=== PATIENT | female | born 1955 | race Caucasian/White ===

== ENCOUNTER 2020-07-25 08:29 | Outpatient (REF) | payer OTHER, SELFPAY ==
[2020-07-25 11:52] LABS: Blood Urea Nitrogen 12 mg/dL (9-16); Estimated Glomerular Filt Rate > 60
== END 2020-07-25 08:30 | disposition home or self-care (01) ==
LOC: HO.10HDL 08:29
PROVIDERS: Visit Provider Surgery
DX: R10.32 Left lower quadrant pain (principal)
CPT/HCPCS: 36415; 82565; 84520

== ENCOUNTER 2020-07-26 08:07 | Outpatient (REF) | payer OTHER, SELFPAY ==
--- NOTE | 2020-07-26 11:23 | CT_ITS ---
EXAMINATION: CT ABDOMEN AND PELVIS WITH CONTRAST CLINICAL INFORMATION: Left lower quadrant pain COMPARISON: Left lower quadrant pain. History of right breast cancer. TECHNIQUE: Multidetector volumetric images were obtained from the superior aspect of the liver through the pubic symphysis following administration 85 mL of Omnipaque 350 intravenous contrast. Sagittal and coronal reformatted images were obtained on the technologist's workstation. Oral contrast: No This CT examination was performed using dose optimization techniques as appropriate, variously including the following: *Automated exposure control *Adjustment of mA and/or kV according to patient size (this includes techniques or standardized protocols for targeted exams where dose is matched to indication/reason for exam; i.e. extremities or head) *Use of iterative reconstruction technique DLP: 450 mGy-cm FINDINGS: LUNG BASES: There is a peripheral scarring seen in the right middle lobe. This may be related to previous radiation. The lung bases are otherwise clear. LIVER, GALLBLADDER, AND BILIARY TREE: The liver is normal in size and shape. There are 2 small low-attenuation lesions in the right lobe of the liver measuring 2 mm axial image 13 and 3 mm axial image 18 series 2. These are difficult to characterize due to small size. There is low-attenuation seen in the medial segment of the left lobe adjacent to the falciform ligament. This is larger than is normally seen for fatty infiltration or vascular changes related to the falciform ligament. This extends toward the gallbladder. There is a 5 mm solid-appearing lesion adjacent to the anterior wall of the gallbladder questionable for a polyp. No gallstones are appreciated. The gallbladder is normal in size. There is no biliary duct dilatation.. PANCREAS: Unremarkable. SPLEEN: Unremarkable. ADRENAL GLANDS: Unremarkable. KIDNEYS AND URETERS: There are small bilateral low-attenuation renal lesions probably representing cysts. Largest measures 1 cm in the right kidney. BLADDER: Unremarkable. GASTROINTESTINAL TRACT: There is stool throughout the colon questionable for constipation. Small and large bowel is otherwise unremarkable. The appendix is unremarkable. The stomach is unremarkable. There may be a small esophageal hernia or distal esophageal diverticulum. ABDOMINAL WALL: No significant hernia is appreciated. LYMPH NODES: Normal. VASCULAR: Unremarkable. PELVIC VISCERA: There is a 1.5 cm low-attenuation lesion exophytic to the uterine fundus questionable for a fibroid. OSSEOUS STRUCTURES: There is arthritis at the left hip joint. There is a small left hip joint effusion. There is low-attenuation seen from the lesser trochanter along the left iliopsoas suggestive of iliopsoas bursitis. There is curvature of the lower lumbar spine to the right and degenerative disc disease at L3-L4. There is a fatty lesion in the right sartorius muscle probably representing a lipoma. IMPRESSION: Stool throughout the colon suggestive of constipation. Liver and gallbladder lesions. Given history of breast cancer, further characterization with MRI should be considered. Probable renal cysts. Probable small fundal uterine fibroid. Arthritis at the left hip joint, joint effusion and fluid along the left iliopsoas tendon suggestive of iliopsoas bursitis.
[2020-07-26] MEDS: iohexoL 350 MG/ML 100 ML INFUS..BTL IV (12:06)
[2020-07-26] MEDS: Barium Sulfate Oral (Berry) 450 ML ORAL.SUSP PO (12:28)
== END 2020-07-26 08:08 | disposition home or self-care (01) ==
LOC: HO.CT 08:07
PROVIDERS: Visit Provider Surgery
DX: R10.32 Left lower quadrant pain (principal); K59.01 Slow transit constipation
CPT/HCPCS: 74177

== ENCOUNTER → 2020-08-02 11:19 | Outpatient (BNVA) | payer OTHER, SELFPAY | PROVIDERS: PCP Internal Medicine; Referring Provider Internal Medicine; Visit Provider Surgery | DX: Z76.89 Persons encountering health services in other specified circumstances (principal) ==

== ENCOUNTER 2020-08-17 11:38 | Outpatient (REF) | payer OTHER, SELFPAY | END 2020-08-17 11:39 | disposition home or self-care (01) | LOC: HO.LAB 11:38 | PROVIDERS: Visit Provider Nurse Practitioner Family | DX: Z13.89 Encounter for screening for other disorder (principal) ==

== ENCOUNTER 2020-09-23 15:48 | Emergency (ER) | payer OTHER, SELFPAY ==
[2020-09-23 15:51] VITALS: BP 186/98; PULSE 71; RESP 16; TEMP 36.4; O2SAT 99; BMI 24.8
--- NOTE | 2020-09-23 18:09 | ED_ITS ---
HPI - Abdominal Pain General Chief Complaint: Abdominal Pain Stated Complaint: ABD PAIN Time Seen by Provider: 09/23/20 18:07 Source: patient Mode of arrival: ambulatory Limitations: no limitations History of Present Illness HPI narrative: this is a 65-year-old female who reports she has a history of hypertension, hyperlipidemia as well as anxiety and chronic left hip pain secondary to question arthritis for which she is apparently seeing doing Orthopedics and has plan and left hip replacement in the near future And additional surgical history includes section and status post total hysterectomy presents today with complaint of ongoing right upper quadrant pain for the past 1 week. Pain is being described as intermittent stabbing like pain that has been progressively worsening initially she was doing Tylenol OTC which would help with the pain slightly however has been getting worse to the point were she had come to the emergency room today there was some associated nausea but no vomiting or diarrhea. No fever. No chest pain or shortness of breath. No recent travel or sick contacts. MD elicited complaint: abdominal pain Pertinent past history: none Onset (ago): day(s) Pain Consistency: intermittent Location: RUQ Severity: severe Quality: stabbing Radiation: RUQ and R flank Exacerbating factors: nothing Relieving factors: nothing Associated symptoms: denies other symptoms Related Data Home Medications Medication Instructions Recorded Confirmed cholecalciferol (vitamin D3) 50 50 mcg PO DAILY 08/02/20 08/02/20 mcg (2,000 unit) capsule clonidine HCl 0.1 mg tablet mg PO 08/02/20 08/02/20 escitalopram oxalate 20 mg tablet 20 mg PO DAILY 08/02/20 08/02/20 losartan 25 mg tablet mg PO 08/02/20 08/02/20 oxcarbazepine 300 mg tablet mg PO 08/02/20 08/02/20 rosuvastatin 40 mg tablet 40 mg PO DAILY 08/02/20 08/02/20 tamoxifen 20 mg tablet 20 mg PO DAILY 08/02/20 08/02/20 Previous Rx's Medication Instructions Recorded oxycodone 5 mg PO BID PRN #10 tab 09/23/20 Allergies Allergy/AdvReac Type Severity Reaction Status Date / Time Sulfa (Sulfonamide Allergy Intermediate JOINT Verified 09/23/20 14:54 Antibiotics) PAIN, [SULFA (SULFONAMIDE muscle ANTIBIOTICS)] pain, joint pains Review of Systems Review of Systems Constitutional: No Weight loss, No Fever, No Chills, No Night Sweats, No Fatigue, No Malaise ENT/Mouth: No Hearing loss, No Ear Pain, No Nasal Congestion, No Sinus Pain, No Hoarseness, No sore throat, No Rhinorrhea, No Swallowing Difficulty Eyes: No Eye Pain, No Swelling, No Redness, No Foreign Body, No Discharge, No Vision Changes Cardiovascular: No Chest Pain, No SOB, No Dyspnea on Exertion, No Orthopnea, No Edema, No Palpitations Respiratory: No Cough, No Sputum, No Wheezing, No Smoke Exposure, No Dyspnea Gastrointestinal: As noted in HPI, No Hematochezia, No Melena Genitourinary: no irregular bleeding, No Dysuria, No Urinary Frequency, No Hematuria, No Urinary Incontinence, No Urgency, No Flank Pain, No Urinary Flow Changes, No Hesitancy Musculoskeletal: No joint pain, No Myalgias, No Joint Swelling Skin: No Skin Lesions, No rash Neuro: No Weakness, No Numbness, No Paresthesias, No Loss of Consciousness, No Dizziness, No Headache Psych: No Social Issues Heme/Lymph: No Bruising, No Bleeding,No Lymphadenopathy Endocrine: No Polyuria, No Polydipsia, No Temperature Intolerance Yes all other systems are reviewed and are negative Physical Exam Vital Signs: Vital Signs: Last Vital Signs Temp 97.6 F 09/23/20 15:51 Pulse 71 09/23/20 15:51 Resp 16 09/23/20 15:51 BP 186/98 H 09/23/20 15:51 Pulse Ox 99 09/23/20 15:51 Body Mass Index 24.8 Reviewed Const: General: cooperative and healthy appearing; No acute distress or intoxicated appearing Nutritional Appearance: average body habitus Orientation/consciousness: patient oriented x3 HENMT: Head: Yes normal to inspection Ears: hearing grossly normal bi laterally Eyes: General: appearance normal, both eyes and all related structures Visual Lowry: normal visual lowry by confrontation Neck: Neck: Yes normal visual inspection, No positive Brudzinski's sign, No positive Kernig's sign and No tender Thyroid: Thyroid normal Chest: Chest palpation & inspection: normal inspection of the chest Resp: Effort & Inspection: normal respiratory effort Cardio: Jugular venous distension: no JVD GI: Inspection: Yes normal to inspection Palpation (GI): Soft to palpation, Tenderness to palpation present (GI) in the RUQ; with no rebound tenderness, not rigid and No Rebound tenderness present Percussion: Yes normal to percussion Auscultation: normal bowel sounds : General: Yes no CVA tenderness Back/Spine/Pelvis: Back: no CVA tenderness Skin: General skin exam: no rashes or lesions noted Neuro: General: patient oriented x3 Extrem: General: Yes normal to inspection MDM - Abdominal Pain MDM Narrative Medical decision making narrative: ultrasound without evidence of acute cholecystitis however there is a 6 mm gallbladder polyp question be the source of her pain. Abdominal exam is overall reassuring. Labs stable. I did have a discussion with her regarding the findings on the CT scan in July as well as ultrasound findings today agreeable that she will follow-up with Dr. Klein in the office. Differential Diagnosis Differential diagnosis: Likely abdominal pain; Unlikely aortic dissection, acute appendicitis, bowel perforation, calculus of kidney, constipation, ovarian cyst, pancreatitis, peptic ulcer disease, renal colic and small bowel obstruction Medical Records Attestation: I reviewed the patient's medical records. Medical records narrative: CT scan reviewed from 07/26/[address] Klein IMPRESSION: Stool throughout the colon suggestive of constipation. Liver and gallbladder lesions. Given history of breast cancer, further characterization with MRI should be considered. Probable renal cysts. Probable small fundal uterine fibroid. Arthritis at the left hip joint, joint effusion and fluid along the left iliopsoas tendon suggestive of iliopsoas bursitis. Lab Data Attestation: I reviewed the patient's lab results. Result diagrams: 09/23/20 18:56 09/23/20 18:56 Labs: Lab Results 09/23/20 09/23/20 09/23/20 Range/Units 18:56 18:56 18:56 WBC 4.3 L (4.8-10.8) X10*3/uL RBC 4.11 L (4.20-5.50) X10*6/uL Hgb 12.8 (12.0-16.0) g/dl Hct 37.8 (37-47) % MCV 92.0 (80-98) fL MCH 31.1 (27.0-33.0) pg MCHC 33.9 (31.0-35.0) g/dl RDW 12.3 (11.0-16.0) % Plt Count 267 (160-400) X10*3/uL MPV 9.3 L (9.4-12.3) fL Immature Gran % (Auto) 0.2 (0.0-0.4) % Neut % (Auto) 72.3 (45-73) % Lymph % (Auto) 17.6 L (20-40) % [place] % (Auto) 9.0 (2-11) % Eos % (Auto) 0.7 (0-4) % Baso % (Auto) 0.2 (0-2) % Lymph # (Auto) 0.8 L (1.2-4.9) X10*3/uL [place] # (Auto) 0.4 (0.1-1.2) X10*3/uL Eos # (Auto) 0.0 (0.0-0.4) X10*3/uL Baso # (Auto) 0.0 (0.0-0.2) X10*3/uL Abs Immat Gran (auto) 0.01 (0.00-0.03) X10*3/uL Absolute Neuts (auto) 3.1 (2.0-8.3) X10*3/uL Absolute Nucleated RBC 0.000 (0.0-0.012) X10*3/uL Nucleated RBC % (auto) 0.0 (0.0-0.2) /100WBC PT 11.6 (10.8-13.0) SEC INR 1.0 (0.9-1.1) APTT 33.9 (24.1-38.0) SEC Sodium 129 L (135-145) mmol/L Potassium 4.7 (3.3-5.1) mmol/l Chloride 95 L (96-108) mmol/L Carbon Dioxide 29 (22-29) mmol/L Anion Gap 10 L (12-20) BUN 10 (9-16) mg/dL Creatinine 0.69 (0.5-1.4) mg/dL Estim Creat Clear Calc 70.2 Estimated GFR > 60 Random Glucose 96 (60-115) mg/dL Calcium 8.9 (8.4-10.2) mg/dL Total Bilirubin 0.3 (0.0-1.0) mg/dL AST 13 (5-31) U/L ALT 11 (0-31) U/L Alkaline Phosphatase 74 (39-117) U/L Total Protein 6.8 (6.5-8.0) g/dL Albumin 4.2 (3.5-5.0) g/dL Imaging Data abdominal ultrasound: Radiologist's impression: [address] [address] Ultrasound Report Signed Patient: Stephanie Cochran DMR#: [id number] : 5Acct:[id number] Age/Sex: 65 / FADM Date: 09/23/20 Loc: HO.ED Attending Dr: Ordering Physician: Emmanuel Phan NP Date of Service: 09/23/20 Procedure(s): US abdomen limited Accession Number(s): [id number] cc: Emmanuel Phan RESEARCH PROFESSOR OF BIOSTATISTICS~ EXAMINATION: US ABDOMEN LIMITED CLINICAL INFORMATION: Upper abdominal pain. COMPARISON: CT abdomen pelvis 07/26/2020 TECHNIQUE: Real-time imaging of the right upper quadrant abdominal viscera. FINDINGS: PANCREAS: The pancreas appears unremarkable, without masses or ductal dilatation, with the exception of the tail which is obscured by bowel gas. LIVER: There is a triangular hyperechoic area in the liver measuring 2.7 x 1.6 x 1.6 cm suggestive of focal fat infiltration rather than a pathologic mass. A similar finding could be seen on the patient's recent CT scan. This is consistent with focal fat infiltration. The small 2 and 3 mm hypoechoic lesions prior CT scan are not visualized on this current study. The liver is normal in size. The liver contour is normal. Parenchymal echogenicity is normal. No focal hepatic lesion. There is no intrahepatic biliary duct dilatation seen. GALLBLADDER: There is a 6 x 5 x 6 mm polyp seen in the gallbladder which was also present at the time of the recent CT scan. The gallbladder is otherwise unremarkable, physiologically distended without evidence of stones, sludge, wall thickening or pericholecystic fluid. COMMON BILE DUCT: Normal in caliber measuring 0.2 cm in diameter. RIGHT KIDNEY: The small cysts seen on CT scan are not appreciated on this ultrasound. No hydronephrosis. No renal calculi or focal parenchymal lesions. The kidney measures 10.0 cm in maximum dimension. FREE FLUID: None. US/US abdomen limited IMPRESSION: 6 mm gallbladder polyp. Triangular hyperechoic region in the liver which appeared of decreased attenuation on CT consistent with hepatic steatosis. 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 Klein this upcoming week Return if any concerns or worsening symptoms Thank you Prescriptions: New oxycodone 5 mg tablet 5 mg PO BID PRN (Reason: pain) Qty: 10 RF: 0 No Action rosuvastatin 40 mg tablet 40 mg PO DAILY RF: 0 escitalopram oxalate 20 mg tablet 20 mg PO DAILY RF: 0 oxcarbazepine 300 mg tablet PO RF: 0 losartan 25 mg tablet PO RF: 0 clonidine HCl 0.1 mg tablet PO RF: 0 tamoxifen 20 mg tablet 20 mg PO DAILY RF: 0 cholecalciferol (vitamin D3) 50 mcg (2,000 unit) capsule 50 mcg PO DAILY RF: 0 Referrals: Jayant Klein MD [Physician] - 3 days PMF Past Medical History Medical History Anxiety Attention deficit hyperactivity disorder Hyperlipidemia Hypertension Iliopsoas bursitis of left hip Invasive ductal carcinoma of right breast Surgical History History of section History of lumpectomy of right breast (~07/09/19) History of repair of anterior cruciate ligament of left knee History of right breast biopsy (~07/02/19) History of total hysterectomy Family History Family History Father History of pancreatic cancer Sister History of lupus Mother No problems noted. Social History Social History Alcohol intake: never Smoking Status: Never smoker Smoked in Last 30 Days: No Use of substances other than those prescribed or required for medical reasons: No Advance Directives: Yes Advance Directives on File: Yes Advance Directives Date on File: 07/25/20
[2020-09-23] MEDS: 0.9 % Sodium Chloride 1,000 ML 999 ML IV (18:58)
[2020-09-23] MEDS: ondansetron HCL 4 MG/2 ML VIAL IVPUSH (18:59)
[2020-09-23] MEDS: Morphine Sulfate 4 MG/ML CARTRIDGE IVPUSH (18:59)
[2020-09-23 19:02] LABS: Basophils Percent Auto 0.2 % (0-2); Eosinophils Percent Auto 0.7 % (0-4); Hematocrit 37.8 % (37-47); Hemoglobin 12.8 g/dl (12.0-16.0); Imm Gran Abs Auto 0.01 X10*3/uL (0.00-0.03); Imm Gran Pct Auto 0.2 % (0.0-0.4); Lymphocytes Absolute Auto 0.8 X10*3/uL (1.2-4.9); Lymphocytes Percent Auto 17.6 % (20-40); Mean Corpuscular HGB Conc 33.9 g/dl (31.0-35.0); Mean Corpuscular Hemoglobin 31.1 pg (27.0-33.0); Mean Platelet Volume 9.3 fL (9.4-12.3); Monocytes Absolute Auto 0.4 X10*3/uL (0.1-1.2); Neutrophils Absolute Auto 3.1 X10*3/uL (2.0-8.3); Neutrophils Percent Auto 72.3 % (45-73); Platelet Count 267 X10*3/uL (160-400); Red Blood Count 4.11 X10*6/uL (4.20-5.50); Red Cell Distribution Width 12.3 % (11.0-16.0); White Blood Count 4.3 X10*3/uL (4.8-10.8)
[2020-09-23 19:04] LABS: MANUAL DIFF FLAG NO
[2020-09-23 19:18] LABS: Prothrombin Time 11.6 SEC (10.8-13.0)
--- NOTE | 2020-09-23 19:19 | PC.NURSE ---
PT RESTING IN STRETCHER C/O FLANK PAIN, NAUSEA, AND DIARRHEA X 1 WK. PT ALERT, RESPIRATIONS EASY, N/L. SKIN W/D. IV PLACED TO LAC, LABS DRAWN TO LAB. PT MEDICATED FOR ABD PAIN RATING 10/10 AND FOR NAUSEA. WILL CONTINUE TO MONITOR PT.
[2020-09-23 19:21] LABS: Partial Thromboplastin Time 33.9 SEC (24.1-38.0)
[2020-09-23 19:26] LABS: Alanine Aminotransferase 11 U/L (0-31); Albumin Level 4.2 g/dL (3.5-5.0); Alkaline Phosphatase 74 U/L (39-117); Anion Gap 10 (12-20); Aspartate Amino Transferase 13 U/L (5-31); Bilirubin Total 0.3 mg/dL (0.0-1.0); Blood Urea Nitrogen 10 mg/dL (9-16); Calcium 8.9 mg/dL (8.4-10.2); Carbon Dioxide 29 mmol/L (22-29); Chloride 95 mmol/L (96-108); Creatinine Clr Calc Pharmacy 70.2; Estimated Glomerular Filt Rate > 60; Glucose Random 96 mg/dL (60-115); Potassium 4.7 mmol/l (3.3-5.1); Sodium 129 mmol/L (135-145); Total Protein 6.8 g/dL (6.5-8.0)
[2020-09-23 21:09] VITALS: BP 180/95; PULSE 68; RESP 16; O2SAT 100
[2020-09-23 21:21] LABS: Glucose Urine UA NEG (NEG); Leukocyte Esterase Urine NEG (NEG); Nitrite Urine NEG (NEG); Specific Gravity - Urine <= 1.005 (1.005-1.025); Urine Blood NEG (NEG); Urine Ketones NEG (NEG); Urine Protein NEG (NEG-TRACE)
[2020-09-23 21:25] LABS: Appearance Urine CLEAR; Color Urine COLORLESS
[2020-09-23 21:41] LABS: RBC Urine 0 /HPF (0); Squamous Epithelial Cell Urine TRACE /LPF; WBC Urine 0-2 /HPF (0-4)
[2020-09-23 21:42] LABS: Bacteria Urine TRACE /LPF; Hyaline Casts Urine 0-2 /LPF
== END 2020-09-23 21:19 | disposition home or self-care (01) ==
PROVIDERS: Nurse Practitioner Primary Care; Emergency Provider Emergency Medicine; PCP Internal Medicine
DX: R10.10 Upper abdominal pain, unspecified (principal); Z79.899 Other long term (current) drug therapy
CPT/HCPCS: 36415; 76705; 80053; 81001; 85025; 85610; 85730; 96361; 96374; 96375; 99284; J2270; J2405

== ENCOUNTER → 2020-09-27 14:54 | Outpatient (BNVA) | payer OTHER, SELFPAY | PROVIDERS: PCP Internal Medicine; Visit Provider Surgery | DX: Z76.89 Persons encountering health services in other specified circumstances (principal) ==

== ENCOUNTER 2021-03-07 | Outpatient (REF) | payer OTHER, SELFPAY ==
[2021-03-09 09:35] LABS: BV Int Neg Control Negative (Negative); BV Int Pos Control Positive (Positive)
== END 2021-03-07 00:01 | disposition home or self-care (01) ==
LOC: HO.LNP
PROVIDERS: Visit Provider Nurse Practitioner Family
DX: L29.2 Pruritus vulvae (principal)
CPT/HCPCS: 87480; 87510; 87660

== ENCOUNTER 2021-04-11 07:49 | Outpatient (REF) | payer OTHER, SELFPAY ==
--- NOTE | ~2021-04-11 | US_ITS ---
EXAMINATION: US ABDOMEN COMPLETE CLINICAL INFORMATION: Cholesterolosis of the gallbladder. COMPARISON: Ultrasound abdomen limited 09/23/2020. CT abdomen and pelvis 07/26/2020. TECHNIQUE: Real-time imaging of the abdominal viscera. FINDINGS: PANCREAS: Normal. ABDOMINAL AORTA: The proximal, mid, and distal segments are normal in caliber. INFERIOR VENA CAVA: Visualized portions are normal. LIVER: The liver is normal in size. The liver contour is normal. There is increased liver echogenicity. No focal hepatic lesion. There is no intrahepatic biliary duct dilatation seen. GALLBLADDER: There is a large echogenic nonmobile polyp measuring 0.60 x 0.37 x 0.65 cm. There are additional small polyp visualized. The gallbladder is physiologically distended without evidence of stones, sludge, wall thickening or pericholecystic fluid. The gallbladder wall thickness is 0.2 cm. COMMON BILE DUCT: Normal in caliber measuring 0.5 cm in diameter. RIGHT KIDNEY: Normal. No hydronephrosis. No renal calculi or focal parenchymal lesions. The kidney measures 10.5 cm in maximum dimension. LEFT KIDNEY: Normal. No hydronephrosis. No renal calculi or focal parenchymal lesions. The kidney measures 10.7 cm in maximum dimension. SPLEEN: Normal. The spleen measures 8.2 cm in maximum dimension. FREE FLUID: None. US/US abdomen complete IMPRESSION: Multiple echogenic gallbladder polyps. Hepatic steatosis without focal lesion. The rest of the abdominal ultrasound is unremarkable.
[2021-04-11 09:21] LABS: Cholesterol 189 mg/dL; Glucose Fasting 112 mg/dL (60-99); HDL Cholesterol 71 mg/dL; LDL Cholesterol Calculated 97 mg/dl; Triglycerides 106 mg/dL
[2021-04-11 09:44] LABS: Vitamin D 25-OH Total 41.4 ng/mL (>30)
== END 2021-04-11 07:50 | disposition home or self-care (01) ==
LOC: HO.US 07:49
PROVIDERS: Internal Medicine; Visit Provider Surgery
DX: K82.4 Cholesterolosis of gallbladder (principal)
CPT/HCPCS: 36415; 76700; 80061; 82306; 82947

== ENCOUNTER → 2021-04-20 15:28 | Outpatient (BNVA) | payer OTHER, SELFPAY | PROVIDERS: PCP Internal Medicine; Referring Provider Internal Medicine; Visit Provider Surgery ==

== ENCOUNTER 2021-05-16 13:00 | Outpatient (RCR) | payer OTHER, SELFPAY | END 2021-09-01 14:50 | disposition home or self-care (01) | LOC: HO.PTWFD 13:00 | PROVIDERS: Visit Provider Internal Medicine | DX: S46.911A Strain of unspecified muscle, fascia and tendon at shoulder and upper arm level, right arm, initial encounter (principal) | CPT/HCPCS: 97110; 97140; 97163; 97535 ==

== ENCOUNTER 2021-06-13 13:13 | Outpatient (REF) | payer OTHER, SELFPAY ==
--- NOTE | ~2021-06-13 | MM_ITS ---
EXAMINATION: MM DIAGNOSTIC DIGITAL BREAST TOMOSYNTHESIS, BILATERAL CLINICAL INFORMATION: Due for yearly. History invasive ductal cancer right breast status post lumpectomy 07/09/2019. COMPARISON: Mammography: 06/09/2020, 07/09/2019, 07/02/2019, 06/24/2019, 06/04/2019, 05/24/2017 TECHNIQUE: Digital breast tomosynthesis is performed in both the craniocaudal and mediolateral oblique views along with computer-aided detection (CAD). Synthesized 2D images are generated from the tomosynthesis. FINDINGS: There are scattered areas of fibroglandular density (ACR BI-RADS breast composition Category b). Breast tissue composition borders on heterogeneously dense. There are post therapy changes on the right with reduced breast size and mild scarring anterior upper breast. Neither breast shows interval mass or architectural abnormality or abnormal calcifications. The axilla are unremarkable. Results are provided to the patient at time of visit by the technologist. MM/MM tomosynthesis diagnostic BI IMPRESSION: No mammographic evidence of malignancy. Post therapy changes right breast. ASSESSMENT: BI-RADS 2: Benign RECOMMENDATION: Annual bilateral mammography. This patient's information was entered into a reminder system with a target due date for their next mammogram.
== END 2021-06-13 13:14 | disposition home or self-care (01) ==
LOC: HO.MAMMO 13:13
PROVIDERS: Visit Provider Internal Medicine
DX: R92.1 Mammographic calcification found on diagnostic imaging of breast (principal)
CPT/HCPCS: 77062; 77066

== ENCOUNTER 2021-06-14 10:00 | Outpatient (RCR) | payer OTHER, SELFPAY ==
--- NOTE | 2021-05-18 09:52 | MHC.OT.OLE ---
[address] [phone] F: [phone] Occupational Therapy Lymphedema Evaluation Diagnosis: Right UE Lymphedema Date of Onset: 12/19/20 Attending Provider: Cassandra Valentin MD Prescribed Treatment: Eval and treat MD Follow Up Appointment: History of Current Condition: Pt with a recent ho right shoulder pain improving with PT at [facility] in [place]. Pt noticed worsening right arm swelling with radial wrist pain Significant Medical History: Right THR 12/2020 Precautions/Contraindications: RUE Lymphedema Patient Goals: Improve the swelling and pain Hand Dominance: Right Observations: Outcome Measures: 50 Prior Level of Function and Occupation Living Situation: Lives with her and 29 yo son. Family and/or Social Report: Self-Intermediate Support: Moderate difficulty with homemaking, food prep washing back , sleeping primarily due to shoulder pain Employment Status: Wrist and thumb pain with typing Leisure Activities/Hobbies: Active, golf, karate Current Level of Function and Occupation Self-Care and Home Care: Indep with right shoulder and wrist pain Employment Status: [employer] Leisure Activites/Hobbies: Unable to golf, karate since hip surgery Driving: WNL Sleeping: Right shoulder pain Vision: Balance: WNL Pain Assessment Pain Score: 5 Pain Scale Used: Numeric (0 - 10) Pain Location and Description: 5/10 wrist/thumb . Ache Aggravating Factors: Alleviating Factors: Skin and Soft Tissue Assessment Skin and Soft Tissue: Swelling Comments: Right arm and hand non pitting edema noted. No temp or color changes noted Nerve assessment Ulnar Nerve: Not Tested Median Nerve: Not Tested Radial Nerve: Not Tested Comments: Sensory Assessment Temperature: Light Touch: WNL Proprioception: Vibration: Comments: Edema Assessment Upper Extremity: Right Impaired Lower Extremity: Comments: Volumeter measure Right 1690 ml ...Left 1640 ml Dexterity Assessment Dexterity: WNL Comments: Special Tests Comments: AROM (PROM) Strength Lower Extremity Hip Flexion: Knee Flexion: Knee Extension: Ankle Dorsiflexion: Ankle Plantarflexion: Ankle Eversion: Ankle Inversion: Comments: Cervical Flexion: Extension: Lateral Flexion: Rotation: Comments: Shoulder Flexion: Extension: Abduction: Internal Rotation: External Rotation: Comments: WFL Flexion: Extension: Abduction: Internal Rotation: External Rotation: Comments: Elbow Flexion: Extension: Forearm Pronation: Forearm Supination: Comments: Flexion: Extension: Forearm Pronation: Forearm Supination: Comments: Wrist Flexion: Extension: Ulnar Deviation: Radial Deviation: Comments: WNL Flexion: Extension: Ulnar Deviation: Radial Deviation: Comments: Thumb Thumb CMC Flexion: Thumb MCP Flexion: Thumb IP Flexion: Radial Abduction: Palmar Abduction: Opposition: Comments: WNL. 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 Patient demonstrates Barriers to Learning: None Readiness for Learning: Accepting Who was educated? Patient Comments: Plan of Care Assessment: Pt is a 65 yo female with a recent onset of right UE edema and radial wrist and thumb pain. Pt in PT for right shoulder pain with improvement over this past month. Difficulty with daily activities is primarily due to right shoulder pain She now presents with S+S consistant with RUE lymphedema and possible early signs of 1st CMC jt OA. She will benefit from a compression sleeve and gauntlet and OT for lymphedema and thumb pain STG Duration: 3 wks Short Term Goals: Demo indep with HEP Demo self massage and decongestion ex Dec right thumb pain with orthosis Dec RUE vol by 20 ml LTG Duration: 6 wks Intermediate Goals: Indep in self management of lymphedema Demo compliance with wear of compression garment Dec RUE vol to <1660 ml Dec right thumb pain to occassional Frequency and Duration: The patient will be seen 3x wk x 6 wks Treatment Plan: Therapeutic Exercise Therapeutic Activity Home Exercise Program Splinting Patient Education Edema Control ADL Training Kinesiotaping Treatment Plan Comments: Lymphedema Treatment Plan: Compression Bandaging Exercise: Stretching, strengthening, manual therapy Manual Lymphatic Drainage Other Referral for compression garment and instructions for donning/doffing Self Care Training: bandaging, skin care, self massage Skin Care Education Lymphedema Treatment Plan Comments: 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 Electronically Signed By: Kait Roe OT CHT CLT Reviewed/agree with student documentation: N/A Therapist: Please sign and return to therapist, thank you for your referral.
== END 2022-02-20 11:00 | disposition home or self-care (01) ==
LOC: HO.OT 10:00
PROVIDERS: PCP Internal Medicine; Visit Provider Surgery
DX: I89.0 Lymphedema, not elsewhere classified (principal)
CPT/HCPCS: 97110; 97140; 97760

== ENCOUNTER → 2021-10-19 15:09 | Outpatient (BNVA) | payer OTHER, SELFPAY | PROVIDERS: PCP Internal Medicine; Referring Provider Internal Medicine; Visit Provider Surgery ==

== ENCOUNTER 2021-11-20 11:10 | Day surgery (SDC) | payer OTHER, SELFPAY ==
[2021-11-14 11:36] VITALS: BMI 27.4
--- NOTE | 2021-11-14 14:16 | P.CONAN_ITS ---
Documented by User: Isaura Fajardo NP 11/14/21 14:23 HPI - Anesthesia Eval Consult details Narrative: 66yo F for Left Excision of Upper Back Lipoma Nonrheumatic mitral regurg found during preop work up for Total Hip 12/2020, surgery/anesthesia tolerated without issue. Follows with Dr Landeros, GWEN done. [facility] Active Problems Active Problems: All Active Problems (Updated 11/14/21 @ 11:36 by Diana Yao RN) Polyp of gallbladder (Acute) Lymphedema (Acute) Lipoma of back (Acute) Hypertension (Acute) Depression with anxiety (Acute) Right shoulder strain (Acute) Mitral valve regurgitation (Acute) Invasive ductal carcinoma of right breast (Acute) Past Medical History Medical History (Updated 11/14/21 @ 11:36 by Diana Yao RN) Anxiety Attention deficit hyperactivity disorder COVID-19 vaccine series completed Depression with anxiety Hyperlipidemia Hypertension Invasive ductal carcinoma of right breast Mitral valve regurgitation Right shoulder strain Family History Family History Father History of pancreatic cancer Sister History of lupus Mother No problems noted. Son Mental health disorder Surgical History Surgical History (Updated 11/14/21 @ 11:34 by Diana Yao RN) H/O colonoscopy History of section History of esophagogastroduodenoscopy (EGD) History of lumpectomy of right breast (~07/09/19) History of repair of anterior cruciate ligament of left knee History of right breast biopsy (~07/02/19) History of total hysterectomy Social History Social History Housing: House Alcohol intake: never Patient Tobacco Use Status: Former Tobacco user Tobacco use type: Cigarette Years Smoked: 2yrs e-Cigarette/Vaping Use: Currently Using Use of substances other than those prescribed or required for medical reasons: Yes Substance Use Type: Marijuana Advance Directives: Yes Advance Directives Information Provided: Yes Advance Directives on File: Yes Advance Directives Date on File: 07/25/20 Current occupational status: employed Cognitive needs: No Hearing needs: No Vision needs: No Meds Allergies Allergy/AdvReac Type Severity Reaction Status Date / Time Sulfa AdvReac Intermediate muscle/joint Verified 11/20/21 11:53 (Sulfonamide Antibiotics) pain [SULFA (SULFONAMIDE ANTIBIOTICS)] Home Medications Medication Instructions Recorded Confirmed Last Taken Type clonidine HCl 0.1 0.1 mg PO BID 08/02/20 11/14/21 11/20/21 History mg tablet hydrochlorothiazi 25 mg PO DAILY 03/31/21 11/14/21 Unknown History de 25 mg tablet lamotrigine 200 200 mg PO DAILY 09/22/21 11/14/21 11/20/21 History mg tablet (Lamictal) escitalopram 10 mg PO DAILY 10/06/21 11/14/21 11/20/21 History oxalate 10 mg tablet hydroxyzine HCl 25 mg PO .QD PRN 10/06/21 11/14/21 Unknown History 25 mg tablet tab Exam Exam Date and Time: November 14, 2021 1416 Height,Weight and Vital Signs: Height 5 ft 1 in Weight 65.828 kg Narrative Narrative: EKG 06/2021 NSR with good R wave progression, leftward axis with normal intervals GWEN 07/2021 LV size is normal . LV wall thickness is upper normal. LV systolic function is normal. LVEF 60-65%. No RWMA LA is dilated. No mass/thrombus seen in LA or LA appendage Thickened mitral valve leaflets with severe shortening and moderate thickening of chordae, with restricted leaflet motion and apical tethering in asystole. Grade 3 mitral regurg, no significant mitral stenosis. RV is normal in size. RV systolic function appears preserved. Assessment and Plan Assessment Anesthesia Assessment: Chart Reviewed Documented by User: Kaye Cuevas MD 11/20/21 13:13 [facility] Past Medical History Medical History (Updated 11/14/21 @ 11:36 by Diana Yao RN) Anxiety Attention deficit hyperactivity disorder COVID-19 vaccine series completed Depression with anxiety Hyperlipidemia Hypertension Invasive ductal carcinoma of right breast Mitral valve regurgitation Right shoulder strain Family History Family History Father History of pancreatic cancer Sister History of lupus Mother No problems noted. Son Mental health disorder Family history of problems with anesthesia: No Surgical History Surgical History (Updated 11/14/21 @ 11:34 by Diana Yao RN) H/O colonoscopy History of section History of esophagogastroduodenoscopy (EGD) History of lumpectomy of right breast (~07/09/19) History of repair of anterior cruciate ligament of left knee History of right breast biopsy (~07/02/19) History of total hysterectomy History of Problems with Anesthesia: No Social History Social History Housing: House Alcohol intake: never Patient Tobacco Use Status: Former Tobacco user Tobacco use type: Cigarette Years Smoked: 2yrs e-Cigarette/Vaping Use: Currently Using Use of substances other than those prescribed or required for medical reasons: Yes Substance Use Type: Marijuana Advance Directives: Yes Advance Directives Information Provided: Yes Advance Directives on File: Yes Advance Directives Date on File: 07/25/20 Current occupational status: employed Cognitive needs: No Hearing needs: No Vision needs: No Meds Allergies Allergy/AdvReac Type Severity Reaction Status Date / Time Sulfa AdvReac Intermediate muscle/joint Verified 11/20/21 11:53 (Sulfonamide Antibiotics) pain [SULFA (SULFONAMIDE ANTIBIOTICS)] Home Medications Medication Instructions Recorded Confirmed Last Taken Type clonidine HCl 0.1 0.1 mg PO BID 08/02/20 11/14/21 11/20/21 History mg tablet hydrochlorothiazi 25 mg PO DAILY 03/31/21 11/14/21 Unknown History de 25 mg tablet lamotrigine 200 200 mg PO DAILY 09/22/21 11/14/21 11/20/21 History mg tablet (Lamictal) escitalopram 10 mg PO DAILY 10/06/21 11/14/21 11/20/21 History oxalate 10 mg tablet hydroxyzine HCl 25 mg PO .QD PRN 10/06/21 11/14/21 Unknown History 25 mg tablet tab Exam Height,Weight and Vital Signs: Height 5 ft 1 in Weight 65.828 kg Vital Signs Temp Pulse Resp BP Pulse Ox 11/20/21 11:54 98.0 F 53 16 129/57 L 98 Airway Mallampati Class: II TM Dist: >3cm Neck ROM: Full Heart: RRR + ? systolic murmur Lungs: CTAB Assessment and Plan Assessment Anesthesia Assessment: Anesthesia Plan Discussed Final Anesthetic Review Family History of Problems with Anesthesia: No History of Problems with Anesthesia: No NPO: Yes ASA Class: II Final Preanesthetic Review: No Changes in Pt Med Stat, Meds/Allgs Chart Reviewed, Consent Obtained/Reviewed and Anes Risks/Benef Reviewed Patient Risk: Intermediate Procedure Risk: Low Assessment/Block/Sedation in SS: Assess/Block/Sedation-SS Anesthetic Plan Anesthetic Plan: GA Disposition: Standard PACU
[2021-11-20] VITALS (7 sets, daily range): BP systolic 125–150; BP diastolic 57–75; PULSE 53–88; RESP 16–20; TEMP 36.1–36.7; O2SAT 98–100
[2021-11-20] MEDS: Lactated Ringers 1,000 ML 100 ML IVCONT (12:37)
--- NOTE | 2021-11-20 12:57 | MHC.SHP ---
Pre-Procedural Eval Section A Date of Service: 11/20/21 The patient is an INPATIENT: No Changes since office visit: Yes Patient answered all questions; No Cold of Flu in the past 2 weeks, No New Medical Problems and No Changes in Medication The History & Physical has been completed within 30 days and I have reviewed it.: Yes Section B Chief Complaint: benign lipomatous neoplasm of skin Allergies: Allergies Allergy/AdvReac Type Severity Reaction Status Date / Time Sulfa (Sulfonamide AdvReac Intermediate muscle/joint Verified 11/20/21 11:53 Antibiotics) pain [SULFA (SULFONAMIDE ANTIBIOTICS)] Plan Diagnosis/Plan: Unchanged I have reviewed the history and physical and performed a pertinent physical examination on my patient. No changes have occurred unless specified.
--- NOTE | 2021-11-20 13:57 | W.PM.OPN ---
Operative Note Operative Note Date of Service: 11/20/21 Narrative: Preoperative diagnosis:Lipoma left midback Postoperative diagnosis: same Procedure: excision of lipoma left midback Surgeon: Jayant Klein MD Sports Leadership Instructor: Arleth Romero PA-C Anesthesia: general LMA Indications for procedure: 66-year-old female patient with a large lipoma located below the scapula the left side, increasing in size and causing discomfort. Operative findings: 12 cm soft tissue mass below the left scapula consistent with a lipoma Specimen: lipoma left midback Estimated blood loss: 2 mL Complications: none Procedure details: patient was brought to the OR and placed in a supine position. After administering general anesthesia the patient was rotated to a right lateral decubitus position. The lesion was identified in the Left mid back. the overlying skin was prepped with ChloraPrep and draped in a sterile fashion. A surgical time-out was called the consent confirmed. Patient received preoperative antibiotics and Venodyne boots were in place. Local anesthesia consisting of 0.5% Sensorcaine was then infiltrated in a transverse fashion over the lipoma. Incision was then made with a scalpel carried out through subcutaneous tissue up to the lipoma. A combination of sharp and blunt dissection was then used to dissect the lipoma from the surrounding subcutaneous tissue. The lipoma was completely excised and sent to pathology for further examination. Hemostasis was then assured using electrocautery. Deep subcutaneous tissue and dermis were then reapproximated using interrupted 3-0 Polysorb sutures. Skin was closed using a running subcuticular 4-0 Polysorb suture. Sterile dressings including Steri-Strips 4 x 4 gauze and Tegaderm were then applied. The patient tolerated the procedure well. Sponge, instrument, and needle counts were reported as correct. The patient was transferred to PACU in stable condition.
== END 2021-11-20 15:30 | disposition home or self-care (01) ==
PROVIDERS: PCP Internal Medicine; Visit Provider Surgery
PROC: (CPT 21931; principal; 2021-11-20 13:00)
DX: D17.1 Benign lipomatous neoplasm of skin and subcutaneous tissue of trunk (principal); C50.912 Malignant neoplasm of unspecified site of left female breast; I10 Essential (primary) hypertension; E78.5 Hyperlipidemia, unspecified; F32.9 Major depressive disorder, single episode, unspecified; Z79.810 Long term (current) use of selective estrogen receptor modulators (SERMs); Z79.899 Other long term (current) drug therapy; Z88.2 Allergy status to sulfonamides; Z96.642 Presence of left artificial hip joint; Z87.891 Personal history of nicotine dependence
CPT/HCPCS: 21931; 88304; J0690; J1100; J2250; J2405; J3010

== ENCOUNTER → 2021-11-30 13:38 | Outpatient (BNVA) | payer OTHER, SELFPAY | PROVIDERS: PCP Internal Medicine; Referring Provider Internal Medicine; Visit Provider Surgery ==

== ENCOUNTER 2022-04-02 09:01 | Outpatient (REF) | payer OTHER, SELFPAY ==
[2022-04-02 12:46] LABS: MANUAL DIFF FLAG NO
[2022-04-02 12:55] LABS: Basophils Percent Auto 0.4 % (0-2); Eosinophils Absolute Auto 0.1 X10*3/uL (0.0-0.4); Eosinophils Percent Auto 1.1 % (0-4); Hematocrit 42.3 % (37.0-47.0); Hemoglobin 13.9 g/dl (12.0-16.0); Imm Gran Abs Auto 0.02 X10*3/uL (0.00-0.03); Imm Gran Pct Auto 0.3 % (0.0-0.4); Lymphocytes Absolute Auto 1.2 X10*3/uL (1.2-4.9); Lymphocytes Percent Auto 17.4 % (20-40); Mean Corpuscular HGB Conc 32.9 g/dl (31.0-35.0); Mean Corpuscular Hemoglobin 30.3 pg (27.0-33.0); Mean Corpuscular Volume 92.2 fL (80.0-98.0); Mean Platelet Volume 10.4 fL (9.4-12.3); Monocytes Absolute Auto 0.5 X10*3/uL (0.1-1.2); Monocytes Percent Auto 7.6 % (2-11); Neutrophils Absolute Auto 5.1 x10*3/uL (2.0-8.3); Neutrophils Percent Auto 73.2 % (45-73); Platelet Count 327 X10*3/uL (160-400); Red Blood Count 4.59 X10*6/uL (4.20-5.50); Red Cell Distribution Width 12.6 % (11.0-16.0)
[2022-04-02 13:11] LABS: Alanine Aminotransferase 21 U/L (0-31); Albumin Level 4.2 g/dL (3.5-5.0); Alkaline Phosphatase 60 U/L (39-117); Anion Gap 12 (12-20); Aspartate Amino Transferase 19 U/L (5-31); Bilirubin Total 0.5 mg/dL (0.0-1.0); Blood Urea Nitrogen 12 mg/dL (9-16); Calcium 9.4 mg/dL (8.4-10.2); Carbon Dioxide 28 mmol/L (22-29); Chloride 101 mmol/L (96-108); Cholesterol 149 mg/dL; Estimated Glomerular Filt Rate 51; Glucose Fasting 125 mg/dL (60-99); HDL Cholesterol 51 mg/dL; Iron 68 mcg/dL (30-160); LDL Cholesterol Calculated 70 mg/dl; Percent Iron Saturation 19 % (15-50); Potassium 3.9 mmol/L (3.3-5.1); Sodium 137 mmol/L (135-145); Total Iron Binding Capacity 360 mcg/dL (228-428); Triglycerides 143 mg/dL; Unsaturated Iron Binding 292 ug/dL
[2022-04-02 13:16] LABS: Estimated Average Glucose 128 mg/dL; Hemoglobin A1c % 6.1 %
[2022-04-02 13:33] LABS: Vitamin D 25-OH Total 31.7 ng/mL (>30)
== END 2022-04-02 09:02 | disposition home or self-care (01) ==
LOC: HO.HMGCLDS 09:01
PROVIDERS: Visit Provider Internal Medicine
DX: Z00.01 Encounter for general adult medical examination with abnormal findings (principal); I10 Essential (primary) hypertension; N95.9 Unspecified menopausal and perimenopausal disorder; R73.01 Impaired fasting glucose; E78.5 Hyperlipidemia, unspecified
CPT/HCPCS: 36415; 80053; 80061; 82306; 83036; 83540; 85025

== ENCOUNTER 2022-06-15 12:17 | Outpatient (REF) | payer OTHER, SELFPAY ==
--- NOTE | ~2022-06-15 | MM_ITS ---
EXAMINATION: MM DIAGNOSTIC DIGITAL BREAST TOMOSYNTHESIS, BILATERAL CLINICAL INFORMATION: History of right breast cancer 2019. Screening. COMPARISON: Mammography: June 13, 2021 and studies dating back to November 28, 2012 TECHNIQUE: Digital breast tomosynthesis is performed in both the craniocaudal and mediolateral oblique views along with computer-aided detection (CAD). Synthesized 2D images are generated from the tomosynthesis. FINDINGS: The breasts are heterogeneously dense, which may obscure small masses (ACR BI-RADS breast composition Category c). There is a stable parenchymal pattern of the left breast without new abnormal dominant mass or suspicious grouping of microcalcifications. Region of postsurgical architectural distortion is again noted within the superior aspect of the right breast. Results are provided to the patient at time of visit by the technologist. MM/MM tomosynthesis diagnostic BI IMPRESSION: There are no significant changes from prior study. ASSESSMENT: BI-RADS 2: Benign RECOMMENDATION: Routine annual mammography screening due in 12 months. This patient's information was entered into a reminder system with a target due date for their next mammogram.
== END 2022-06-15 12:18 | disposition home or self-care (01) ==
LOC: HO.MAMMO 12:17
PROVIDERS: PCP Internal Medicine; Visit Provider Internal Medicine
DX: R92.1 Mammographic calcification found on diagnostic imaging of breast (principal)
CPT/HCPCS: 77062; 77066

== ENCOUNTER 2022-08-29 12:40 | Day surgery (SDC) | payer OTHER, SELFPAY ==
[2022-08-28 09:48] VITALS: BMI 28.0
--- NOTE | 2022-08-28 13:30 | HO.ANESPROP2 ---
Documented by User: Isaura Fajardo NP 08/28/22 13:35 HPI - Anesthesia Eval Consult details Narrative: 67yo F for Upper Endoscopy and Colonoscopy PMFSH Active Problems Active Problems: All Active Problems (Updated 05/23/22 @ 14:01 by Yusuf Jo MD) Yeast infection of the skin (Acute) Chronic heartburn (Acute) Bipolar 1 disorder, manic, full remission (Acute) Dyslipidemia (Acute) Impaired fasting glucose (Acute) Polyp of gallbladder (Acute) Hypertension (Acute) Mitral valve regurgitation (Acute) Past Medical History Medical History Bipolar 1 disorder, manic, full remission Chronic heartburn COVID-19 vaccine series completed Dyslipidemia History of invasive ductal carcinoma of breast Hyperlipidemia Hypertension Impaired fasting glucose Mitral valve regurgitation Right shoulder strain Family History Family History Father History of pancreatic cancer Sister History of lupus Mother No problems noted. Son Mental health disorder Family history of problems with anesthesia: No Surgical History Surgical History H/O colonoscopy History of section History of esophagogastroduodenoscopy (EGD) History of lumpectomy of right breast (~07/09/19) History of repair of anterior cruciate ligament of left knee History of right breast biopsy (~07/02/19) History of total hysterectomy History of Problems with Anesthesia: No Social History Social History Housing: House Alcohol intake: never Patient Tobacco Use Status: Former Tobacco user Tobacco use type: Cigarette Years Smoked: 2yrs Smoked in Last 30 Days: No e-Cigarette/Vaping Use: Currently Using Use of substances other than those prescribed or required for medical reasons: No Substance Use Type: Marijuana Are you DNR?: No Advance Directives: Yes Advance Directives on File: Yes Advance Directives Date on File: 07/25/20 Current occupational status: employed Cognitive needs: No Hearing needs: No Vision needs: Yes Meds Allergies Allergy/AdvReac Type Severity Reaction Status Date / Time Sulfa (Sulfonamide AdvReac Intermediate muscle/joint Verified 08/29/22 13:27 Antibiotics) pain [SULFA (SULFONAMIDE ANTIBIOTICS)] Home Medications Medication Instructions Recorded Confirmed Last Taken Type clonidine HCl 0.1 mg tablet 0.1 mg PO BID 08/02/20 08/29/22 08/29/22 09:00 History hydrochlorothiazide 25 mg tablet 25 mg PO DAILY 03/31/21 08/29/22 Unknown History hydroxyzine HCl 25 mg tablet 25 mg PO .QD PRN Anxiety 10/06/21 08/29/22 Unknown History escitalopram oxalate 10 mg tablet 20 mg PO DAILY 04/02/22 08/29/22 08/29/22 09:00 History lamotrigine 200 mg tablet 250 mg PO DAILY 04/02/22 08/29/22 08/29/22 09:00 History (Lamictal) Exam Exam Date and Time: August 28, 2022 1330 Height,Weight and Vital Signs: Height 5 ft 1.5 in Weight 68.492 kg Pertinent Lab Results Pertinent Lab Results: Laboratory Tests 04/02/22 04/02/22 09:13 09:13 WBC 7.0 Hgb 13.9 Hct 42.3 Plt Count 327 Sodium 137 Potassium 3.9 D Chloride 101 Carbon Dioxide 28 BUN 12 Creatinine 1.08 Narrative Narrative: EKG 07/2022 NSR with good R wave progression Leftward axis with normal intervals ECHO 07/2022 1. LV size is normal 2. LV wall thickness is normal 3. LV systolic function is hyperdynamic with EF >70% 4. Indeterminate diastolic function 5. No evidence of wall motion abnormalities 6. LA size is upper limits of normal 7. RV systolic function is normal 8. MOderate thickening of anterior mitral valve leaflet 9. Mild thickening of posterior mitral valve leaflet 10. Moderate mitral regurg 11. No evidence of pulm htn 12. Compared with findings of prior 05/2021, stable moderate MR. Myxomatous appearing anterior mitral leaflets with mild chordal DEVON Assessment and Plan Assessment Anesthesia Assessment: Chart Reviewed Final Anesthetic Review Family History of Problems with Anesthesia: No History of Problems with Anesthesia: No Documented by User: Braxton Garcia MD 08/29/22 14:30 [facility] Past Medical History Medical History Bipolar 1 disorder, manic, full remission Chronic heartburn COVID-19 vaccine series completed Dyslipidemia History of invasive ductal carcinoma of breast Hyperlipidemia Hypertension Impaired fasting glucose Mitral valve regurgitation Right shoulder strain Family History Family History Father History of pancreatic cancer Sister History of lupus Mother No problems noted. Son Mental health disorder Surgical History Surgical History H/O colonoscopy History of section History of esophagogastroduodenoscopy (EGD) History of lumpectomy of right breast (~07/09/19) History of repair of anterior cruciate ligament of left knee History of right breast biopsy (~07/02/19) History of total hysterectomy Social History Social History Housing: House Alcohol intake: never Patient Tobacco Use Status: Former Tobacco user Tobacco use type: Cigarette Years Smoked: 2yrs Smoked in Last 30 Days: No e-Cigarette/Vaping Use: Currently Using Use of substances other than those prescribed or required for medical reasons: No Substance Use Type: Marijuana Are you DNR?: No Advance Directives: Yes Advance Directives on File: Yes Advance Directives Date on File: 07/25/20 Current occupational status: employed Cognitive needs: No Hearing needs: No Vision needs: Yes Meds Allergies Allergy/AdvReac Type Severity Reaction Status Date / Time Sulfa (Sulfonamide AdvReac Intermediate muscle/joint Verified 08/29/22 13:27 Antibiotics) pain [SULFA (SULFONAMIDE ANTIBIOTICS)] Home Medications Medication Instructions Recorded Confirmed Last Taken Type clonidine HCl 0.1 mg tablet 0.1 mg PO BID 08/02/20 08/29/22 08/29/22 09:00 History hydrochlorothiazide 25 mg tablet 25 mg PO DAILY 03/31/21 08/29/22 Unknown History hydroxyzine HCl 25 mg tablet 25 mg PO .QD PRN Anxiety 10/06/21 08/29/22 Unknown History escitalopram oxalate 10 mg tablet 20 mg PO DAILY 04/02/22 08/29/22 08/29/22 09:00 History lamotrigine 200 mg tablet 250 mg PO DAILY 04/02/22 08/29/22 08/29/22 09:00 History (Lamictal) Exam Airway Mallampati Class: I TM Dist: >3cm Neck ROM: Full Heart: rrr Lungs: clear Assessment and Plan Final Anesthetic Review NPO: Yes ASA Class: III Final Preanesthetic Review: No Changes in Pt Med Stat, Meds/Allgs Chart Reviewed, Consent Obtained/Reviewed and Anes Risks/Benef Reviewed Patient Risk: Intermediate Procedure Risk: Low Anesthetic Plan Anesthetic Plan: MAC: Disposition: Standard PACU
[2022-08-29 13:28] VITALS: BMI 27.8
[2022-08-29 13:32] VITALS: BP 170/81; PULSE 77; RESP 16; TEMP 36.6; O2SAT 99
--- NOTE | 2022-08-29 14:30 | MHC.SHP ---
Pre-Procedural Eval Section A Date of Service: 08/29/22 The patient is an INPATIENT: No Changes since office visit: No Cold of Flu in the past 2 weeks, No New Medical Problems, No Changes in Medication and No Patient answered all questions The History & Physical has been completed within 30 days and I have reviewed it.: Yes Section B Chief Complaint: reflux disease,dysphagia,screening Allergies: Allergies Allergy/AdvReac Type Severity Reaction Status Date / Time Sulfa (Sulfonamide AdvReac Intermediate muscle/joint Verified 08/29/22 13:27 Antibiotics) pain [SULFA (SULFONAMIDE ANTIBIOTICS)] Plan I have reviewed the history and physical and performed a pertinent physical examination on my patient. No changes have occurred unless specified.
--- NOTE | 2022-08-29 15:18 | P.BOP_ITS ---
Brief Operative Note Date of Service: 08/29/22 Pre-op diagnosis: dysphagia,gerd,screening Post-op diagnosis: same Surgeon: Wilmer Puckett Anesthesia: MAC Was an Mining Engineer used for this Procedure?: No Estimated blood loss (mL): 2 Pathology: other Condition: stable Disposition: PACU
[2022-08-29 15:23] VITALS: BP 101/57; PULSE 58; RESP 16; TEMP 36.3; O2SAT 99
[2022-08-29 15:38] VITALS: BP 113/94; PULSE 660; RESP 16; TEMP 37.1; O2SAT 99
--- NOTE | 2022-08-30 05:25 | OP_ITS ---
SURGEON: Wilmer Puckett MD INDICATIONS: 1. Dysphagia. 2. Gastroesophageal reflux disease. 3. Colon cancer screening. PREOPERATIVE DIAGNOSIS: POSTOPERATIVE DIAGNOSIS: PROCEDURE PERFORMED: 1. Upper endoscopy with biopsy. 2. Colonoscopy to the terminal ileum. ESTIMATED BLOOD LOSS: COMPLICATIONS: ANESTHESIA: Monitored anesthesia care. ASSISTANTS: SPECIMENS: DESCRIPTION OF PROCEDURE: Date do service is 08/29/22. History and physical performed. The risks and benefits of the procedure were explained to the patient. Informed consent was obtained. The patient was placed in the left lateral decubitus position. A digital rectal exam was performed prior to the colonoscopy. The Olympus video gastroscope was introduced into the esophagus, stomach, and duodenum. Examination was performed. The scope was removed. She was repositioned for colonoscopy. A digital rectal exam was performed and was found to be normal. The Olympus pediatric video colonoscope was introduced into the rectum and advanced to the cecum without difficulty. The cecum was identified by transillumination, palpation, and identification of ileocecal valve. Examination was performed. The scope was removed. She tolerated both procedures well, returned to recovery area in stable condition. FINDINGS: Upper endoscopy: Esophagus: Esophagus was normal. There was a small sliding hiatal hernia. There was no stricture. The EG junction was slightly irregular. This was biopsied. There was no esophagitis. Stomach: The stomach showed no evidence of masses, ulcers, or polyps. Antral biopsies were obtained to evaluate for H pylori. Duodenum: The bulb and second portion were normal. Colonoscopy: The terminal ileum was examined and appeared normal. The visualized colonic mucosa was normal. There was some muscular hypertrophy in the sigmoid and mild diverticular disease. There was also some redundancy to this area. The quality of prep was good. No polyps were identified. Retroflexed examination showed moderate-sized internal hemorrhoids. IMPRESSION: 1. Dysphagia. 2. Gastroesophageal reflux disease without esophagitis. 3. Normal colonoscopy. RECOMMENDATION: 1. Follow up the biopsy results. 2. Repeat colonoscopy is recommended in 10 years for average risk individuals. MD EVI Islas/ANA / [id number] MTDD
== END 2022-08-29 16:23 | disposition home or self-care (01) ==
PROVIDERS: PCP Internal Medicine; Visit Provider Internal Medicine Gastroenterology
PROC: (CPT 45378; principal; 2022-08-29 14:20)
DX: Z12.11 Encounter for screening for malignant neoplasm of colon (principal); K57.30 Diverticulosis of large intestine without perforation or abscess without bleeding; K64.8 Other hemorrhoids; R13.19 Other dysphagia; K21.9 Gastro-esophageal reflux disease without esophagitis; K44.9 Diaphragmatic hernia without obstruction or gangrene; I10 Essential (primary) hypertension; F41.1 Generalized anxiety disorder; K76.0 Fatty (change of) liver, not elsewhere classified; E78.00 Pure hypercholesterolemia, unspecified; C50.911 Malignant neoplasm of unspecified site of right female breast; Z79.810 Long term (current) use of selective estrogen receptor modulators (SERMs); Z79.899 Other long term (current) drug therapy; Z88.2 Allergy status to sulfonamides
CPT/HCPCS: 45378; 43239; 88305; 88342

== ENCOUNTER 2022-09-29 10:01 | Outpatient (REF) | payer OTHER, SELFPAY ==
[2022-09-29 11:57] LABS: Alanine Aminotransferase 27 U/L (0-31); Anion Gap 12 (12-20); Aspartate Amino Transferase 23 U/L (5-31); Blood Urea Nitrogen 16 mg/dL (9-16); Calcium 9.2 mg/dL (8.4-10.2); Carbon Dioxide 29 mmol/L (22-29); Chloride 100 mmol/L (96-108); Cholesterol 155 mg/dL; Estimated Glomerular Filt Rate > 60; Glucose Fasting 124 mg/dL (60-99); HDL Cholesterol 51 mg/dL; LDL Cholesterol Calculated 80 mg/dl; Potassium 4.2 mmol/L (3.3-5.1); Sodium 137 mmol/L (135-145); Triglycerides 123 mg/dL
[2022-09-29 12:01] LABS: Estimated Average Glucose 146 mg/dL; Hemoglobin A1c % 6.7 %
== END 2022-09-29 10:02 | disposition home or self-care (01) ==
LOC: HO.HMGCLDS 10:01
PROVIDERS: PCP Internal Medicine; Visit Provider Internal Medicine
DX: E78.5 Hyperlipidemia, unspecified (principal); R73.01 Impaired fasting glucose; I10 Essential (primary) hypertension
CPT/HCPCS: 36415; 80048; 80061; 83036; 84450; 84460

== ENCOUNTER 2022-12-31 10:10 | Outpatient (REF) | payer OTHER, SELFPAY ==
[2022-12-31 12:03] LABS: Estimated Average Glucose 143 mg/dL; Hemoglobin A1c % 6.6 %
[2022-12-31 12:41] LABS: Alanine Aminotransferase 19 U/L (0-31); Anion Gap 16 (12-20); Aspartate Amino Transferase 19 U/L (5-31); Blood Urea Nitrogen 18 mg/dL (9-16); Calcium 9.1 mg/dL (8.4-10.2); Carbon Dioxide 25 mmol/L (22-29); Chloride 103 mmol/L (96-108); Cholesterol 180 mg/dL; Estimated Glomerular Filt Rate 57; Glucose Fasting 145 mg/dL (60-99); HDL Cholesterol 64 mg/dL; LDL Cholesterol Calculated 87 mg/dl; Potassium 4.1 mmol/L (3.3-5.1); Sodium 140 mmol/L (135-145); Triglycerides 146 mg/dL; Vitamin D 25-OH Total 26.9 ng/mL (>30)
[2022-12-31 13:36] LABS: Creatinine Urine 210.32 mg/dL; Microalbum/Creatinine Ratio Ur 88.9 ug/mg cr
== END 2022-12-31 10:11 | disposition home or self-care (01) ==
LOC: HO.WFDLDS 10:10
PROVIDERS: Visit Provider Internal Medicine
DX: E11.65 Type 2 diabetes mellitus with hyperglycemia (principal); E78.5 Hyperlipidemia, unspecified; I10 Essential (primary) hypertension
CPT/HCPCS: 36415; 80048; 80061; 82043; 82306; 83036; 84450; 84460

== ENCOUNTER 2023-04-03 10:10 | Outpatient (REF) | payer OTHER, SELFPAY ==
[2023-04-03 11:54] LABS: Alanine Aminotransferase 19 U/L (0-31); Anion Gap 12 (12-20); Aspartate Amino Transferase 22 U/L (5-31); Blood Urea Nitrogen 13 mg/dL (9-16); Calcium 9.6 mg/dL (8.4-10.2); Carbon Dioxide 29 mmol/L (22-29); Chloride 101 mmol/L (96-108); Cholesterol 145 mg/dL; Estimated Glomerular Filt Rate 52; Glucose Fasting 113 mg/dL (60-99); HDL Cholesterol 51 mg/dL; LDL Cholesterol Calculated 66 mg/dl; Potassium 3.6 mmol/L (3.3-5.1); Sodium 138 mmol/L (135-145); Triglycerides 140 mg/dL
[2023-04-03 12:53] LABS: Creatinine Urine 91.98 mg/dL; Microalbum/Creatinine Ratio Ur 176.1 ug/mg cr
== END 2023-04-03 10:11 | disposition home or self-care (01) ==
LOC: HO.HMGCLDS 10:10
PROVIDERS: PCP Internal Medicine; Visit Provider Internal Medicine
DX: E11.65 Type 2 diabetes mellitus with hyperglycemia (principal); E55.9 Vitamin D deficiency, unspecified; I10 Essential (primary) hypertension; E78.5 Hyperlipidemia, unspecified
CPT/HCPCS: 36415; 80048; 80061; 82043; 82306; 84450; 84460

== ENCOUNTER 2023-05-14 09:01 | Outpatient (AMB) | payer OTHER, SELFPAY ==
[2023-05-14 09:07] VITALS: BMI 30.7
--- NOTE | 2023-05-14 09:07 | A.OFFVIS_ITS ---
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 States lump doesnt cause her any pain. Denies numbness or tingling. 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 She says this mass has been present since she was a teenager, and has been limiting the use of her wrist. She stays active with rollerskating & with stickfighting. She denies any pain, numbness, or tingling. She complains of some left wrist stiffness, after a fall ~1 year ago while she was rollerskating. She is a Diabetic and says this is well-controlled. She reports a Hx of a lipoma on her back, which was removed sometime in 2021. She also has a heart murmur for which she sees a ramp agent. She is not on any blood thinners [facility] Medical History Bipolar 1 disorder, manic, full remission Chronic heartburn COVID-19 vaccine series completed Dyslipidemia History of invasive ductal carcinoma of breast Hyperlipidemia Hypertension Mitral valve regurgitation Polyp of gallbladder Type 2 diabetes mellitus without complication, without long-term current use of insulin Surgical History H/O colonoscopy History of section History of esophagogastroduodenoscopy (EGD) History of lumpectomy of right breast (~07/09/19) History of repair of anterior cruciate ligament of left knee History of right breast biopsy (~07/02/19) History of total hysterectomy Family History Father History of pancreatic cancer Sister History of lupus Mother No problems noted. 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 / [employer] Cognitive needs: No Hearing needs: No Vision needs: Yes Review of Systems Const All systems reviewed & are unremarkable except as noted in HPI and below Physical Exam Vital Signs: BMI result Body Mass Index 30.7 Const General: cooperative, healthy appearing and no acute distress Orientation/consciousness: patient oriented x3 HEENT Head: Yes normocephalic and Yes atraumatic Eyes EOM: EOMs intact bilaterally Resp Effort & Inspection: normal respiratory effort and able to speak in complete sentences Cardio Jugular venous distension: no JVD Skin General skin exam: turgor normal Rashes: no rashes Neuro General: patient oriented x3 Extrem Other: Evaluation of Left Upper Extremity: The patient is alert, oriented, and in no acute distress Neuro: Median, Ulnar, Radial nerves motor and sensory intact and sensation is normal to the tips of all digits Vascular: Cap refill brisk ROM: She can make a tight fist and extend all her digits Skin: No lacerations or abrasions. General: No Ecchymosis. No Erythema or evidence of infection. Good fill from the ulnar artery with the Jesus's test She has a mass on the volar radial aspect of her wrist. This measures ~1.8cm in diameter, is soft, non-tender, with no overlying skin changes. This could be fluid-filled but may also be a lipoma. She has a history of lipomas x2 on the back of her left shoulder and on her right forearm Psych Appearance: grossly normal Affect: normal affect Attitude: cooperative Office Procedures Fracture Care Details: No fracture, aspiration Fracture Billing Code: Fracture Billing Code Results Reviewed Results Reviewed: 05/14/23 09:53 Lidocaine HCl 1 % [Xylocaine 1 %] 2 ml .[facility] Assessment & Plan Assessment & Plan (1) Mass of left wrist: Code(s): R22.32 - Localized swelling, mass and lump, left upper limb (2) Type 2 diabetes mellitus without complication, without long-term current use of insulin: Code(s): E11.9 - Type 2 diabetes mellitus without complications Plan Assessment & Plan: 1. Left volar wrist mass Measuring ~1.8cm in diameter I educated her about this condition I discussed operative and non-operative treatment options The patient would like to proceed with aspiration today Aspiration #1: The risks and benefits of aspiration, including but not limited to risk of damage to blood vessels, nerves, tendons, infection, failure to improve symptoms, increased pain, and possible need for further aspirations or surgical intervention. After obtaining written consent, I sterilely prepped the area over the left volar wrist. I then injected subcutaneously with a small amount 1% lidocaine. I then passed a 21 gauge needle into the mass and attempted an aspiration, but was unable to aspirate any fluid except for the injected lidocaine. Thus this could be a solid soft tissue mass. The patient tolerated this well and with no complications. The risks and benefits of operative treatment were discussed with the patient and the patient wishes to proceed with surgery. These risks include, but are not limited to risk of damage to blood vessels, nerves, tendons, infection, recurrence, incomplete relief of preoperative symptoms, persistent pain, possible need for further surgery and the risks associated with regional blocks and anesthesia. The plan is to take the patient to the operating room sometime in the next few weeks for the following procedures: 1. Left volar wrist mass excisional biopsy, under general All of the preoperative paperwork including the consent was filled out today. All the patient's questions were answered. The patient understands that they will be contacted by our pulley maintainer soon to schedule this procedure She denies blood thinners, asthma, lung, kidney issues She is a Diabetic, her most recent HgA1c was 6.4% on 04/03/23 She has a heart murmur that is being treated by Cardiology. She will need cardiac clearance prior to surgery. Scribed for Dulce Rodgers MD by Mian Bearden medical secretary receptionist, on 05/14/23 at 9:55 AM, EST. Coding Level of Care Code New Pt Level 4 (71402) Diagnoses Mass of left wrist R22.32 Type 2 diabetes mellitus without complication, without long-term current use of insulin E11.9 CPT Codes Fracture Care - Fracture Billing Code: Fracture Billing Code ([id number])
== END 2023-05-14 10:17 | disposition home or self-care (01) ==
PROVIDERS: PCP Internal Medicine; Visit Provider Orthopaedic Surgery
DX: M67.432 Ganglion, left wrist (principal); R22.32 Localized swelling, mass and lump, left upper limb
CPT/HCPCS: 20610; 99204

== ENCOUNTER → 2023-05-14 09:01 | Outpatient (BNVA) | payer OTHER, SELFPAY | PROVIDERS: PCP Internal Medicine; Visit Provider Orthopaedic Surgery | DX: R22.32 Localized swelling, mass and lump, left upper limb (principal); E11.9 Type 2 diabetes mellitus without complications | CPT/HCPCS: 20610 ==

== ENCOUNTER 2023-05-29 10:13 | Outpatient (AMB) | payer OTHER, SELFPAY ==
--- NOTE | 2023-05-29 10:29 | AM.OFFWIN_ITS ---
Intake Vital Signs 05/29/23 10:43 Height 5 ft 1.5 in Weight 74.843 kg BMI 30.7 BP 138/74 Blood Pressure Location Lt brachial Position Sitting Pulse 85 Pulse Source Pulse Oximeter Temp 97.1 F Temp Source Temporal Artery Scan Pulse Oximetry (%) 98 Oxygen Delivery Method Room Air Intake Visit Reasons: EST/UTI Intake Note: Pt is here c/o possible UTI. Patient Tobacco Use Status: Former Tobacco user Allergies Sulfa (Sulfonamide Antibiotics) [SULFA (SULFONAMIDE ANTIBIOTICS)] Adverse Reaction (Intermediate, Verified 05/29/23 10:30) muscle/joint pain Do you need a note to return to daycare/school/sports/work: No HPI HPI Comments History of Present Illness Details 1048 67-year-old female presents with urinary frequency, urgency, suprapubic discomfort, hematuria for the past 4 days, patient reports that this feels like her typical UTI. She tells me she is very uncomfortable in is going to the bathroom very frequently. Hematuria started today. No history of kidney stones. Reports subjective fatigue, malaise, nausea and chills however no fevers, chest pain, shortness of breath, chest pain, vomiting, diarrhea, flank pain. Physical examination benign vital signs are stable. Likely UTI versus cystitis. Other differential includes small kidney stone. Unlikely obstructing uropathy, pyelonephritis, acute abdomen. Urine with concerns for infection. There is blood noted. Will prescribe Ceftin, educated on drinking plenty of fluids told her this could be a kidney stone, educated if new or worsening symptoms to go to the emergency department. Educated patient on diagnosis and treatment plan, answered all question, patient verbalizes understanding. At this time patient will be discharged home, advised to return with new or worsening symptoms. Educated on worrisome signs and symptoms and when to return. At this time I feel comfortable discharge home. [facility] Medical History Bipolar 1 disorder, manic, full remission Chronic heartburn COVID-19 vaccine series completed Dyslipidemia History of invasive ductal carcinoma of breast Hyperlipidemia Hypertension Mitral valve regurgitation Polyp of gallbladder Type 2 diabetes mellitus without complication, without long-term current use of insulin Surgical History H/O colonoscopy History of section History of esophagogastroduodenoscopy (EGD) History of lumpectomy of right breast (~07/09/19) History of repair of anterior cruciate ligament of left knee History of right breast biopsy (~07/02/19) History of total hysterectomy Family History Father History of pancreatic cancer Sister History of lupus Mother No problems noted. 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 / [employer] Cognitive needs: No Hearing needs: No Vision needs: Yes Review of Systems Const Details: Constitutional : No Weight loss, No Fever, No Chills, No Fatigue, No Malaise ENT/Mouth : No sore throat, No Rhinorrhea Eyes: No Eye Pain, No Swelling, No Redness Cardiovascular : No Chest Pain, No SOB, No Dyspnea on Exertion, No Orthopnea, No Edema, No Palpitations Respiratory : No Cough, No Sputum, No Wheezing Gastrointestinal : No Nausea, No Vomiting, No Diarrhea, No Constipation, No abdominal Pain, No Hematochezia, No Melena Genitourinary : + Dysuria, + Urinary Frequency, + Hematuria, Musculoskeletal : No joint pain, No Myalgias, No Joint Swelling Skin : No Skin Lesions, No rash Neuro : No Weakness, No Numbness, No Dizziness, No Headache All other systems reviewed and are negative All systems reviewed & are unremarkable except as noted in HPI and below Physical Exam Vital Signs: Last Vital Signs Temp 97.1 F 05/29/23 10:43 Pulse 85 05/29/23 10:43 BP 138/74 05/29/23 10:43 Pulse Ox 98 05/29/23 10:43 Oxygen Delivery Method Room Air 05/29/23 10:43 BMI result Body Mass Index 30.7 Vital signs stable Appearance: Alert.? Oriented X3.? No acute distress.? Head: Normocephalic, atraumatic, no step-offs or deformities Eyes: Pupils equal, round and reactive to light.? CVS: Normal heart rate and rhythm.? Pulses normal.? Respiratory: No respiratory distress.? Breath sounds normal.? Abdomen: Soft and nontender.? Skin: Skin warm and dry.? Normal skin color.? Normal skin turgor.? Extremities: No lower extremity edema.? No calf ttp. 5/5 strength to bilateral upper and lower extremities Back: No CVA tenderness Neuro: Oriented X 3.? No motor deficit.? No sensory deficit. CN 2-12 intact Results AMB Urinalysis, Automated UA Leukoctes 125 Velia/uL Last Edit by Tamiko Morejon CMA on 05/29/23 10:46 UA Nitrite Negative Last Edit by Tamiko Morejon CMA on 05/29/23 10:46 UA Urobilinogen 0.2 mg/dL Last Edit by Tamiko Morejon CMA on 05/29/23 10:46 UA Protein 300 mg/dL Last Edit by Tamiko Morejon CMA on 05/29/23 10:46 UA pH 6.0 Last Edit by Tamiko Morejon CMA on 05/29/23 10:46 UA Blood 200 Thai/uL Last Edit by Tamiko Morejon CMA on 05/29/23 10:46 UA Specific [place] 1.030 Last Edit by Tamiko Morejon CMA on 05/29/23 10:4 6 UA Ketone Negative Last Edit by Tamiko Morejon CMA on 05/29/23 10:46 UA Bilirubin 1 mg/dL Last Edit by Tamiko Morejon CMA on 05/29/23 10:46 UA Glucose 0 mg/dL Last Edit by Tamiko Morejon CMA on 05/29/23 10:46 Assessment & Plan Assessment & Plan (1) Acute UTI: Code(s): N39.0 - Urinary tract infection, site not specified Plan Take your medications as prescribed. If you were prescribed antibiotics today, it is important that you take your medication to their entirety, do not skip any doses, do not finish them early. Follow-up with your primary care provider this week. Return to the emergency department with new or worsening symptoms. Such as fevers, chills, chest pain, shortness of breath, nausea, vomiting, dizziness, headache, vision changes, lethargy In case of emergency call 911 Orders: Orders AMB Urinalysis Automated Today Z13.9 - Encounter for screening, unspecified Medications: New cefuroxime axetil 250 mg PO BID 14 tabs 0RF 7 days phenazopyridine (Pyridium) 200 mg PO TID 6 tabs 0RF 6 doses Coding Level of Care Code Est Pt Level 3 (90957) Diagnoses Acute UTI N39.0
[2023-05-29 10:43] VITALS: BP 138/74; PULSE 85; TEMP 36.2; O2SAT 98; BMI 30.7
== END 2023-05-29 12:43 | disposition home or self-care (01) ==
PROVIDERS: PCP Internal Medicine; Visit Provider Physician Assistant
DX: N39.0 Urinary tract infection, site not specified (principal); R35.0 Frequency of micturition
CPT/HCPCS: 81003; 99213

== ENCOUNTER 2023-06-17 05:55 | Day surgery (SDC) | payer OTHER, SELFPAY ==
[2023-06-13 12:15] VITALS: BMI 30.7
[2023-06-17 06:44] LABS: Glucose, Whole Blood 137 mg/dL (60-115)
[2023-06-17 07:05] VITALS: BP 102/51; PULSE 64; RESP 16; TEMP 36.4; O2SAT 97
[2023-06-17] MEDS: Lactated Ringers 1,000 ML 100 ML IVCONT (07:06)
--- NOTE | 2023-06-17 07:15 | P.CONAN_ITS ---
Documented by User: Isaura Fajardo NP 06/14/23 08:50 HPI - Anesthesia Eval Consult details Narrative: 67yo F for Left volar wrist mass excision Cardiac optimized 04/2023 [facility] Active Problems Active Problems: All Active Problems (Updated 05/14/23 @ 10:07 by Mian Bearden) Mass of left wrist (Acute) Type 2 diabetes mellitus without complication, without long-term current use of insulin (Acute) Chronic heartburn (Acute) Bipolar 1 disorder, manic, full remission (Acute) Dyslipidemia (Acute) Hypertension (Acute) Mitral valve regurgitation (Acute) Past Medical History Medical History Bipolar 1 disorder, manic, full remission Chronic heartburn COVID-19 vaccine series completed Dyslipidemia History of invasive ductal carcinoma of breast Hyperlipidemia Hypertension Mitral valve regurgitation Polyp of gallbladder Type 2 diabetes mellitus without complication, without long-term current use of insulin Family History Family History Father History of pancreatic cancer Sister History of lupus Mother No problems noted. Son Mental health disorder Family history of problems with anesthesia: No Surgical History Surgical History H/O colonoscopy History of section History of esophagogastroduodenoscopy (EGD) History of lumpectomy of right breast (~07/09/19) History of repair of anterior cruciate ligament of left knee History of right breast biopsy (~07/02/19) History of total hysterectomy History of Problems with Anesthesia: No Social History Social History Housing: House Alcohol intake: never Patient Tobacco Use Status: Current everyday Tobacco user Tobacco use type: Smokeless Tobacco Years Smoked: 2yrs e-Cigarette/Vaping Use: Currently Using Use of substances other than those prescribed or required for medical reasons: Yes Substance Use Type: Marijuana Are you DNR?: No Advance Directives: No Advance Directives Information Provided: Yes Advance Directives on File: No Advance Directives Date on File: 07/25/20 Current occupational status: employed 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 / [employer] Cognitive needs: No Hearing needs: No Vision needs: Yes Meds Allergies Allergy/AdvReac Type Severity Reaction Status Date / Time Sulfa (Sulfonamide AdvReac Intermediate muscle/joint Verified 05/29/23 10:30 Antibiotics) pain [SULFA (SULFONAMIDE ANTIBIOTICS)] Home Medications Medication Instructions Recorded Confirmed Last Taken Type hydrochlorothiazide 25 mg tablet 25 mg PO DAILY 03/31/21 10/01/22 Unknown History hydroxyzine HCl 25 mg tablet 25 mg PO .QD PRN Anxiety 10/06/21 10/01/22 Unknown History escitalopram oxalate 10 mg tablet 20 mg PO DAILY 04/02/22 10/01/22 08/29/22 09:00 History lamotrigine 200 mg tablet 250 mg PO DAILY 04/02/22 10/01/22 08/29/22 09:00 History (Lamictal) clonidine HCl 0.1 mg tablet 0.1 mg PO BID 01/02/23 Unknown History omeprazole 20 mg capsule,delayed 20 mg PO DAILY 01/02/23 01/02/23 Unknown History release inulin 2,500 mg-vitamin D3 500 tab PO 04/03/23 Unknown History unit chewable tablet (Fiber Gummies with Vitamin D3) Exam Exam Date and Time: June 14, 2023 0846 Height,Weight and Vital Signs: Height 5 ft 1.5 in Weight 74.843 kg Pertinent Lab Results Pertinent Lab Results: Laboratory Tests 04/03/23 10:15 Sodium 138 Potassium 3.6 Chloride 101 Carbon Dioxide 29 BUN 13 Creatinine 1.05 Narrative Narrative: EKG 07/2022 NSR with good R wave progression Leftward axis with normal intervals ECHO 07/2022 1. LV size is normal 2. LV wall thickness is normal 3. LV systolic function is hyperdynamic with EF >70% 4. Indeterminate diastolic function 5. No evidence of wall motion abnormalities 6. LA size is upper limits of normal 7. RV systolic function is normal 8. MOderate thickening of anterior mitral valve leaflet 9. Mild thickening of posterior mitral valve leaflet 10. Moderate mitral regurg 11. No evidence of pulm htn 12. Compared with findings of prior 05/2021, stable moderate MR. Myxomatous appearing anterior mitral leaflets with mild chordal DEVON Assessment and Plan Assessment Anesthesia Assessment: Chart Reviewed Final Anesthetic Review Family History of Problems with Anesthesia: No History of Problems with Anesthesia: No Documented by User: Venice Quiñonez DO 06/17/23 07:24 HPI - Anesthesia Eval Consult details Narrative: 67yo F for Left volar wrist mass excision. Cardiac optimized 04/2023. Patient had PIV placed in right hand by pre-op RN. History of right axillary lymph node removal due to breast cancer. Was told by her oncologist to avoid PIV/NIBP placement on the RUE, but she is having surgery on her left hand today. [facility] Past Medical History Medical History Bipolar 1 disorder, manic, full remission Chronic heartburn COVID-19 vaccine series completed Dyslipidemia History of invasive ductal carcinoma of breast Hyperlipidemia Hypertension Mitral valve regurgitation Polyp of gallbladder Type 2 diabetes mellitus without complication, without long-term current use of insulin Family History Family History Father History of pancreatic cancer Sister History of lupus Mother No problems noted. Son Mental health disorder Family history of problems with anesthesia: No Surgical History Surgical History H/O colonoscopy History of section History of esophagogastroduodenoscopy (EGD) History of lumpectomy of right breast (~07/09/19) History of repair of anterior cruciate ligament of left knee History of right breast biopsy (~07/02/19) History of total hysterectomy History of Problems with Anesthesia: No Social History Social History Housing: House Alcohol intake: never Patient Tobacco Use Status: Current everyday Tobacco user Tobacco use type: Smokeless Tobacco Years Smoked: 2yrs e-Cigarette/Vaping Use: Currently Using Use of substances other than those prescribed or required for medical reasons: Yes Substance Use Type: Marijuana Are you DNR?: No Advance Directives: No Advance Directives Information Provided: Yes Advance Directives on File: No Advance Directives Date on File: 07/25/20 Current occupational status: employed 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 / [employer] Cognitive needs: No Hearing needs: No Vision needs: Yes Meds Allergies Allergy/AdvReac Type Severity Reaction Status Date / Time Sulfa (Sulfonamide AdvReac Intermediate muscle/joint Verified 05/29/23 10:30 Antibiotics) pain [SULFA (SULFONAMIDE ANTIBIOTICS)] Home Medications Medication Instructions Recorded Confirmed Last Taken Type hydrochlorothiazide 25 mg tablet 25 mg PO DAILY 03/31/21 10/01/22 Unknown History hydroxyzine HCl 25 mg tablet 25 mg PO .QD PRN Anxiety 10/06/21 10/01/22 Unknown History escitalopram oxalate 10 mg tablet 20 mg PO DAILY 04/02/22 10/01/22 08/29/22 09 :00 History lamotrigine 200 mg tablet 250 mg PO DAILY 04/02/22 10/01/22 08/29/22 09:00 History (Lamictal) clonidine HCl 0.1 mg tablet 0.1 mg PO BID 01/02/23 Unknown History omeprazole 20 mg capsule,delayed 20 mg PO DAILY 01/02/23 01/02/23 Unknown History release inulin 2,500 mg-vitamin D3 500 tab PO 04/03/23 Unknown History unit chewable tablet (Fiber Gummies with Vitamin D3) Exam Exam Date and Time: June 17, 2023 0715 Height,Weight and Vital Signs: Height 5 ft 1.5 in Weight 74.843 kg Vital Signs Temperature 97.6 F 06/17/23 07:05 Pulse Rate 64 06/17/23 07:05 Respiratory Rate 16 06/17/23 07:05 Blood Pressure 102/51 L 06/17/23 07:05 Pulse Oximetry 97 06/17/23 07:05 Oxygen Delivery Method Room Air 06/17/23 07:05 Temperature 97.6 F 06/17/23 07:05 Pulse Rate 64 06/17/23 07:05 Respiratory Rate 16 06/17/23 07:05 Blood Pressure 102/51 L 06/17/23 07:05 Pulse Oximetry 97 06/17/23 07:05 Oxygen Delivery Method Room Air 06/17/23 07:05 Airway Mallampati Class: II TM Dist: >3cm Neck ROM: Full Loose/Missing/Broken Teeth: No Heart: S1S2 Lungs: CTAB Assessment and Plan Assessment Anesthesia Assessment: Anesthesia Plan Discussed and Chart Reviewed Final Anesthetic Review Family History of Problems with Anesthesia: No History of Problems with Anesthesia: No NPO: Yes ASA Class: III Final Preanesthetic Review: No Changes in Pt Med Stat, Meds/Allgs Chart Reviewed, Consent Obtained/Reviewed and Anes Risks/Benef Reviewed Patient Risk: Intermediate Procedure Risk: Low Anesthetic Plan Anesthetic Plan: GA and Agree w/ Assess. and Plan Disposition: Standard PACU
--- NOTE | 2023-06-17 07:49 | MHC.SHP ---
Pre-Procedural Eval Section A Date of Service: 06/17/23 The patient is an INPATIENT: No Changes since office visit: No Cold of Flu in the past 2 weeks, No New Medical Problems, No Changes in Medication and No Patient answered all questions The History & Physical has been completed within 30 days and I have reviewed it.: No Section B Chief Complaint: Localized swelling, mass and lump, left upper limb Allergies: Allergies Allergy/AdvReac Type Severity Reaction Status Date / Time Sulfa (Sulfonamide AdvReac Intermediate muscle/joint Verified 05/29/23 10:30 Antibiotics) pain [SULFA (SULFONAMIDE ANTIBIOTICS)] Plan I have reviewed the history and physical and performed a pertinent physical examination on my patient. No changes have occurred unless specified. Time Spent With Patient Time: Total time managing care of this patient today ____ minutes.
--- NOTE | 2023-06-17 07:49 | W.PM.OPN ---
Operative Note Operative Note Date of Service: 06/17/23 Narrative: Operative Note Narrative: Preop diagnosis: 1. left Volar wrist mass Postop diagnosis: Same Procedure: 1. left Volar wrist mass excisional biopsy Surgeon: Dulce Rodgers MD Anesthesia: General Anesthesia Findings: left volar wrist mass, approximately 1.5 cm in diameter, yellow and lipomatous consistent with a lipoma Implants: None Tourniquet time: 7 minutes EBL: 5.0 ml Specimen: Volar wrist ganglion Drains: None Complications: None Disposition: Brought to the recovery room in stable condition Plan: Follow-up in 10-14 days for wound check, suture removal and to check pathology Indications: The patient is 67 years old with left volar wrist ganglion . The risks and benefits of operative treatment, including but not limited to risk of damage to blood vessels, nerves, tendons, infection, recurrence, persistent pain or numbness, incomplete resolution of preoperative symptoms, or need for further surgery were discussed with the patient and they wished to proceed with surgery. Procedure: Once consent was obtained patient was brought back to the operating suite and placed in the operating table in a supine position. . Perioperative antibiotics and anesthesia was administered by the anesthesia team. A tourniquet was applied to the proximal aspect of the left upper extremity and the limb was prepped and draped in a standard surgical fashion. The limb was elevated exsanguinated with Esmarch bandage and the tourniquet inflated to 250 mm of mercury for a total tourniquet time of 7 minutes. A 2.5 cm longitudinal incision was made centered over the patient's left volar wrist mass which was positioned radial to the FCR tendon and just proximal to the distal wrist crease.. The incision was made through the skin the subcutaneous tissues using a 15. Blade. Careful dissection was then made down to the level of the volar wrist Mass using tenotomy scissors. the mass was approximately 1.5 cm in diameter, yellow and lipomatous. This was consistent with a lipoma. The mass was carefully dissected free from the surrounding soft tissues using tenotomy scissors. Interestingly, there was a stalk of the mass that extended deep to the volar forearm fascia. The volar forearm fascia was opened longitudinally using tenotomy scissors. Care was taken to protect the surrounding vascular structures. The mass was then dissected free from the patient's volar forearm and placed on the back table to be sent for histopathologic review. At this point the tourniquet was deflated and hemostasis obtained with a brief period of local pressure and bipolar electrocautery. The wound was copiously irrigated with normal saline. The skin edges were reapproximated with 5-0 nylon suture. The wound was infiltrated with some 1% lidocaine with epinephrine for postop pain control and a sterile dressing was applied. The patient appears to have tolerated the procedure well and with no complications. All digits were well vascularized conclusion of the case.
[2023-06-17 08:44] VITALS: BP 115/49; PULSE 73; RESP 12; TEMP 36.2; O2SAT 95
[2023-06-17 08:49] VITALS: BP 126/64; PULSE 72; RESP 12; O2SAT 98
[2023-06-17 08:55] VITALS: BP 97/78; PULSE 79; RESP 16; O2SAT 98
[2023-06-17 08:59] VITALS: BP 131/65; PULSE 77; RESP 16; O2SAT 94
[2023-06-17 09:14] VITALS: BP 128/72; PULSE 77; RESP 16; TEMP 36.1; O2SAT 97
== END 2023-06-17 10:15 | disposition home or self-care (01) ==
PROVIDERS: PCP Internal Medicine; Visit Provider Orthopaedic Surgery
PROC: (CPT 25110; principal; 2023-06-17 07:30)
DX: R22.32 Localized swelling, mass and lump, left upper limb (principal); E11.9 Type 2 diabetes mellitus without complications; R01.1 Cardiac murmur, unspecified; C50.912 Malignant neoplasm of unspecified site of left female breast; I10 Essential (primary) hypertension; E78.5 Hyperlipidemia, unspecified; Z79.810 Long term (current) use of selective estrogen receptor modulators (SERMs); Z88.2 Allergy status to sulfonamides; Z87.891 Personal history of nicotine dependence
CPT/HCPCS: 25110; 82947; 88304; 88307; J0690; J1100; J2405; J3010

== ENCOUNTER → 2023-06-17 05:55 | Outpatient (BNV) | payer OTHER, SELFPAY | PROVIDERS: PCP Internal Medicine; Visit Provider Orthopaedic Surgery | DX: R22.32 Localized swelling, mass and lump, left upper limb (principal); M67.432 Ganglion, left wrist | CPT/HCPCS: 25075 ==

== ENCOUNTER 2023-07-02 08:34 | Outpatient (AMB) | payer OTHER, SELFPAY ==
--- NOTE | 2023-07-02 08:38 | A.OFFVIS_ITS ---
Intake Intake Visit Reasons: PO LT volcer wrist mass exc. 06/17/23AR Intake Note: Stephanie 67 yr old female presents today for her PO left volar wrist mass excision from 06/17/[address] Rodgers. States she has no pain and her incision is healing nicely. Patient reports she continues to have dorsum wrist pain s/p falling down while roller skating approx 1 yr ago. Allergies Sulfa (Sulfonamide Antibiotics) [SULFA (SULFONAMIDE ANTIBIOTICS)] Adverse Shelbi ction (Intermediate, Verified 07/02/23 08:39) muscle/joint pain HPI PO LT volcer wrist mass exc. 06/17/23AR HPI Details Stephanie Singer is a 67-year-old female who presents today to the office for a post op left Volar wrist mass excisional biopsy on 06/17/23. She states that she has no pain and her incision is healing nicely. She continues to endorse dorsum wrist pain status post falling down while roller skating about one year ago. She has not had any x-ray in the past. [facility] Medical History Bipolar 1 disorder, manic, full remission Chronic heartburn COVID-19 vaccine series completed Dyslipidemia History of invasive ductal carcinoma of breast Hyperlipidemia Hypertension Mitral valve regurgitation Polyp of gallbladder Type 2 diabetes mellitus without complication, without long-term current use of insulin Surgical History H/O colonoscopy History of section History of esophagogastroduodenoscopy (EGD) History of lumpectomy of right breast (~07/09/19) History of repair of anterior cruciate ligament of left knee History of right breast biopsy (~07/02/19) History of total hysterectomy Family History Father History of pancreatic cancer Sister History of lupus Mother No problems noted. 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 / [employer] Cognitive needs: No Hearing needs: No Vision needs: Yes Review of Systems Const All systems reviewed & are unremarkable except as noted in HPI and below Physical Exam Const General: cooperative, healthy appearing and no acute distress Orientation/consciousness: patient oriented x3 HEENT Head: Yes normocephalic and Yes atraumatic Eyes EOM: EOMs intact bilaterally Resp Effort & Inspection: normal respiratory effort and able to speak in complete sentences Cardio Jugular venous distension: no JVD Skin General skin exam: turgor normal, ecchymosis (No) and erythema (No) Rashes: no rashes Trauma: no lacerations or abrasions Neuro Other: Vascular: Cap refill brisk General: patient oriented x3 Extrem Other: Patient was alert oriented and in no acute distress Her wound is healing well with no erythema drainage or evidence of infection. Sutures removed and Steri-Strips applied. She can make a fist and extend all of her digits without pain. Smooth and painless left wrist range of motion today Pathology report 06/17/2023: Diagnosis Soft tissue, left wrist mass, excision: Mature adipose tissue consistent with lipoma Psych Appearance: grossly normal Affect: normal affect Attitude: cooperative Assessment & Plan Assessment & Plan (1) Lipoma of arm: Code(s): D17.20 - Benign lipomatous neoplasm of skin and subcutaneous tissue of unspecified limb (2) Left wrist pain: Code(s): M25.532 - Pain in left wrist Plan Assessment and plan: 1. Left volar wrist lipoma Status post excisional biopsy. DOS: 06/17/2023 Patient appears to be doing well postoperatively. I educated her about the postoperative course. We discussed the importance of activity modification for the next couple of weeks 2. Left dorsal wrist pain Patient states she has had left dorsal wrist pain since a fall about a year and a half ago She will follow-up in a next available appointment with new x-rays three views of the left wrist Scribed for Dr. Dulce Rodgers by Howard Mahmood, medical physicist, on 07/02/2023. I, Dr. Dulce Rodgers, have personally reviewed and agree with the information entered by the scribe. Coding Level of Care Code Global (98902) Diagnoses Lipoma of arm D17.20 Left wrist pain M25.532
== END 2023-07-02 09:07 | disposition home or self-care (01) ==
PROVIDERS: PCP Internal Medicine; Visit Provider Orthopaedic Surgery
DX: D17.20 Benign lipomatous neoplasm of skin and subcutaneous tissue of unspecified limb (principal); M25.532 Pain in left wrist
CPT/HCPCS: 99024

== ENCOUNTER → 2023-07-02 08:34 | Outpatient (BNVA) | payer OTHER, SELFPAY | PROVIDERS: PCP Internal Medicine; Visit Provider Orthopaedic Surgery ==

== ENCOUNTER 2023-07-17 08:57 | Outpatient (AMB) | payer OTHER, SELFPAY ==
--- NOTE | 2023-07-17 09:05 | MHC.OFFVIS ---
Intake Vital Signs 07/17/23 09:12 Height 5 ft 2 in Weight 160 lb BMI 29.3 Intake Visit Reasons: New Prob- L Wrist Pain w/Xrays 3 view Intake Note: Stephanie 67 yr old righ hand dominant female presents today for a new problem of her left wrist. States while roller skating she fell and put her hand out to break her hand. She did not seek medical care at the time. Currently states she always had pain and discomfort after falling but has worsen after her left volar mass excision in May of 2023. States she has a shooting pain from her volar aspect of wrist to her dorsum. Patient is S/P left volar wrist mass excision from 06/17/[address] Rodgers. Xrays updated in office. Allergies Sulfa (Sulfonamide Antibiotics) [SULFA (SULFONAMIDE ANTIBIOTICS)] Adverse Reaction (Intermediate, Verified 07/17/23 09:11) muscle/joint pain HPI New Prob- L Wrist Pain w/Xrays 3 view HPI Details Stephanie is a 67 year old woman who returns to discuss her left dorsal wrist pain & stiffness, S/P fall while rollerskating with her grandkids in 2021. 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 She does this is a part of her tight she training. She complains of pain in the dorsal aspect of her wrist that extends up the dorsal aspect of her forearm. She is S/P left volar wrist mass excision, DOS: 06/17/23. Do pleased with the results of her surgery. However she notices that her incision site is still little tender, particularly if she wears her wrist watch. She stays active with roller skating and stick fighting. She says her pain is worse after stick fighting classes, which involves repetitive wrist motions. [facility] Medical History Bipolar 1 disorder, manic, full remission Chronic heartburn COVID-19 vaccine series completed Dyslipidemia History of invasive ductal carcinoma of breast Hyperlipidemia Hypertension Mitral valve regurgitation Polyp of gallbladder Type 2 diabetes mellitus without complication, without long-term current use of insulin Surgical History H/O colonoscopy History of section History of esophagogastroduodenoscopy (EGD) History of lumpectomy of right breast (~07/09/19) History of repair of anterior cruciate ligament of left knee History of right breast biopsy (~07/02/19) History of total hysterectomy Family History Father History of pancreatic cancer Sister History of lupus Mother No problems noted. 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 / [employer] Cognitive needs: No Hearing needs: No Vision needs: Yes Review of Systems Const All systems reviewed & are unremarkable except as noted in HPI and below Physical Exam Vital Signs: BMI result Body Mass Index 29.3 Const General: no acute distress and alert Orientation/consciousness: patient oriented x3 Neuro General: patient oriented x3 Extrem Other: Evaluation of Left Upper Extremity: The patient is alert, oriented, and in no acute distress Neuro: Median, Ulnar, Radial nerves motor and sensory intact and sensation is normal to the tips of all digits Vascular: Cap refill brisk ROM: She can make a fist and extend all her digits No tenderness over the Basal joint No tenderness over the 1st dorsal compartment Negative Pepper test No tenderness over the scaphoid tubercle or snuffbox No tenderness over the distal radius, distal ulna, or DRUJ DRUj is stable She has some mild tenderness over the dorsal aspect of the triquetrum. She also complained of some pain that extends linearly across the dorsal aspect of the wrist. This was most notable with resisted extension of the fingers. This is the kind of pain that then extends dorsally over the forearm for her. No pain with resisted wrist extension. Radiographs: 3 views of the left wrist were taken and viewed by me today in clinic. They show no fractures, dislocations, or evidence of arthritic changes. There is a cortical defect on the triquetral on the lateral view Psych Appearance: grossly normal Affect: normal affect Attitude: cooperative Assessment & Plan Assessment & Plan (1) Lipoma of arm: Code(s): D17.20 - Benign lipomatous neoplasm of skin and subcutaneous tissue of unspecified limb (2) Tendinitis of extensor tendon of left hand: Code(s): M77.8 - Other enthesopathies, not elsewhere classified Plan Assessment & Plan: 1. Left dorsal wrist pain First occurred after a fall while roller-skating in 2021. Possible small cortical defect seen in the dorsal triquetrum, with minimal tenderness in this area. Most symptoms appear to be in line with the finger extensor tendons of the 4th dorsal compartment. I think it is most likely at this point that most of her symptoms are coming from perhaps overdoing it a little bit with the stick fighting. Some stretching might be helpful. I do think that her symptoms are mostly stemming from a mild tendinitis of the 4th dorsal compartment tendons and possibly wrist extensors. We talked about the importance of activity modification. I also cautioned her about new activities that are significantly prone to falling. She is happy with the current plan. 2. Left volar wrist lipoma, S/P excision DOS: 06/17/23 This is doing well postop operatively. Her incision site has some tenderness and hypersensitivity I recommend she massage about her incision site to reduce any hypersensitivity Scribed for Dulce Rodgers MD by Mian Bearden, medical claims specialist, on [ ] at [ ], EST. Orders: Orders XR wrist LT min 3V Today M25.532 - Pain in left wrist Coding Level of Care Code Est Pt Level 3 (41344) Diagnoses Lipoma of arm D17.20 Tendinitis of extensor tendon of left hand M77.8
[2023-07-17 09:12] VITALS: BMI 29.3
== END 2023-07-17 09:37 | disposition home or self-care (01) ==
PROVIDERS: PCP Internal Medicine; Visit Provider Orthopaedic Surgery
DX: M77.8 Other enthesopathies, not elsewhere classified (principal); R22.32 Localized swelling, mass and lump, left upper limb; M67.432 Ganglion, left wrist
CPT/HCPCS: 99024

== ENCOUNTER 2023-07-17 13:08 | Outpatient (REF) | payer OTHER, SELFPAY ==
--- NOTE | ~2023-07-17 | XR_ITS ---
EXAMINATION: XR WRIST, LEFT CLINICAL INFORMATION: Pain COMPARISON: None available. TECHNIQUE: PA, lateral, and oblique views of the left wrist. FINDINGS: There is diffuse osteopenia but no evidence of fractures or subluxations. No significant changes of osteoarthritis. Soft tissues are normal. XR/XR wrist LT min 3V IMPRESSION: Diffuse osteopenia
== END 2023-07-17 13:09 | disposition home or self-care (01) ==
LOC: HO.HOSX 13:08
PROVIDERS: Visit Provider Orthopaedic Surgery
DX: M25.532 Pain in left wrist (principal); D17.20 Benign lipomatous neoplasm of skin and subcutaneous tissue of unspecified limb; M77.8 Other enthesopathies, not elsewhere classified
CPT/HCPCS: 73110

== ENCOUNTER 2023-08-07 11:34 | Outpatient (AMB) | payer OTHER, SELFPAY ==
--- NOTE | 2023-08-07 13:02 | A.OFFPC_ITS ---
Vital Signs 08/07/23 13:05 Height 5 ft 2 in Weight 168 lb BMI 30.7 BP 130/78 Blood Pressure Location Lt brachial Position Sitting Pulse 61 Pulse Source Pulse Oximeter Pulse Oximetry (%) 97 Oxygen Delivery Method Room Air Intake Visit Reasons: R side hip pain Intake Note: Pt is here today c/o Rt side hip discomfort due to feeling that its comes out of socket Allergies Sulfa (Sulfonamide Antibiotics) [SULFA (SULFONAMIDE ANTIBIOTICS)] Adverse Reaction (Intermediate, Verified 08/07/23 13:15) muscle/joint pain Medication List - Last Reconciled 08/07/23 by Cassandra Valentin MD cetirizine 10 mg PO DAILY cholecalciferol (vitamin D3) 100 mcg PO DAILY clonidine HCl 0.1 mg PO BID [compression gauntlet right hand As directed] [compression sleeve right arm As directed] [compression wrap for right upper extremtiy for night wear As directed] escitalopram oxalate 20 mg PO DAILY hydrochlorothiazide 25 mg PO DAILY hydroxyzine HCl 25 mg PO .QD PRN lamotrigine (Lamictal) 250 mg PO DAILY losartan 100 mg PO DAILY metformin 500 mg PO DAILY omeprazole 20 mg PO DAILY rosuvastatin 40 mg PO DAILY tamoxifen 20 mg PO DAILY Tobacco use date assessed: 08/07/23 Last assessed Fall Risk: 08/07/23 Dental Screening Dental Screen Date: 08/07/23 Did you have a dental visit in the last 12 months?: Yes Did you have a dental problem in the last 6 months where you did not have access to dental care?: No Was dental information given to patient?: Patient has dentist HPI R side hip pain HPI Details 67-year-old lady here today complaining of discomfort in her right hip joint. Unable to do her regular exercise, as hip feels like it is coming out of its socket whenever she abducts it. Would like a referral back to see Dr. Rios at [facility], who did her left knee surgery a year ago. She also has been having mixed urinary stress incontinence, and has a sensation mass inside her vaginal canal whenever she stands, jumps or coughs [facility] Medical History (Updated 08/07/23 @ 13:22 by Cassandra Valentin MD) Mixed urge and stress incontinence Acute right hip pain Type 2 diabetes mellitus without complication, without long-term current use of insulin Chronic heartburn Bipolar 1 disorder, manic, full remission Dyslipidemia History of invasive ductal carcinoma of breast COVID-19 vaccine series completed Mitral valve regurgitation Polyp of gallbladder Hyperlipidemia Hypertension Surgical History History of esophagogastroduodenoscopy (EGD) H/O colonoscopy History of repair of anterior cruciate ligament of left knee History of lumpectomy of right breast (~07/09/19) History of right breast biopsy (~07/02/19) History of section History of total hysterectomy Family History Father History of pancreatic cancer Sister History of lupus Mother No problems noted. 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 Yaw Banuelos, Leandra Arzola, Sukhi Patterson and colleagues, with an educational cyndi from [employer]. Review of Systems Const All systems reviewed & are unremarkable except as noted in HPI and below Physical exam (Primary Care) Vital Signs: Last Vital Signs Pulse 61 08/07/23 13:05 BP 130/78 08/07/23 13:05 Pulse Ox 97 08/07/23 13:05 Oxygen Delivery Method Room Air 08/07/23 13:05 BMI result Body Mass Index 30.7 Tobacco/Smoking Status: Tobacco use Status Tobacco use date assessed 08/07/23 08/07/23 13:09 Patient Tobacco Use Status Current everyday Tobacco 08/07/23 13:09 Tobacco use type Smokeless Tobacco 08/07/23 13:09 e-Cigarette/Vaping Use Currently Using 08/07/23 13:09 Thrive Assessment: Date of Thrive Assessment Date Thrive assessed 04/03/23 08/07/23 13:09 Const Other: Alert oriented x3, no acute distress noted ambulatory normal gait able to walk on heels and tiptoes without difficulty. Neck Neck: Yes normal visual inspection, Yes full ROM, Yes no lymphadenopathy and Yes supple Resp Auscultation: clear to auscultation bilaterally Cardio Other: S1-S2 present regular rate and rhythm Skin General skin exam: no rashes or lesions noted Extrem Right lower extremity: full ROM (complains of pinching sensation when she does outward rotation right hip) Assessment and Plan Assessment & Plan (1) Acute right hip pain: Code(s): M25.551 - Pain in right hip Plan: Referred back to Dr. Rios at [facility], valuation management. X-ray of right hip ordered with results still pending. (2) Prolapse of female pelvic organs: Code(s): N81.9 - Female genital prolapse, unspecified Plan: Patient with prolapse symptoms, referred to urology at [facility] for further evaluation. Orders: Orders XR hip RT min 2V 08/07/23 M25.551 - Pain in right hip Referrals Orthopedics Referral M25.551 - Pain in right hip Urology Referral N39.46 - Mixed incontinence, N81.9 - Female genital prolapse, unspecified Coding Level of Care Code Est Pt Level 3 (23839) Diagnoses Acute right hip pain M25.551 Prolapse of female pelvic organs N81.9
[2023-08-07 13:05] VITALS: BP 130/78; PULSE 61; O2SAT 97; BMI 30.7
== END 2023-08-07 13:31 | disposition home or self-care (01) ==
PROVIDERS: PCP Internal Medicine; Visit Provider Internal Medicine
DX: M25.551 Pain in right hip (principal); N81.9 Female genital prolapse, unspecified
CPT/HCPCS: 99213

== ENCOUNTER 2023-08-19 12:59 | Outpatient (REF) | payer OTHER, SELFPAY ==
--- NOTE | ~2023-08-19 | XR_ITS ---
EXAMINATION: XR HIP, RIGHT CLINICAL INFORMATION: Pain in right hip. COMPARISON: 12/13/2017 x-ray right hip. CT scan abdomen and pelvis 07/26/2020. TECHNIQUE: Two views of the right hip. FINDINGS: Mild degenerative changes in the right sacroiliac joint. Small sclerotic density projecting over the sacrum on the left has increased in size since right hip radiograph of 12/11/2017. CT scan of the abdomen and pelvis of 07/26/2020 demonstrated a similar sclerotic density projecting over the sacrum on the left, although comparison limited due to differences in modalities. Mild degenerative changes right hip, joint space narrowing and hypertrophic change. XR/XR hip RT min 2V IMPRESSION: 1. Mild degenerative changes right hip. 2. Small sclerotic density projecting over the sacrum on the left has increased in size since right hip radiograph of 12/11/2017. CT scan of the abdomen and pelvis of 07/26/2020 demonstrated a similar sclerotic density projecting over the sacrum on the left, although comparison limited due to differences in modalities. Correlation with clinical exam recommended to determine further management. Dedicated imaging of the pelvis recommended for further evaluation.
== END 2023-08-19 13:00 | disposition home or self-care (01) ==
LOC: HO.HMGCX 12:59
PROVIDERS: PCP Internal Medicine; Visit Provider Internal Medicine
DX: M25.551 Pain in right hip (principal)
CPT/HCPCS: 73502

== ENCOUNTER 2023-09-25 09:53 | Outpatient (AMB) | payer OTHER, SELFPAY ==
--- NOTE | 2023-09-25 10:23 | MHC.OFFVIS ---
Intake Intake Visit Reasons: Mixed incontinence Intake Note: New patient is present for Referral for Mixed incontinence and Possible Prolapse Antibiotic Allergy: Sulfa PVR: 0ML She gets up only once during the night to urinate. During the day she does leak and has to wear diapers. She also states that she may have a possible prolapse. Had a hysterectomy 20+ years ago. Allergies Sulfa (Sulfonamide Antibiotics) [SULFA (SULFONAMIDE ANTIBIOTICS)] Adverse Reaction (Intermediate, Verified 09/25/23 11:42) muscle/joint pain Medication List - Last Reconciled 09/25/23 by JOSE Nolan- cetirizine 10 mg PO DAILY cholecalciferol (vitamin D3) 100 mcg PO DAILY clonidine HCl 0.1 mg PO BID [compression gauntlet right hand As directed] [compression sleeve right arm As directed] [compression wrap for right upper extremtiy for night wear As directed] escitalopram oxalate 20 mg PO DAILY hydrochlorothiazide 25 mg PO DAILY hydroxyzine HCl 25 mg PO .QD PRN lamotrigine (Lamictal) 250 mg PO DAILY losartan 100 mg PO DAILY metformin 500 mg PO DAILY omeprazole 20 mg PO DAILY rosuvastatin 40 mg PO DAILY tamoxifen 20 mg PO DAILY HPI HPI Comments History of Present Illness Details Stephanie is a very pleasant 68-year-old female patient of Dr. Valentin. She has a past medical history of type 2 diabetes, chronic heartburn, bipolar disorder, dyslipidemia, history of invasive ductal carcinoma of breast currently on tamoxifen, mitral valve regurgitation, hyperlipidemia, and hypertension. She presents to the office today as a new patient for mixed urinary incontinence. In discussion with the patient today she reports to be doing and feeling well. She reports noting worsening lower urinary tract symptoms over the last few months however feels symptoms have been present for quite some time. She reports utilizing a peripad daily due to urinary leakage. She reports changing pad up to 3 times per day. She reports stress incontinence as well as urge incontinence. She otherwise denies hematuria, dysuria, foul smelling urine, changes to urinary stream, flank pain, fever, and or chills. When asked she does report having had 2 children in the past 1 via vaginal delivery and 1 . She reports vaginal delivery was a long labor in both babies were of average size. She reports having had a hysterectomy approximately 20 years ago. In office urinalysis results reviewed with the patient today. PVR 0 mL. In assessment of the patient today bulging into vaginal space noted. She reports having upcoming pelvic CT on Thursday 10/04. She does report to be vaping daily. She otherwise offers no other issues or concerns at this time. [facility] Medical History Mixed urge and stress incontinence Acute right hip pain Type 2 diabetes mellitus without complication, without long-term current use of insulin Chronic heartburn Bipolar 1 disorder, manic, full remission Dyslipidemia History of invasive ductal carcinoma of breast COVID-19 vaccine series completed Mitral valve regurgitation Polyp of gallbladder Hyperlipidemia Hypertension Surgical History History of esophagogastroduodenoscopy (EGD) H/O colonoscopy History of repair of anterior cruciate ligament of left knee History of lumpectomy of right breast (~07/09/19) History of right breast biopsy (~07/02/19) History of section History of total hysterectomy Family History Father History of pancreatic cancer Sister History of lupus Mother No problems noted. 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 / [employer] Cognitive needs: No Hearing needs: No Vision needs: Yes Review of Systems Eyes Reports no additional complaints ENT Reports no additional complaints Card Reports as per HPI Resp Reports no additional complaints GI Reports as per HPI Reports as per HPI Musc Reports no additional complaints Neuro Reports no additional complaints Psych Reports as per HPI Endo Reports as per HPI Satinder/Lymph Reports no additional complaints Aller/Immun Reports no additional complaints Physical Exam Const General: cooperative, comfortable, no acute distress, well developed, alert and awake Orientation/consciousness: patient oriented x3 HEENT Head: Yes normal to inspection, Yes normocephalic and Yes atraumatic Ears: hearing grossly normal bilaterally Eyes General: appearance normal, both eyes and all related structures Neck Neck: Yes normal visual inspection and Yes trachea midline Chest Chest palpation & inspection: normal inspection of the chest Resp Effort & Inspection: normal respiratory effort and able to speak in complete sentences Cardio Rate: regular rate GI Inspection: Yes normal to inspection General: Yes no CVA tenderness Back/Spine/Pelvis Back: no CVA tenderness Skin General skin exam: no rashes or lesions noted Neuro General: patient oriented x3 Extrem General: Yes normal to inspection Psych Appearance: grossly normal and well kempt Mental Status: mental status grossly normal Speech and movement: Normal speech and movement present and Clear speech present Affect: normal affect Attitude: cooperative Thought process: Normal thought process present Thought content: Normal thought content present Insight: Fair insight present (Psych) Judgement: Fair judgement present (Psych) Office Procedures Post Void Residual Post Residual Void Post Void Residual (PVR): 0 [id number] Void Residual by ultrasound Results AMB Urinalysis, Automated UA Leukoctes 0 Velia/uL Last Edit by Marlen Rangel [facility] on 09/25/23 10:37 UA Nitrite Negative Last Edit by Marlen Rangel [facility] on 09/25/23 10:37 UA Urobilinogen 0.2 mg/dL Last Edit by Marlen Rangel [facility] on 09/25/23 10:37 UA Protein 30 mg/dL Last Edit by Marlen Rangel [facility] on 09/25/23 10:37 UA pH 6.5 Last Edit by Marlen Rangel [facility] on 09/25/23 10:37 UA Blood 0 Thai/uL Last Edit by Marlen Rangel [facility] on 09/25/23 10:37 UA Specific [place] 1.015 Last Edit by Marlen Rangel [facility] on 09/25/23 10:37 UA Ketone Negative Last Edit by Marlen Rangel [facility] on 09/25/23 10:37 UA Bilirubin 0 mg/dL Last Edit by Marlen Rangel [facility] on 09/25/23 10:37 UA Glucose 0 mg/dL Last Edit by Marlne Rangel [facility] on 09/25/23 10:37 Results Reviewed Results Reviewed: Laboratory Last Values Urine pH (Auto) 6.5 09/25/23 10:35 Specific [place] (Auto) 1.015 09/25/23 10:35 Urine Protein (Auto) 30 mg/dL 09/25/23 10:35 Glucose (UA)(Auto) 0 mg/dL 09/25/23 10:35 Urine Ketones (Auto) Negative 09/25/23 10:35 Urine Blood (Auto) 0 Thai/uL 09/25/23 10:35 Urine Nitrite (Auto) Negative 09/25/23 10:35 Urine Bilirubin (Auto) 0 mg/dL 09/25/23 10:35 Urine Urobilinogen (Auto) 0.2 mg/dL 09/25/23 10:35 Leukocyte Esterase (Auto) 0 Velia/uL 09/25/23 10:35 Assessment & Plan Assessment & Plan (1) Mixed urge and stress incontinence: Code(s): N39.46 - Mixed incontinence (2) Female bladder prolapse: Code(s): N81.10 - Cystocele, unspecified Plan In office urinalysis results reviewed with the patient today; as noted above. PVR 0 mL. Discussed potential for bladder prolapse verses cervical cuff Patient will have pelvic CT 10/04 Follow-up with Dr. Donnelly for further assessment evaluation and treatment options Discussed bladder triggers/irritants. Discussed at length affects of diabetes on lower urinary tract symptoms. Discussed pelvic floor therapy Discussed limiting/quitting vaping in overall health and well-being. Follow-up with Dr. bob as discussed; or sooner with any issues, concerns, and or questions. Orders: Orders AMB Urinalysis Automated Today Z13.9 - Encounter for screening, unspecified AMB Post Void Residual by ultrasound Today N39.46 - Mixed incontinence Patient Instructions: The patient had an opportunity to ask questions regarding the treatment plan. All questions were answered. Physical exam, labs, and imaging were discussed and reviewed in detail. As well as risks, benefits, and discussion of treatment choices. No major barriers to understanding were identified. The patient expressed understanding and agreement with the above treatment plan. The patient was made aware they should contact our office by phone for worsening of their current condition, the appearance of new symptoms, or with any questions or concerns. Compliance is encouraged with any medications and follow up testing that is ordered. It is a privilege to be allowed the opportunity to participate in? your urological care.? Again, if you have any questions or concerns If you have any questions or concerns please do not hesitate to contact me. The office is [phone]. This note is constructed using voice recognition software. While every effort has been made to ensure accuracy customs and border protection officer errors may have been included. Yours sincerely, JOAQUIN Nolan Coding Level of Care Code New Pt Level 3 (80436) Diagnoses Mixed urge and stress incontinence N39.46 Female bladder prolapse N81.10 CPT Codes Post Residual Void - PVR CPT Code: 75703-Qndv Void Residual by ultrasound ([id number])
== END 2023-09-25 11:07 | disposition home or self-care (01) ==
PROVIDERS: PCP Internal Medicine; Visit Provider Nurse Practitioner Family
DX: N39.46 Mixed incontinence (principal); N81.10 Cystocele, unspecified
CPT/HCPCS: 99203

== ENCOUNTER → 2023-09-25 09:53 | Outpatient (BNVA) | payer OTHER, SELFPAY | PROVIDERS: PCP Internal Medicine; Visit Provider Nurse Practitioner Family | DX: N39.46 Mixed incontinence (principal); N81.10 Cystocele, unspecified; Z90.710 Acquired absence of both cervix and uterus | CPT/HCPCS: 51798; 81003 ==

== ENCOUNTER 2023-09-30 13:34 | Outpatient (REF) | payer OTHER, SELFPAY ==
[2023-09-30 16:19] LABS: Estimated Average Glucose 148 mg/dL; Hemoglobin A1c % 6.8 % (<6.0)
[2023-09-30 16:27] LABS: Alanine Aminotransferase 17 U/L (0-31); Anion Gap 14 (12-20); Aspartate Amino Transferase 21 U/L (5-31); Blood Urea Nitrogen 15 mg/dL (9-16); Calcium 9.3 mg/dL (8.4-10.2); Carbon Dioxide 26 mmol/L (22-29); Chloride 103 mmol/L (96-108); Cholesterol 142 mg/dL (<200); Estimated Glomerular Filt Rate 57; Glucose Fasting 135 mg/dL (60-99); HDL Cholesterol 49 mg/dL (>40); LDL Cholesterol Calculated 72 mg/dL (<100); Potassium 3.5 mmol/L (3.3-5.1); Sodium 139 mmol/L (135-145); Triglycerides 107 mg/dL (<150)
[2023-09-30 16:44] LABS: Vitamin D 25-OH Total 69.5 ng/mL (>30)
[2023-09-30 17:28] LABS: Creatinine Urine 203.98 mg/dL; Microalbum/Creatinine Ratio Ur 34.3 ug/mg cr (<30)
== END 2023-09-30 13:35 | disposition home or self-care (01) ==
LOC: HO.HMGCLDS 13:34
PROVIDERS: PCP Internal Medicine; Visit Provider Internal Medicine
DX: E11.9 Type 2 diabetes mellitus without complications (principal); E78.5 Hyperlipidemia, unspecified; I10 Essential (primary) hypertension
CPT/HCPCS: 36415; 80048; 80061; 82043; 82306; 82570; 83036; 84450; 84460

== ENCOUNTER 2023-10-02 09:18 | Outpatient (AMB) | payer OTHER, SELFPAY ==
[2023-10-02 09:35] VITALS: BP 128/70; PULSE 74; O2SAT 98; BMI 30.4
--- NOTE | 2023-10-02 09:35 | A.OFFPC_ITS ---
Vital Signs 10/02/23 09:35 Height 5 ft 2 in Weight 166 lb 6 oz BMI 30.4 BP 128/70 Blood Pressure Location Lt brachial Position Sitting Pulse 74 Pulse Source Pulse Oximeter Pulse Oximetry (%) 98 Oxygen Delivery Method Room Air Intake Visit Reasons: 6m follow up htn,lipids Intake Note: Pt is here to follow up for her lab results Allergies Sulfa (Sulfonamide Antibiotics) [SULFA (SULFONAMIDE ANTIBIOTICS)] Adverse Reaction (Intermediate, Verified 11/16/23 10:32) muscle/joint pain Medication List - Last Reconciled 10/02/23 by Cassandra Valentin MD cetirizine 10 mg PO DAILY cholecalciferol (vitamin D3) 100 mcg PO DAILY clonidine HCl 0.1 mg PO BID [compression gauntlet right hand As directed] [compression sleeve right arm As directed] [compression wrap for right upper extremtiy for night wear As directed] escitalopram oxalate 20 mg PO DAILY guanfacine 1 mg PO BEDTIME hydrochlorothiazide 25 mg PO DAILY hydroxyzine HCl 25 mg PO .QD PRN lamotrigine (Lamictal) 250 mg PO DAILY losartan 100 mg PO DAILY metformin 500 mg PO DAILY omeprazole 20 mg PO DAILY rosuvastatin 40 mg PO DAILY tamoxifen 20 mg PO DAILY Tobacco use date assessed: 10/02/23 Fall risk assessment: No Falls in past year Last assessed Fall Risk: 10/02/23 Dental Screening Dental Screen Date: 10/02/23 Did you have a dental visit in the last 12 months?: Yes Did you have a dental problem in the last 6 months where you did not have access to dental care?: No Was dental information given to patient?: Patient has dentist HPI 6m follow up htn,lipids HPI Details 68-year-old lady here today for follow-u p on her hypertension and hyperlipidemia. Currently taking hydrochlorothiazide and losartan, rosuvastatin 40 mg daily. She also has diabetes mellitus currently on 500 mg once a day of metformin [facility] Medical History (Updated 11/16/23 @ 10:41 by Cassandra Valentin MD) Diabetes mellitus with microalbuminuria, without long-term current use of insulin Mixed urge and stress incontinence Chronic heartburn Bipolar 1 disorder, manic, full remission Dyslipidemia History of invasive ductal carcinoma of breast COVID-19 vaccine series completed Mitral valve regurgitation Polyp of gallbladder Hypertension Surgical History History of esophagogastroduodenoscopy (EGD) H/O colonoscopy History of repair of anterior cruciate ligament of left knee History of lumpectomy of right breast (~07/09/19) History of right breast biopsy (~07/02/19) History of section History of total hysterectomy Family History Father History of pancreatic cancer Sister History of lupus Mother No problems noted. 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 Yaw Banuelos, Leandra Arzola, Sukhi Patterson and colleagues, with an educational cyndi from [employer]. Review of Systems Const Denies fever(s), Denies headache(s) and Denies poor appetite Eyes Reports no additional complaints ENT Reports no additional complaints and Denies headache(s) Card Reports no additional complaints Resp Reports no additional complaints GI Reports no additional complaints Reports no additional complaints Musc Reports no additional complaints Skin/Breast Denies change in pigmentation, Denies erythema and Denies rash Neuro Reports no additional complaints and Denies headache(s) Endo Reports no additional complaints Satinder/Lymph Reports no additional complaints Aller/Immun Reports no additional complaints Physical exam (Primary Care) Vital Signs: Last Vital Signs Pulse 74 10/02/23 09:35 BP 128/70 10/02/23 09:35 Pulse Ox 98 10/02/23 09:35 Oxygen Delivery Method Room Air 10/02/23 09:35 BMI result Body Mass Index 30.4 Tobacco/Smoking Status: Tobacco use Status Tobacco use date assessed 10/02/23 10/02/23 09:41 Patient Tobacco Use Status Current everyday Tobacco 10/02/23 09:41 Tobacco use type Smokeless Tobacco 10/02/23 09:41 e-Cigarette/Vaping Use Currently Using 10/02/23 09:41 Thrive Assessment: Date of Thrive Assessment Date Thrive assessed 04/03/23 12 09:41 Const Other: Alert oriented x3, no acute distress noted ambulatory normal gait . Orientation/consciousness: patient oriented x3 HENMT Face and sinus: Yes face symmetric Mouth: Normal oral and palatal mucosa present, oropharynx normal and moist mucous membranes Eyes General: appearance normal, both eyes and all related structures Neck Neck: Yes normal visual inspection, Yes full ROM, Yes no lymphadenopathy and Yes supple Resp Auscultation: clear to auscultation bilaterally Cardio Other: S1-S2 present regular rate and rhythm GI Palpation (GI): Soft to palpation, nontender and no guarding Skin General skin exam: no rashes or lesions noted Neuro General: patient oriented x3, gait normal, moves all extremities, Normal light touch and pain sensation, no focal motor deficits, CN's II-XI intact bilaterally and normal sensation to monofilament Extrem General: Yes full ROM, Yes no pedal edema, Yes no calf tenderness and Yes normal gait Results Reviewed Results Reviewed: ENTERED: 09/30/23-1338 AIDA : ORDERED: Met Prof Fast, AST, ALT, Lipid Panel, Vitamin D 25-OH Test Result Flag Reference Site Sodium 139 135-145 mmol/L Potassium 3.5 3.3-5.1 mmol/L CL 103 96-108 mmol/L CO2 26 22-29 mmol/L Gap 14 12-20 BUN 15 9-16 mg/dL Creat 0.97 0.5-1.4 mg/dL EGFR 57 NOTE: For -[place] individuals, multiply the result by 1.210. Chronic Kidney Disease: Estimated GFR < 60 mL/min/1.73m2 Severe Kidney Disease: Estimated GFR < 15 mL/min/1.73m2 FBS 135 H 60-99 mg/dL A fasting glucose of 126 mg/dl or greater on more than one occasion is considered diagnostic of diabetes. CA 9.3 8.4-10.2 mg/dL AST (GOT) 21 5-31 U/L ALT (GPT) 17 0-31 U/L Triglyceride 107 <150 mg/dL Desirable Triglyceride: less than 150 mg/dL Borderline High Triglyceride 150-199 mg/dL High Triglyceride: 200-499 mg/dL Very High Triglyceride: greater than or equal to 5OO mg/dL Cholesterol 142 <200 mg/dL Desirable Cholesterol: less than 200 mg/dL Borderline High Cholesterol: 200-239 mg/dL High Cholesterol: greater than 239 mg/dL LDL Calculated 72 <100 mg/dL Desirable LDL: less than 100 mg/dL Near Optimal/Above Optimal LDL: 110-129 mg/dL Borderline High LDL: 130-159 mg/dL High LDL: 160-189 mg/dL Very High LDL: greater than or equal to 190 mg/dL HDL 49 >40 mg/dL Desirable HDL: greater than 40 mg/dL Note: This HDL assay may give artificially low results in patients with liver disease. Vit D 25-OH Tot 69.5 >30 ng/mL Health Based Reference Values* < 20 ng/mL Deficient 20-30 ng/mL Insufficient > 30 ng/mL Sufficient Laboratory Tests 09/30/23 13:38 Estimat Average Glucose 148 Hemoglobin A1c % 6.8 H Urine Creatinine 203.98 Urine Microalbumin 70.0 Microalb/Creat Ratio 34.3 H Assessment and Plan Assessment & Plan (1) Dyslipidemia: Code(s): E78.5 - Hyperlipidemia, unspecified Plan: Reviewed recent fasting lipid profile with patient with levels within normal limits . Continue with rosuvastatin 40 mg daily , in addition to adherence to low-cholesterol diet and regular exercise, at least 30 minutes 3 to 4 times a week. Advised patient to make healthy food choices, eat more fruits, vegetables, whole grains, wild caught fish and low-fat dairy. Limit amount of m eat and fried or fatty food products, as well as processed foods and fast foods. Follow-up scheduled with repeat fasting lipid panel in 4 months. (2) Hypertension: Code(s): I10 - Essential (primary) hypertension Qualifiers: Hypertension type: primary hypertension Qualified Code(s): I10 - Essential (primary) hypertension Plan: Blood pressure at goal of less than 130/80. Continue with losartan 100 mg daily and hydrochlorothiazide 25 mg daily. Reinforced importance of following a low sodium diet, getting regular exercise, and lowering stress levels. (3) Diabetes mellitus with microalbuminuria, without long-term current use of insulin: Code(s): E11.29 - Type 2 diabetes mellitus with other diabetic kidney complication; R80.9 - Proteinuria, unspecified Qualifiers: Diabetes mellitus type: type 2 Qualified Code(s): E11.29 - Type 2 diabetes mellitus with other diabetic kidney complication; R80.9 - Proteinuria, unspecified Plan: Recent lab results reviewed with patient, with sugar and hemoglobin A1c higher than last check at 6.8%. Continue metformin 500 mg once a day, and continue to check fasting blood sugar at home, maintain log and bring to next appointment for review. Reinforced diabetic diet and regular exercise with patient. Counseled regarding importance of yearly diabetes retinopathy screening. Patient advised to inspect feet daily, for any signs of injury, callus or infection. Compliance with diet and regular exercise again stressed. Blood pressure goal is less than 130/80, goal LDL is less than 100 and goal hemoglobin A1c is less than 7% follow-up appointment made in-4--months, after fasting labs done. Orders: Orders Aspartate Amino Transferase 01/20/24 E11.9 - Type 2 diabetes mellitus without complications, E78.5 - Hyperlipidemia, unspecified, I10 - Essential (primary) hypertension, Z78.0 - Asymptomatic menopausal state Basic Metabolic Panel Fasting 01/20/24 E11.9 - Type 2 diabetes mellitus without complications, E78.5 - Hyperlipidemia, unspecified, I10 - Essential (primary) hypertension, Z78.0 - Asymptomatic menopausal state Vitamin D 25-OH Total 01/20/24 E11.9 - Type 2 diabetes mellitus without complications, E78.5 - Hyperlipidemia, unspecified, I10 - Essential (primary) hypertension, Z78.0 - Asymptomatic menopausal state Lipid Panel 01/20/24 E11.9 - Type 2 diabetes mellitus without complications, E78.5 - Hyperlipidemia, unspecified, I10 - Essential (primary) hypertension, Z78.0 - Asymptomatic menopausal state Alanine Aminotransferase 01/20/24 E11.9 - Type 2 diabetes mellitus without complications, E78.5 - Hyperlipidemia, unspecified, I10 - Essential (primary) hypertension, Z78.0 - Asymptomatic menopausal state Hemoglobin A1c 01/20/24 E11.9 - Type 2 diabetes mellitus without complications, E78.5 - Hyperlipidemia, unspecified, I10 - Essential (primary) hypertension, Z78.0 - Asymptomatic menopausal state Microalbumin, Random (w Creat) 01/20/24 E11.9 - Type 2 diabetes mellitus without complications, E78.5 - Hyperlipidemia, unspecified, I10 - Essential (primary) hypertension, Z78.0 - Asymptomatic menopausal state Coding Level of Care Code Est Pt Level 4 (98325) Diagnoses Dyslipidemia E78.5 Primary hypertension I10 Hypertension type: primary hypertension Type 2 diabetes mellitus with microalbuminuria, without long-term current use of insulin E11.29; R80.9 Diabetes mellitus type: type 2
== END 2023-10-02 10:23 | disposition home or self-care (01) ==
PROVIDERS: PCP Internal Medicine; Visit Provider Internal Medicine
DX: E78.5 Hyperlipidemia, unspecified (principal); I10 Essential (primary) hypertension; E11.29 Type 2 diabetes mellitus with other diabetic kidney complication; R80.9 Proteinuria, unspecified
CPT/HCPCS: 99214

== ENCOUNTER 2023-10-04 08:53 | Outpatient (REF) | payer OTHER, SELFPAY | END 2023-10-04 08:54 | disposition home or self-care (01) | LOC: HO.CT 08:53 | PROVIDERS: PCP Internal Medicine; Visit Provider Nurse Practitioner Family | DX: M89.9 Disorder of bone, unspecified (principal) | CPT/HCPCS: 72192 ==

== ENCOUNTER 2023-11-15 13:47 | Outpatient (AMB) | payer OTHER, SELFPAY ==
--- NOTE | 2023-11-15 14:08 | MHC.OFFVIS ---
Intake Intake Visit Reasons: discuss prolapse bladder options (SE) Intake Note: Patient of Lesvia presents today to discuss prolapse bladder options: Meds- Vesicare Allergies to Antibiotic- Sulfa Blood Thinner- None Patient Scheduler Required: No Accompanied by: Self / Same As Patient Allergies Sulfa (Sulfonamide Antibiotics) [SULFA (SULFONAMIDE ANTIBIOTICS)] Adverse Reaction (Intermediate, Verified 11/16/23 10:32) muscle/joint pain Medication List - Last Reconciled 11/15/23 by Pedro Donnelly MD cetirizine 10 mg PO DAILY cholecalciferol (vitamin D3) 100 mcg PO DAILY clonidine HCl 0.1 mg PO BID [compression gauntlet right hand As directed] [compression sleeve right arm As directed] [compression wrap for right upper extremtiy for night wear As directed] escitalopram oxalate 20 mg PO DAILY guanfacine 1 mg PO BEDTIME hydrochlorothiazide 25 mg PO DAILY hydroxyzine HCl 25 mg PO .QD PRN lamotrigine (Lamictal) 250 mg PO DAILY losartan 100 mg PO DAILY metformin 500 mg PO DAILY omeprazole 20 mg PO DAILY rosuvastatin 40 mg PO DAILY solifenacin (Vesicare) 10 mg PO DAILY tamoxifen 20 mg PO DAILY HPI HPI Comments History of Present Illness Details Stephanie is a 68-year-old female, past medical history of type 2 diabetes, bipolar disorder, dyslipidemia, history of invasive ductal carcinoma of breast currently on tamoxifen, mitral valve regurgitation, hyperlipidemia, and hypertension. She was last seen by DORIE Jensen on 09/25/23 as a new patient for mixed urinary incontinence. She reports stress incontinence as well as urge incontinence. She reports having had 2 children in the past 1 via vaginal delivery and 1 . She reports vaginal delivery was a long labor in both babies were of average size. She reports having had a hysterectomy approximately 20 years ago. Evaluation- moderate vaginal prolapse discussed that she is emptying her bladder adequately. discussed trial of anticholinergic for urge symptoms. vesicare 10 mg daily. [facility] Medical History (Updated 11/16/23 @ 10:41 by Cassandra Valentin MD) Diabetes mellitus with microalbuminuria, without long-term current use of insulin Mixed urge and stress incontinence Chronic heartburn Bipolar 1 disorder, manic, full remission Dyslipidemia History of invasive ductal carcinoma of breast COVID-19 vaccine series completed Mitral valve regurgitation Polyp of gallbladder Hypertension Surgical History History of esophagogastroduodenoscopy (EGD) H/O colonoscopy History of repair of anterior cruciate ligament of left knee History of lumpectomy of right breast (~07/09/19) History of right breast biopsy (~07/02/19) History of section History of total hysterectomy Family History Father History of pancreatic cancer Sister History of lupus Mother No problems noted. 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 / [employer] Cognitive needs: No Hearing needs: No Vision needs: Yes Review of Systems Const All systems reviewed & are unremarkable except as noted in HPI and below Reports no additional complaints Eyes Reports no additional complaints ENT Reports no additional complaints Card Denies dyspnea Resp Denies cough and Denies dyspnea GI Reports no additional complaints Reports no additional complaints Musc Reports no additional complaints Skin/Breast Denies rash and Denies unusual bruising Neuro Reports no additional complaints Psych Reports no additional complaints Endo Reports no additional complaints Satinder/Lymph Reports no additional complaints Aller/Immun Reports no additional complaints Physical Exam Const General: cooperative, healthy appearing and no acute distress Orientation/consciousness: patient oriented x3 HEENT Head: Yes normal to inspection, Yes normocephalic and Yes atraumatic Eyes Conjunctivae: conjunctivae normal Neck Neck: Yes normal visual inspection and Yes trachea midline Chest Chest palpation & inspection: normal inspection of the chest Resp Effort & Inspection: normal respiratory effort Cardio Rate: regular rate GI Inspection: Yes normal to inspection General: No no CVA tenderness Speculum Exam - Vagina: vagina atrophic Back/Spine/Pelvis Back: No no CVA tenderness Skin General skin exam: no rashes or lesions noted Neuro General: patient oriented x3 Extrem General: No edema Psych Appearance: grossly normal Results AMB Urinalysis, Automated UA Leukoctes 0 Velia/uL Last Edit by Conner Rousseau [facility] on 11/15/23 14:54 UA Nitrite Negative Last Edit by Conner Rousseau [facility] on 11/15/23 14:54 UA Urobilinogen 0.2 mg/dL Last Edit by Conner Rousseau [facility] on 11/15/23 14:54 UA Protein 30 mg/dL Last Edit by Conner Rousseau [facility] on 11/15/23 14:54 1+ Conner Rousseau 11/15/23 14:54 UA pH 6.0 Last Edit by Conner Rousseau [facility] on 11/15/23 14:54 UA Blood 0 Thai/uL Last Edit by Conner Rousseau [facility] on 11/15/23 14:54 UA Specific [place] 1.015 Last Edit by Conner Rousseau [facility] on 11/15/23 14:54 UA Ketone Negative Last Edit by Conner Rousseau [facility] on 11/15/23 14:54 UA Bilirubin 0 mg/dL Last Edit by Conner Rousseau [facility] on 11/15/23 14:54 UA Glucose 0 mg/dL Last Edit by Conner Rousseau [facility] on 11/15/23 14:54 Results Reviewed Results Reviewed: Laboratory Last Values Urine pH (Auto) 6.0 11/15/23 14:52 Specific [place] (Auto) 1.015 11/15/23 14:52 Urine Protein (Auto) 30 mg/dL 11/15/23 14:52 Glucose (UA)(Auto) 0 mg/dL 11/15/23 14:52 Urine Ketones (Auto) Negative 11/15/23 14:52 Urine Blood (Auto) 0 Thai/uL 11/15/23 14:52 Urine Nitrite (Auto) Negative 11/15/23 14:52 Urine Bilirubin (Auto) 0 mg/dL 11/15/23 14:52 Urine Urobilinogen (Auto) 0.2 mg/dL 11/15/23 14:52 Leukocyte Esterase (Auto) 0 Velia/uL 11/15/23 14:52 Assessment & Plan Assessment & Plan (1) Mixed urge and stress incontinence: Code(s): N39.46 - Mixed incontinence (2) Female bladder prolapse: Code(s): N81.10 - Cystocele, unspecified Plan Vesicare 10 mg daily FU in 2 months Orders: Orders AMB Urinalysis Automated 11/15/23 Z13.9 - Encounter for screening, unspecified Medications: New solifenacin (Vesicare) 10 mg PO DAILY 30 tabs 2RF Patient Instructions: The patient had an opportunity to ask questions regarding treatment plan. All questions were answered. Laboratory studies and physical exam results were discussed and reviewed in detail. No major barriers to understanding were identified. The patient expressed understanding and agreement with the above treatment plan. The patient is aware they should contact our office by phone for worsening of their current condition or the appearance of new symptoms. Compliance is encouraged with any medications and followup testing that is ordered. It is a privilege to be allowed the opportunity to participate in the urologic care of your patient. If you have any questions or concerns regarding treatment for the above conditions please do not hesitate to contact me. The office telephone contact is [phone]. This note is constructed in part using voice recognition software. While every effort has been made to ensure accuracy crate tier errors may have been included. Yours sincerely, Pedro Donnelly MD Coding Level of Care Code Est Pt Level 4 (62719) Diagnoses Mixed urge and stress incontinence N39.46 Female bladder prolapse N81.10
== END 2023-11-15 15:06 | disposition home or self-care (01) ==
PROVIDERS: PCP Internal Medicine; Visit Provider Urology
DX: N39.46 Mixed incontinence (principal); N81.10 Cystocele, unspecified
CPT/HCPCS: 99214

== ENCOUNTER → 2023-11-15 13:47 | Outpatient (BNVA) | payer OTHER, SELFPAY | PROVIDERS: PCP Internal Medicine; Visit Provider Urology | DX: N39.46 Mixed incontinence (principal); N81.10 Cystocele, unspecified; Z90.710 Acquired absence of both cervix and uterus | CPT/HCPCS: 81003 ==

== ENCOUNTER 2023-12-25 14:30 | Outpatient (REF) | payer OTHER, SELFPAY ==
--- NOTE | ~2023-12-25 | MM_ITS ---
EXAMINATION: MM SCREENING DIGITAL BREAST TOMOSYNTHESIS, BILATERAL CLINICAL INFORMATION: Screening. Asymptomatic. The patient has a history of conservatively treated right breast cancer. COMPARISON: Mammography: This study is compared with prior exams dating back to 2019. TECHNIQUE: Digital breast tomosynthesis is performed in both the craniocaudal and mediolateral oblique views along with computer-aided detection (CAD). Synthesized 2D images are generated from the tomosynthesis. FINDINGS: There are scattered areas of fibroglandular density (ACR BI-RADS breast composition Category b). There are no significant masses, abnormal calcifications, or other abnormalities. There are post surgical changes in the superior aspect of the right breast. MM/MM tomosynthesis screening BI IMPRESSION: No mammographic evidence of malignancy. ASSESSMENT: BI-RADS BI-RADS 2 - Benign Findings RECOMMENDATION: Routine annual mammography screening. 1 year F/U This examination should not preclude the clinical evaluation of a suspicious palpable abnormality. This patient's information was entered into a reminder system with a target due date for their next mammogram.
== END 2023-12-25 14:31 | disposition home or self-care (01) ==
LOC: HO.MAMMO 14:30
PROVIDERS: PCP Internal Medicine; Visit Provider Internal Medicine
DX: Z12.31 Encounter for screening mammogram for malignant neoplasm of breast (principal)
CPT/HCPCS: 77063; 77067

== ENCOUNTER → 2023-12-25 14:45 | Outpatient (BNV) | payer OTHER, SELFPAY | PROVIDERS: PCP Internal Medicine; Visit Provider Radiology Diagnostic Radiology | DX: Z12.31 Encounter for screening mammogram for malignant neoplasm of breast (principal) | CPT/HCPCS: 77063; 77067 ==

== ENCOUNTER 2024-01-01 10:13 | Outpatient (AMB) | payer OTHER, SELFPAY ==
--- NOTE | 2024-01-01 08:39 | A.OFFPSYCH_ITS ---
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 Allergies Sulfa (Sulfonamide Antibiotics) [SULFA (SULFONAMIDE ANTIBIOTICS)] Adverse Reaction (Intermediate, Verified 11/16/23 10:32) muscle/joint pain Medication List - Last Reconciled 01/01/24 by Elsie Rodriguez APRN cholecalciferol (vitamin D3) 100 mcg PO DAILY clonidine HCl 0.1 mg PO BID [compression gauntlet right hand As directed] [compression sleeve right arm As directed] [compression wrap for right upper extremtiy for night wear As directed] escitalopram oxalate 20 mg PO DAILY hydrochlorothiazide 25 mg PO DAILY hydroxyzine pamoate 25 mg PO BID PRN lamotrigine 100 mg PO BID lamotrigine mg PO BID losartan 100 mg PO DAILY metformin 500 mg PO DAILY omeprazole 20 mg PO DAILY rosuvastatin 40 mg PO DAILY tamoxifen 20 mg PO DAILY HPI- Psychiatric Chief Complaint: anxiety, depression, Post traumatic stress disorder (PTSD), ADHD, Bipolar II disorder Intake Note: 68 yo woman here for follow up re: mood , anxiety, sleep, functioning HPI Narrative: Pt is back on the clonidine 0.1mg BID and is doing well overall; no dizziness, no daytime sedation; still takes over 1 hour to settle down at night; reports less over thinking. her mood is stable; Pt reports less stress. she reports feeling better overall; she reports clonidine is very helpful and anxiety is much less; she is functioning well at work; she has been taking the hydroxyzine 25 mg for anxiety a few times a week with good effec- she takes it 1-2 times a day when needed but feels tiered from it so delays if doesn't need it. She reports no flashbacks or memories of past trauma for months; no nightmares. she says she felels better on higher dose of lexapro. She reports good sleep. no SI or HI; no pressured speech or flight of ideas; no grandiosity. she is practicing [employer] Past Psychiatric History: outpatient treatment only dx with ADHD, RIGOBERTO, r/o mood disorder NOS for years; Lesa Rodriges NP (her previous prescriber) dx her with Bipolar DO. She reports she had symptoms as child but no treatment until adulthood PAST Medication Trials: trileptal- ineffective Methyphenidate 20mg by PCP-made her feel edgy and increased blood pressure a lot Paxil?didn't do much Adderall XR--disrupted sleep, increased anxiety Wellbutrin SR--angry, agitation, passive HI Strattera--possibly activating Zoloft--sexual side effects Prozac--CPY-450 issues with Tamoxifen Lamictal--muscle tension/?pain Cymbalta--GI distress Seroquel--helped with agitation/misty melatonin hydroxyzine Panic attacks: Yes Agoraphobia: No Separation anxiety disorder: No Social phobia: Yes Specific phobia: No Hypochondriasis: Yes Body dysmorphic disorder: No Obsessive compulsive disorder: No Generalized anxiety: Yes Post traumatic stress disorder: Yes Previous psychiatric history: Yes Previous inpatient psychiatric hospitalization: No Other previous psychiatric treatment programs: none History of suicidal ideation: No History of suicide attempt: No Medically hospitalized: No History of self injurious behavior: No History of violence: No Current/previous psychiatrist: Nestor Rodriguez Current/previous therapist: none Current symptoms: Reports distractibility Onset of symptoms: 21-30 years Previous psychiatric history: Yes Previous inpatient psychiatric hospitalization: No Other previous psychiatric treatment programs: none History of suicidal ideation: No History of suicide attempt: No Medically hospitalized: No History of self injurious behavior: No History of violence: No Current/previous psychiatrist: Nestor Rodriguez Current/previous therapist: none Mental Status Exam Mental Status Exam Patient Appearance: Well Grooomed and Appropriate Patient Orientation: Person, Place, Time and Situation Patient Behavior: Appropriate and Good Eye Contact Mood Description: Appropriate Affect Description: Anxious Patient Cognition Impaired: No Ability to Follow Directions: Good Speech Pattern: Clear Memory Description: Intact Hallucinations: None Delusions: Not Present Thought Process: Intact and Goal Oriented Thought Content: positive for Intact and positive for Goal Oriented Judgement: Good Assessment and Plan Assessment & Plan (1) Posttraumatic stress disorder: Code(s): F43.10 - Post-traumatic stress disorder, unspecified (2) Bipolar II disorder: Code(s): F31.81 - Bipolar II disorder Plan lamictal 125 mg in ma and 100mg at bedtime lexapro 20 mg daily clonidine 0.1mg bid hydroxyzine 25mg bid prn anxiety continue coping skills to calm self including adair chi return in 3 months Medications: New lamotrigine 25 mg PO DAILY 30 days 30 tabs 0RF lamotrigine 100 mg PO BID 60 tabs 3RF Changed From escitalopram oxalate 20 mg PO DAILY To escitalopram oxalate 20 mg (2 x 10 mg) PO DAILY 30 days 60 tabs 3RF Counseling and coordination of Care Pt. Self Management counseling: Exercise, Light exposure, Mindfulness and General coping skills Medication management counseling: Effectiveness, Side effects, Dosing range, Duration, Drug interaction and Adherence Diagnosis and Prognosis Counseling: Impact of diagnosis on life functions and Adequacy of current interventions Details: I spent 30 minutes reviewing the record, seeing the patient and documenting in the medical record. Counseling provided to the patient/caregiver as outlined below. Addressed patient/caregiver concerns regarding current medication regime including effective adherence. Addressed patient/caregiver concerns regarding diagnosis and prognosis including accuracy of diagnosis, prognosis over time, impact of diagnosis. Addressed patient/caregiver concerns regarding impact of recent stressors. [facility] Medical History (Updated 11/16/23 @ 10:41 by Cassandra Valentin MD) Diabetes mellitus with microalbuminuria, without long-term current use of insulin Mixed urge and stress incontinence Chronic heartburn Bipolar 1 disorder, manic, full remission Dyslipidemia History of invasive ductal carcinoma of breast COVID-19 vaccine series completed Mitral valve regurgitation Polyp of gallbladder Hypertension Surgical History History of esophagogastroduodenoscopy (EGD) H/O colonoscopy History of repair of anterior cruciate ligament of left knee History of lumpectomy of right breast (~07/09/19) History of right breast biopsy (~07/02/19) History of section History of total hysterectomy Family History Father History of pancreatic cancer Sister History of lupus Mother No problems noted. 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 Tran 32 year old daughter works with Autistic children patient graduated from high school, 5 years of college with degree in Psych. father age 8787 years old lives in [place], mother 10 years ago due to brain tumor, patient is the oldest of 4 girls Substance History: etoh in 30s has [employer] card Trauma History: yes childhood Coding Level of Care Code Est Pt Level 4 (44645) Diagnoses Posttraumatic stress disorder F43.10 Bipolar II disorder F31.81
== END 2024-01-01 10:37 | disposition home or self-care (01) ==
LOC: HO.HOP 10:13
PROVIDERS: PCP Internal Medicine; Visit Provider Clinical Nurse Specialist Psychiatric/Mental Health
DX: F31.81 Bipolar II disorder (principal); F43.12 Post-traumatic stress disorder, chronic
CPT/HCPCS: 99214

== ENCOUNTER → 2024-01-01 10:13 | Outpatient (BNVA) | payer OTHER, SELFPAY | PROVIDERS: PCP Internal Medicine; Visit Provider Clinical Nurse Specialist Psychiatric/Mental Health ==

== ENCOUNTER 2024-01-31 10:38 | Outpatient (AMB) | payer OTHER, SELFPAY ==
[2024-01-31 10:56] VITALS: BP 100/70; PULSE 71; O2SAT 98
--- NOTE | 2024-01-31 10:56 | MHC.PC.OV ---
Vital Signs 01/31/24 10:56 Height 5 ft 2 in Weight 164 lb BMI 30.0 BP 100/70 Blood Pressure Location Lt brachial Position Sitting Pulse 71 Pulse Source Pulse Oximeter Pulse Oximetry (%) 98 Oxygen Delivery Method Room Air Intake Visit Reasons: ffup dm ,lipids, htn after fasting labs done Intake Note: Pt is here today to f/u DM, lipids and HTN Allergies Sulfa (Sulfonamide Antibiotics) [SULFA (SULFONAMIDE ANTIBIOTICS)] Adverse Reaction (Intermediate, Verified 01/31/24 11:20) muscle/joint pain Medication List - Last Reconciled 01/31/24 by Cassandra Valentin MD cholecalciferol (vitamin D3) 100 mcg PO DAILY clonidine HCl 0.1 mg PO BID [compression gauntlet right hand As directed] [compression sleeve right arm As directed] [compression wrap for right upper extremtiy for night wear As directed] escitalopram oxalate 20 mg (2 x 10 mg) PO DAILY 30 days hydrochlorothiazide 25 mg PO DAILY hydroxyzine pamoate 25 mg PO BID PRN lamotrigine 25 mg PO DAILY 30 days lamotrigine 100 mg PO BID losartan 100 mg PO DAILY metformin 500 mg PO DAILY omeprazole 20 mg PO DAILY rosuvastatin 40 mg PO DAILY tamoxifen 20 mg PO DAILY Tobacco use date assessed: 01/31/24 Fall risk assessment: No Falls in past year Last assessed Fall Risk: 01/31/24 Dental Screening Dental Screen Date: 01/31/24 HPI ffup dm ,lipids, htn after fasting labs done HPI Details 68-year-old lady with diabetes mellitus, hypertension hyperlipidemia, here today for follow-up. She has been compliant with taking her medications, but admits to occasionally cheating with her diet and has not been exercising as much during this past few months. Latest hemoglobin A1c is at 6.8% and latest fasting labs showed lipids are within normal limits. Blood pressure stable and controlled on present treatment. She has been seen at [facility] see Urology for mixed urinary incontinence and cystocele, prescribed VESIcare which patient states was not helping. Patient states that she was unsatisfied with the treatment she received and would like a referral to a urogynecologist at [facility]. [facility] Medical History Diabetes mellitus with microalbuminuria, without long-term current use of insulin Mixed urge and stress incontinence Chronic heartburn Bipolar 1 disorder, manic, full remission Dyslipidemia History of invasive ductal carcinoma of breast COVID-19 vaccine series completed Mitral valve regurgitation Polyp of gallbladder Hypertension Surgical History History of esophagogastroduodenoscopy (EGD) H/O colonoscopy History of repair of anterior cruciate ligament of left knee History of lumpectomy of right breast (~07/09/19) History of right breast biopsy (~07/02/19) History of section History of total hysterectomy Family History Father History of pancreatic cancer Sister History of lupus Mother No problems noted. 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 1. Little interest or pleasure in doing things: not at all 2. Feeling down, depressed, or hopeless: not at all 3. Trouble falling or staying asleep, or sleeping too much: not at all 4. Feeling tired or having little energy: not at all 5. Poor appetite or overeating: not at all 6. Feeling bad about yourself - or that you are a failure or have let yourself or your family down: not at all 7. Trouble concentrating on things, such as reading the newspaper or watching television: not at all 8. Moving or speaking so slowly that other people could have noticed. Or the opposite - being so fidgety or restless that you have been moving around a lot more than usual: not at all 9. Thoughts that you would be better off or of hurting yourself in some way: not at all Total score: 0 Depression Screening Interpretation: Negative (Has bipolar disorder currently in remission with current treatment, followed by psych) Depression Screening Done: Yes 81527 - PHQ-9 Billing: Yes Source: Developed by Drs. Yaw Banuelos, Leandra Arzola, Sukhi Patterson and colleagues, with an educational cyndi from [employer]. Thrive Questionnaire Date Thrive assessed: 01/31/24 I am a: Patient What is your living situation today?: I have a steady place to live Within the past 12 months, did the food you bought not last and you didn't have the money to get more?: Never true Within the past 12 months, did you worry whether your food would run out before you got money to buy more?: Never true Do you have trouble paying for medicines?: No Do you have trouble getting transportation to medical appointments?: No Do you have trouble paying your heating and electricity bill?: No Do you have trouble taking care of your child, family member or friend?: No Do you have trouble with day-to-day activities such as bathing, preparing meals, shopping, managing finances, etc.?: No Are you currently unemployed and looking for a job?: No Are you interested in more education?: No THRIVE Score: 0 AUDIT C Alcohol Use Questionnaire (AUDIT-C) 1. How often do you have a drink containing alcohol?: Never Total Score: 0 RIGOBERTO-7 AMB Questionnaire RIGOBERTO-7 Date RIGOBERTO - 7 assessed: 01/31/24 Feeling nervous, anxious, or on edge: 0 = Not at all Not being able to stop or control worryin = Not at all Worrying too much about different things: 0 = Not at all Trouble relaxin = Not at all Being so restless that it is hard to sit still: 0 = Not at all Becoming easily annoyed or irritable: 0 = Not at all Feeling afraid as if something awful might happen: 0 = Not at all Total RIGOBERTO-7 score (0-4 normal; 5-9 mild; 10-14 moderate; 15-21 severe): 0 Source: Developed by Drs. Yaw Banuelos, Leandra Arzola, Sukhi Patterson and colleagues, with an educational cyndi from [employer]. RIGOBERTO-7 Assessment Billing RIGOBERTO-7 Assessment Tool: RIGOBERTO-7 Assessment 70326 Review of Systems Const Reports no additional complaints Eyes Reports no additional complaints ENT Reports no additional complaints Card Denies dyspnea Resp Denies cough and Denies dyspnea GI Denies abdominal pain, Denies change in bowel habits and Denies heartburn Reports as per HPI Musc Reports no additional complaints Skin/Breast Denies rash and Denies unusual bruising Neuro Reports no additional complaints Psych Reports no additional complaints Endo Reports no additional complaints Satinder/Lymph Reports no additional complaints Aller/Immun Reports no additional complaints Physical exam (Primary Care) Vital Signs: Last Vital Signs Pulse 71 01/31/24 10:56 BP 100/70 01/31/24 10:56 Pulse Ox 98 01/31/24 10:56 Oxygen Delivery Method Room Air 01/31/24 10:56 BMI result Body Mass Index 30.0 Tobacco/Smoking Status: Tobacco use Status Tobacco use date assessed 01/31/24 01/31/24 10:59 Patient Tobacco Use Status Tobacco use Unknown 01/31/24 11:04 Tobacco use type Smokeless Tobacco 01/31/24 10:59 e-Cigarette/Vaping Use Currently Using 01/31/24 10:59 PHQ-9: PHQ-9 Score PHQ-9: Total score 0 01/31/24 11:15 Depression Screening Interpretation: Negative (Has bipolar disorder currently in remission with current treatment, followed by psych) Thrive Assessment: Date of Thrive Assessment Date Thrive assessed 01/31/24 01/31/24 11:07 Const Other: Alert oriented x3, no acute distress noted ambulatory normal gait . Orientation/consciousness: patient oriented x3 HENMT Face and sinus: Yes face symmetric Mouth: Normal oral and palatal mucosa present, oropharynx normal and moist mucous membranes Eyes General: appearance normal, both eyes and all related structures Neck Neck: Yes normal visual inspection, Yes full ROM, Yes no lymphadenopathy and Yes supple Resp Auscultation: clear to auscultation bilaterally Cardio Other: S1-S2 present regular rate and rhythm GI Palpation (GI): Soft to palpation, nontender and no guarding General: Yes no CVA tenderness Back/Spine/Pelvis Back: no CVA tenderness and No back tenderness Skin General skin exam: no rashes or lesions noted Neuro General: patient oriented x3, gait normal, moves all extremities, Normal light touch and pain sensation, no focal motor deficits, CN's II-XI intact bilaterally and normal sensation to monofilament Extrem General: Yes full ROM, Yes no pedal edema, Yes no calf tenderness and Yes normal gait Results AMB Hemoglobin A1c AMB Hemoglobin A1c 6.8 % Last Edit by Martina Betts CMA on 01/31/24 11:00 Results Reviewed Results Reviewed: Laboratory Last Values Hgb A1c (Clinic) 6.8 % (4.0-6.0) H 01/31/24 10:47 Name: Stephanie Cochran Age/Sex: 68/F : 1955 Unit#: [id number] Attend Dr: Cassandra Valentin MD Re01/31/24 Status: DEP REF Location: [facility] Disch: SPEC : [id number] JANINE: 01/31/24 STATUS: COMP REQ : [id number] RECD: 01/31/[address]: Cassandra Valentin MD COMP: 01/31/24 ENTERED: 01/31/[address]: ORDERED: Met Prof Fast, AST, ALT, Lipid Panel, Vitamin D 25-OH Test Result Flag Reference Sodium 137 135-145 mmol/L Potassium 3.7 3.3-5.1 mmol/L CL 101 96-108 mmol/L CO2 27 22-29 mmol/L Gap 13 12-20 BUN 14 9-16 mg/dL Creat 1.09 0.5-1.4 mg/dL EGFR 50 NOTE: For -[place] individuals, multiply the result by 1.210. Chronic Kidney Disease: Estimated GFR < 60 mL/min/1.73m2 Severe Kidney Disease: Estimated GFR < 15 mL/min/1.73m2 FBS 124 H 60-99 mg/dL A fasting glucose from 100-125 mg/dl is considered impaired (pre-diabetes). CA 9.8 8.4-10.2 mg/dL AST (GOT) 22 5-31 U/L ALT (GPT) 20 0-31 U/L Triglyceride 114 <150 mg/dL Desirable Triglyceride: less than 150 mg/dL Borderline High Triglyceride 150-199 mg/dL High Triglyceride: 200-499 mg/dL Very High Triglyceride: greater than or equal to 5OO mg/dL Cholesterol 134 <200 mg/dL Desirable Cholesterol: less than 200 mg/dL Borderline High Cholesterol: 200-239 mg/dL High Cholesterol: greater than 239 mg/dL LDL Calculated 62 <100 mg/dL Desirable LDL: less than 100 mg/dL Near Optimal/Above Optimal LDL: 110-129 mg/dL Borderline High LDL: 130-159 mg/dL High LDL: 160-189 mg/dL Very High LDL: greater than or equal to 190 mg/dL HDL 50 >40 mg/dL Desirable HDL: greater than 40 mg/dL Note: This HDL assay may give artificially low results in patients with liver disease. Vit D 25-OH Tot 51.8 >30 ng/mL Health Based Reference Values* < 20 ng/mL Deficient 20-30 ng/mL Insufficient > 30 ng/mL Sufficient Assessment and Plan Assessment & Plan (1) Mixed urge and stress incontinence: Code(s): N39.46 - Mixed incontinence Plan: Patient requesting 2nd opinion referral to urogynecologist at [facility], ordered (2) Female bladder prolapse: Code(s): N81.10 - Cystocele, unspecified Plan: Referral ordered to see Urogynecology at [facility] (3) Diabetes mellitus with microalbuminuria, without long-term current use of insulin: Code(s): E11.29 - Type 2 diabetes mellitus with other diabetic kidney complication; R80.9 - Proteinuria, unspecified Plan: Recent lab results reviewed with patient, with sugar and hemoglobin A1c stable and at goal continue metformin 500 mg once a day, continue to check fasting blood sugar at home, maintain log and bring to next appointment for review. Reinforced diabetic diet and regular exercise with patient. Counseled regarding importance of yearly diabetes retinopathy screening. Patient advised to inspect feet daily, for any signs of injury, callus or infection. Compliance with diet and regular exercise again stressed. Blood pressure goal is less than 130/80, goal LDL is less than 100 and goal hemoglobin A1c is less than 7% (4) Dyslipidemia: Code(s): E78.5 - Hyperlipidemia, unspecified Plan: Reviewed recent fasting lipid profile with patient with levels within normal . Continue with rosuvastatin 40 mg daily , in addition to adherence to low-cholesterol diet and regular exercise, at least 30 minutes 3 to 4 times a week. Advised patient to make healthy food choices, eat more fruits, vegetables, whole grains, wild caught fish and low-fat dairy. Limit amount of meat and fried or fatty food products, as well as processed foods and fast foods. (5) Hypertension: Code(s): I10 - Essential (primary) hypertension Qualifiers: Hypertension type: primary hypertension Qualified Code(s): I10 - Essential (primary) hypertension Plan: Blood pressure at goal of less than 130/80. Continue with current medication. Reinforced importance of following a low sodium diet, getting regular exercise, and lowering stress levels. Orders: Orders AMB Hemoglobin A1c 01/31/24 E11.29 - Type 2 diabetes mellitus with other diabetic kidney complication, R80.9 - Proteinuria, unspecified Referrals Urogynecology Referral N39.46 - Mixed incontinence, N81.10 - Cystocele, unspecified Coding Level of Care Code Est Pt Level 4 (39174) Diagnoses Mixed urge and stress incontinence N39.46 Female bladder prolapse N81.10 Diabetes mellitus with microalbuminuria, without long-term current use of insulin E11.29; R80.9 Dyslipidemia E78.5 Primary hypertension I10 Hypertension type: primary hypertension Additional Codes RIGOBERTO-7 Assessment Billing - RIGOBERTO-7 Assessment Tool: RIGOBERTO-7 Assessment [id number] ([id number])
== END 2024-01-31 16:18 | disposition home or self-care (01) ==
PROVIDERS: PCP Internal Medicine; Visit Provider Internal Medicine
DX: E11.29 Type 2 diabetes mellitus with other diabetic kidney complication (principal); R80.9 Proteinuria, unspecified
CPT/HCPCS: 83036; 99214

== ENCOUNTER 2024-01-31 11:32 | Outpatient (REF) | payer OTHER, SELFPAY ==
[2024-01-31 14:22] LABS: Alanine Aminotransferase 20 U/L (0-31); Anion Gap 13 (12-20); Aspartate Amino Transferase 22 U/L (5-31); Blood Urea Nitrogen 14 mg/dL (9-16); Calcium 9.8 mg/dL (8.4-10.2); Carbon Dioxide 27 mmol/L (22-29); Chloride 101 mmol/L (96-108); Cholesterol 134 mg/dL (<200); Estimated Glomerular Filt Rate 50; Glucose Fasting 124 mg/dL (60-99); HDL Cholesterol 50 mg/dL (>40); LDL Cholesterol Calculated 62 mg/dL (<100); Potassium 3.7 mmol/L (3.3-5.1); Sodium 137 mmol/L (135-145); Triglycerides 114 mg/dL (<150)
[2024-01-31 14:32] LABS: Estimated Average Glucose 148 mg/dL; Hemoglobin A1c % 6.8 % (<6.0)
[2024-01-31 14:45] LABS: Vitamin D 25-OH Total 51.8 ng/mL (>30)
[2024-01-31 15:36] LABS: Microalbum/Creatinine Ratio Ur 276.1 ug/mg cr (<30)
== END 2024-01-31 11:33 | disposition home or self-care (01) ==
LOC: HO.HMGCLDS 11:32
PROVIDERS: PCP Internal Medicine; Visit Provider Internal Medicine
DX: E11.9 Type 2 diabetes mellitus without complications (principal); E78.5 Hyperlipidemia, unspecified; I10 Essential (primary) hypertension; Z78.0 Asymptomatic menopausal state
CPT/HCPCS: 36415; 80048; 80061; 82043; 82306; 82570; 83036; 84450; 84460

== ENCOUNTER 2024-04-02 11:02 | Outpatient (AMB) | payer OTHER, SELFPAY ==
--- NOTE | 2024-04-02 11:08 | MHC.OFFVISPS ---
Intake Vital Signs 04/02/24 11:23 Height 5 ft 2 in Weight 160 lb Intake Visit Reasons: depression Allergies Sulfa (Sulfonamide Antibiotics) [SULFA (SULFONAMIDE ANTIBIOTICS)] Adverse Reaction (Intermediate, Verified 01/31/24 11:20) muscle/joint pain Medication List - Last Reconciled 04/02/24 by Elsie Rodriguez APRN cholecalciferol (vitamin D3) 100 mcg PO DAILY clonidine HCl 0.1 mg PO BID escitalopram oxalate 20 mg (2 x 10 mg) PO DAILY 30 days hydrochlorothiazide 25 mg PO DAILY hydroxyzine pamoate 25 mg PO BID PRN lamotrigine 25 mg PO DAILY 30 days lamotrigine 100 mg PO BID losartan 100 mg PO DAILY metformin 500 mg PO DAILY omeprazole 20 mg PO DAILY rosuvastatin 40 mg PO DAILY tamoxifen 20 mg PO DAILY HPI- Psychiatric Chief Complaint: depression HPI Narrative: pt reportss table mood; no depression; moderate anxiety - she takes the hydroxyzine if she is feeling anxious with good effect; denies side effects; functioning well at work; does [employer] regularly. able to enjoy activities; sleep is good- wakes 1 times a night to use Bathroom but able to return to sleep- some concern about medical issues- urinary incontinence and hip pain; she will follow up with PCP and has referral fro urogynecologist. Pt is happy with meds as is- feels they are working well. Past Psychiatric History: outpatient treatment only dx with ADHD, RIGOBERTO, r/o mood disorder NOS for years; Lesa Rodriges NP (her previous prescriber) dx her with Bipolar DO. She reports she had symptoms as child but no treatment until adulthood PAST Medication Trials: trileptal- ineffective Methyphenidate 20mg by PCP-made her feel edgy and increased blood pressure a lot Paxil?didn't do much Adderall XR--disrupted sleep, increased anxiety Wellbutrin SR--angry, agitation, passive HI Strattera--possibly activating Zoloft--sexual side effects Prozac--CPY-450 issues with Tamoxifen Lamictal--muscle tension/?pain Cymbalta--GI distress Seroquel--helped with agitation/misty melatonin hydroxyzine Subjective Subjective Subjective Medication Compliance: Yes Side effects from medications: No Review of Systems Medical Review of Systems: unchanged Mental Status Exam Mental Status Exam Patient Appearance: Well Grooomed and Appropriate Patient Orientation: Person, Place, Time and Situation Level of Consciousness: Awake and Alert Patient Behavior: Appropriate and Cooperative Mood Description: Calm and Happy Affect Description: Calm and Happy Patient Cognition Impaired: No Ability to Follow Directions: Good Speech Pattern: Clear and Appropriate Memory Description: Intact Hallucinations: None and Olfactory Delusions: Not Present Thought Process: Intact and Goal Oriented Thought Content: positive for Intact and positive for Goal Oriented Judgement: Good Assessment and Plan Assessment & Plan (1) Bipolar disorder, most recent episode hypomanic: Status: Acute Code(s): F31.0 - Bipolar disorder, current episode hypomanic (2) Anxiety: Status: Acute Code(s): F41.9 - Anxiety disorder, unspecified Plan continue medications increase hydroxyzine to 25mg TID prn anxiety Medications: New clonidine HCl 0.1 mg PO BID 60 tabs 3RF Changed From hydroxyzine pamoate 25 mg PO BID PRN anxiety To hydroxyzine pamoate 25 mg PO TID PRN 90 caps 3RF anxiety Refilled lamotrigine 100 mg PO BID 60 tabs 3RF escitalopram oxalate 20 mg (2 x 10 mg) PO DAILY 60 tabs 3RF 30 days lamotrigine 25 mg PO DAILY 30 tabs 3RF 30 days Counseling and coordination of Care Pt. Self Management counseling: Exercise, Maintenance-social rhythm, Mindfulness, Mod caffeine/ETOH intake, Sleep hygiene and General coping skills Medication management counseling: Effectiveness, Side effects, Dosing range, Duration, Drug interaction and Adherence Diagnosis and Prognosis Counseling: Accuracy of diagnosis, Prognosis over time, Impact of family relationship and Adequacy of current interventions Details: I spent 30 minutes reviewing the record, seeing the patient and documenting in the medical record. Counseling provided to the patient/caregiver as outlined below. Addressed patient/caregiver concerns regarding current medication regime including effective adherence. Addressed patient/caregiver concerns regarding diagnosis and prognosis including accuracy of diagnosis, prognosis over time, impact of diagnosis. Addressed patient/caregiver concerns regarding impact of recent stressors. [facility]LY [facility] Medical History Diabetes mellitus with microalbuminuria, without long-term current use of insulin Mixed urge and stress incontinence Chronic heartburn Bipolar 1 disorder, manic, full remission Dyslipidemia History of invasive ductal carcinoma of breast COVID-19 vaccine series completed Mitral valve regurgitation Polyp of gallbladder Hypertension Surgical History History of esophagogastroduodenoscopy (EGD) H/O colonoscopy History of repair of anterior cruciate ligament of left knee History of lumpectomy of right breast (~07/09/19) History of right breast biopsy (~07/02/19) History of section History of total hysterectomy Family History Father History of pancreatic cancer Sister History of lupus Mother No problems noted. 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 26 year old son lives at home - has Bipolar disorder, seeing Dr. Tran 32 year old daughter works with Autistic children patient graduated from high school, 5 years of college with degree in Psych. father age 8787 years old lives in [place], mother 10 years ago due to brain tumor, patient is the oldest of 4 girls Substance History: etoh in 30s has medical [employer] card Trauma History: yes childhood Coding Level of Care Code Est Pt Level 4 (03310) Diagnoses Bipolar disorder, most recent episode hypomanic F31.0 Anxiety F41.9
== END 2024-04-02 11:29 | disposition home or self-care (01) ==
LOC: HO.HOP 11:02
PROVIDERS: PCP Internal Medicine; Visit Provider Clinical Nurse Specialist Psychiatric/Mental Health
DX: F31.0 Bipolar disorder, current episode hypomanic (principal); F41.9 Anxiety disorder, unspecified
CPT/HCPCS: 99214

== ENCOUNTER → 2024-04-02 11:02 | Outpatient (BNVA) | payer OTHER, SELFPAY | PROVIDERS: PCP Internal Medicine; Visit Provider Clinical Nurse Specialist Psychiatric/Mental Health ==

== ENCOUNTER 2024-04-08 09:06 | Outpatient (AMB) | payer OTHER, SELFPAY ==
--- NOTE | 2024-04-08 09:10 | A.OFFPC_ITS ---
Vital Signs 04/08/24 09:13 Height 5 ft 2 in Weight 165 lb BMI 30.2 BP 116/80 Blood Pressure Location Lt brachial Position Sitting Pulse 76 Pulse Source Pulse Oximeter Pulse Oximetry (%) 96 Oxygen Delivery Method Room Air Intake Visit Reasons: PE Intake Note: pt is here for annual PE. Mammogram 12/25/23. Bone density 06/04/19. Colon 04/11/12. A1c 6.8 01/31/24 Allergies Sulfa (Sulfonamide Antibiotics) [SULFA (SULFONAMIDE ANTIBIOTICS)] Adverse Reaction (Intermediate, Verified 04/08/24 09:37) muscle/joint pain Medication List - Last Reconciled 04/08/24 by Cassandra Valentin MD cholecalciferol (vitamin D3) 100 mcg PO DAILY clonidine HCl 0.1 mg PO BID escitalopram oxalate 20 mg (2 x 10 mg) PO DAILY 30 days hydrochlorothiazide 25 mg PO DAILY hydroxyzine pamoate 25 mg PO TID PRN lamotrigine 100 mg PO BID lamotrigine 25 mg PO DAILY 30 days losartan 100 mg PO DAILY metformin 500 mg PO DAILY omeprazole 20 mg PO DAILY rosuvastatin 40 mg PO DAILY tamoxifen 20 mg PO DAILY Tobacco use date assessed: 04/08/24 Fall risk assessment: 2 + Falls in past year Last assessed Fall Risk: 04/08/24 Dental Screening Dental Screen Date: 04/08/24 HPI PE HPI Details 68-year-old lady here today for her phys ical exam. She is up-to-date with her screening Mammogram last done 12/25/23. Had a Bone density 06/04/19 which showed beginning osteopenia in her lumbar spine, normal in her left femoral neck and left femur . She had a colonoscopy screening and EGD done 08/30/[address] Puckett which came back normal, EGD showed presence of GERD without esopha gitis. She has diabetes mellitus with microalbuminuria, last hemoglobin A1c was 6.8% last 01/31/2024. Fasting lipids done at that time also showed normal findings with normal LDL cholesterol. Currently on metformin 500 mg daily and rosuvastatin 40 mg daily . Has hypertension, currently stable controlled on losartan 100 mg once a day and hydrochlorothiazide 25 mg daily Takes omeprazole for her gastroesophageal reflux disease Has bipolar disorder currently stable controlled on present treatment, currently sees Psychiatry and goes to therapy. She has been seen by [facility] urogynecology for her cystocele with prolapse, and recommended surgical management with robotic sacrocolpoplexy and mid urethral sling procedure. However patient has been having severe right hip pain where in her right hip would just buckle unexpectedly and a recommend getting he would replacement 1st for her right hip before proceeding with bladder surgery. Would need at least 6 months in between surgery. Has an appointment to see Dr. Rios at [facility] on April 10, 2024. FOR[facility]LY [facility] Medical History (Updated 04/08/24 @ 17:14 by Cassandra Valentin MD) Degenerative joint disease of right hip Cystocele with prolapse Osteopenia of lumbar spine Diabetes mellitus with microalbuminuria, without long-term current use of insulin Mixed urge and stress incontinence Chronic heartburn Bipolar 1 disorder, manic, full remission Dyslipidemia History of invasive ductal carcinoma of breast COVID-19 vaccine series completed Mitral valve regurgitation Polyp of gallbladder Hypertension Surgical History (Updated 04/08/24 @ 09:48 by Cassandra Valentin MD) History of esophagogastroduodenoscopy (EGD) H/O colonoscopy History of repair of anterior cruciate ligament of left knee History of lumpectomy of right breast (~07/09/19) History of right breast biopsy (~07/02/19) History of section History of total hysterectomy Family History Father History of pancreatic cancer Sister History of lupus Mother No problems noted. 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 Depression Screening Interpretation: Negative (Has bipolar disorder currently in remission with current treatment, followed by psych) Depression Screening Done: Yes Source: Developed by Drs. Leandra Bradford, Sukhi Patterson and colleagues, with an educational cyndi from [email or web address]. Thrive Questionnaire Date Thrive assessed: 01/31/24 AUDIT C Alcohol Use Questionnaire (AUDIT-C) 1. How often do you have a drink containing alcohol?: Never 3. How often do you have six or more drinks on one occasion?: Never Total Score: 0 RIGOBERTO-7 AMB Questionnaire RIGOBERTO-7 Date RIGOBERTO - 7 assessed: 01/31/24 Source: Developed by Drs. Yaw Banuelos, Leandra Arzola, Sukhi Patterson and colleagues, with an educational cyndi from [email or web address]. Review of Systems Const Reports no additional complaints Eyes Reports no additional complaints ENT Reports no additional complaints Card Denies dyspnea Resp Denies cough and Denies dyspnea GI Denies abdominal pain, Denies change in bowel habits and Denies heartburn Reports as per HPI Musc Reports arthralgias (Right hip) Skin/Breast Denies rash and Denies unusual bruising Neuro Reports no additional complaints Psych Reports no additional complaints Endo Reports no additional complaints Satinder/Lymph Reports no additional complaints Aller/Immun Reports no additional complaints Physical exam (Primary Care) Vital Signs: Last Vital Signs Pulse 76 04/08/24 09:13 BP 116/80 04/08/24 09:13 Pulse Ox 96 04/08/24 09:13 Oxygen Delivery Method Room Air 04/08/24 09:13 BMI result Body Mass Index 30.2 Tobacco/Smoking Status: Tobacco use Status Tobacco use date assessed 04/08/24 04/08/24 09:14 Patient Tobacco Use Status Tobacco use Unknown 04/08/24 09:14 Tobacco use type Smokeless Tobacco 04/08/24 09:14 e-Cigarette/Vaping Use Currently Using 04/08/24 09:14 Depression Screening Interpretation: Negative (Has bipolar disorder currently in remission with current treatment, followed by psych) Thrive Assessment: Date of Thrive Assessment Date Thrive assessed 01/31/24 04/08/24 09:14 Const Other: Alert oriented x3, no acute distress noted ambulatory normal gait . Orientation/consciousness: patient oriented x3 HENMT Face and sinus: Yes face symmetric Mouth: Normal oral and palatal mucosa present, oropharynx normal and moist mucous membranes Eyes General: appearance normal, both eyes and all related structures Neck Neck: Yes normal visual inspection, Yes full ROM, Yes no lymphadenopathy and Yes supple Resp Auscultation: clear to auscultation bilaterally Cardio Other: S1-S2 present regular rate and rhythm GI Palpation (GI): Soft to palpation, nontender and no guarding General: Yes no CVA tenderness Back/Spine/Pelvis Back: no CVA tenderness and No back tenderness Skin General skin exam: no rashes or lesions noted Neuro General: patient oriented x3, gait normal, moves all extremities, Normal light touch and pain sensation, no focal motor deficits, CN's II-XI intact bilaterally and normal sensation to monofilament Extrem Other: Decreased range of motion in right joint due to pain and stiffness General: Yes no pedal edema, Yes no calf tenderness and Yes normal gait Psych Appearance: grossly normal Mental Status: mental status grossly normal Speech and movement: Normal speech and movement present Affect: normal affect Attitude: cooperative Results Reviewed Results Reviewed: Laboratory Tests 01/31/24 01/31/24 01/31/24 10:47 11:35 11:40 Estimat Average Glucose 148 Hgb A1c (Clinic) 6.8 H Hemoglobin A1c % 6.8 H Urine Creatinine 132.90 Urine Microalbumin 367.0 Microalb/Creat Ratio 276.1 H amira: Stephanie Cochran Age/Sex: 68/F : 1955 Unit#: [id number] Attend Dr: Cassandra Valentin MD Re01/31/24 Status: DEP REF Location: [facility] Disch: SPEC : [id number] JANINE: 01/31/24 STATUS: COMP REQ : [id number] RECD: 01/31/[address]: Cassandra Valentin MD COMP: 01/31/24 ENTERED: 01/31/[address]: ORDERED: Met Prof Fast, AST, ALT, Lipid Panel, Vitamin D 25-OH Test Result Flag Reference Sodium 137 135-145 mmol/L Potassium 3.7 3.3-5.1 mmol/L CL 101 96-108 mmol/L CO2 27 22-29 mmol/L Gap 13 12-20 BUN 14 9-16 mg/dL Creat 1.09 0.5-1.4 mg/dL EGFR 50 NOTE: For -Scottish individuals, multiply the result by 1.210. Chronic Kidney Disease: Estimated GFR < 60 mL/min/1.73m2 Severe Kidney Disease: Estimated GFR < 15 mL/min/1.73m2 FBS 124 H 60-99 mg/dL A fasting glucose from 100-125 mg/dl is considered impaired (pre-diabetes). CA 9.8 8.4-10.2 mg/dL AST (GOT) 22 5-31 U/L ALT (GPT) 20 0-31 U/L Triglyceride 114 <150 mg/dL Desirable Triglyceride: less than 150 mg/dL Borderline High Triglyceride 150-199 mg/dL High Triglyceride: 200-499 mg/dL Very High Triglyceride: greater than or equal to 5OO mg/dL Cholesterol 134 <200 mg/dL Desirable Cholesterol: less than 200 mg/dL Borderline High Cholesterol: 200-239 mg/dL High Cholesterol: greater than 239 mg/dL LDL Calculated 62 <100 mg/dL Desirable LDL: less than 100 mg/dL Near Optimal/Above Optimal LDL: 110-129 mg/dL Borderline High LDL: 130-159 mg/dL High LDL: 160-189 mg/dL Very High LDL: greater than or equal to 190 mg/dL HDL 50 >40 mg/dL Desirable HDL: greater than 40 mg/dL Note: This HDL assay may give artificially low results in patients with liver disease. Vit D 25-OH Tot 51.8 >30 ng/mL Health Based Reference Values* < 20 ng/mL Deficient 20-30 ng/mL Insufficient > 30 ng/mL Sufficient Assessment and Plan Assessment & Plan (1) Osteopenia of lumbar spine: Code(s): M85.88 - Other specified disorders of bone density and structure, other site Plan: Will repeat another bone density scan. Advised to continue taking vitamin-D 3 supplements at least 2000 units daily, take adequate calcium from dietary sources and engage in regular weight-bearing exercise as much as possible. (2) Degenerative joint disease of right hip: Comment: Followed by Dr. Rios at [facility] Code(s): M16.11 - Unilateral primary osteoarthritis, right hip Qualifiers: Osteoarthritis type: primary Qualified Code(s): M16.11 - Unilateral primary osteoarthritis, right hip Plan: Has an appointment for follow-up with Dr. Rios at [facility] on 04/10/2024 (3) Cystocele with prolapse: Comment: Followed at [facility] urogynecology clinic Code(s): N81.4 - Uterovaginal prolapse, unspecified Plan: Followed by [facility] urogynecology clinic, with plan to do robotic sacrocolpoplexy and mid urethral sling procedure, once right hip replacement done (4) Diabetes mellitus with microalbuminuria, without long-term current use of insulin: Code(s): E11.29 - Type 2 diabetes mellitus with other diabetic kidney complication; R80.9 - Proteinuria, unspecified Plan: Recent lab results reviewed with patient, with sugar and hemoglobin A1c stable and at goal but higher than last check. At 6.8. Continue with metformin 500 mg daily, continue to check fasting blood sugar at home, maintain log and bring to next appointment for review. Reinforced diabetic diet and regular exercise with patient. Counseled regarding importance of yearly diabetes retinopathy screening. Patient advised to inspect feet daily, for any signs of injury, callus or infection. Compliance with diet and regular exercise again stressed. Blood pressure goal is less than 130/80, goal LDL is less than 100 and goal hemoglobin A1c is less than 7% (5) Chronic heartburn: Code(s): R12 - Heartburn Plan: Currently taking omeprazole 20 mg daily as needed for heartburn symptoms (6) Bipolar 1 disorder, manic, full remission: Comment: sees Dr Renita Rodriguez APRN Code(s): F31.74 - Bipolar disorder, in full remission, most recent episode manic Plan: Followed by psychiatry, symptoms stable controlled present medication (7) Dyslipidemia: Code(s): E78.5 - Hyperlipidemia, unspecified Plan: Continue with rosuvastatin 40 mg daily in addition to adhering to low- cholesterol diet and getting regular exercise. (8) Hypertension: Code(s): I10 - Essential (primary) hypertension Qualifiers: Hypertension type: primary hypertension Qualified Code(s): I10 - Essential (primary) hypertension Plan: Blood pressure at goal of less than 130/80. Continue with current medication. Reinforced importance of following a low sodium diet, getting regular exercise, and lowering stress levels. (9) Mitral valve regurgitation: Comment: Seen by Dr. Landeros Code(s): I34.0 - Nonrheumatic mitral (valve) insufficiency Plan: Followed by cardiology Orders: Orders Aspartate Amino Transferase Today M85.88 - Other specified disorders of bone density and structure, other site Hemoglobin A1c Today M85.88 - Other specified disorders of bone density and structure, other site Vitamin D 25-OH Total Today M85.88 - Other specified disorders of bone density and structure, other site XR DEXA axial skeleton Today M85.88 - Other specified disorders of bone density and structure, other site Alanine Aminotransferase Today M85.88 - Other specified disorders of bone density and structure, other site Basic Metabolic Panel Fasting Today M85.88 - Other specified disorders of bone density and structure, other site Lipid Panel Today M85.88 - Other specified disorders of bone density and structure, other site Coding Level of Care Code Est Pt Prev Care >65y(88853) Diagnoses Osteopenia of lumbar spine M85.88 Primary osteoarthritis of right hip M16.11 Osteoarthritis type: primary Cystocele with prolapse N81.4 Diabetes mellitus with microalbuminuria, without long-term current use of insulin E11.29; R80.9 Chronic heartburn R12 Bipolar 1 disorder, manic, full remission F31.74 Dyslipidemia E78.5 Primary hypertension I10 Hypertension type: primary hypertension Mitral valve regurgitation I34.0
[2024-04-08 09:13] VITALS: BP 116/80; PULSE 76; O2SAT 96; BMI 30.2
== END 2024-04-08 10:11 | disposition home or self-care (01) ==
PROVIDERS: PCP Internal Medicine; Visit Provider Internal Medicine
DX: Z00.00 Encounter for general adult medical examination without abnormal findings (principal); E11.29 Type 2 diabetes mellitus with other diabetic kidney complication; F31.74 Bipolar disorder, in full remission, most recent episode manic; M85.88 Other specified disorders of bone density and structure, other site; M16.11 Unilateral primary osteoarthritis, right hip; N81.4 Uterovaginal prolapse, unspecified; R80.9 Proteinuria, unspecified; R12 Heartburn; E78.5 Hyperlipidemia, unspecified; I10 Essential (primary) hypertension; I34.0 Nonrheumatic mitral (valve) insufficiency
CPT/HCPCS: 99397

== ENCOUNTER 2024-04-24 13:50 | Outpatient (REF) | payer OTHER, SELFPAY ==
--- NOTE | ~2024-04-24 | MM_ITS ---
EXAMINATION: BONE DENSITOMETRY CLINICAL INDICATION: Other specified disorders of bone density and structure. COMPARISON: Previous BD dated 05/24/2017, right hip; 06/04/2019, spine, and baseline BD dated 11/22/2006. TECHNIQUE: Using a [employer] DXA System (software version: 13.1) manufactured by [employer], dual-energy x-ray absorptiometry was performed of the lumbar spine and right hip. The images are of good technical quality. Summary results are attached. FINDINGS: RIGHT FEMUR, NECK: Current: BMD 0.878 g/cm2, Z-score 0.3, T-score -1.2, osteopenia. Prior: BMD 0.815 g/cm2. Baseline: BMD 0.893 g/cm2. RIGHT FEMUR, TOTAL: Current: BMD 0.976 g/cm2, Z-score 0.9, T-score -0.3, normal, 0.3% increase from previous, 6.2% decrease from baseline (<5% change is not significant). Prior: BMD 0.973 g/cm2. Baseline: BMD 1.041 g/cm2. AP SPINE L1-L2 (excluding L3 and L4): The data of L1-L4 has been changed to exclude the L3 and L4 vertebral bodies, because degenerative sclerosis at these levels may cause overestimation of lumbar spine density. Current: BMD 1.011 g/cm2, Z-score 0.1, T-score -1.3, osteopenia, 6.8% increase from previous, 0.6% decrease from baseline (<5% change is not significant). Prior: BMD 0.947 g/cm2. Baseline: BMD 1.017 g/cm2. IDENTIFIED RISK FACTORS: Menopause, hysterectomy, bilateral oophorectomy, recurrent falls. HISTORY OF FRACTURE: None listed. MEDICATIONS: Vitamin D ERT/SERMS. MM/XR DEXA axial skeleton IMPRESSION: 1. DIAGNOSIS: Osteopenia based on the lowest T-score value of -1.3 in the lumbar spine applying World Health Organization criteria. 2. 10-YEAR FRACTURE RISK PREDICTION, FRAX: Not performed in this patient on estrogen or bone building treatments. 3. Treatment Recommendations: NOF guidelines recommend consideration for treatment in postmenopausal women and men age 50 and older presenting with the following: -A hip or vertebral (clinical or morphometric) fracture. -T-score less than or equal to -2.5 at the femoral neck or spine after appropriate evaluation to exclude secondary causes. -Low bone mass at the hip or spine and a 10-year fracture probability by FRAX of greater than or equal to 3% for hip fracture or greater than or equal to 20% for major osteoporotic fracture based on the [place] adapted WHO algorithm. 4. Other Recommendations: All treatment decisions require clinical judgment and consideration of individual patient factors, including patient preferences, comorbidities, previous drug use, risk factors not captured in the FRAX model (e.g. frailty, falls, vitamin D deficiency, increased bone turnover, interval significant decline in bone density) and possible under or overestimation of fracture risk by FRAX. Additional medical evaluation for secondary cause of low bone mineral density may be appropriate. FUTURE SCAN RECOMMENDATION: People with diagnosed cases of osteoporosis or at high risk for fracture should have regular bone mineral density tests. For patients eligible for Medicare, routine testing is allowed once every 2 years. The testing frequency can be increased to one year for patients who have rapidly progressing disease, those who are receiving or discontinuing medical therapy to restore bone mass, or have additional risk factors.
== END 2024-04-24 13:51 | disposition home or self-care (01) ==
LOC: HO.MAMMO 13:50
PROVIDERS: Visit Provider Internal Medicine
DX: Z13.820 Encounter for screening for osteoporosis (principal); M85.88 Other specified disorders of bone density and structure, other site; Z78.0 Asymptomatic menopausal state
CPT/HCPCS: 77080

== ENCOUNTER → 2024-06-17 14:48 | Outpatient (RCR) | payer OTHER, SELFPAY ==
[2020-12-06 08:59] LABS: MANUAL DIFF FLAG NO
[2020-12-06 09:08] VITALS: BP 131/76; PULSE 62; RESP 12; TEMP 36.4; O2SAT 97; BMI 27.2
--- NOTE | 2020-12-06 09:19 | P.PNHO_ITS ---
Medical Summary - Medical Summary Date of Service: 12/06/20 Medical Summary: DIAGNOSIS: RIGHT-SIDED BREAST CANCER, STAGE I, GRADE 1. ER POSITIVE, WI NEGATIVE, HER2 NICK NEGATIVE BY FISH. CURRENT THERAPY: TAMOXIFEN, 20 MG DAILY, started July 2019. RADIATION THERAPY, POST LUMPECTOMY. Interval History Interval history: This is a pleasant 65 year-old lady, here for a follow-up visit. She has had pain in her left hip. It is bone on bone. She is actually scheduled for a total hip replacement on 12/[address] rios, from [facility]. He is going to do the front approach which she prefers. She used to be quite active and walked her dog however the dog and with the hip she has not been able to exercise too well. So she is looking forward to the hip replacement so she can be more active. She has noticed a darkening of her right nipple. Most likely related to radiation. She denies any other breast related complaints. She is tolerating the Tamoxifen without any major side effects except for occasional hot flashes. She denies easy fatigability. No chest pain or trouble breathing. Denies abdominal pain nausea vomiting heartburn indigestion. Bowels are working without any gross blood in it. She enjoys a good appetite, she has gained some weight. She is in good spirits. Rest of the review of systems is unremarkable. She has bipolar disorder. Mostly she feels a manic. She takes clonidine at night to come her down. She is on other medications as well. She tells me that she has been working, 3 days a week from home. Two days she goes in. She is rather bored. They are not actually seeing the clients. Mostly via phone calls. This is rather challenging. She had the 1st dose of her vaccine. Her 2nd is scheduled for 12/16. Review of Systems - Constitutional Reports no additional constitutional complaints - Eyes Reports no additional eye complaints - ENT Reports no additional ear, nose, mouth, and throat complaints - Cardiovascular Reports no additional cardiovascular complaints - Respiratory Reports no additional respiratory complaints - Gastrointestinal Reports no additional gastrointestinal complaints - Genitourinary Reports no additional female genitourinary complaints - Musculoskeletal Reports no additional musculoskeletal complaints - Integumentary/Breasts Skin/Breast: Reports no additional skin complaints - Neurologic Reports no additional neurologic complaints - Psychiatric Reports no additional psychiatric complaints - Endocrine Reports no additional endocrine complaints - Hematologic/Lymphatic Reports no additional hematologic/lymphatic complaints - Allergic/Immunologic Reports no additional allergic/immunologic complaints [facility] Medical History: Medical History (Last Reviewed 09/27/20 @ 15:51 by Jayant Klein MD) Anxiety Attention deficit hyperactivity disorder Hyperlipidemia Hypertension Iliopsoas bursitis of left hip Invasive ductal carcinoma of right breast Functional capacity: independent ambulation Patient : No Family History: Family History (Last Reviewed 09/27/20 @ 15:51 by Jayant Klein MD) Father History of pancreatic cancer Sister History of lupus Mother No problems noted. Surgical History: Surgical History (Last Reviewed 09/27/20 @ 15:51 by Jayant Klein MD) History of section History of lumpectomy of right breast Onset Date: ~07/09/19 History of repair of anterior cruciate ligament of left knee History of right breast biopsy Onset Date: ~07/02/19 History of total hysterectomy Social History: Social History (Last Updated 12/06/20 @ 09:13 by Darlin Butler) Alcohol History: Alcohol intake: never Alcohol History Details: Alcohol intake frequency: does not drink Tobacco History: Smoking Status: Former smoker Smoking Quit Date: 1969 Substance Use History: Use of substances other than those prescribed or required for medical reasons : Yes Substance Use Type: Marijuana Advance Directives: Advance Directives Date on File: 07/25/20 Nutrition Assessment: Patient : No Smoking status: Former smoker Home Medications and Allergies Home Medications Medication Instructions Recorded Confirmed Type cholecalciferol (vitamin D3) 50 50 mcg PO DAILY 08/02/20 12/06/20 History mcg (2,000 unit) capsule clonidine HCl 0.1 mg tablet 0.1 mg PO BID 08/02/20 12/06/20 History escitalopram oxalate 20 mg tablet 20 mg PO DAILY 08/02/20 12/06/20 History oxcarbazepine 300 mg tablet 300 mg PO TID 08/02/20 12/06/20 History cetirizine 1 tab PO DAILY 12/06/20 12/06/20 History Allergies Allergy/AdvReac Type Severity Reaction Status Date / Time Sulfa (Sulfonamide Allergy Intermediate JOINT Verified 09/23/20 14:54 Antibiotics) PAIN, [SULFA (SULFONAMIDE muscle ANTIBIOTICS)] pain, joint pains Exam Vital signs: Vital Signs Temp 97.6 F 12/06/20 09:08 Pulse 62 12/06/20 09:08 Resp 12 12/06/20 09:08 BP 131/76 12/06/20 09:08 Pulse Ox 97 12/06/20 09:08 Intake & Output 12/05/20 12/06/20 12/06/20 18:59 06:59 18:59 Other: Weight 67.6 kg [place] Weight in Grams [id number] Weight 67.6 kg Body Mass Index 27.2 - Constitutional Present: no acute distress - Routine HEENT Exam Head: Present: normal inspection Eye: Present: normal appearance ENT: Present: mucous membranes moist - Routine Neck Exam Present: full ROM - Routine Respiratory Exam Present: CTAB - Routine Cardiovascular Exam Cardiovascular: Present: RRR, S1, S2 - Routine Abdominal Exam Present: soft, nontender - Routine Rectal Exam Patient deferred: digital exam - Routine Extremities Exam Present: nontender - Routine Back/Spine/Pelvis Exam Back/Spine: Present: full ROM - Routine Skin Exam Present: intact - Routine Neurological Exam Present: alert, oriented X3 - Routine Psychiatric Exam Present: normal affect Data - Labs CBC & Chem 7: 12/06/20 08:58 12/06/20 08:58 Labs: 08/17/20 Urine Culture Routine Progress Note: A/P (1) Invasive ductal carcinoma of right breast Status: Acute Assessment and plan: This is a pleasant 65 year-old lady with recent diagnosis of right-sided Breast Cancer. The patient underwent lumpectomy. Pathology revealed: Grade 1. ER positive WI negative her 2 Nick negative by FISH. - Invasive ductal carcinoma, grade 1 (9 mm) with DCIS (intermediate nuclear grade). - Lymphovascular invasion is not identified. - Lymph node, sentinel : One lymph node, negative for carcinoma (0/1). - Lymph node, axilla: One lymph node, negative for carcinoma (0/1). I had discussed the option of antiestrogen therapy, to lower the risk of disease recurrence. Mentioned the role of chemotherapy, after Oncotype testing. She was not too keen on receiving chemotherapy. She has a very favorable prognosis with stage I grade 1, estrogen receptor- positive, HER2 Nick negative, lymph node negative, early breast cancer. Also mentioned the role of post lumpectomy radiation to decrease local disease recurrence. She had a bone density on June 04, 2019 which revealed: Osteopenia based on the lowest T-score value of -1.8 in the lumbar spine applying World Health Organization criteria. 10-YEAR FRACTURE RISK PREDICTION, FRAX: Major osteoporotic fracture (clinical spine, forearm, hip or shoulder) 4.0%. Hip fracture 0.2%. An aromatase inhibitor would have been risky in this situation. I recommended Tamoxifen therapy. She was on Prozac, that was switched to Celexa. She has been tolerating it well. She is going for a hip replacement on 12/29. Other than that, she is feeling very well. PLAN: She will continue the Tamoxifen for about 2 and half years. Will recheck a bone density, in May, and decide about further treatment. She will be due for her mammogram in May. This is been scheduled. She was advised to have an annual Pap smear, and eye exam. She will return in 6 months for a follow-up visit. She will be continue to follow up with pain management at [facility]. I wish her the best of luck for her upcoming hip surgery. Thank you, CC: Dr. Nevaeh Valentin. Dr. Rios. Code Status FULL CODE - Time Spent With Patient Total time spent is greater than 50% in coordination of care (as documented) at patient's floor/unit and/or counseling patient: 25 - 35 minutes
[2020-12-06 09:24] LABS: Basophils Percent Auto 0.3 % (0-2); Eosinophils Absolute Auto 0.1 X10*3/uL (0.0-0.4); Eosinophils Percent Auto 1.7 % (0-4); Hemoglobin 11.4 g/dl (12.0-16.0); Imm Gran Abs Auto 0.02 X10*3/uL (0.00-0.03); Imm Gran Pct Auto 0.3 % (0.0-0.4); Lymphocytes Absolute Auto 0.8 X10*3/uL (1.2-4.9); Lymphocytes Percent Auto 12.9 % (20-40); Mean Corpuscular HGB Conc 32.6 g/dl (31.0-35.0); Mean Corpuscular Hemoglobin 31.2 pg (27.0-33.0); Mean Corpuscular Volume 95.9 fL (80-98); Mean Platelet Volume 9.4 fL (9.4-12.3); Monocytes Absolute Auto 0.5 X10*3/uL (0.1-1.2); Monocytes Percent Auto 7.3 % (2-11); Neutrophils Percent Auto 77.5 % (45-73); Platelet Count 302 X10*3/uL (160-400); Red Blood Count 3.65 X10*6/uL (4.20-5.50); Red Cell Distribution Width 13.2 % (11.0-16.0); White Blood Count 6.4 X10*3/uL (4.8-10.8)
[2020-12-06 10:08] LABS: Alanine Aminotransferase 17 U/L (0-31); Albumin Level 3.5 g/dL (3.5-5.0); Alkaline Phosphatase 93 U/L (39-117); Anion Gap 10 (12-20); Aspartate Amino Transferase 16 U/L (5-31); Bilirubin Total 0.4 mg/dL (0.0-1.0); Blood Urea Nitrogen 18 mg/dL (9-16); Carbon Dioxide 27 mmol/L (22-29); Chloride 102 mmol/L (96-108); Creatinine Clr Calc Pharmacy 72.2; Estimated Glomerular Filt Rate > 60; Glucose Random 120 mg/dL (60-115); Potassium 4.9 mmol/L (3.3-5.1); Sodium 134 mmol/L (135-145); Total Protein 5.8 g/dL (6.5-8.0)
--- NOTE | 2020-12-06 12:47 | MHC.HEMONCMA ---
Patient in for breast cancer follow up. Complains of L hip pain she stated she is having surgery for it on 12/29/20. Follow up in 6 months.
[2020-12-07 11:11] LABS: CA 27.29 14 U/mL (<38)
--- NOTE | 2020-12-14 15:41 | MHC.HEMONC ---
Note written for Dr Alfredo to sign re: directives for Tamoxifen around her hip surgery which is planned.
== END | disposition home or self-care (01) ==
LOC: HO.ONC 12-06 08:49
PROVIDERS: PCP Internal Medicine; Visit Provider Internal Medicine Medical Oncology
DX: C50.911 Malignant neoplasm of unspecified site of right female breast (principal); Z79.810 Long term (current) use of selective estrogen receptor modulators (SERMs); Z17.0 Estrogen receptor positive status [ER+]; M85.80 Other specified disorders of bone density and structure, unspecified site; Z92.3 Personal history of irradiation
CPT/HCPCS: 36415; 80053; 82306; 85025; 86300; 87086; 87088; 87186; 99214

== ENCOUNTER 2024-07-01 13:02 | Outpatient (AMB) | payer OTHER, SELFPAY ==
[2024-07-01 13:18] VITALS: BP 118/76; PULSE 73; O2SAT 99; BMI 28.3
--- NOTE | 2024-07-01 13:18 | MHC.PC.OV ---
Vital Signs 07/01/24 13:18 Height 5 ft 2 in Weight 155 lb BMI 28.3 BP 118/76 Blood Pressure Location Lt brachial Position Sitting Pulse 73 Pulse Source Pulse Oximeter Pulse Oximetry (%) 99 Oxygen Delivery Method Room Air Intake Visit Reasons: 3M F/U Intake Note: Pt is here today for 3 months follow up visit. Allergies Sulfa (Sulfonamide Antibiotics) [SULFA (SULFONAMIDE ANTIBIOTICS)] Adverse Reaction (Intermediate, Verified 07/01/24 13:45) muscle/joint pain tramadol Allergy (Uncoded 07/01/24 13:45) itching all over body Medication List - Last Reconciled 07/01/24 by Cassandra Valentin MD cholecalciferol (vitamin D3) 100 mcg PO DAILY clonidine HCl 0.1 mg PO TID PRN escitalopram oxalate 20 mg (2 x 10 mg) PO DAILY 30 days hydrochlorothiazide 25 mg PO DAILY hydroxyzine pamoate 25 mg PO TID PRN lamotrigine 100 mg PO BID lamotrigine 25 mg PO DAILY 30 days losartan 100 mg PO DAILY metformin 500 mg PO DAILY omeprazole 20 mg PO DAILY rosuvastatin 40 mg PO DAILY tamoxifen 20 mg PO DAILY Tobacco use date assessed: 07/01/24 Dental Screening Dental Screen Date: 04/08/24 HPI 3M F/U HPI Details 68-year-old lady with diabetes mellitus, dyslipidemia and hypertension, here today for follow-up. She has been compliant with taking her medications, following recommended diet and has been staying active. Her latest Hemoglobin A1c drawn today came back at 6.1%. . Has not yet had her fasting lipids checked. Labs already ordered. She has been feeling well with no complaints at present time. [facility] Medical History Degenerative joint disease of right hip Cystocele with prolapse Osteopenia of lumbar spine Diabetes mellitus with microalbuminuria, without long-term current use of insulin Mixed urge and stress incontinence Chronic heartburn Bipolar 1 disorder, manic, full remission Dyslipidemia History of invasive ductal carcinoma of breast COVID-19 vaccine series completed Mitral valve regurgitation Polyp of gallbladder Hypertension Surgical History History of esophagogastroduodenoscopy (EGD) H/O colonoscopy History of repair of anterior cruciate ligament of left knee History of lumpectomy of right breast (~07/09/19) History of right breast biopsy (~07/02/19) History of section History of total hysterectomy Family History Father History of pancreatic cancer Sister History of lupus Mother No problems noted. 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 1. Little interest or pleasure in doing things: not at all 3. Trouble falling or staying asleep, or sleeping too much: not at all 4. Feeling tired or having little energy: not at all 5. Poor appetite or overeating: not at all 6. Feeling bad about yourself - or that you are a failure or have let yourself or your family down: not at all 7. Trouble concentrating on things, such as reading the newspaper or watching television: not at all 8. Moving or speaking so slowly that other people could have noticed. Or the opposite - being so fidgety or restless that you have been moving around a lot more than usual: not at all 9. Thoughts that you would be better off or of hurting yourself in some way: not at all Depression Screening Interpretation: Negative Depression Screening Done: Yes 27778 - PHQ-9 Billing: Yes Source: Developed by Drs. Yaw Banuelos, Leandra Arzola, Sukhi Patterson and colleagues, with an educational cyndi from [employer]. Thrive Questionnaire Date Thrive assessed: 01/31/24 I am a: Patient What is your living situation today?: I have a steady place to live Within the past 12 months, did the food you bought not last and you didn't have the money to get more?: Never true Within the past 12 months, did you worry whether your food would run out before you got money to buy more?: Never true Do you have trouble paying for medicines?: No Do you have trouble getting transportation to medical appointments?: No Do you have trouble paying your heating and electricity bill?: No Do you have trouble taking care of your child, family member or friend?: No Do you have trouble with day-to-day activities such as bathing, preparing meals, shopping, managing finances, etc.?: No Are you currently unemployed and looking for a job?: No Are you interested in more education?: No Please select the resources that you would like help with: None Currently or been in a relationship where the following occur: No concerns reported THRIVE Score: 0 AUDIT C Alcohol Use Questionnaire (AUDIT-C) 1. How often do you have a drink containing alcohol?: Never Total Score: 0 RIGOBERTO-7 AMB Questionnaire RIGOBERTO-7 Date RIGOBERTO - 7 assessed: 01/31/24 Feeling nervous, anxious, or on edge: 0 = Not at all Not being able to stop or control worryin = Not at all Worrying too much about different things: 0 = Not at all Trouble relaxin = Not at all Being so restless that it is hard to sit still: 0 = Not at all Becoming easily annoyed or irritable: 0 = Not at all Feeling afraid as if something awful might happen: 0 = Not at all Total RIGOBERTO-7 score (0-4 normal; 5-9 mild; 10-14 moderate; 15-21 severe): 0 Source: Developed by Drs. Yaw Banuelos, Leandra Arzola, Sukhi Patterson and colleagues, with an educational cyndi from [employer]. RIGOBERTO-7 Assessment Billing RIGOBERTO-7 Assessment Tool: RIGOBERTO-7 Assessment 97896 Review of Systems Const Reports no additional complaints Eyes Reports no additional complaints ENT Reports no additional complaints Card Denies dyspnea Resp Denies cough and Denies dyspnea GI Denies abdominal pain, Denies change in bowel habits and Denies heartburn Reports as per HPI Musc Reports arthralgias (Right hip) Skin/Breast Denies rash and Denies unusual bruising Neuro Reports no additional complaints Psych Reports no additional complaints Endo Reports no additional complaints Satinder/Lymph Reports no additional complaints Aller/Immun Reports no additional complaints Physical exam (Primary Care) Vital Signs: Last Vital Signs Pulse 73 07/01/24 13:18 BP 118/76 07/01/24 13:18 Pulse Ox 99 07/01/24 13:18 Oxygen Delivery Method Room Air 07/01/24 13:18 BMI result Body Mass Index 28.3 Tobacco/Smoking Status: Tobacco use Status Tobacco use date assessed 07/01/24 07/01/24 13:19 Patient Tobacco Use Status Tobacco use Unknown 07/01/24 13:19 Tobacco use type Smokeless Tobacco 07/01/24 13:19 e-Cigarette/Vaping Use Currently Using 07/01/24 13:19 Depression Screening Interpretation: Negative Thrive Assessment: Date of Thrive Assessment Date Thrive assessed 01/31/24 07/01/24 13:19 Currently or been in a relationship where the following occur: No concerns reported Const Other: Alert oriented x3, no acute distress noted ambulatory normal gait . Orientation/consciousness: patient oriented x3 HENMT Face and sinus: Yes face symmetric Mouth: Normal oral and palatal mucosa present, oropharynx normal and moist mucous membranes Eyes General: appearance normal, both eyes and all related structures Neck Neck: Yes normal visual inspection, Yes full ROM, Yes no lymphadenopathy and Yes supple Resp Auscultation: clear to auscultation bilaterally Cardio Other: S1-S2 present regular rate and rhythm GI Palpation (GI): Soft to palpation, nontender and no guarding General: Yes no CVA tenderness Back/Spine/Pelvis Back: no CVA tenderness and No back tenderness Skin General skin exam: no rashes or lesions noted Neuro General: patient oriented x3, gait normal, moves all extremities, Normal light touch and pain sensation, no focal motor deficits, CN's II-XI intact bilaterally and normal sensation to monofilament Extrem Other: Decreased range of motion in right joint due to pain and stiffness General: Yes no pedal edema, Yes no calf tenderness and Yes normal gait Psych Appearance: grossly normal Mental Status: mental status grossly normal Speech and movement: Normal speech and movement present Affect: normal affect Attitude: cooperative Results AMB Hemoglobin A1c AMB Hemoglobin A1c 6.1 % Last Edit by OC Garza on 07/01/24 13:53 Results Reviewed Results Reviewed: Laboratory Last Values Hgb A1c (Clinic) 6.1 % (4.0-6.0) H 07/01/24 13:33 Assessment and Plan Assessment & Plan (1) Diabetes mellitus with microalbuminuria, without long-term current use of insulin: Code(s): E11.29 - Type 2 diabetes mellitus with other diabetic kidney complication; R80.9 - Proteinuria, unspecified Plan: Will continue on metformin 500 mg once a day and stressed importance of following recommended diet and getting regular exercise. As well as yearly diabetes eye screening. Advise patient to get her fasting labs done to check lipids and electrolytes and renal function Orders: Orders AMB Hemoglobin A1c 07/01/24 Z13.9 - Encounter for screening, unspecified Coding Level of Care Code Est Pt Level 3 (20554) Diagnoses Diabetes mellitus with microalbuminuria, without long-term current use of insulin E11.29; R80.9 Additional Codes RIGOBERTO-7 Assessment Billing - RIGOBERTO-7 Assessment Tool: RIGOBERTO-7 Assessment 85389 ([id number])
== END 2024-07-01 14:00 | disposition home or self-care (01) ==
PROVIDERS: PCP Internal Medicine; Visit Provider Internal Medicine
DX: E11.29 Type 2 diabetes mellitus with other diabetic kidney complication (principal)
CPT/HCPCS: 83036; 99213

== ENCOUNTER 2024-07-01 13:59 | Outpatient (REF) | payer OTHER, SELFPAY ==
[2024-07-01 16:28] LABS: Alanine Aminotransferase 27 U/L (0-31); Anion Gap 10 (12-20); Aspartate Amino Transferase 30 U/L (5-31); Blood Urea Nitrogen 13 mg/dL (9-16); Calcium 10.2 mg/dL (8.4-10.2); Carbon Dioxide 29 mmol/L (22-29); Chloride 104 mmol/L (96-108); Cholesterol 169 mg/dL (<200); Estimated Glomerular Filt Rate 54; Glucose Fasting 121 mg/dL (60-99); HDL Cholesterol 54 mg/dL (>40); LDL Cholesterol Calculated 80 mg/dL (<100); Potassium 4.7 mmol/L (3.3-5.1); Sodium 138 mmol/L (135-145); Triglycerides 176 mg/dL (<150)
[2024-07-01 16:43] LABS: Vitamin D 25-OH Total 58.5 ng/mL (>30)
[2024-07-01 16:51] LABS: Estimated Average Glucose 137 mg/dL; Hemoglobin A1c % 6.4 % (<6.0)
== END 2024-07-01 14:00 | disposition home or self-care (01) ==
LOC: HO.HMGCLDS 13:59
PROVIDERS: PCP Internal Medicine; Visit Provider Internal Medicine
DX: M85.88 Other specified disorders of bone density and structure, other site (principal); Z13.1 Encounter for screening for diabetes mellitus
CPT/HCPCS: 36415; 80048; 80061; 82306; 83036; 84450; 84460

== ENCOUNTER 2024-07-10 10:53 | Outpatient (AMB) | payer OTHER, SELFPAY ==
--- NOTE | 2024-07-10 11:06 | MHC.OFFVISPS ---
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 Allergies Sulfa (Sulfonamide Antibiotics) [SULFA (SULFONAMIDE ANTIBIOTICS)] Adverse Reaction (Intermediate, Verified 07/01/24 13:45) muscle/joint pain tramadol Allergy (Uncoded 07/01/24 13:45) itching all over body Medication List - Last Reconciled 07/10/24 by Elsie Rodriguez APRN cholecalciferol (vitamin D3) 100 mcg PO DAILY clonidine HCl 0.1 mg PO TID PRN escitalopram oxalate 20 mg (2 x 10 mg) PO DAILY 30 days escitalopram oxalate 20 mg PO DAILY hydrochlorothiazide 25 mg PO DAILY hydroxyzine pamoate 25 mg PO TID PRN lamotrigine 100 mg PO BID lamotrigine 25 mg PO DAILY 30 days losartan 100 mg PO DAILY metformin 500 mg PO DAILY omeprazole 20 mg PO DAILY rosuvastatin 40 mg PO DAILY tamoxifen 20 mg PO DAILY HPI- Psychiatric Chief Complaint: depression HPI Narrative: pt marked PHQ9 and GAD7 all zeros. In interview she shared more symptoms; she has been worried at times- worries about money, the future, nursing home. She also had hip replacement in April and experienced dislocation shortly after - she says she rushed the recovery and started doing Ej Chi shortly after surgery and did not realize she was twisting her body quite a bit; she is in less pain and the inflammation is going down; she can be impulsive, restless and impatient. she also rushes through some of her work at work. she has only been taking the clonidine BID but may benefit from taking 3 x a day - she will try it; she continues to have racing thoughts. no depression, no psychosis, no SI or HI. Past Psychiatric History: outpatient treatment only dx with ADHD, RIGOBERTO, r/o mood disorder NOS for years; Lesa Rodriges NP (her previous prescriber) dx her with Bipolar DO. She reports she had symptoms as child but no treatment until adulthood PAST Medication Trials: trileptal- ineffective Methyphenidate 20mg by PCP-made her feel edgy and increased blood pressure a lot Paxil?didn't do much Adderall XR--disrupted sleep, increased anxiety Wellbutrin SR--angry, agitation, passive HI Strattera--possibly activating Zoloft--sexual side effects Prozac--CPY-450 issues with Tamoxifen Lamictal--muscle tension/?pain Cymbalta--GI distress Seroquel--helped with agitation/misty melatonin hydroxyzine Subjective Subjective Subjective Medication Compliance: Yes Side effects from medications: No Review of Systems Medical Review of Systems: unchanged Mental Status Exam Mental Status Exam Patient Appearance: Well Grooomed and Appropriate Patient Orientation: Person, Place, Time and Situation Level of Consciousness: Awake and Appropriate Patient Behavior: Appropriate, Cooperative and Restless Mood Description: Anxious Affect Description: Anxious Patient Cognition Impaired: No Ability to Follow Directions: Good Speech Pattern: Clear, Perseverating and Pressured (slight to moderate ) Memory Description: Intact Hallucinations: None Delusions: Not Present Thought Process: Intact and Distracted Thought Content: positive for Intact and positive for Loose Associations Judgement: Good Assessment and Plan Assessment & Plan (1) Bipolar 1 disorder, manic, full remission: Status: Acute Code(s): F31.74 - Bipolar disorder, in full remission, most recent episode manic (2) Generalized anxiety disorder: Status: Acute Code(s): F41.1 - Generalized anxiety disorder (3) ADHD (attention deficit hyperactivity disorder), combined type: Status: Acute Code(s): F90.2 - Attention-deficit hyperactivity disorder, combined type Plan increase clonidine to 01. mg tid watch for sedation, dizziness, stay hydrated continue lamictal, hydroxyzine, lexapro Medications: Refilled lamotrigine 100 mg PO BID 180 tabs 2RF lamotrigine 25 mg PO DAILY 90 tabs 2RF 30 days Discontinued escitalopram oxalate Discontinued Reason: Doctor's Order 20 mg (2 x 10 mg) PO DAILY 30 days 60 tabs 3RF Counseling and coordination of Care Pt. Self Management counseling: Exercise, Maintenance-social rhythm, Med illness tx adherence, Mindfulness, Mod caffeine/ETOH intake and Sleep hygiene Medication management counseling: Effectiveness, Side effects, Dosing range, Duration, Drug interaction and Adherence Diagnosis and Prognosis Counseling: Accuracy of diagnosis, Prognosis over time, Impact of diagnosis on life functions, Impact of family relationship, Problematic behaviors secondary to diagnosis and Adequacy of current interventions Details: I spent 45 minutes reviewing the record, seeing the patient and documenting in the medical record. Counseling provided to the patient/caregiver as outlined below. Addressed patient/caregiver concerns regarding current medication regime including effective adherence. Addressed patient/caregiver concerns regarding diagnosis and prognosis including accuracy of diagnosis, prognosis over time, impact of diagnosis. Addressed patient/caregiver concerns regarding impact of recent stressors. [facility] Medical History (Updated 07/10/24 @ 13:14 by Elsie Rodriguez APRN) Hearing difficulty of both ears Degenerative joint disease of right hip Cystocele with prolapse Osteopenia of lumbar spine Diabetes mellitus with microalbuminuria, without long-term current use of insulin Mixed urge and stress incontinence Chronic heartburn Bipolar 1 disorder, manic, full remission Dyslipidemia History of invasive ductal carcinoma of breast COVID-19 vaccine series completed Mitral valve regurgitation Polyp of gallbladder Hypertension Surgical History History of esophagogastroduodenoscopy (EGD) H/O colonoscopy History of repair of anterior cruciate ligament of left knee History of lumpectomy of right breast (~07/09/19) History of right breast biopsy (~07/02/19) History of section History of total hysterectomy Family History Father History of pancreatic cancer Sister History of lupus Mother No problems noted. 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 Tran 32 year old daughter works with Autistic children patient graduated from high school, 5 years of college with degree in Psych. father age 8787 years old lives in [place], mother 10 years ago due to brain tumor, patient is the oldest of 4 girls Substance History: etoh in 30s has medical [employer] card Trauma History: yes childhood Coding Level of Care Code Est Pt Level 4 (45463) Therapy 30m w/E&M (22409) Diagnoses Bipolar 1 disorder, manic, full remission F31.74 Generalized anxiety disorder F41.1 ADHD (attention deficit hyperactivity disorder), combined type F90.2
== END 2024-07-10 11:31 | disposition home or self-care (01) ==
LOC: HO.HOP 10:53
PROVIDERS: PCP Internal Medicine; Visit Provider Clinical Nurse Specialist Psychiatric/Mental Health
DX: F31.74 Bipolar disorder, in full remission, most recent episode manic (principal); F41.1 Generalized anxiety disorder; F90.2 Attention-deficit hyperactivity disorder, combined type
CPT/HCPCS: 90833; 99214

== ENCOUNTER → 2024-07-10 10:53 | Outpatient (BNVA) | payer OTHER, SELFPAY | PROVIDERS: PCP Internal Medicine; Visit Provider Clinical Nurse Specialist Psychiatric/Mental Health ==

== ENCOUNTER 2024-07-28 15:48 | Outpatient (REF) | payer OTHER, SELFPAY | END 2024-07-28 15:49 | disposition home or self-care (01) | LOC: HO.SH 15:48 | PROVIDERS: Visit Provider Internal Medicine | DX: Z01.118 Encounter for examination of ears and hearing with other abnormal findings (principal); H90.3 Sensorineural hearing loss, bilateral | CPT/HCPCS: 92557 ==

== ENCOUNTER 2024-09-11 10:47 | Outpatient (REF) | payer OTHER, SELFPAY ==
[2024-09-11 12:22] LABS: MANUAL DIFF FLAG NO
[2024-09-11 12:39] LABS: Basophils Absolute Auto 0.1 X10*3/uL (0.0-0.2); Basophils Percent Auto 0.7 % (0-2); Eosinophils Absolute Auto 0.1 X10*3/uL (0.0-0.4); Eosinophils Percent Auto 0.8 % (0-4); Hemoglobin 13.2 g/dl (12.0-16.0); Imm Gran Abs Auto 0.04 X10*3/uL (0.00-0.03); Imm Gran Pct Auto 0.5 % (0.0-0.4); Lymphocytes Absolute Auto 1.8 X10*3/uL (1.2-4.9); Mean Corpuscular HGB Conc 32.2 g/dl (31.0-35.0); Mean Corpuscular Hemoglobin 24.5 pg (27.0-33.0); Mean Corpuscular Volume 76.2 fL (80.0-98.0); Mean Platelet Volume 9.2 fL (9.4-12.3); Monocytes Absolute Auto 0.6 X10*3/uL (0.1-1.2); Monocytes Percent Auto 7.4 % (2-11); Neutrophils Percent Auto 69.6 % (45-73); Platelet Count 429 X10*3/uL (160-400); Red Blood Count 5.38 X10*6/uL (4.20-5.50); Red Cell Distribution Width 22.2 % (11.0-16.0); White Blood Count 8.6 X10*3/uL (4.8-10.8)
[2024-09-11 13:40] LABS: Alanine Aminotransferase 17 U/L (0-31); Albumin Level 4.3 g/dL (3.5-5.0); Alkaline Phosphatase 92 U/L (39-117); Anion Gap 13 (12-20); Aspartate Amino Transferase 25 U/L (5-31); Bilirubin Direct 0.1 mg/dL (0.0-0.5); Bilirubin Total 0.5 mg/dL (0.0-1.0); Blood Urea Nitrogen 34 mg/dL (9-16); Calcium 10.3 mg/dL (8.4-10.2); Carbon Dioxide 31 mmol/L (22-29); Chloride 101 mmol/L (96-108); Estimated Glomerular Filt Rate 29; Glucose Random 136 mg/dL (60-115); Potassium 3.4 mmol/L (3.3-5.1); Sodium 142 mmol/L (135-145); Total Protein 7.7 g/dL (6.5-8.0)
[2024-09-11 13:45] LABS: TSH reflex Free T4 1.26 uIU/mL (0.32-4.0)
== END 2024-09-11 10:48 | disposition home or self-care (01) ==
LOC: HO.LAB 10:47
PROVIDERS: PCP Internal Medicine; Visit Provider Clinical Nurse Specialist Psychiatric/Mental Health
DX: F32.A Depression, unspecified (principal); Z79.899 Other long term (current) drug therapy; R41.82 Altered mental status, unspecified
CPT/HCPCS: 36415; 80048; 80076; 84443; 85025

== ENCOUNTER 2024-09-11 10:47 | Outpatient (AMB) | payer OTHER, SELFPAY ==
--- NOTE | 2024-09-11 11:27 | MHC.OFFVISPS ---
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: No Allergies Sulfa (Sulfonamide Antibiotics) [SULFA (SULFONAMIDE ANTIBIOTICS)] Adverse Reaction (Intermediate, Verified 07/01/24 13:45) muscle/joint pain tramadol Allergy (Uncoded 07/01/24 13:45) itching all over body Medication List - Last Reconciled 09/11/24 by Elsie Rodriguez APRN blood sugar diagnostic (FreeStyle Lite Strips) Test blood sugar once a day blood-glucose meter (FreeStyle Lite Meter kit) As directed cholecalciferol (vitamin D3) 100 mcg PO DAILY clonidine HCl 0.1 mg PO TID PRN escitalopram oxalate 20 mg PO DAILY hydrochlorothiazide 25 mg PO DAILY hydroxyzine pamoate 25 mg PO TID PRN lamotrigine 100 mg PO BID lamotrigine 25 mg PO DAILY 30 days lancets (FreeStyle Lancets) Test blood sugar once a day losartan 100 mg PO DAILY metformin 500 mg PO DAILY omeprazole 20 mg PO DAILY rosuvastatin 40 mg PO DAILY tamoxifen 20 mg PO DAILY HPI- Psychiatric Chief Complaint: depression HPI Narrative: pt reports increased mood swings, sadness and irritability; reports increased stress at work and at home. she has lower frustration tolerance; she feels tired. no SI or HI. she is worried her blood sugar is not stable and efffecting her moods; she has a machine at home to check and will start checking them. Past Psychiatric History: outpatient treatment only dx with ADHD, RIGOBERTO, r/o mood disorder NOS for years; Lesa Rodriges NP (her previous prescriber) dx her with Bipolar DO. She reports she had symptoms as child but no treatment until adulthood PAST Medication Trials: trileptal- ineffective Methyphenidate 20mg by PCP-made her feel edgy and increased blood pressure a lot Paxil?didn't do much Adderall XR--disrupted sleep, increased anxiety Wellbutrin SR--angry, agitation, passive HI Strattera--possibly activating Zoloft--sexual side effects Prozac--CPY-450 issues with Tamoxifen Lamictal--muscle tension/?pain Cymbalta--GI distress Seroquel--helped with agitation/misty melatonin hydroxyzine Subjective Subjective Subjective Medication Compliance: Yes Side effects from medications: No Review of Systems Medical Review of Systems: unchanged Mental Status Exam Mental Status Exam Patient Appearance: Well Grooomed Patient Orientation: Person, Place, Time and Situation Level of Consciousness: Awake Patient Behavior: Appropriate and Crying Mood Description: Sad Affect Description: Sad Patient Cognition Impaired: No Ability to Follow Directions: Good Speech Pattern: Clear Memory Description: Intact Hallucinations: None Delusions: Not Present Thought Process: Intact and Goal Oriented Thought Content: positive for Intact and positive for Goal Oriented Judgement: Good Assessment and Plan Assessment & Plan (1) Depression: Status: Acute Code(s): F32.A - Depression, unspecified (2) Acute alteration in mental status: Status: Acute Code(s): R41.82 - Altered mental status, unspecified (3) ADHD (attention deficit hyperactivity disorder), combined type: Status: Acute Code(s): F90.2 - Attention-deficit hyperactivity disorder, combined type (4) Generalized anxiety disorder: Status: Acute Code(s): F41.1 - Generalized anxiety disorder (5) Bipolar 1 disorder, mixed: Status: Acute Code(s): F31.60 - Bipolar disorder, current episode mixed, unspecified Plan lower escitalopram to 10 mg daily change lamictal to 100mg bid change hydroxyzine to 50-75 mg at bedtime change clonidine to 0.1 mg BID Medications: New escitalopram oxalate 10 mg PO DAILY 90 tabs 1RF Changed From hydroxyzine pamoate 25 mg PO TID PRN 90 caps 3RF for anxiety To hydroxyzine pamoate Take 2- 3 tablets at bedtime orally bedtime PRN; 90 caps 3RF for anxiety From clonidine HCl 0.1 mg PO TID PRN 90 tabs 3RF anxiety To clonidine HCl 0.1 mg PO BID PRN 60 tabs 3RF anxiety Refilled lamotrigine 100 mg PO BID 180 tabs 2RF Discontinued lamotrigine Discontinued Reason: Doctor's Order 25 mg PO DAILY 30 days 90 tabs 2RF escitalopram oxalate Discontinued Reason: Doctor's Order 20 mg PO DAILY 90 tabs 0RF Orders: Orders TSH reflex Free T4 Today F32.A - Depression, unspecified Basic Metabolic Panel Today F32.A - Depression, unspecified, R41.82 - Altered mental status, unspecified Liver Panel Today Z79.899 - Other bed bug exterminator (current) drug therapy Complete Blood Count Auto Diff Today F32.A - Depression, unspecified, Z79.899 - Other retirement (current) drug therapy Counseling and coordination of Care Pt. Self Management counseling: Mod caffeine/ETOH intake, Sleep hygiene, Behavior activation, General coping skills and Problem solving Medication management counseling: Effectiveness, Side effects, Dosing range, Duration, Drug interaction and Adherence Diagnosis and Prognosis Counseling: Accuracy of diagnosis, Prognosis over time, Impact of diagnosis on life functions, Impact of family relationship, Problematic behaviors secondary to diagnosis and Adequacy of current interventions Details: I spent 40 minutes reviewing the record, seeing the patient and documenting in the medical record. Counseling provided to the patient/caregiver as outlined below. Addressed patient/caregiver concerns regarding current medication regime including effective adherence. Addressed patient/caregiver concerns regarding diagnosis and prognosis including accuracy of diagnosis, prognosis over time, impact of diagnosis. Addressed patient/caregiver concerns regarding impact of recent stressors. [facility] Medical History (Updated 09/11/24 @ 13:17 by Elsie Rodriguez APRN) Hearing difficulty of both ears Degenerative joint disease of right hip Cystocele with prolapse Osteopenia of lumbar spine Diabetes mellitus with microalbuminuria, without long-term current use of insulin Mixed urge and stress incontinence Chronic heartburn Bipolar 1 disorder, manic, full remission Dyslipidemia History of invasive ductal carcinoma of breast COVID-19 vaccine series completed Mitral valve regurgitation Polyp of gallbladder Hypertension Surgical History History of esophagogastroduodenoscopy (EGD) H/O colonoscopy History of repair of anterior cruciate ligament of left knee History of lumpectomy of right breast (~07/09/19) History of right breast biopsy (~07/02/19) History of section History of total hysterectomy Family History Father History of pancreatic cancer Sister History of lupus Mother No problems noted. 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 Tran 32 year old daughter works with Autistic children patient graduated from high school, 5 years of college with degree in Psych. father age 8787 years old lives in [place], mother 10 years ago due to brain tumor, patient is the oldest of 4 girls Substance History: etoh in 30s has [employer] card Trauma History: yes childhood Coding Level of Care Code Est Pt Level 4 (88289) Diagnoses Depression F32.A Acute alteration in mental status R41.82 ADHD (attention deficit hyperactivity disorder), combined type F90.2 Generalized anxiety disorder F41.1 Bipolar 1 disorder, mixed F31.60
== END 2024-09-11 10:51 | disposition home or self-care (01) ==
LOC: HO.HOP 10:47
PROVIDERS: PCP Internal Medicine; Visit Provider Clinical Nurse Specialist Psychiatric/Mental Health
DX: F31.60 Bipolar disorder, current episode mixed, unspecified (principal); R41.82 Altered mental status, unspecified; F90.2 Attention-deficit hyperactivity disorder, combined type; F41.1 Generalized anxiety disorder
CPT/HCPCS: 99214

== ENCOUNTER 2024-10-23 10:56 | Outpatient (AMB) | payer OTHER, SELFPAY ==
--- NOTE | 2024-10-23 11:01 | A.OFFPSYCH_ITS ---
Intake Intake Visit Reasons: Depression Fingerer Required: No Allergies Sulfa (Sulfonamide Antibiotics) [SULFA (SULFONAMIDE ANTIBIOTICS)] Adverse Reaction (Intermediate, Verified 07/01/24 13:45) muscle/joint pain tramadol Allergy (Uncoded 07/01/24 13:45) itching all over body Medication List - Last Reconciled 10/23/24 by Elsie Rodriguez APRN blood sugar diagnostic (FreeStyle Lite Strips) Test blood sugar once a day blood-glucose meter (FreeStyle Lite Meter kit) As directed cholecalciferol (vitamin D3) 100 mcg PO DAILY clonidine HCl 0.1 mg PO BID PRN escitalopram oxalate 10 mg PO DAILY hydrochlorothiazide 25 mg PO DAILY hydroxyzine pamoate Take 2- 3 tablets at bedtime orally bedtime PRN; lamotrigine 100 mg PO BID lancets (FreeStyle Lancets) Test blood sugar once a day losartan 100 mg PO DAILY metformin 500 mg PO DAILY omeprazole 20 mg PO DAILY rosuvastatin 40 mg PO DAILY tamoxifen 20 mg PO DAILY HPI- Psychiatric Chief Complaint: Depression HPI Narrative: pt reports improved mood overall; Her PHQ9= 0 and GAD7=0. she does say that she has had some anxiety and she has been easily startled aat home with son making loud noises; she reports it is not a problem at work. she is happy to be thinking about fdc in the next 11-12 months. she denies SI or HI. She has been compliant with meds; we reviewed her lab work again and discussed her kidne y functions and blood sugar; she is having a hard time staying away from sugar. she is trying to drink more water but doesn't like the taste of plain water. Her calcium level was slightly high. she feels tied during the day so sometimes drinks energy drinks. She does not have a good sense of how to take care of her diabetes. She will see PCP 11/11. Past Psychiatric History: outpatient treatment only dx with ADHD, RIGOBERTO, r/o mood disorder NOS for years; Lesa Rodriges NP (her previous prescriber) dx her with Bipolar DO. She reports she had symptoms as child but no treatment until adulthood PAST Medication Trials: trileptal- ineffective Methyphenidate 20mg by PCP-made her feel edgy and increased blood pressure a lot Paxil?didn't do much Adderall XR--disrupted sleep, increased anxiety Wellbutrin SR--angry, agitation, passive HI Strattera--possibly activating Zoloft--sexual side effects Prozac--CPY-450 issues with Tamoxifen Lamictal--muscle tension/?pain Cymbalta--GI distress Seroquel--helped with agitation/misty melatonin hydroxyzine Subjective Subjective Subjective Medication Compliance: Yes Side effects from medications: No Review of Systems Medical Review of Systems: unchanged Mental Status Exam Mental Status Exam Patient Appearance: Well Grooomed and Appropriate Patient Orientation: Person, Place, Time and Situation Level of Consciousness: Awake, Appropriate and Alert Patient Behavior: Appropriate and Cooperative Mood Description: Appropriate and Anxious Affect Description: Appropriate and Anxious Patient Cognition Impaired: No Ability to Follow Directions: Good Speech Pattern: Clear, Coherent and Rambling Memory Description: Intact Hallucinations: None Thought Process: Intact Thought Content: positive for Intact and positive for Goal Oriented Judgement: Good Assessment and Plan Assessment & Plan (1) Bipolar 1 disorder, mixed: Status: Acute Code(s): F31.60 - Bipolar disorder, current episode mixed, unspecified (2) Generalized anxiety disorder: Status: Acute Code(s): F41.1 - Generalized anxiety disorder (3) Vitamin D deficiency: Status: Acute Code(s): E55.9 - Vitamin D deficiency, unspecified Plan reduce vitamin D to 3 x a week contineu lamictal 100mg BID continue clonidine continue hydroxyzine oonly 2 tab at bedtime cotniue lexapro 10mg dailt Medications: New cholecalciferol (vitamin D3) 25 mcg orally Take 3 times a week M,W,F; 30 caps 0RF Orders: Orders Vitamin D 25-OH Total Today E55.9 - Vitamin D deficiency, unspecified UA and rflx microscopic Today N39.46 - Mixed incontinence ECG 12 lead EKG Today I10 - Essential (primary) hypertension Counseling and coordination of Care Pt. Self Management counseling: Mod caffeine/ETOH intake and Nutrition education and improvement Medication management counseling: Effectiveness, Side effects, Dosing range, Duration, Drug interaction and Adherence Diagnosis and Prognosis Counseling: Accuracy of diagnosis, Prognosis over time, Impact of diagnosis on life functions and Adequacy of current interventions Details: I spent 45 minutes reviewing the record, seeing the patient and documenting in the medical record. Counseling provided to the patient/caregiver as outlined below. Addressed patient/caregiver concerns regarding current medication regime including effective adherence. Addressed patient/caregiver concerns regarding diagnosis and prognosis including accuracy of diagnosis, prognosis over time, impact of diagnosis. Addressed patient/caregiver concerns regarding impact of recent stressors. [facility] Medical History (Updated 10/23/24 @ 12:00 by Elsie Rodriguez APRN) Hearing difficulty of both ears Degenerative joint disease of right hip Cystocele with prolapse Osteopenia of lumbar spine Diabetes mellitus with microalbuminuria, without long-term current use of insulin Mixed urge and stress incontinence Chronic heartburn Bipolar 1 disorder, manic, full remission Dyslipidemia History of invasive ductal carcinoma of breast COVID-19 vaccine series completed Mitral valve regurgitation Polyp of gallbladder Hypertension Surgical History History of esophagogastroduodenoscopy (EGD) H/O colonoscopy History of repair of anterior cruciate ligament of left knee History of lumpectomy of right breast (~07/09/19) History of right breast biopsy (~07/02/19) History of section History of total hysterectomy Family History Father History of pancreatic cancer Sister History of lupus Mother No problems noted. 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 Tran 32 year old daughter works with Autistic children patient graduated from high school, 5 years of college with degree in Psych. father age 8787 years old lives in [place], mother 10 years ago due to brain tumor, patient is the oldest of 4 girls Substance History: etoh in 30s has medical [employer] card Trauma History: yes childhood Coding Level of Care Code Est Pt Level 5 (67453) Diagnoses Bipolar 1 disorder, mixed F31.60 Generalized anxiety disorder F41.1 Vitamin D deficiency E55.9
--- OUTSIDE RECORDS SUMMARY | 2024-10-23 12:44 | XMS_ITS | Patient Health Record ---
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 Name Role Phone Homero NORTON, Cassandra Primary Care Provider Wilmer Murguia Jr [phone] ALLERGIES Allergen (clinical drug ingredient) Drug/Non Drug Allergy documented on EMR Reaction Allergy Type Onset Date Status Sulfa Unknown Drug Allergy Active REASON FOR REFERRAL No Information MEDICATIONS Medication SIG (Take, Route, Frequency, Duration) Notes Start Date End Date Status cloNIDine HCl 0.1 MG Oral for 30 Active Escitalopram Oxalate 20 MG Oral for 30 Active lamoTRIgine 100 MG Oral for 30 Active hydrOXYzine Pamoate 25 MG Oral for 30 Active Pepcid 20 MG 1 tablet at bedtime as needed Orally Once a day for 30 day(s) Active Omeprazole 20 MG TAKE 1 CAPSULE BY [facility] EVERY DAY 30 MINUTES BEFORE MORNING MEAL FOR 30 DAYS for 30 Active Sertraline HCl Activ e Losartan Potassium A ctive MiraLax (colon prep) 17 GM/SCOOP mixed with Gatorade or Crystal Light Orally begin at 5:00 p.m. the day before the procedure for 1 day 08/16/2022 Active IMMUNIZATIONS Vaccine Route Administration Date Status Comme nts Influenza Unknown 08/16/2022 Administered SOCIAL HISTORY Sex Assigned At : Social History Observation Description Sex Assigned At Unknown Alcohol Screen Question Answer Notes Did you have a drink containing alcohol in the p ast year? No Points 0 Interpretation Negative PROBLEMS Problem Type ICD Code Onset Dates Problem Status W/U Status Risk SNOMED Code Notes Problem Colon cancer screening (Z12.11) Active confirmed 358029165 Problem Other dysphagia (R13.19) Active confirmed 61502172 Problem Dysphagia (R13.10) Active confirmed Dys phagia (34610674) Problem Gastroesophageal reflux disease, unspecified whether esophagitis present (K21.9) Active confirmed 400746816 PLAN OF TREATMENT Future Test Test Name Order Date COLONOSCOPY 02/21/2012 UPPER GI ENDOSCOPY 08/16/2022 COLONOSCOPY 08/16/2022 Insurance Providers Payer Name Payer Address Payer Phone Subscriber Number Group Number Insured Name Patient Relationship to Insured Coverage Start Date Coverage End Date [employer] [place] [address] [address] [place] [address] [id number] OLIVER Self - patient is the insured MEDICAL (GENERAL) HISTORY Medical History History ICD Code hypertension anxiety esophageal reflux fatty liver elevated cholesterol fibroids mitral valve prolapse Right breast cancer status p ost radiation therapy and lumpectomy, tamoxifen for 5 years Surgical History Surgery Date(Month/Year) knee surgery hysterectomy hip surgery breast biopsy Lipoma
== END 2024-10-23 11:30 | disposition home or self-care (01) ==
LOC: HO.HOP 10:56
PROVIDERS: PCP Internal Medicine; Visit Provider Clinical Nurse Specialist Psychiatric/Mental Health
DX: F31.60 Bipolar disorder, current episode mixed, unspecified (principal); F41.1 Generalized anxiety disorder; E55.9 Vitamin D deficiency, unspecified
CPT/HCPCS: 99215

== ENCOUNTER → 2024-10-23 10:56 | Outpatient (BNVA) | payer OTHER, SELFPAY | PROVIDERS: PCP Internal Medicine; Visit Provider Clinical Nurse Specialist Psychiatric/Mental Health ==

== ENCOUNTER 2024-10-23 11:48 | Outpatient (REF) | payer OTHER, SELFPAY ==
[2024-10-23 13:16] LABS: Appearance Urine Clear; Color Urine Yellow; Glucose Urine UA Negative (Negative); Leukocyte Esterase Urine Negative (Negative); Nitrite Urine Negative (Negative); PH 7.5 (5.0-9.0); Urine Blood Negative (Negative); Urine Ketones Negative (Negative); Urine Protein Negative (Neg-Trace)
== END 2024-10-23 11:49 | disposition home or self-care (01) ==
LOC: HO.10HDLNP 11:48
PROVIDERS: Visit Provider Clinical Nurse Specialist Psychiatric/Mental Health
DX: N39.46 Mixed incontinence (principal)
CPT/HCPCS: 81003

== ENCOUNTER → 2024-11-11 08:00 | Outpatient (BNVA) | payer OTHER, SELFPAY | PROVIDERS: PCP Internal Medicine; Visit Provider Internal Medicine | DX: E11.9 Type 2 diabetes mellitus without complications (principal); I10 Essential (primary) hypertension; E78.5 Hyperlipidemia, unspecified; Z79.84 Long term (current) use of oral hypoglycemic drugs | CPT/HCPCS: 96127 ==

== ENCOUNTER 2024-11-17 15:01 | Outpatient (AMB) | payer OTHER, SELFPAY ==
[2024-11-17 15:03] VITALS: BP 110/72; PULSE 80; O2SAT 98; BMI 29.1
--- NOTE | 2024-11-17 15:03 | HO.NEPHOV ---
Vital Signs 11/17/24 15:03 Height 5 ft 2 in Weight 159 lb BMI 29.1 BP 110/72 Blood Pressure Location Lt brachial Position Sitting Pulse 80 Pulse Source Pulse Oximeter Pulse Oximetry (%) 98 Oxygen Delivery Method Room Air Intake Visit Reasons: INP: Abnormal labs/Proteinuria/ Conf Supervisor Blast Furnace Required: No Accompanied by: Self / Same As Patient Allergies Sulfa (Sulfonamide Antibiotics) [SULFA (SULFONAMIDE ANTIBIOTICS)] Adverse Reaction (Intermediate, Verified 11/17/24 15:04) muscle/joint pain tramadol Allergy (Uncoded 11/11/24 08:38) itching all over body HPI Comments Details: Stephanie is a pleasant 69-year-old woman with a history of longstanding diabetes mellitus. She has been referred for the evaluation of chronic kidney disease. Up until June of 2024 serum creatinine was normal around 1.0 mg/dL. On 09/11/2024 creatinine bumped up to 1.73 and the repeat creatinine was 1.67 on 11/07/2024. All medications were reviewed she is on hydrochlorothiazide 25 mg along with the potassium supplementation. She occasionally takes ibuprofen. History of lumpectomy of the right breast in 2019 for invasive ductal carcinoma She is on tamoxifen which she will be completing the course in the next few months. History of mixed urgent stress incontinence. History of vaginal prolapse and recently started on [employer] [facility] Medical History (Updated 11/17/24 @ 15:15 by Mikey Huggins MD) Type 2 diabetes mellitus without complication, without long-term current use of insulin Elevated serum creatinine Hearing difficulty of both ears Degenerative joint disease of right hip Cystocele with prolapse Osteopenia of lumbar spine Diabetes mellitus with microalbuminuria, without long-term current use of insulin Mixed urge and stress incontinence Chronic heartburn Bipolar 1 disorder, manic, full remission Dyslipidemia History of invasive ductal carcinoma of breast COVID-19 vaccine series completed Mitral valve regurgitation Polyp of gallbladder Hypertension Surgical History History of esophagogastroduodenoscopy (EGD) H/O colonoscopy History of repair of anterior cruciate ligament of left knee History of lumpectomy of right breast (~07/09/19) History of right breast biopsy (~07/02/19) History of section History of total hysterectomy Family History Father History of pancreatic cancer Sister History of lupus Mother No problems noted. 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 Lungs entry equal no rales. Heart S1-S2 heard no gallop or rub. Abdomen soft nontender. Neuro alert awake oriented. No asterixis. Extremities no edema. Results Reviewed Nephrology Results: Hgb 13.2 g/dl (12.0-16.0) 09/11/24 WBC 8.6 X10*3/uL (4.8-10.8) 09/11/24 Plt Count 429 X10*3/uL (160-400) H 09/11/24 Sodium 140 mmol/L (135-145) 11/07/24 Potassium 3.2 mmol/L (3.3-5.1) L 11/07/24 Chloride 104 mmol/L (96-108) 11/07/24 Carbon Dioxide 25 mmol/L (22-29) 11/07/24 BUN 22 mg/dL (9-16) H 11/07/24 Creatinine 1.67 mg/dL (0.5-1.4) H 11/07/24 Calcium 9.5 mg/dL (8.4-10.2) 11/07/24 Urine Protein Negative mg/dL (Neg-Trace) 10/23/24 Urine Creatinine 83.80 mg/dL 11/07/24 Assessment & Plan Assessment & Plan (1) CKD (chronic kidney disease): Code(s): N18.9 - Chronic kidney disease, unspecified Category: Medical (2) Type 2 diabetes mellitus without complication, without long-term current use of insulin: Code(s): E11.9 - Type 2 diabetes mellitus without complications Category: Medical (3) Hypokalemia: Code(s): E87.6 - Hypokalemia Category: Medical (4) Hypertension: Code(s): I10 - Essential (primary) hypertension Category: Medical Qualifiers: Hypertension type: primary hypertension Qualified Code(s): I10 - Essential (primary) hypertension Plan Chronic kidney disease in the setting of longstanding diabetes mellitus hypertension. I believe she could have a component of acute kidney injury to his plain the recent bump in serum creatinine. Hypoperfusion could be playing a role. Other possibility including obstructive uropathy should be ruled out. She had no significant proteinuria and urine sediments were benign therefore glomerular nephritis or interstitial disease seem unlikely. Recommendations Discontinue hydrochlorothiazide and potassium supplementation for now. Optimize blood pressure and avoid hypotension. Avoid NSAIDs. Obtain renal ultrasonogram to rule out hydronephrosis/obstruction. Encouraged her to stay on low-sodium diet and increase p.o. fluid intake. Further workup will depend on the outcome of the above baseline investigations. I have reassured her and we will follow her along with you. Orders: Orders Comprehensive Met. Panel 2 Weeks N18.9 - Chronic kidney disease, unspecified Parathyroid Hormone Intact 2 Weeks N18.9 - Chronic kidney disease, unspecified Complete Blood Count Auto Diff 2 Weeks N18.9 - Chronic kidney disease, unspecified UA and rflx microscopic 2 Weeks N18.9 - Chronic kidney disease, unspecified Total Protein Urine Random 2 Weeks N18.9 - Chronic kidney disease, unspecified Creatinine Urine 2 Weeks N18.9 - Chronic kidney disease, unspecified US renal BI Today I10 - Essential (primary) hypertension, N18.9 - Chronic kidney disease, unspecified Medications: Discontinued potassium chloride ER Discontinued Reason: Doctor's Order 10 mEq PO DAILY 10 tabs 0RF E87.6 - Hypokalemia Coding Level of Care Code New Pt Level 4 (35437) Diagnoses CKD (chronic kidney disease) N18.9 Type 2 diabetes mellitus without complication, without long-term current use of insulin E11.9 Hypokalemia E87.6 Primary hypertension I10 Hypertension type: primary hypertension
--- OUTSIDE RECORDS SUMMARY | 2024-11-17 16:02 | XMS_ITS | Patient Health Record ---
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 the day before the procedure for 1 day 08/16/2022 Active Omeprazole 20 MG TAKE 1 CAPSULE BY MOUTH EVERY DAY 30 MINUTES BEFORE MORNING MEAL FOR 30 DAYS for 30 Needs office appointment Active IMMUNIZATIONS Vaccine Route Administration Date Status [...] Problem Colon cancer screening (Z12.11) Active confirmed 874610045 Problem Other dysphagia (R13.19) Active confirmed [id number] Problem Dysphagia (R13.10) Active confirmed Dys phagia (44175663) Problem Gastroesophageal reflux disease, unspecified whether esophagitis present (K21.9) Active confirmed [id number] PLAN OF TREATMENT Future Test Test Name Order Date COLONOSCOPY 02/21/2012 UPPER GI ENDOSCOPY 08/16/2022 COLONOSCOPY 08/16/2022 Insurance Providers Payer Name Payer Address Payer Phone Subscriber Number Group Number Insured Name Patient Relationship to Insured Coverage Start Date Coverage End Date [employer] [place] [address] [address] [place] [address] [id number] [id number] OLIVER Self - patient is the insured MEDICAL (GENERAL) HISTORY Medical History History ICD Code hypertension anxiety esophageal reflux fatty liver elevated cholesterol fibroids mitral valve prolapse Right breast cancer status p ost radiation therapy and lumpectomy, tamoxifen for 5 years Surgical History Surgery Date(Month/Year) knee surgery hysterectomy hip surgery breast biopsy Lipoma
== END 2024-11-17 15:18 | disposition home or self-care (01) ==
PROVIDERS: PCP Internal Medicine; Referring Provider Internal Medicine; Visit Provider Internal Medicine Hypertension Specialist
DX: I12.9 Hypertensive chronic kidney disease with stage 1 through stage 4 chronic kidney disease, or unspecified chronic kidney disease (principal); N18.9 Chronic kidney disease, unspecified; E11.9 Type 2 diabetes mellitus without complications; E87.6 Hypokalemia
CPT/HCPCS: 99204

== ENCOUNTER 2024-11-20 14:03 | Outpatient (REF) | payer OTHER, SELFPAY | END 2024-11-20 14:04 | disposition home or self-care (01) | LOC: HO.HMGCX 14:03 | PROVIDERS: PCP Internal Medicine; Visit Provider Internal Medicine Hypertension Specialist | DX: I12.9 Hypertensive chronic kidney disease with stage 1 through stage 4 chronic kidney disease, or unspecified chronic kidney disease (principal); N18.9 Chronic kidney disease, unspecified | CPT/HCPCS: 76775 ==

== ENCOUNTER → 2024-11-20 14:17 | Outpatient (BNV) | payer OTHER, SELFPAY | PROVIDERS: PCP Internal Medicine; Visit Provider Radiology Diagnostic Radiology | DX: N28.89 Other specified disorders of kidney and ureter (principal); I10 Essential (primary) hypertension | CPT/HCPCS: 76775 ==

== ENCOUNTER 2024-12-11 09:52 | Outpatient (AMB) | payer OTHER, SELFPAY ==
--- NOTE | 2024-12-11 10:13 | MHC.OFFVISPS ---
Intake Intake Visit Reasons: depression Custodial Manager Required: No Allergies Sulfa (Sulfonamide Antibiotics) [SULFA (SULFONAMIDE ANTIBIOTICS)] Adverse Reaction (Intermediate, Verified 11/17/24 15:04) muscle/joint pain tramadol Allergy (Uncoded 11/11/24 08:38) itching all over body Medication List - Last Reconciled 12/11/24 by Elsie Rodriguez APRN blood sugar diagnostic (FreeStyle Lite Strips) Test blood sugar once a day blood-glucose meter (FreeStyle Lite Meter kit) As directed cholecalciferol (vitamin D3) 25 mcg orally Take 3 times a week M,W,F; clonidine HCl 0.1 mg PO BID escitalopram oxalate 10 mg PO DAILY hydroxyzine pamoate Take 2- 3 tablets at bedtime orally bedtime PRN; lamotrigine 100 mg PO BID lancets (FreeStyle Lancets) Test blood sugar once a day losartan 100 mg PO DAILY metformin 500 mg PO DAILY omeprazole 20 mg PO DAILY rosuvastatin 40 mg PO DAILY tamoxifen 20 mg PO DAILY HPI- Psychiatric Chief Complaint: depression HPI Narrative: Pt filled out PHQ9 and GAD7 with all zeros and then came into to session with depressed mood, tearful sad, worried about correction in June, feeling bad about herself. she reports passive SI. she is struggling with medical issues - recently learned she has kidney dysfunction. pt reports work is very stressful; her department is down a person and she is being asked to do more; she often feels overwhelmed. 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 she has gotten sick several times. Her mood is much worse since reducing the lexapro. she is irritable and argues with people at work and at home Past Psychiatric History: outpatient treatment only dx with ADHD, RIGOBERTO, r/o mood disorder NOS for years; Lesa Rodriges MUSKRAT TRAPPER (her previous prescriber) dx her with Bipolar DO. She reports she had symptoms as child but no treatment until adulthood PAST Medication Trials: trileptal- ineffective Methyphenidate 20mg by PCP-made her feel edgy and increased blood pressure a lot Paxil?didn't do much Adderall XR--disrupted sleep, increased anxiety Wellbutrin SR--angry, agitation, passive HI Strattera--possibly activating Zoloft--sexual side effects Prozac--CPY-450 issues with Tamoxifen Lamictal--muscle tension/?pain Cymbalta--GI distress Seroquel--helped with agitation/misty melatonin hydroxyzine Subjective Subjective Subjective Medication Compliance: Yes Side effects from medications: No Review of Systems Medical Review of Systems: unchanged Mental Status Exam Mental Status Exam Patient Appearance: Well Grooomed and Appropriate Patient Orientation: Person, Place, Time and Situation Level of Consciousness: Awake, Appropriate and Alert Patient Behavior: Appropriate Mood Description: Depressed and Sad Affect Description: Depressed and Sad Patient Cognition Impaired: No Ability to Follow Directions: Good Speech Pattern: Coherent and Excessive Memory Description: Intact Hallucinations: None Delusions: Not Present Thought Process: Intact, Distracted and Goal Oriented Thought Content: positive for Intact, positive for Preoccupation, positive for Loose Associations and positive for Suicidal Ideation (passive ideation withno plan or intent) Judgement: Fair Assessment and Plan Assessment & Plan (1) Bipolar disorder, current episode depressed, moderate: Status: Acute Code(s): F31.32 - Bipolar disorder, current episode depressed, moderate (2) ADHD (attention deficit hyperactivity disorder), combined type: Status: Acute Code(s): F90.2 - Attention-deficit hyperactivity disorder, combined type (3) Generalized anxiety disorder: Status: Acute Code(s): F41.1 - Generalized anxiety disorder Plan rule out unipolar depression, PTSD and adhd rather than Bipolar DO stop hydroxyzine as patient took herslef off due to feeling tired continue clonidine 0.1mg BID reduce lamictal to 50mg in am and 100mg at bedtime due kidney dysfunction increase lexapro to 20mg daily due to depression Medications: New clonidine HCl 0.1 mg PO BID 60 tabs 2RF anxiety Changed From lamotrigine 100 mg PO BID 180 tabs 2RF To lamotrigine orally take 50mg in am and 100mg at bedtime; Take 1/2 tablet in am and 1 tablet at bedtime 135 tabs 2RF Discontinued escitalopram oxalate Discontinued Reason: Patient Completed Course 10 mg PO DAILY 90 tabs 1RF hydroxyzine pamoate Discontinued Reason: Patient no longer taking Take 2- 3 tablets at bedtime orally bedtime PRN; 90 caps 3RF for anxiety Counseling and coordination of Care Pt. Self Management counseling: Maintenance-social rhythm, Mod caffeine/ETOH intake, Nutrition education and improvement, Sleep hygiene, Behavior activation, General coping skills and Problem solving Medication management counseling: Effectiveness, Side effects, Dosing range, Duration, Drug interaction and Adherence Diagnosis and Prognosis Counseling: Accuracy of diagnosis, Prognosis over time, Impact of diagnosis on life functions, Impact of family relationship, Problematic behaviors secondary to diagnosis and Adequacy of current interventions Details: I spent 40 minutes reviewing the record, seeing the patient and documenting in the medical record. Counseling provided to the patient/caregiver as outlined below. Addressed patient/caregiver concerns regarding current medication regime including effective adherence. Addressed patient/caregiver concerns regarding diagnosis and prognosis including accuracy of diagnosis, prognosis over time, impact of diagnosis. Addressed patient/caregiver concerns regarding impact of recent stressors. [facility] Medical History (Updated 12/11/24 @ 10:45 by Elsie Rodriguez APRN) Bipolar 1 disorder, mixed Type 2 diabetes mellitus without complication, without long-term current use of insulin Elevated serum creatinine Hearing difficulty of both ears Degenerative joint disease of right hip Cystocele with prolapse Osteopenia of lumbar spine Diabetes mellitus with microalbuminuria, without long-term current use of insulin Mixed urge and stress incontinence Chronic heartburn Bipolar 1 disorder, manic, full remission Dyslipidemia History of invasive ductal carcinoma of breast COVID-19 vaccine series completed Mitral valve regurgitation Polyp of gallbladder Hypertension Surgical History History of esophagogastroduodenoscopy (EGD) H/O colonoscopy History of repair of anterior cruciate ligament of left knee History of lumpectomy of right breast (~07/09/19) History of right breast biopsy (~07/02/19) History of section History of total hysterectomy Family History Father History of pancreatic cancer Sister History of lupus Mother No problems noted. 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 Tran 32 year old daughter works with Autistic children patient graduated from high school, 5 years of college with degree in Psych. father age 8787 years old lives in [place], mother 10 years ago due to brain tumor, patient is the oldest of 4 girls Substance History: etoh in 30s has [employer] card Trauma History: yes childhood Coding Level of Care Code Est Pt Level 4 (36924) Diagnoses Bipolar disorder, current episode depressed, moderate F31.32 ADHD (attention deficit hyperactivity disorder), combined type F90.2 Generalized anxiety disorder F41.1
--- OUTSIDE RECORDS SUMMARY | 2024-12-11 10:33 | XMS_ITS | Patient Health Record ---
Author Organization [facility] Address [address] [place] [address] Care Team Providers Care Bag Cutter Name Role Phone Homero NORTON, Cassandra Primary Care Provider Wilmer Murguia Jr [phone] ALLERGIES Allergen (clinical drug ingredient) Drug/Non Drug [...] Problem Colon cancer screening (Z12.11) Active confirmed [id number] Problem Other dysphagia (R13.19) Active confirmed 88839938 Problem Dysphagia (R13.10) Active confirmed Dys phagia (70527222) Problem Gastroesophageal reflux disease, unspecified whether esophagitis present (K21.9) Active confirmed [id number] PLAN OF TREATMENT Future Test Test Name Order Date COLONOSCOPY 02/21/2012 UPPER GI ENDOSCOPY 08/16/2022 COLONOSCOPY 08/16/2022 Insurance Providers Payer Name Payer Address Payer Phone Subscriber Number Group Number Insured Name Patient Relationship to Insured Coverage Start Date Coverage End Date [employer] [place] [address] [address] [place] [address] [id number] [id number] OLIVER Self - patient is the insured MEDICAL (GENERAL) HISTORY Medical History History ICD Code hypertension anxiety esophageal reflux fatty liver elevated cholesterol fibroids mitral valve prolapse Right breast cancer status p ost radiation therapy and lumpectomy, tamoxifen for 5 years Surgical History Surgery Date(Month/Year) knee surgery hysterectomy hip surgery breast biopsy Lipoma
== END 2024-12-11 10:37 | disposition home or self-care (01) ==
LOC: HO.HOP 09:52
PROVIDERS: PCP Internal Medicine; Visit Provider Clinical Nurse Specialist Psychiatric/Mental Health
DX: F31.32 Bipolar disorder, current episode depressed, moderate (principal); F90.2 Attention-deficit hyperactivity disorder, combined type; F41.1 Generalized anxiety disorder
CPT/HCPCS: 99214

== ENCOUNTER → 2024-12-11 09:52 | Outpatient (BNVA) | payer OTHER, SELFPAY | PROVIDERS: PCP Internal Medicine; Visit Provider Clinical Nurse Specialist Psychiatric/Mental Health ==

== ENCOUNTER 2024-12-14 10:34 | Outpatient (REF) | payer OTHER, SELFPAY ==
--- OUTSIDE RECORDS SUMMARY | 2024-12-14 11:57 | XMS_ITS | Patient Health Record ---
Author Organization [facility] Address [address] [place] [address] Care Team Providers Care Supervisor Drilling And Shooting Name Role Phone Homero NORTON, Cassandra Primary [...] Problem Colon cancer screening (Z12.11) Active confirmed [id number] Problem Other dysphagia (R13.19) Active confirmed 20663095 Problem Dysphagia (R13.10) Active confirmed Dys phagia (10057591) Problem Gastroesophageal reflux disease, unspecified whether esophagitis present (K21.9) Active confirmed [id number] PLAN OF TREATMENT Future Test Test Name Order Date COLONOSCOPY 02/21/2012 UPPER GI ENDOSCOPY 08/16/2022 COLONOSCOPY 08/16/2022 Insurance Providers Payer Name Payer Address Payer Phone Subscriber Number Group Number Insured Name Patient Relationship to Insured Coverage Start Date Coverage End Date [employer] [place] [address] [address] [place] [address] [id number] [id number] OLIVER Self - patient is the insured MEDICAL (GENERAL) HISTORY Medical History History ICD Code hypertension anxiety esophageal reflux fatty liver elevated cholesterol fibroids mitral valve prolapse Right breast cancer status p ost radiation therapy and lumpectomy, tamoxifen for 5 years Surgical History Surgery Date(Month/Year) knee surgery hysterectomy hip surgery breast biopsy Lipoma
[2024-12-14 12:58] LABS: MANUAL DIFF FLAG NO
[2024-12-14 13:02] LABS: Basophils Absolute Auto 0.1 X10*3/uL (0.0-0.2); Basophils Percent Auto 0.6 % (0-2); Eosinophils Absolute Auto 0.1 X10*3/uL (0.0-0.4); Eosinophils Percent Auto 1.6 % (0-4); Hematocrit 41.6 % (37.0-47.0); Hemoglobin 13.1 g/dl (12.0-16.0); Imm Gran Abs Auto 0.04 X10*3/uL (0.00-0.03); Imm Gran Pct Auto 0.5 % (0.0-0.4); Lymphocytes Absolute Auto 1.6 X10*3/uL (1.2-4.9); Lymphocytes Percent Auto 19.5 % (20-40); Mean Corpuscular HGB Conc 31.5 g/dl (31.0-35.0); Mean Corpuscular Hemoglobin 26.5 pg (27.0-33.0); Mean Platelet Volume 9.6 fL (9.4-12.3); Monocytes Absolute Auto 0.6 X10*3/uL (0.1-1.2); Monocytes Percent Auto 7.4 % (2-11); Neutrophils Absolute Auto 5.8 x10*3/uL (2.0-8.3); Neutrophils Percent Auto 70.4 % (45-73); Platelet Count 463 X10*3/uL (160-400); Red Blood Count 4.95 X10*6/uL (4.20-5.50); Red Cell Distribution Width 15.7 % (11.0-16.0); White Blood Count 8.2 X10*3/uL (4.8-10.8)
[2024-12-14 13:26] LABS: Alanine Aminotransferase 15 U/L (0-31); Albumin Level 4.1 g/dL (3.5-5.0); Alkaline Phosphatase 87 U/L (39-117); Anion Gap 13 (12-20); Aspartate Amino Transferase 26 U/L (5-31); Bilirubin Total 0.3 mg/dL (0.0-1.0); Blood Urea Nitrogen 15 mg/dL (9-16); Calcium 9.3 mg/dL (8.4-10.2); Carbon Dioxide 24 mmol/L (22-29); Chloride 109 mmol/L (96-108); Estimated Glomerular Filt Rate 33; Glucose Random 125 mg/dL (60-115); Potassium 4.2 mmol/L (3.3-5.1); Sodium 142 mmol/L (135-145); Total Protein 7.7 g/dL (6.5-8.0)
[2024-12-14 13:28] LABS: Creatinine Urine 73.15 mg/dL; Total Protein Urine Random 28 mg/dL (<12)
[2024-12-14 13:29] LABS: Appearance Urine Clear; Color Urine Yellow; Glucose Urine UA Negative (Negative); Leukocyte Esterase Urine Negative (Negative); Nitrite Urine Negative (Negative); UMIC TRIGGER UA YES; Urine Blood Negative (Negative); Urine Ketones Negative (Negative); Urine Protein 30 (1+) mg/dL (Neg-Trace)
[2024-12-14 13:35] LABS: Bacteria Urine None Seen (None Seen); Hyaline Casts Urine 0-2 /LPF (0-2); RBC Urine 0-2 /HPF (0-2); WBC Urine 0-5 /HPF (0-5)
[2024-12-14 13:36] LABS: Parathyroid Hormone Intact 207.7 pg/mL (8.7-77.1)
== END 2024-12-14 10:35 | disposition home or self-care (01) ==
LOC: HO.10HDL 10:34
PROVIDERS: Visit Provider Internal Medicine Hypertension Specialist
DX: N18.9 Chronic kidney disease, unspecified (principal)
CPT/HCPCS: 36415; 80053; 81001; 81003; 82570; 83970; 84156; 85025

== ENCOUNTER 2024-12-15 14:47 | Outpatient (AMB) | payer OTHER, SELFPAY ==
--- NOTE | 2024-12-15 14:51 | HO.NEPHOV ---
Vital Signs 12/15/24 14:52 Height 5 ft 2 in Weight 162 lb BMI 29.6 BP 114/72 Blood Pressure Location Rt brachial Position Sitting Pulse 74 Pulse Source Pulse Oximeter Pulse Oximetry (%) 97 Oxygen Delivery Method Room Air Intake Visit Reasons: CKD/ Conf Macerator Operator Required: No Accompanied by: Self / Same As Patient Allergies Sulfa (Sulfonamide Antibiotics) [SULFA (SULFONAMIDE ANTIBIOTICS)] Adverse Reaction (Intermediate, Verified 12/15/24 14:54) muscle/joint pain tramadol Allergy (Uncoded 11/11/24 08:38) itching all over body Medication List - Last Reconciled 12/15/24 by Mikey Huggins MD blood sugar diagnostic (FreeStyle Lite Strips) Test blood sugar once a day blood-glucose meter (FreeStyle Lite Meter kit) As directed cholecalciferol (vitamin D3) 25 mcg orally Take 3 times a week M,W,F; clonidine HCl 0.1 mg PO BID escitalopram oxalate 20 mg PO DAILY lamotrigine orally take 50mg in am and 100mg at bedtime; Take 1/2 tablet in am and 1 tablet at bedtime lancets (FreeStyle Lancets) Test blood sugar once a day losartan 100 mg PO DAILY metformin 500 mg PO DAILY omeprazole 20 mg PO DAILY rosuvastatin 40 mg PO DAILY tamoxifen 20 mg PO DAILY HPI Comments Details: Stephanie is a pleasant 69-year-old woman with a history of longstanding diabetes mellitus. She has been referred for the evaluation of chronic kidney disease. Up until June of 2024 serum creatinine was normal around 1.0 mg/dL. On 09/11/2024 creatinine bumped up to 1.73 and the repeat creatinine was 1.67 on 11/07/2024. All medications were reviewed she is on hydrochlorothiazide 25 mg along with the potassium supplementation. She occasionally takes ibuprofen. History of lumpectomy of the right breast in 2019 for invasive ductal carcinoma She is on tamoxifen which she will be completing the course in the next few months. History of mixed urgent stress incontinence. History of vaginal prolapse and recently started on [facility] Medical History (Updated 12/11/24 @ 10:45 by Elsie Rodriguez APRN) Bipolar 1 disorder, mixed Type 2 diabetes mellitus without complication, without long-term current use of insulin Elevated serum creatinine Hearing difficulty of both ears Degenerative joint disease of right hip Cystocele with prolapse Osteopenia of lumbar spine Diabetes mellitus with microalbuminuria, without long-term current use of insulin Mixed urge and stress incontinence Chronic heartburn Bipolar 1 disorder, manic, full remission Dyslipidemia History of invasive ductal carcinoma of breast COVID-19 vaccine series completed Mitral valve regurgitation Polyp of gallbladder Hypertension Surgical History History of esophagogastroduodenoscopy (EGD) H/O colonoscopy History of repair of anterior cruciate ligament of left knee History of lumpectomy of right breast (~07/09/19) History of right breast biopsy (~07/02/19) History of section History of total hysterectomy Family History Father History of pancreatic cancer Sister History of lupus Mother No problems noted. 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 No echogenic stones or hydronephrosis. Simple cyst mid pole right kidney. Nephrology Results: Hgb 13.1 g/dl (12.0-16.0) 12/14/24 WBC 8.2 X10*3/uL (4.8-10.8) 12/14/24 Plt Count 463 X10*3/uL (160-400) H 12/14/24 Sodium 142 mmol/L (135-145) 12/14/24 Potassium 4.2 mmol/L (3.3-5.1) 12/14/24 Chloride 109 mmol/L (96-108) H 12/14/24 Carbon Dioxide 24 mmol/L (22-29) 12/14/24 BUN 15 mg/dL (9-16) 12/14/24 Creatinine 1.56 mg/dL (0.5-1.4) H 12/14/24 Calcium 9.3 mg/dL (8.4-10.2) 12/14/24 PTH Intact 207.7 pg/mL (8.7-77.1) H 12/14/24 Urine Protein 30 (1+) mg/dL (Neg-Trace) H 12/14/24 Urine Creatinine 73.15 mg/dL 12/14/24 Renal US 11/20/24 Assessment & Plan Assessment & Plan (1) CKD (chronic kidney disease): Code(s): N18.9 - Chronic kidney disease, unspecified Category: Medical (2) Type 2 diabetes mellitus without complication, without long-term current use of insulin: Code(s): E11.9 - Type 2 diabetes mellitus without complications Category: Medical (3) Hypokalemia: Code(s): E87.6 - Hypokalemia Category: Medical (4) Hypertension: Code(s): I10 - Essential (primary) hypertension Category: Medical Qualifiers: Hypertension type: primary hypertension Qualified Code(s): I10 - Essential (primary) hypertension Plan Chronic kidney disease in the setting of longstanding diabetes mellitus hypertension. She had a component of acute kidney injury to his plain the recent bump in serum creatinine. Hypoperfusion could be playing a role. No obstructive uropathy based on USG She had no significant proteinuria and urine sediments were benign therefore glomerular nephritis or interstitial disease seem unlikely. Mild elevation in iPTH SHPT Watch for now Continue to hold hydrochlorothiazide and potassium supplementation for now. Optimize blood pressure and avoid hypotension. Avoid NSAIDs and othe rnephrotoxins She will benefit from SGLT-2 inhibitor Encouraged her to stay on low-sodium diet and increase p.o. fluid intake. Orders: Orders Basic Metabolic Panel 3 Months N18.9 - Chronic kidney disease, unspecified Coding Level of Care Code Est Pt Level 4 (32175) Diagnoses CKD (chronic kidney disease) N18.9 Type 2 diabetes mellitus without complication, without long-term current use of insulin E11.9 Hypokalemia E87.6 Primary hypertension I10 Hypertension type: primary hypertension
[2024-12-15 14:52] VITALS: BP 114/72; PULSE 74; O2SAT 97; BMI 29.6
--- OUTSIDE RECORDS SUMMARY | 2024-12-15 18:34 | XMS_ITS | Patient Health Record ---
Author Organization [facility] Address [address] [place] [address] Care Team Providers Care Caramel Cutter Hand Name Role Phone Homero NORTON, Cassandra Primary Care Provider Wilmer Murguia Jr [phone] ALLERGIES Allergen (clinical drug ingredient) Drug/Non Drug [...] Problem Colon cancer screening (Z12.11) Active confirmed [id number] Problem Other dysphagia (R13.19) Active confirmed 49452556 Problem Dysphagia (R13.10) Active confirmed Dys phagia (53007819) Problem Gastroesophageal reflux disease, unspecified whether esophagitis present (K21.9) Active confirmed [id number] PLAN OF TREATMENT Future Test Test Name Order Date COLONOSCOPY 02/21/2012 UPPER GI ENDOSCOPY 08/16/2022 COLONOSCOPY 08/16/2022 Insurance Providers Payer Name Payer Address Payer Phone Subscriber Number Group Number Insured Name Patient Relationship to Insured Coverage Start Date Coverage End Date [employer] [place] [address] [address] [place] [address] [id number] [id number] OLIVER Self - patient is the insured MEDICAL (GENERAL) HISTORY Medical History History ICD Code hypertension anxiety esophageal reflux fatty liver elevated cholesterol fibroids mitral valve prolapse Right breast cancer status p ost radiation therapy and lumpectomy, tamoxifen for 5 years Surgical History Surgery Date(Month/Year) knee surgery hysterectomy hip surgery breast biopsy Lipoma
== END 2024-12-15 15:11 | disposition home or self-care (01) ==
PROVIDERS: PCP Internal Medicine; Visit Provider Internal Medicine Hypertension Specialist
DX: I12.9 Hypertensive chronic kidney disease with stage 1 through stage 4 chronic kidney disease, or unspecified chronic kidney disease (principal); N18.9 Chronic kidney disease, unspecified; E11.9 Type 2 diabetes mellitus without complications; E87.6 Hypokalemia
CPT/HCPCS: 99214

== ENCOUNTER 2025-02-08 12:41 | Outpatient (REF) | payer OTHER, SELFPAY ==
[2025-02-08 13:53] LABS: Alanine Aminotransferase 21 U/L (0-31); Anion Gap 13 (12-20); Aspartate Amino Transferase 32 U/L (5-31); Blood Urea Nitrogen 17 mg/dL (9-16); Carbon Dioxide 25 mmol/L (22-29); Chloride 108 mmol/L (96-108); Cholesterol 171 mg/dL (<200); Estimated Glomerular Filt Rate 37; Glucose Fasting 124 mg/dL (60-99); HDL Cholesterol 48 mg/dL (>40); LDL Cholesterol Calculated 77 mg/dL (<100); Potassium 4.9 mmol/L (3.3-5.1); Sodium 141 mmol/L (135-145); Triglycerides 232 mg/dL (<150)
[2025-02-08 14:04] LABS: Appearance Urine Clear; Color Urine Yellow; Glucose Urine UA Negative (Negative); Leukocyte Esterase Urine Trace (Negative); Nitrite Urine Negative (Negative); PH 5.5 (5.0-9.0); Specific Gravity - Urine 1.015 (1.005-1.025); UMIC TRIGGER UA YES; Urine Blood Negative (Negative); Urine Ketones Negative (Negative); Urine Protein Negative (Neg-Trace)
[2025-02-08 14:08] LABS: Vitamin D 25-OH Total 57.5 ng/mL (>30)
[2025-02-08 14:09] LABS: Bacteria Urine None Seen (None Seen); Hyaline Casts Urine 0-2 /LPF (0-2); RBC Urine 0-2 /HPF (0-2); Squamous Epithelial Cell Urine 0-2 /HPF (0-2); WBC Urine 0-5 /HPF (0-5)
== END 2025-02-08 12:42 | disposition home or self-care (01) ==
LOC: HO.WFDLDS 12:41
PROVIDERS: Internal Medicine Hypertension Specialist; Referring Provider Clinical Nurse Specialist Psychiatric/Mental Health; Visit Provider Internal Medicine
DX: E11.9 Type 2 diabetes mellitus without complications (principal); I10 Essential (primary) hypertension; E78.5 Hyperlipidemia, unspecified; M85.88 Other specified disorders of bone density and structure, other site; R79.89 Other specified abnormal findings of blood chemistry; R94.4 Abnormal results of kidney function studies; E55.9 Vitamin D deficiency, unspecified
CPT/HCPCS: 36415; 80048; 80061; 81001; 81003; 82306; 84450; 84460

== ENCOUNTER 2025-02-09 15:03 | Outpatient (REF) | payer OTHER, SELFPAY ==
[2025-02-09 17:30] LABS: Estimated Average Glucose 140 mg/dL; Hemoglobin A1C 155.3366 umol/L; Hemoglobin A1c % 6.5 % (<6.0); Total Hemoglobin (HGBA1C) 3305.4222 umol/L
[2025-02-09 17:53] LABS: Vitamin D 25-OH Total 49.2 ng/mL (>30)
== END 2025-02-09 15:04 | disposition home or self-care (01) ==
LOC: HO.LAB 15:03
PROVIDERS: PCP Internal Medicine; Visit Provider Clinical Nurse Specialist Psychiatric/Mental Health
DX: R94.4 Abnormal results of kidney function studies (principal); R79.89 Other specified abnormal findings of blood chemistry; E55.9 Vitamin D deficiency, unspecified; M85.88 Other specified disorders of bone density and structure, other site; E78.5 Hyperlipidemia, unspecified; I10 Essential (primary) hypertension; E11.9 Type 2 diabetes mellitus without complications
CPT/HCPCS: 36415; 82306; 83036

== ENCOUNTER 2025-02-09 15:03 | Outpatient (AMB) | payer OTHER, SELFPAY ==
--- NOTE | 2025-02-09 15:06 | MHC.OFFVISPS ---
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 Allergies Sulfa (Sulfonamide Antibiotics) [SULFA (SULFONAMIDE ANTIBIOTICS)] Adverse Reaction (Intermediate, Verified 02/10/25 10:04) muscle/joint pain tramadol Allergy (Uncoded 02/10/25 10:04) itching all over body Medication List - Last Reconciled 02/09/25 by Elsie Rodriguez APRN blood sugar diagnostic (FreeStyle Lite Strips) Test blood sugar once a day blood-glucose meter (FreeStyle Lite Meter kit) As directed cholecalciferol (vitamin D3) 25 mcg orally Take 3 times a week M,W,F; clonidine HCl 0.1 mg PO BID escitalopram oxalate 20 mg PO DAILY lamotrigine (Lamictal) 100 mg PO DAILY lamotrigine (Lamictal) 50 mg (2 x 25 mg) PO DAILY 90 days lancets (FreeStyle Lancets) Test blood sugar once a day losartan 100 mg PO DAILY metformin 500 mg PO DAILY omeprazole 20 mg PO DAILY rosuvastatin 40 mg PO DAILY tamoxifen 20 mg PO DAILY HPI- Psychiatric Chief Complaint: depression HPI Narrative: pt here for folow up re: mood symptoms, anxiety and ADHD. Pt reports much improvement; she denies depression or anxiety. PHQ9=0 and GAD7=0. Pt reports medications seem to be hleping; she is functioning well at work and at home; she is thiking about chcf soon. No SI no HI. Past Psychiatric History: outpatient treatment only dx with ADHD, RIGOBERTO, r/o mood disorder NOS for years; Lesa Rodriges NP (her previous prescriber) dx her with Bipolar DO. She reports she had symptoms as child but no treatment until adulthood PAST Medication Trials: trileptal- ineffective Methyphenidate 20mg by PCP-made her feel edgy and increased blood pressure a lot Paxil?didn't do much Adderall XR--disrupted sleep, increased anxiety Wellbutrin SR--angry, agitation, passive HI Strattera--possibly activating Zoloft--sexual side effects Prozac--CPY-450 issues with Tamoxifen Lamictal--muscle tension/?pain Cymbalta--GI distress Seroquel--helped with agitation/misty melatonin hydroxyzine Subjective Subjective Subjective Medication Compliance: Yes Side effects from medications: No Review of Systems Medical Review of Systems: unchanged Mental Status Exam Mental Status Exam Patient Appearance: Well Grooomed and Appropriate Patient Orientation: Person, Place, Time and Situation Level of Consciousness: Awake Patient Behavior: Appropriate Mood Description: Happy, Appropriate and Cheerful Affect Description: Happy, Appropriate and Cheerful Patient Cognition Impaired: No Ability to Follow Directions: Good Speech Pattern: Clear Memory Description: Intact Hallucinations: None Delusions: Not Present Thought Process: Intact and Goal Oriented Thought Content: positive for Intact and positive for Goal Oriented Judgement: Good Assessment and Plan Assessment & Plan (1) Bipolar 1 disorder, manic, full remission: Status: Acute Code(s): F31.74 - Bipolar disorder, in full remission, most recent episode manic (2) Generalized anxiety disorder: Status: Acute Code(s): F41.1 - Generalized anxiety disorder (3) ADHD (attention deficit hyperactivity disorder), combined type: Status: Acute Code(s): F90.2 - Attention-deficit hyperactivity disorder, combined type Plan continue medication as per below A1C re-ordered as courtesy as pt did not have done yesterday (dx Diabetes Mellitus) Medications: Refilled clonidine HCl 0.1 mg PO BID 60 tabs 2RF anxiety escitalopram oxalate 20 mg PO DAILY 90 tabs 0RF lamotrigine (Lamictal) 100 mg PO DAILY 90 tabs 0RF lamotrigine (Lamictal) 50 mg (2 x 25 mg) PO DAILY 180 tabs 0RF 90 days Orders: Orders Hemoglobin A1c 02/09/25 E11.9 - Type 2 diabetes mellitus without complications Counseling and coordination of Care Pt. Self Management counseling: Maintenance-social rhythm, Nutrition education and improvement, Sleep hygiene, Behavior activation, General coping skills and Problem solving Medication management counseling: Effectiveness, Side effects, Dosing range, Duration, Drug interaction and Adherence Diagnosis and Prognosis Counseling: Accuracy of diagnosis, Prognosis over time, Impact of diagnosis on life functions, Impact of family relationship, Problematic behaviors secondary to diagnosis and Adequacy of current interventions Details: I spent 35 minutes reviewing the record, seeing the patient and documenting in the medical record. Counseling provided to the patient/caregiver as outlined below. Addressed patient/caregiver concerns regarding current medication regime including effective adherence. Addressed patient/caregiver concerns regarding diagnosis and prognosis including accuracy of diagnosis, prognosis over time, impact of diagnosis. Addressed patient/caregiver concerns regarding impact of recent stressors. [facility] Medical History (Updated 02/11/25 @ 15:33 by Elsie Rodriguez APRN) Bipolar 1 disorder, manic, full remission Bipolar disorder, current episode depressed, moderate Bipolar 1 disorder, mixed Type 2 diabetes mellitus without complication, without long-term current use of insulin Elevated serum creatinine Hearing difficulty of both ears Degenerative joint disease of right hip Cystocele with prolapse Osteopenia of lumbar spine Diabetes mellitus with microalbuminuria, without long-term current use of insulin Mixed urge and stress incontinence Chronic heartburn Dyslipidemia History of invasive ductal carcinoma of breast COVID-19 vaccine series completed Mitral valve regurgitation Polyp of gallbladder Hypertension Surgical History History of esophagogastroduodenoscopy (EGD) H/O colonoscopy History of repair of anterior cruciate ligament of left knee History of lumpectomy of right breast (~07/09/19) History of right breast biopsy (~07/02/19) History of section History of total hysterectomy Family History Father History of pancreatic cancer Sister History of lupus Mother No problems noted. 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 26 year old son lives at home - has Bipolar disorder, seeing Dr. Tran 32 year old daughter works with Autistic children patient graduated from high school, 5 years of college with degree in Psych. father age 8787 years old lives in [place], mother 10 years ago due to brain tumor, patient is the oldest of 4 girls Substance History: etoh in 30s has medical [employer] card Trauma History: yes childhood Coding Level of Care Code Est Pt Level 4 (55986) Diagnoses Bipolar 1 disorder, manic, full remission F31.74 Generalized anxiety disorder F41.1 ADHD (attention deficit hyperactivity disorder), combined type F90.2
--- OUTSIDE RECORDS SUMMARY | 2025-02-09 17:59 | XMS_ITS | Patient Health Record ---
Author Organization [facility] Address [address] [place] [address] Care Team Providers Care Bedspring Assembler Name Role Phone Homero NORTON, Cassandra Primary Care Provider Wilmer Murguia Jr Unavailable [phone] Allergies Allergen (clinical drug ingredient) Drug/Non Drug Allergy documented on EMR Reaction Allergy Type Onset Date Status Sulfa Unknown Drug Allergy Active Reason For Referral No Information Medications Medication SIG (Take, Route, Frequency, Duration) Notes Start Date End Date Status cloNIDine HCl 0.1 MG Oral for 30 Active Omeprazole 20 MG TAKE 1 CAPSULE BY MOUTH EVERY DAY 30 MINUTES BEFORE MORNING MEAL FOR 30 DAYS for 30 Tell Aftab to schedule a f/u office visit. No more refills. Active Escitalopram Oxalate 20 MG Oral for [...] the procedure for 1 day 08/16/2022 Active Immunizations Vaccine Route Administration Date Status Comme nts Influenza Unknown 08/16/2022 Administered Social History Alcohol Screen Question Answer Notes Did you have a drink containing alcohol in the p ast year? No Points 0 Interpretation Negative Section Notes: Tobacco use is negative. Alc ohol use none for 3 months. Tobacco use is negative. Problems Problem Type SNOMED Code ICD Code Onset Dates Problem Status W/U Status Risk Notes Problem 665129577 Colon cancer screening (Z12.11) Active confirmed Problem 52552942 Other dysphagia (R13.19) Active confirmed Problem Dysphagia (69422430) Dysphagia (R13.10) Active confirmed Problem 209966931 Gastroesophageal reflux disease, unspecified whether esophagitis present (K21.9) Active confirmed Plan Of Treatment Future Test Test Name Order Date COLONOSCOPY 02/21/2012 UPPER GI ENDOSCOPY 08/16/2022 COLONOSCOPY 08/16/2022 Insurance Providers Payer Name Payer Address Payer Phone Subscriber Number Group Number Insured Name Patient Relationship to Insured Coverage Start Date Coverage End Date [employer] [place] [address] [address] [place] [address] [id number] [id number] OLIVER Self - patient is the insured Medical (General) History Medical History History ICD Code hypertension anxiety esophageal reflux fatty liver elevated cholesterol fibroids mitral valve prolapse Right breast cancer status p ost radiation therapy and lumpectomy, tamoxifen for 5 years Surgical History Surgery Date(Month/Year) knee surgery hysterectomy hip surgery breast biopsy Lipoma
== END 2025-02-09 16:06 | disposition home or self-care (01) ==
LOC: HO.HOP 15:03
PROVIDERS: PCP Internal Medicine; Visit Provider Clinical Nurse Specialist Psychiatric/Mental Health
DX: F31.74 Bipolar disorder, in full remission, most recent episode manic (principal); F41.1 Generalized anxiety disorder; F90.2 Attention-deficit hyperactivity disorder, combined type
CPT/HCPCS: 99214

== ENCOUNTER 2025-02-10 09:06 | Outpatient (AMB) | payer OTHER, SELFPAY ==
--- NOTE | 2025-02-10 09:26 | A.OFFPC_ITS ---
Vital Signs 02/10/25 09:50 Height 5 ft 2 in Weight 161 lb BMI 29.4 BP 110/76 Blood Pressure Location Lt brachial Position Sitting Respiration 15 Pulse 68 Pulse Source Pulse Oximeter Temp 98.1 F Temp Source Oral Pulse Oximetry (%) 98 Intake Visit Reasons: 3m follow up dm Intake Note: Pt is here today for her 3mo. f/u DM Allergies Sulfa (Sulfonamide Antibiotics) [SULFA (SULFONAMIDE ANTIBIOTICS)] Adverse Reaction (Intermediate, Verified 02/10/25 10:04) muscle/joint pain tramadol Allergy (Uncoded 02/10/25 10:04) itching all over body Medication List - Last Reconciled 02/10/25 by Cassandra Valentin MD blood sugar diagnostic (FreeStyle Lite Strips) Test blood sugar once a day blood-glucose meter (FreeStyle Lite Meter kit) As directed cholecalciferol (vitamin D3) 25 mcg orally Take 3 times a week M,W,F; clonidine HCl 0.1 mg PO BID escitalopram oxalate 20 mg PO DAILY lamotrigine (Lamictal) 100 mg PO DAILY lamotrigine (Lamictal) 50 mg (2 x 25 mg) PO DAILY 90 days lancets (FreeStyle Lancets) Test blood sugar once a day losartan 100 mg PO DAILY metformin 500 mg PO DAILY omeprazole 20 mg PO DAILY rosuvastatin 40 mg PO DAILY tamoxifen 20 mg PO DAILY Tobacco use date assessed: 02/10/25 Fall risk assessment: No Falls in past year Last assessed Fall Risk: 02/10/25 Dental Screening Dental Screen Date: 02/10/25 Did you have a dental visit in the last 12 months?: No Did you have a dental problem in the last 6 months where you did not have access to dental care?: No Was dental information given to patient?: Patient has dentist HPI 3m follow up dm HPI Details 69-year-old lady here today for follow-u p on her diabetes mellitus, hypertension dyslipidemia. Hemoglobin A1c on recent labs is at 6.5%, has been compliant with taking her metformin, and following recommended diet but admits to not getting much exercise lately. Blood pressure stable and controlled on present treatment, recent fasting lipids showed elevated triglycerides but LDL cholesterol and HDL cholesterol are all within normal limits. Compliant with taking her medications. Still having difficulty with weight loss, would like to try Ozempic [facility] Medical History Bipolar 1 disorder, mixed Type 2 diabetes mellitus without complication, without long-term current use of insulin Elevated serum creatinine Hearing difficulty of both ears Degenerative joint disease of right hip Cystocele with prolapse Osteopenia of lumbar spine Diabetes mellitus with microalbuminuria, without long-term current use of insulin Mixed urge and stress incontinence Chronic heartburn Bipolar 1 disorder, manic, full remission Dyslipidemia History of invasive ductal carcinoma of breast COVID-19 vaccine series completed Mitral valve regurgitation Polyp of gallbladder Hypertension Surgical History History of esophagogastroduodenoscopy (EGD) H/O colonoscopy History of repair of anterior cruciate ligament of left knee History of lumpectomy of right breast (~07/09/19) History of right breast biopsy (~07/02/19) History of section History of total hysterectomy Family History Father History of pancreatic cancer Sister History of lupus Mother No problems noted. 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 / [employer] Cognitive needs: No Hearing needs: No Vision needs: Yes Questionnaire Thrive Questionnaire Date Thrive assessed: 11/04/24 I am a: Patient What is your living situation today?: I have a steady place to live Within the past 12 months, did the food you bought not last and you didn't have the money to get more?: Never true Within the past 12 months, did you worry whether your food would run out before you got money to buy more?: Never true Do you have trouble paying for medicines?: No Do you have trouble getting transportation to medical appointments?: No Do you have trouble paying your heating and electricity bill?: No Do you have trouble taking care of your child, family member or friend?: No Do you have trouble with day-to-day activities such as bathing, preparing meals, shopping, managing finances, etc.?: No Are you currently unemployed and looking for a job?: Yes Are you interested in more education?: No Please select the resources that you would like help with: None Currently or been in a relationship where the following occur: No concerns reported THRIVE Score: 0 RIGOBERTO-7 AMB Questionnaire RIGOBERTO-7 Date RIGOBERTO - 7 assessed: 11/11/24 Source: Developed by Drs. Yaw Banuelos, Leandra Arzola, Sukhi Patterson and colleagues, with an educational cyndi from [employer]. Review of Systems Const Denies fever(s) and Denies weight loss Eyes Denies change in vision ENT Reports no additional complaints Card Denies chest pain Resp Denies cough and Denies hemoptysis GI Denies abdominal pain, Denies diarrhea and Denies nausea Reports no additional complaints Musc Denies back pain Neuro Denies focal weakness Psych Reports no additional complaints Endo Reports no additional complaints Satinder/Lymph Reports no additional complaints Aller/Immun Reports no additional complaints Physical exam (Primary Care) Vital Signs: Last Vital Signs Temp 98.1 F 02/10/25 09:50 Pulse 68 02/10/25 09:50 Resp 15 02/10/25 09:50 BP 110/76 02/10/25 09:50 Pulse Ox 98 02/10/25 09:50 BMI result Body Mass Index 29.4 Tobacco/Smoking Status: Tobacco use Status Tobacco use date assessed 02/10/25 02/10/25 09:27 Patient Tobacco Use Status Tobacco use Unknown 02/10/25 09:27 Tobacco use type Smokeless Tobacco 02/10/25 09:27 e-Cigarette/Vaping Use Currently Using 02/10/25 09:27 Thrive Assessment: Date of Thrive Assessment Date Thrive assessed 11/04/24 02/10/25 09:27 Currently or been in a relationship where the following occur: No concerns reported Const Other: Alert oriented x3, no acute distress noted ambulatory normal gait . Orientation/consciousness: patient oriented x3 HENMT Face and sinus: Yes face symmetric Mouth: Normal oral and palatal mucosa present, oropharynx normal and moist mucous membranes Eyes General: appearance normal, both eyes and all related structures Neck Neck: Yes normal visual inspection, Yes full ROM, Yes no lymphadenopathy and Yes supple Resp Auscultation: clear to auscultation bilaterally Cardio Other: S1-S2 present regular rate and rhythm GI Palpation (GI): Soft to palpation, nontender and no guarding General: Yes no CVA tenderness Back/Spine/Pelvis Back: no CVA tenderness and No back tenderness Skin General skin exam: no rashes or lesions noted Neuro General: patient oriented x3, gait normal, moves all extremities, Normal light touch and pain sensation, no focal motor deficits, CN's II-XI intact bilaterally and normal sensation to monofilament Extrem General: Yes no pedal edema, Yes no calf tenderness and Yes normal gait Psych Appearance: grossly normal Mental Status: mental status grossly normal Speech and movement: Normal speech and movement present Affect: normal affect Attitude: cooperative Results Reviewed Results Reviewed: amira: Stephanie Cochran Age/Sex: 69/F : 1955 Unit#: [id number] Attend Dr: Mikey Huggins MD Re12/14/24 Status: DEP REF Location: [address] Disch: SPEC : [id number] JANINE: 12/14/24 STATUS: COMP REQ : [id number] RECD: 12/14/[address]: Mikey Huggins MD COMP: 12/14/24 ENTERED: 12/14/24-[address] [facility] [address]: ORDERED: CBC Auto Diff Test Result Flag Reference WBC 8.2 4.8-10.8 X10*3/uL RBC 4.95 4.20-5.50 X10*6/uL HGB 13.1 12.0-16.0 g/dl HCT 41.6 37.0-47.0 % MCV 84.0 80.0-98.0 fL MCH 26.5 L 27.0-33.0 pg MCHC 31.5 31.0-35.0 g/dl RDW 15.7 11.0-16.0 % PLT 463 H 160-400 X10*3/uL MPV 9.6 9.4-12.3 fL Neut Pct Auto 70.4 45-73 % ImGran Pct Auto 0.5 H 0.0-0.4 % Lymp Pct Auto 19.5 L 20-40 % [place] Pct Auto 7.4 2-11 % Eos Pct Auto 1.6 0-4 % Baso Pct Auto 0.6 0-2 % NRBC Pct Auto 0.0 0.0-0.2 /100WBC ANC Neut Abs # 5.8 2.0-8.3 x10*3/uL ImGran Abs Auto 0.04 H 0.00-0.03 X10*3/uL Lymph Abs Auto 1.6 1.2-4.9 X10*3/uL [place] Abs Auto 0.6 0.1-1.2 X10*3/uL Eos Abs Auto 0.1 0.0-0.4 X10*3/uL Baso Abs Auto 0.1 0.0-0.2 X10*3/uL NRBC Abs Auto 0.000 0.0-0.012 X10*3/uL Laboratory Tests 02/09/25 15:46 Estimat Average Glucose 140 Hemoglobin A1c % 6.5 H 25-OH Vitamin D Total 49.2 Name: Stephanie Cochran Age/Sex: 69/F : 1955 Unit#: [id number] Attend Dr: Cassandra Valentin MD Re02/08/25 Status: DEP REF Location: [facility] Disch: SPEC : [id number] JANINE: 02/08/25 STATUS: COMP REQ : [id number] RECD: 02/08/25-[address]: Elsie Rodriguez APRN COMP: 02/08/25-140 ENTERED: 02/08/25-[address] [facility] [address]: Cassandra Valentin MD ORDERED: Met Prof Fast, AST, ALT, Lipid Panel, Vitamin D 25-OH Test Result Flag Reference Sodium 141 135-145 mmol/L Potassium 4.9 3.3-5.1 mmol/L CL 108 96-108 mmol/L CO2 25 22-29 mmol/L Gap 13 12-20 BUN 17 H 9-16 mg/dL Creat 1.41 H 0.5-1.4 mg/dL eGFR 37 Chronic Kidney Disease: Estimated GFR < 60 mL/min/1.73m2 Severe Kidney Disease: Estimated GFR < 15 mL/min/1.73m2 FBS 124 H 60-99 mg/dL A fasting glucose from 100-125 mg/dl is considered impaired (pre-diabetes). CA 9.0 8.4-10.2 mg/dL AST (GOT) 32 H 5-31 U/L ALT (GPT) 21 0-31 U/L Triglyceride 232 H <150 mg/dL Desirable Triglyceride: less than 150 mg/dL Borderline High Triglyceride 150-199 mg/dL High Triglyceride: 200-499 mg/dL Very High Triglyceride: greater than or equal to 5OO mg/dL Cholesterol 171 <200 mg/dL Desirable Cholesterol: less than 200 mg/dL Borderline High Cholesterol: 200-239 mg/dL High Cholesterol: greater than 239 mg/dL LDL Calculated 77 <100 mg/dL Desirable LDL: less than 100 mg/dL Near Optimal/Above Optimal LDL: 110-129 mg/dL Borderline High LDL: 130-159 mg/dL High LDL: 160-189 mg/dL Very High LDL: greater than or equal to 190 mg/dL HDL 48 >40 mg/dL Desirable HDL: greater than 40 mg/dL Note: This HDL assay may give artificially low results in patients with liver disease. Vitamin D 25-OH 57.5 >30 ng/mL Health Based Reference Values* < 20 ng/mL Deficient 20-30 ng/mL Insufficient > 30 ng/mL Sufficient Coding Level of Care Code Est Pt Level 4 (90012) Diagnoses Type 2 diabetes mellitus without complication, without long-term current use of insulin E11.9 Primary hypertension I10 Hypertension type: primary hypertension Dyslipidemia E78.5 Assessment & Plan Assessment & Plan (1) Type 2 diabetes mellitus without complication, without long-term current use of insulin: Code(s): E11.9 - Type 2 diabetes mellitus without complications Category: Medical Plan: Hemoglobin A1c today is at 6.5%. Continued on metformin 500 mg daily, will start on Ozempic 0.25 mg to take 1 injection subcutaneously once a week, discussed possible side effects of medication which may include abdominal cramping, nausea alteration in bowel habits. Advised to eat a bland meal when giving herself the injection. Continue with regular activity, and adherence to healthy eating habits, will see her back for follow-up in 3 after fasting labs done. Reminded to get her exam for diabetes retinopathy screening yearly (2) Hypertension: Code(s): I10 - Essential (primary) hypertension Category: Medical Qualifiers: Hypertension type: primary hypertension Qualified Code(s): I10 - Essential (primary) hypertension Plan: Blood pressure at goal of less than 130/80. Continue losartan 100 mg daily. Reinforced importance of following a low sodium diet, getting regular exercise, and lowering stress levels. (3) Dyslipidemia: Code(s): E78.5 - Hyperlipidemia, unspecified Category: Medical Plan: Reviewed recent fasting lipid profile with patient with levels within normal limits except for elevated triglycerides. . Continue rosuvastatin 40 mg daily , in addition to adherence to low-cholesterol diet and regular exercise, at least 30 minutes 3 to 4 times a week. Advised patient to make healthy food choices, eat more fruits, vegetables, whole grains, wild caught fish and low- fat dairy. Limit amount of meat and fried or fatty food products, as well as processed foods and fast foods. Follow-up scheduled with repeat fasting lipid panel in 3 months. Orders: Orders Hemoglobin A1c 05/01/25 E11.9 - Type 2 diabetes mellitus without complications, E78.5 - Hyperlipidemia, unspecified, I10 - Essential (primary) hypertension, N18.9 - Chronic kidney disease, unspecified Basic Metabolic Panel Fasting 05/01/25 E11.9 - Type 2 diabetes mellitus without complications, E78.5 - Hyperlipidemia, unspecified, I10 - Essential (primary) hypertension, N18.9 - Chronic kidney disease, unspecified Lipid Panel 05/01/25 E11.9 - Type 2 diabetes mellitus without complications, E78.5 - Hyperlipidemia, unspecified, I10 - Essential (primary) hypertension, N18.9 - Chronic kidney disease, unspecified Alanine Aminotransferase 05/01/25 E11.9 - Type 2 diabetes mellitus without complications, E78.5 - Hyperlipidemia, unspecified, I10 - Essential (primary) hypertension, N18.9 - Chronic kidney disease, unspecified Aspartate Amino Transferase 05/01/25 E11.9 - Type 2 diabetes mellitus without complications, E78.5 - Hyperlipidemia, unspecified, I10 - Essential (primary) hypertension, N18.9 - Chronic kidney disease, unspecified Medications: New Ozempic (semaglutide) for 4 weeks 0.25 mg (0.368 mL) subcut QWEEK 3 mL 0RF NS E11.9 - Type 2 diabetes mellitus without complications
[2025-02-10 09:50] VITALS: BP 110/76; PULSE 68; RESP 15; TEMP 36.7; O2SAT 98; BMI 29.4
--- OUTSIDE RECORDS SUMMARY | 2025-02-10 09:56 | XMS_ITS | Patient Health Record ---
Author Organization [facility] Address [address] [place] [address] Care Team Providers Care Residential Collections Name Role Phone Homero NORTON, Cassandra Primary Care Provider Wilmer Murguia Jr Unavailable [phone] Allergies Allergen (clinical drug ingredient) Drug/Non Drug [...] Problem Status W/U Status Risk Notes Problem [id number] Colon cancer screening (Z12.11) Active confirmed Problem 15517824 Other dysphagia (R13.19) Active confirmed Problem Dysphagia (41147481) Dysphagia (R13.10) Active confirmed Problem [id number] Gastroesophageal reflux disease, unspecified whether esophagitis present (K21.9) Active confirmed Plan Of Treatment Future Test Test Name Order Date COLONOSCOPY 02/21/2012 UPPER GI ENDOSCOPY 08/16/2022 COLONOSCOPY 08/16/2022 Insurance Providers Payer Name Payer Address Payer Phone Subscriber Number Group Number Insured Name Patient Relationship to Insured Coverage Start Date Coverage End Date [employer] [place] [address] [address] [place] [address] [id number] [id number] OLIVER Self - patient is the insured Medical (General) History Medical History History ICD Code hypertension anxiety esophageal reflux fatty liver elevated cholesterol fibroids mitral valve prolapse Right breast cancer status p ost radiation therapy and lumpectomy, tamoxifen for 5 years Surgical History Surgery Date(Month/Year) knee surgery hysterectomy hip surgery breast biopsy Lipoma
== END 2025-02-10 10:42 | disposition home or self-care (01) ==
LOC: HO.HMCC 09:07
PROVIDERS: PCP Internal Medicine; Visit Provider Internal Medicine
DX: E11.9 Type 2 diabetes mellitus without complications (principal); I10 Essential (primary) hypertension; E78.5 Hyperlipidemia, unspecified

== ENCOUNTER → 2025-02-10 09:06 | Outpatient (BNVA) | payer OTHER, SELFPAY | PROVIDERS: PCP Internal Medicine; Visit Provider Internal Medicine ==

== ENCOUNTER 2025-03-02 15:00 | Outpatient (AMB) | payer OTHER, SELFPAY ==
--- NOTE | 2025-03-02 15:05 | HO.NEPHOV_ITS ---
Vital Signs 03/02/25 15:08 Height 5 ft 2 in Weight 158 lb 4 oz BMI 28.9 BP 126/90 H Blood Pressure Location Lt brachial Position Sitting Pulse 81 Pulse Source Pulse Oximeter Pulse Oximetry (%) 99 Oxygen Delivery Method Room Air Intake Visit Reasons: CKD/ Conf Trucking Manager Required: No Accompanied by: Self / Same As Patient Allergies Sulfa (Sulfonamide Antibiotics) [SULFA (SULFONAMIDE ANTIBIOTICS)] Adverse Reaction (Intermediate, Verified 03/02/25 15:08) muscle/joint pain tramadol Allergy (Uncoded 02/10/25 10:04) itching all over body Medication List - Last Reconciled 03/02/25 by Mikey Huggins MD blood sugar diagnostic (FreeStyle Lite Strips) Test blood sugar once a day blood-glucose meter (FreeStyle Lite Meter kit) As directed cholecalciferol (vitamin D3) 25 mcg orally Take 3 times a week M,W,F; clonidine HCl 0.1 mg PO BID escitalopram oxalate 10 mg PO DAILY lamotrigine (Lamictal) 100 mg PO BID lancets (FreeStyle Lancets) Test blood sugar once a day losartan 100 mg PO DAILY metformin 500 mg PO DAILY omeprazole 20 mg PO DAILY ondansetron HCl 4 mg PO Q12H PRN Ozempic (semaglutide) 0.25 mg (0.368 mL) subcut QWEEK NS rosuvastatin 40 mg PO DAILY tamoxifen 20 mg PO DAILY HPI Comments Details: Stephanie is a pleasant 69-year-old woman with a history of longstanding diabetes mellitus. She has been referred for the evaluation of chronic kidney disease. Up until June of 2024 serum creatinine was normal around 1.0 mg/dL. On 09/11/2024 creatinine bumped up to 1.73 and the repeat creatinine was 1.67 on 11/07/2024. All medications were reviewed she is on hydrochlorothiazide 25 mg along with the potassium supplementation. She occasionally takes ibuprofen. History of lumpectomy of the right breast in 2019 for invasive ductal carcinoma She is on tamoxifen which she will be completing the course in the next few months. History of mixed urgent stress incontinence. History of vaginal prolapse and recently started on VESIcare 03/02/25 69-year-old female presenting for a routine follow-up regarding her management of type 2 diabetes and chronic kidney disease. She has been on Ozempic for diabetes and reports a weight loss of three pounds over the last three weeks. The patient acknowledges nausea as a side effect of her current medication. Her past medical history includes chronic kidney disease, with recent improvements in renal lab work noted. She recalls experiencing an episode of hypomania following recent medication adjustments, now resolved after further changes. [facility] Medical History (Updated 02/11/25 @ 15:33 by Elsie Rodriguez APRN) Bipolar 1 disorder, manic, full remission Bipolar disorder, current episode depressed, moderate Bipolar 1 disorder, mixed Type 2 diabetes mellitus without complication, without long-term current use of insulin Elevated serum creatinine Hearing difficulty of both ears Degenerative joint disease of right hip Cystocele with prolapse Osteopenia of lumbar spine Diabetes mellitus with microalbuminuria, without long-term current use of insulin Mixed urge and stress incontinence Chronic heartburn Dyslipidemia History of invasive ductal carcinoma of breast COVID-19 vaccine series completed Mitral valve regurgitation Polyp of gallbladder Hypertension Surgical History History of esophagogastroduodenoscopy (EGD) H/O colonoscopy History of repair of anterior cruciate ligament of left knee History of lumpectomy of right breast (~07/09/19) History of right breast biopsy (~07/02/19) History of section History of total hysterectomy Family History Father History of pancreatic cancer Sister History of lupus Mother No problems noted. 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 Lungs entry equal no rales. Heart S1-S2 heard no gallop or rub. Abdomen soft nontender. Neuro alert awake oriented. No asterixis. Extremities no edema. Results Reviewed Nephrology Results: Hgb 13.1 g/dl (12.0-16.0) 12/14/24 WBC 8.2 X10*3/uL (4.8-10.8) 12/14/24 Plt Count 463 X10*3/uL (160-400) H 12/14/24 Sodium 141 mmol/L (135-145) 02/08/25 Potassium 4.9 mmol/L (3.3-5.1) 02/08/25 Chloride 108 mmol/L (96-108) 02/08/25 Carbon Dioxide 25 mmol/L (22-29) 02/08/25 BUN 17 mg/dL (9-16) H 02/08/25 Creatinine 1.41 mg/dL (0.5-1.4) H 02/08/25 Calcium 9.0 mg/dL (8.4-10.2) 02/08/25 PTH Intact 207.7 pg/mL (8.7-77.1) H 12/14/24 Urine Protein Negative mg/dL (Neg-Trace) 02/08/25 Urine Creatinine 73.15 mg/dL 12/14/24 Renal US 11/20/24 Assessment & Plan Assessment & Plan (1) CKD (chronic kidney disease): Code(s): N18.9 - Chronic kidney disease, unspecified Category: Medical (2) Type 2 diabetes mellitus without complication, without long-term current use of insulin: Code(s): E11.9 - Type 2 diabetes mellitus without complications Category: Medical (3) Hypokalemia: Code(s): E87.6 - Hypokalemia Category: Medical (4) Hypertension: Code(s): I10 - Essential (primary) hypertension Category: Medical Qualifiers: Hypertension type: primary hypertension Qualified Code(s): I10 - Essential (primary) hypertension Plan Chronic kidney disease in the setting of longstanding diabetes mellitus hypertension. She had a component of acute kidney injury to his plain the recent bump in serum creatinine. Hypoperfusion could be playing a role. No obstructive uropathy based on USG She had no significant proteinuria and urine sediments were benign therefore glomerular nephritis or interstitial disease seem unlikely. Mild elevation in iPTH SHPT Watch for now Continue to hold hydrochlorothiazide and potassium supplementation for now. Optimize blood pressure and avoid hypotension. Avoid NSAIDs and othe rnephrotoxins She will benefit from SGLT-2 inhibitor Encouraged her to stay on low-sodium diet and increase p.o. fluid intake. Orders: Orders 2 Basic Metabolic Panel 4 Months Mikey Huggins MD N18.9 - Chronic kidney disease, unspecified Medications: Changed From escitalopram oxalate 20 mg PO DAILY 90 tabs 0RF To escitalopram oxalate 10 mg PO DAILY Elsie Rodriguez APRN From lamotrigine (Lamictal) 100 mg PO DAILY 90 tabs 0RF To lamotrigine (Lamictal) 100 mg PO BID Elsie Rodriguez APRN Coding Level of Care Code Est Pt Level 4 (91764) Diagnoses CKD (chronic kidney disease) N18.9 Type 2 diabetes mellitus without complication, without long-term current use of insulin E11.9 Hypokalemia E87.6 Primary hypertension I10 Hypertension type: primary hypertension
[2025-03-02 15:08] VITALS: BP 126/90; PULSE 81; O2SAT 99; BMI 28.9
--- OUTSIDE RECORDS SUMMARY | 2025-03-02 16:00 | XMS_ITS | Patient Health Record ---
Author Organization [facility] Address [address] [place] [address] Care Team Providers Care Press Tender Incendiary Grenade Name Role Phone Homero NORTON, Cassandra Primary Care Provider Wilmer Murguia Jr Unavailable [phone] Allergies Allergen (clinical drug ingredient) Drug/Non [...] Problem Status W/U Status Risk Notes Problem [id number] Colon cancer screening (Z12.11) Active confirmed Problem 00696558 Other dysphagia (R13.19) Active confirmed Problem Dysphagia (R13.10) Active confirmed Problem 385405434 Gastroesophageal reflux disease, unspecified whether esophagitis present (K21.9) Active confirmed Plan Of Treatment Future Test Test Name Order Date COLONOSCOPY 02/21/2012 UPPER GI ENDOSCOPY 08/16/2022 COLONOSCOPY 08/16/2022 Insurance Providers Payer Name Payer Address Payer Phone Subscriber Number Group Number Insured Name Patient Relationship to Insured Coverage Start Date Coverage End Date [employer] [place] [address] [address] [place] [address] [id number] [id number] OLIVER Self - patient is the insured Medical (General) History Medical History History ICD Code hypertension anxiety esophageal reflux fatty liver elevated cholesterol fibroids mitral valve prolapse Right breast cancer status p ost radiation therapy and lumpectomy, tamoxifen for 5 years Surgical History Surgery Date(Month/Year) knee surgery hysterectomy hip surgery breast biopsy Lipoma
== END 2025-03-02 15:15 | disposition home or self-care (01) ==
LOC: HO.HKA 15:00
PROVIDERS: PCP Internal Medicine; Visit Provider Internal Medicine Hypertension Specialist
DX: I12.9 Hypertensive chronic kidney disease with stage 1 through stage 4 chronic kidney disease, or unspecified chronic kidney disease (principal); N18.9 Chronic kidney disease, unspecified; E11.9 Type 2 diabetes mellitus without complications; E87.6 Hypokalemia
CPT/HCPCS: 99214

== ENCOUNTER 2025-04-13 14:48 | Outpatient (AMB) | payer OTHER, SELFPAY ==
--- NOTE | 2025-04-13 15:09 | A.OFFPSYCH_ITS ---
Intake Intake Visit Reasons: Depression Web Services Developer Required: No Allergies Sulfa (Sulfonamide Antibiotics) (SULFA (SULFONAMIDE ANTIBIOTICS)) Adverse Reaction (Intermediate, Verified 03/02/25 15:08) muscle/joint pain tramadol Allergy (Uncoded 02/10/25 10:04) itching all over body Medication List - Last Reconciled 04/13/25 by Elsie Rodriguez APRN blood sugar diagnostic (FreeStyle Lite Strips) Test blood sugar once a day blood-glucose meter (FreeStyle Lite Meter kit) As directed cholecalciferol (vitamin D3) (Vitamin D3) 25 mcg PO 3XW clonidine HCl 0.1 mg PO BID escitalopram oxalate 10 mg PO DAILY lamotrigine (Lamictal) 25 mg PO DAILY 90 days lamotrigine (Lamictal) 100 mg PO BID lancets (FreeStyle Lancets) Test blood sugar once a day losartan 100 mg PO DAILY metformin 500 mg PO DAILY omeprazole 20 mg PO DAILY ondansetron HCl 4 mg PO Q12H PRN Ozempic (semaglutide) 0.25 mg (0.368 mL) subcut QWEEK NS rosuvastatin 40 mg PO DAILY HPI- Psychiatric Chief Complaint: Depression HPI Narrative: pt here for follow up re: Bipolar Disorder, ADHD, RIGOBERTO. feels better with slightly higher lamictal and lower lexapro. She is still hypomanic; her speech pressured but she is able to listen. no psychosis, no grandiosity. She denies SI or HI. sleep intact; sleeping 8 hours Past Psychiatric History: outpatient treatment only dx with ADHD, RIGOBERTO, r/o mood disorder NOS for years; Lesa Rodriges NP (her previous prescriber) dx her with Bipolar DO. She reports she had symptoms as child but no treatment until adulthood PAST Medication Trials: trileptal- ineffective Methyphenidate 20mg by PCP-made her feel edgy and increased blood pressure a lot Paxil?didn't do much Adderall XR--disrupted sleep, increased anxiety Wellbutrin SR--angry, agitation, passive HI Strattera--possibly activating Zoloft--sexual side effects Prozac--CPY-450 issues with Tamoxifen Lamictal--muscle tension/?pain Cymbalta--GI distress Seroquel--helped with agitation/misty melatonin hydroxyzine Subjective Subjective Subjective Medication Compliance: Yes Side effects from medications: No Review of Systems Medical Review of Systems: unchanged Mental Status Exam Mental Status Exam Patient Appearance: Well Grooomed and Appropriate Patient Orientation: Person, Place, Time and Situation Level of Consciousness: Awake and Appropriate Patient Behavior: Appropriate and Cooperative Mood Description: Happy, Appropriate and Anxious Affect Description: Happy and Anxious Patient Cognition Impaired: No Ability to Follow Directions: Excellent Speech Pattern: Clear, Spontaneous Speech and Rapid Memory Description: Intact Hallucinations: None Delusions: Not Present Thought Process: Intact Thought Content: positive for Intact and positive for Tangential Judgement: Good Assessment and Plan Assessment & Plan (1) Generalized anxiety disorder: Status: Acute Code(s): F41.1 - Generalized anxiety disorder (2) ADHD (attention deficit hyperactivity disorder), combined type: Status: Acute Code(s): F90.2 - Attention-deficit hyperactivity disorder, combined type (3) Bipolar disorder, current episode hypomanic: Status: Acute Code(s): F31.0 - Bipolar disorder, current episode hypomanic Medications: New lamotrigine (Lamictal) 100 mg orally Take 1 & 1/2 tablet in morning and 1 tablet at bedtime; 225 tabs 1RF Discontinued lamotrigine (Lamictal) Discontinued Reason: Change Referral Type 25 mg PO DAILY 90 days 90 tabs 0RF Counseling and coordination of Care Pt. Self Management counseling: Mod caffeine/ETOH intake, Nutrition education and improvement, Sleep hygiene, General coping skills and Problem solving Medication management counseling: Effectiveness, Side effects, Dosing range, Duration, Drug interaction and Adherence Diagnosis and Prognosis Counseling: Accuracy of diagnosis, Prognosis over time, Impact of diagnosis on life functions, Impact of family relationship, Problematic behaviors secondary to diagnosis and Adequacy of current interventions Details: I spent 35 minutes reviewing the record, seeing the patient and documenting in the medical record. Counseling provided to the patient/caregiver as outlined below. Addressed patient/caregiver concerns regarding current medication regime including effective adherence. Addressed patient/caregiver concerns regarding diagnosis and prognosis including accuracy of diagnosis, prognosis over time, impact of diagnosis. Addressed patient/caregiver concerns regarding impact of recent stressors. [facility] Medical History (Updated 04/13/25 @ 15:35 by Elsie Rodriguez APRN) Bipolar 1 disorder, manic, full remission Bipolar disorder, current episode depressed, moderate Bipolar 1 disorder, mixed Type 2 diabetes mellitus without complication, without long-term current use of insulin Elevated serum creatinine Hearing difficulty of both ears Degenerative joint disease of right hip Cystocele with prolapse Osteopenia of lumbar spine Diabetes mellitus with microalbuminuria, without long-term current use of insulin Mixed urge and stress incontinence Chronic heartburn Dyslipidemia History of invasive ductal carcinoma of breast COVID-19 vaccine series completed Mitral valve regurgitation Polyp of gallbladder Hypertension Surgical History History of esophagogastroduodenoscopy (EGD) H/O colonoscopy History of repair of anterior cruciate ligament of left knee History of lumpectomy of right breast (~07/09/19) History of right breast biopsy (~07/02/19) History of section History of total hysterectomy Family History Father History of pancreatic cancer Sister History of lupus Mother No problems noted. 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 Tran 32 year old daughter works with Autistic children patient graduated from high school, 5 years of college with degree in Psych. father age 8787 years old lives in [place], mother 10 years ago due to brain tumor, patient is the oldest of 4 girls Substance History: etoh in 30s has medical [employer] card Trauma History: yes childhood Coding Level of Care Code Est Pt Level 4 (00961) Diagnoses Generalized anxiety disorder F41.1 ADHD (attention deficit hyperactivity disorder), combined type F90.2 Bipolar disorder, current episode hypomanic F31.0
--- OUTSIDE RECORDS SUMMARY | 2025-04-13 18:00 | XMS_ITS | Patient Health Record ---
Author Organization [facility] Address [address] [place] [address] Care Team Providers Care Security Director Name Role Phone Homero NORTON, Cassandra Primary Care Provider Wilmer Murguia Jr Unavailable Allergies Allergen (clinical drug ingredient) Drug/Non Drug [...] Problem Status W/U Status Risk Notes Problem [id number] Colon cancer screening (Z12.11) Active confirmed Problem 41241961 Other dysphagia (R13.19) Active confirmed Problem Dysphagia (R13.10) Active confirmed Problem 776952247 Gastroesophageal reflux disease, unspecified whether esophagitis present (K21.9) Active confirmed Plan Of Treatment Future Test Test Name Order Date COLONOSCOPY 02/21/2012 UPPER GI ENDOSCOPY 08/16/2022 COLONOSCOPY 08/16/2022 Next Appt Details Provider Name:Wilmermichael mcmillan , 08/04/2025 11:00:00 AM, [address] [facility], [address], [place], [address], Insurance Providers Payer Name Payer Address Payer Phone Subscriber Number Group Number Insured Name Patient Relationship to Insured Coverage Start Date Coverage End Date [employer] [place] [address] [address] [place] [address] [id number] [id number] OLIVER Self - patient is the insured Medical (General) History Medical History History ICD Code hypertension anxiety esophageal reflux fatty liver elevated cholesterol fibroids mitral valve prolapse Right breast cancer status p ost radiation therapy and lumpectomy, tamoxifen for 5 years Surgical History Surgery Date(Month/Year) knee surgery hysterectomy hip surgery breast biopsy Lipoma
== END 2025-04-13 15:33 | disposition home or self-care (01) ==
LOC: HO.HOP 14:48
PROVIDERS: PCP Internal Medicine; Visit Provider Clinical Nurse Specialist Psychiatric/Mental Health
DX: F41.1 Generalized anxiety disorder (principal); F90.2 Attention-deficit hyperactivity disorder, combined type; F31.0 Bipolar disorder, current episode hypomanic
CPT/HCPCS: 99214

== ENCOUNTER 2025-05-12 11:16 | Outpatient (REF) | payer OTHER, SELFPAY ==
--- OUTSIDE RECORDS SUMMARY | 2025-05-12 12:18 | XMS_ITS | Patient Health Record ---
Author Organization [facility] Address [address] [place] [address] Care Team Providers Care Application Support Developer Name Role Phone Homero NORTON, Cassandra Primary Care Provider Wilmer Murguia Jr Unavailable [phone] Allergies Allergen (clinical drug ingredient) Drug/Non Drug [...] Problem Status W/U Status Risk Notes Problem 474054205 Colon cancer screening (Z12.11) Active confirmed Problem 90654718 Other dysphagia (R13.19) Active confirmed Problem Dysphagia (R13.10) Active confirmed Problem 872535715 Gastroesophageal reflux disease, unspecified whether esophagitis present (K21.9) Active confirmed Plan Of Treatment Future Test Test Name Order Date COLONOSCOPY 02/21/2012 UPPER GI ENDOSCOPY 08/16/2022 COLONOSCOPY 08/16/2022 Next Appt Details Provider Name:Wilmermichael mcmillan , 08/04/2025 11:00:00 AM, [address] [facility], [address], [place], [address], Insurance Providers Payer Name Payer Address Payer Phone Subscriber Number Group Number Insured Name Patient Relationship to Insured Coverage Start Date Coverage End Date [employer] [place] [address] [address] [place] [address] [id number] [id number] OLIVER Self - patient is the insured Medical (General) History Medical History History ICD Code hypertension anxiety esophageal reflux fatty liver elevated cholesterol fibroids mitral valve prolapse Right breast cancer status p ost radiation therapy and lumpectomy, tamoxifen for 5 years Surgical History Surgery Date(Month/Year) knee surgery hysterectomy hip surgery breast biopsy Lipoma
--- OUTSIDE RECORDS SUMMARY | 2025-05-12 12:18 | XMS_ITS | Clinical Summary ---
Author Organization [facility] Address [address] [place] [address] Phone Care Team Providers Care Outside Upholsterer Name Role Phone Cassandra Valentin MD Primary Care Provider Allergies Active Allergy Reactions Criticality Noted Date Comments Sulfa (Sulfonamide Antibiotics) Musculoskeletal Pain 08/04/2019 Medications rosuvastatin (CRESTOR) 20 MG tablet Take 20 mg by mouth daily. Active losartan (COZAAR) 50 MG tablet Take 50 mg by mouth daily. Active OXcarbazepine (TRILEPTAL) 300 MG tablet Take 300 mg by mouth 2 (two) times a day. Active citalopram (CELEXA) 20 MG tablet Take 20 mg by mouth daily. Active tamoxifen (NOLVADEX) 10 MG tablet Take 10 mg by mouth daily. Active ibuprofen (ADVIL,MOTRIN) 600 MG tablet Take 600 mg by mouth 3 (three) times a day. Active acetaminophen (TYLENOL) 500 MG tablet Take 500 mg by mouth 3 (three) times a day. 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 Not on federico e 02/15/2023 Are you concerned about learning? Not on file 02/15/2023 No 02/15/2023 No 02/15/2023 Digital Access Answer Date Recorded No 03/16/2023 No 03/16/2023 No 03/16/2023 Reliable internet access at home? Not on file 03/16/2023 Device with a working camera? Not on file Comments Unknown Sex and Gender Information Value Date Recorded Sex Assigned at Not on file Legal Sex Female 1:22 PM EDT Gender Identity Not on file Sexual Orientation Not on file Last Filed Vital Signs Vital Sign Reading Time Taken Comments Blood Pressure 142/89 11/19/2019 1:08 PM EST Pulse 64 11/19/2019 1:08 PM EST Temperature - - Respiratory Rate - - Oxygen Saturation 98% 11/19/2019 1:08 PM EST Inhaled Oxygen Concentration - - Weight 67 kg (147 lb 11.2 oz) 11/19/2019 1:08 PM EST Height - - Body Mass Index - - Plan of Treatment Health Maintenance Due Date Last Done Comments CREATININE LEVEL 1955 LIPID PANEL 1955 POTASSIUM LEVEL 1955 DEPRESSION SCREENING 1967 HEPATITIS C SCREENING 1973 PNEUMOCOCCAL VACCINES (50+ years) (1 of 2 - PCV) 1974 COLOGUARD 2000 COLONOSCOPY 2000 COLORECTAL CANCER SCREENING 2000 FIT TEST 2000 FOBT 2000 SIGMOIDOSCOPY 2000 VIRTUAL COLONOSCOPY 2000 ZOSTER VACCINES (1 of 2) 10/14/2016 08/19/2016 OSTEOPOROSIS SCREENING INITIAL (ONE-TIME) 2020 MAMMOGRAM 07/09/2021 07/09/2019, 06/21, 06/24/2019, Additional history exists COVID-19 VACCINE ( season) 2024 12/16/2020, 11/25/2020 Adult Td,Tdap Booster 03/26/2029 03/26/2019 RSV VACCINE (1 - 1-dose 75+ series) 2030 SMOKING STATUS SCREENING (Once After 26 Yrs) Completed 08/04/2019 HEPATITIS A VACCINES Aged Out No long er eligible based on patient's age to complete this topic HIB VACCINES Aged Out No longer eligi ble based on patient's age to complete this topic MENINGOCOCCAL VACCINES (ACWY) Aged Out No longer eligible based on patient's age to complete this topic MENINGOCOCCAL VACCINES (B) Aged Out N o longer eligible based on patient's age to complete this topic Medical Devices Not on file Procedures Procedure Name Priority Date/Time Associated Diagnosis Comments BI MAMMOGRAM OUTSIDE (NO INTERPRETATION) Routine 07/09/2019 12:05 AM EDT from Last 3 Months or Most Recently Relevant to Health Maintenance Results * Mammogram Outside (No Interpretation) (07/09/2019 12:05 AM EDT) Narrative SYSTEMGENERATED, DOCUMENTATION - 07/28/2019 11:20 AM EDT This study is for PACS storage only and not for interpretation. us Provider Not In System PhD IMG OUTSIDE IMAGING W /OUT INTERPRETATION Final Result from Last 3 Months or Most Recently Relevant to Health Maintenance Insurance [employer] [place] [address] [employer] B[employer] B[employer] [place] [address] [address] [place] [address] [employer] [place] [address] [place] [address] [employer] Care Teams Outside Upholsterer Relationship Specialty Start Date End Date Cassandra Valentin MD [address] [place] [address] PCP - General Internal Medicine 07/24/19 Additional Source Comments The information contained in this document represents components of the legal health record. It is not the complete legal health record.[facility]
[2025-05-12 14:19] LABS: Appearance Urine Clear; Glucose Urine UA Negative (Negative); PH 5.5 (5.0-9.0); Specific Gravity - Urine 1.020 (1.005-1.025); UMIC TRIGGER UA YES
[2025-05-12 14:26] LABS: Hemoglobin A1C 146.4490 umol/L; Total Hemoglobin (HGBA1C) 3253.1626 umol/L
[2025-05-12 14:34] LABS: Alanine Aminotransferase 41 U/L (0-31); Anion Gap 10 (12-20); Aspartate Amino Transferase 43 U/L (5-31); Blood Urea Nitrogen 16 mg/dL (9-16); Calcium 9.1 mg/dL (8.4-10.2); Carbon Dioxide 25 mmol/L (22-29); Chloride 108 mmol/L (96-108); Cholesterol 152 mg/dL (<200); Estimated Glomerular Filt Rate 42; HDL Cholesterol 51 mg/dL (>40); Potassium 4.1 mmol/L (3.3-5.1); Sodium 139 mmol/L (135-145); Triglycerides 131 mg/dL (<150)
== END 2025-05-12 11:17 | disposition home or self-care (01) ==
LOC: HO.WFDLDS 11:16
PROVIDERS: Referring Provider Internal Medicine Hypertension Specialist; Visit Provider Internal Medicine
DX: I12.9 Hypertensive chronic kidney disease with stage 1 through stage 4 chronic kidney disease, or unspecified chronic kidney disease (principal); E11.22 Type 2 diabetes mellitus with diabetic chronic kidney disease; N18.9 Chronic kidney disease, unspecified; E78.5 Hyperlipidemia, unspecified
CPT/HCPCS: 36415; 80048; 80061; 81001; 83036; 84450; 84460

== ENCOUNTER 2025-05-17 08:34 | Outpatient (AMB) | payer OTHER, SELFPAY ==
--- OUTSIDE RECORDS SUMMARY | 2025-05-17 08:53 | XMS_ITS | Clinical Summary ---
Author Organization [facility] Address [address] [place] [address] Phone Care Team Providers Care Lab Support Tech Name Role Phone Cassandra Valentin MD Primary [...] 08/04/2019:Stage IA(pT1b, pN0(sn), cM0, G1, ER: Positive, [place]: Negative, HER2: Negative) - Signed by Jayant [...] Most Recently Relevant to Health Maintenance Insurance [employer] [address] [employer] [place] [address] [employer] Care Teams Lab Support Tech Relationship Specialty Start Date End Date Cassandra Valentin MD [address] [place] [address] PCP - General Internal Medicine 07/24/19 Additional Source Comments The information contained in this document represents components of the legal health record. It is not the complete legal health record.[facility]
--- OUTSIDE RECORDS SUMMARY | 2025-05-17 08:54 | XMS_ITS | Patient Health Record ---
Author Organization [facility] Address [address] [place] [address] Care Team Providers Care Director Rehabilitation Program Name Role Phone Homero NORTON, Cassandra Primary [...] Problem Status W/U Status Risk Notes Problem 889637733 Colon cancer screening (Z12.11) Active confirmed Problem [id number] Other dysphagia (R13.19) Active confirmed Problem Dysphagia (34636059) Dysphagia (R13.10) Active confirmed Problem [id number] Gastroesophageal reflux disease, unspecified whether esophagitis present (K21.9) Active confirmed Plan Of Treatment Future Test Test Name Order Date COLONOSCOPY 02/21/2012 UPPER GI ENDOSCOPY 08/16/2022 COLONOSCOPY 08/16/2022 Next Appt Details Provider Name:Wilmer mcmillan , 08/04/2025 11:00:00 AM, [address] [place] [address], [address], [place], [address], Insurance Providers Payer Name Payer Address Payer Phone Subscriber Number Group Number Insured Name Patient Relationship to Insured Coverage Start Date Coverage End Date [employer] [place] [address] [address] [place] [address] [id number] OLIVER Self - patient is the insured Medical (General) History Medical History History ICD Code hypertension anxiety esophageal reflux fatty liver elevated cholesterol fibroids mitral valve prolapse Right breast cancer status p ost radiation therapy and lumpectomy, tamoxifen for 5 years Surgical History Surgery Date(Month/Year) knee surgery hysterectomy hip surgery breast biopsy Lipoma
[2025-05-17 09:04] VITALS: BP 130/80; PULSE 73; O2SAT 97; BMI 27.6
--- NOTE | 2025-05-17 09:04 | MHC.PC.OV ---
Vital Signs 05/17/25 09:04 Height 5 ft 2 in Weight 151 lb BMI 27.6 BP 130/80 Blood Pressure Location Lt brachial Position Sitting Pulse 73 Pulse Source Pulse Oximeter Pulse Oximetry (%) 97 Intake Visit Reasons: Annual PE Intake Note: last mammo 12/[address] katja paez 2 years ago, patient has appt with them in july Link Cutter Required: No Accompanied by: Self / Same As Patient Allergies Sulfa (Sulfonamide Antibiotics) (SULFA (SULFONAMIDE ANTIBIOTICS)) Adverse Reaction (Intermediate, Verified 05/17/25 09:18) muscle/joint pain tramadol Allergy (Uncoded 05/17/25 09:18) itching all over body Medication List - Last Reconciled 05/17/25 by Cassandra Valentin MD blood sugar diagnostic (FreeStyle Lite Strips) Test blood sugar once a day blood-glucose meter (FreeStyle Lite Meter kit) As directed cholecalciferol (vitamin D3) (Vitamin D3) 25 mcg PO 3XW clonidine HCl 0.1 mg PO BID escitalopram oxalate 10 mg PO DAILY lamotrigine (Lamictal) 100 mg orally Take 1 & 1/2 tablet in morning and 1 tablet at bedtime; lancets (FreeStyle Lancets) Test blood sugar once a day losartan 100 mg PO DAILY metformin 500 mg PO DAILY omeprazole 20 mg PO DAILY ondansetron HCl 4 mg PO Q12H PRN Ozempic (semaglutide) 0.25 mg (0.368 mL) subcut QWEEK NS rosuvastatin 40 mg PO DAILY Tobacco use date assessed: 02/10/25 Fall risk assessment: No Falls in past year Last assessed Fall Risk: 05/17/25 Dental Screening Dental Screen Date: 02/10/25 HPI Annual PE HPI Details - The patient is a 69-year-old female with history of bipolar disorder currently followed by psychiatry, has chronic kidney disease, type 2 diabetes mellitus without complication and long-term insulin use, ADHD, osteopenia lumbar spine left femur, mixed urge and stress incontinence, chronic heartburn, dyslipidemia, hypertension, presenting for her physical exam - The patient reports muscle pain in the upper arms, right more than the left, worsened during a plain trip to [place]. The pain is described as an ache, relieved by ice application and acetaminophen taking occasionally. - Hyperlipidemia: The patient is on rosuvastatin, with recent labs showing decreased cholesterol but slightly elevated liver enzymes. - Type 2 Diabetes Mellitus: The patient is on Ozempic, with improved A1c levels at 6.3%. Consideration is given to increasing the dosage. - Lymphedema in right upper extremity s/p axillary dissection of lymph node with history of right invasive breast cancer previously on tamoxifen Managed with regular massage due to lymph node removal. - has osteopenia in multiple sites, stays active, does E[employer] and takes adequate vitamin-D 3 supplements and incorporates calcium in her diet. No history of fractures - Gastroesophageal Reflux Disease (GERD): Managed with omeprazole, with a follow-up scheduled with [facility]. - Constipation: Associated with Ozempic, managed with dietary changes. - he is overdue for her breast cancer screening, up-to-date with her bone density scan done last year -up-to-date with her screening colonoscopy done by Dr. Paez in 2021, due again in 2031 -up-to-date with her diabetes retinopathy screening, done November [address] Delacruz [facility] Medical History (Updated 05/17/25 @ 16:43 by Cassandra Valentin MD) Bipolar 1 disorder, manic, full remission Hearing difficulty of both ears Degenerative joint disease of right hip Cystocele with prolapse Osteopenia of lumbar spine Diabetes mellitus with microalbuminuria, without long-term current use of insulin Mixed urge and stress incontinence Chronic heartburn Dyslipidemia History of invasive ductal carcinoma of breast Mitral valve regurgitation Polyp of gallbladder Hypertension Surgical History History of esophagogastroduodenoscopy (EGD) H/O colonoscopy History of repair of anterior cruciate ligament of left knee History of lumpectomy of right breast (~07/09/19) History of right breast biopsy (~07/02/19) History of section History of total hysterectomy Family History Father History of pancreatic cancer Sister History of lupus Mother No problems noted. 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 1. Little interest or pleasure in doing things: not at all 2. Feeling down, depressed, or hopeless: not at all 3. Trouble falling or staying asleep, or sleeping too much: not at all 4. Feeling tired or having little energy: more than half the days 5. Poor appetite or overeating: several days 6. Feeling bad about yourself - or that you are a failure or have let yourself or your family down: not at all 7. Trouble concentrating on things, such as reading the newspaper or watching television: not at all 8. Moving or speaking so slowly that other people could have noticed. Or the opposite - being so fidgety or restless that you have been moving around a lot more than usual: several days 9. Thoughts that you would be better off or of hurting yourself in some way: not at all Total score: 4 Depression Screening Interpretation: Negative Depression Screening Done: Yes 38798 - PHQ-9 Billing: Yes Source: Developed by Drs. Yaw Banuelos, Leandra Arzola, Sukhi Patterson and colleagues, with an educational cyndi from [employer]. Thrive Questionnaire Date Thrive assessed: 05/17/25 I am a: Patient What is your living situation today?: I have a steady place to live Within the past 12 months, did the food you bought not last and you didn't have the money to get more?: Never true Within the past 12 months, did you worry whether your food would run out before you got money to buy more?: Never true Do you have trouble paying for medicines?: No Do you have trouble getting transportation to medical appointments?: No Do you have trouble paying your heating and electricity bill?: No Do you have trouble taking care of your child, family member or friend?: No Do you have trouble with day-to-day activities such as bathing, preparing meals, shopping, managing finances, etc.?: No Are you currently unemployed and looking for a job?: Yes Are you interested in more education?: No Please select the resources that you would like help with: None Currently or been in a relationship where the following occur: No concerns reported THRIVE Score: 0 AUDIT C Alcohol Use Questionnaire (AUDIT-C) 1. How often do you have a drink containing alcohol?: Never 3. How often do you have six or more drinks on one occasion?: Never Total Score: 0 Score Reviewed/Action Taken: Yes RIGOBERTO-7 AMB Questionnaire RIGOBERTO-7 Date RIGOBERTO - 7 assessed: 05/17/25 Feeling nervous, anxious, or on edge: 0 = Not at all Not being able to stop or control worryin = Not at all Worrying too much about different things: 0 = Not at all Trouble relaxin = Not at all Being so restless that it is hard to sit still: 1 = Several days Becoming easily annoyed or irritable: 0 = Not at all Feeling afraid as if something awful might happen: 0 = Not at all Total RIGOBERTO-7 score (0-4 normal; 5-9 mild; 10-14 moderate; 15-21 severe): 1 Source: Developed by Drs. Yaw Banuelos, Leandra Arzola, Sukhi Patterson and colleagues, with an educational cyndi from [employer]. RIGOBERTO-7 Assessment Billing RIGOBERTO-7 Assessment Tool: RIGOBERTO-7 Assessment 89722 Review of Systems Const Reports no additional complaints Eyes Denies change in vision ENT Reports no additional complaints Card Denies chest pain, Denies rapid heart rate, Denies lightheadedness, Denies palpitations and Denies dyspnea Resp Denies cough and Denies dyspnea GI Details: 08/04/[address] paez Denies abdominal pain, Denies diarrhea and Denies nausea Reports no additional complaints Musc Denies back pain Skin/Breast Denies breast pain, Denies breast mass and Denies rash Neuro Reports no additional complaints Psych Reports no additional complaints Endo Reports no additional complaints and Denies palpitations Satinder/Lymph Reports no additional complaints Aller/Immun Reports no additional complaints Physical exam (Primary Care) Vital Signs: Last Vital Signs Pulse 73 05/17/25 09:04 BP 130/80 05/17/25 09:04 Pulse Ox 97 05/17/25 09:04 BMI result Body Mass Index 27.6 Tobacco/Smoking Status: Tobacco use Status Tobacco use date assessed 02/10/25 05/17/25 09:05 Patient Tobacco Use Status Tobacco use Unknown 05/17/25 09:05 Tobacco use type Smokeless Tobacco 05/17/25 09:05 e-Cigarette/Vaping Use Currently Using 05/17/25 09:05 PHQ-9: PHQ-9 Score PHQ-9: Total score 4 05/17/25 09:19 Depression Screening Interpretation: Negative Thrive Assessment: Date of Thrive Assessment Date Thrive assessed 05/17/25 05/17/25 09:05 Currently or been in a relationship where the following occur: No concerns reported Const Other: Alert oriented x3, no acute distress noted ambulatory normal gait . Orientation/consciousness: patient oriented x3 HENMT Face and sinus: Yes face symmetric Mouth: Normal oral and palatal mucosa present, oropharynx normal and moist mucous membranes Eyes General: appearance normal, both eyes and all related structures Neck Neck: Yes normal visual inspection, Yes full ROM, Yes no lymphadenopathy and Yes supple Chest Breast/axilla palpation: normal palpation of the breasts Resp Auscultation: clear to auscultation bilaterally Cardio Other: S1-S2 present regular rate and rhythm GI Palpation (GI): Soft to palpation, nontender and no guarding General: Yes no CVA tenderness Back/Spine/Pelvis Back: no CVA tenderness and No back tenderness Skin General skin exam: no rashes or lesions noted Neuro General: patient oriented x3, gait normal, moves all extremities, Normal light touch and pain sensation, no focal motor deficits, CN's II-XI intact bilaterally and normal sensation to monofilament Extrem General: Yes no pedal edema, Yes no calf tenderness and Yes normal gait Psych Appearance: grossly normal Mental Status: mental status grossly normal Speech and movement: Normal speech and movement present Affect: normal affect Attitude: cooperative Results Reviewed Results Reviewed: Name: Stephanie Cochran Age/Sex: 69/F : 1955 Unit#: [id number] Attend Dr: Cassandra Valentin MD Re05/12/25 Status: DEP REF Location: [facility] Disch: SPEC : [id number] JANINE: 05/12/25-1119 STATUS: COMP REQ : [id number] RECD: 05/12/[address] [facility] [address]: Mikey Huggins MD COMP: 05/12/25 ENTERED: 05/12/25 [facility] DR: Cassandra Valentin MD ORDERED: BMP, Met Prof Fast, AST, ALT, Lipid Panel Test Result Flag Reference Sodium 139 135-145 mmol/L Potassium 4.1 3.3-5.1 mmol/L CL 108 96-108 mmol/L CO2 25 22-29 mmol/L Gap 10 L 12-20 BUN 16 9-16 mg/dL Creat 1.27 0.5-1.4 mg/dL eGFR 42 Chronic Kidney Disease: Estimated GFR < 60 mL/min/1.73m2 Severe Kidney Disease: Estimated GFR < 15 mL/min/1.73m2 Glucose, Random 106 60-115 mg/dL FBS 107 H 60-99 mg/dL A fasting glucose from 100-125 mg/dl is considered impaired (pre-diabetes). CA 9.1 8.4-10.2 mg/dL AST (GOT) 43 H 5-31 U/L ALT (GPT) 41 H 0-31 U/L Triglyceride 131 <150 mg/dL Desirable Triglyceride: less than 150 mg/dL Borderline High Triglyceride 150-199 mg/dL High Triglyceride: 200-499 mg/dL Very High Triglyceride: greater than or equal to 5OO mg/dL Cholesterol 152 <200 mg/dL Desirable Cholesterol: less than 200 mg/dL Borderline High Cholesterol: 200-239 mg/dL High Cholesterol: greater than 239 mg/dL LDL Calculated 75 <100 mg/dL Desirable LDL: less than 100 mg/dL Near Optimal/Above Optimal LDL: 110-129 mg/dL Borderline High LDL: 130-159 mg/dL High LDL: 160-189 mg/dL Very High LDL: greater than or equal to 190 mg/dL HDL 51 >40 mg/dL Desirable HDL: greater than 40 mg/dL Note: This HDL assay may give artificially low results in patients with liver disease. Coding Level of Care Code Est Pt Prev Care >65y(91862) Diagnoses Annual visit for general adult medical examination with abnormal findings Z00.01 Muscle pain M79.10 Dyslipidemia E78.5 Primary hypertension I10 Hypertension type: primary hypertension Diabetes mellitus with microalbuminuria, without long-term current use of insulin E11.29; R80.9 Osteopenia of lumbar spine M85.88 Chronic heartburn R12 CKD (chronic kidney disease) N18.9 Bipolar 1 disorder, manic, full remission F31.74 Mixed urge and stress incontinence N39.46 Additional Codes RIGOBERTO-7 Assessment Billing - RIGOBERTO-7 Assessment Tool: RIGOBERTO-7 Assessment 05911 ([id number]) PHQ-9 - 14970 - PHQ-9 Billing: Yes ([id number]) Assessment & Plan Assessment & Plan (1) Annual visit for general adult medical examination with abnormal findings: Code(s): Z00.01 - Encounter for general adult medical examination with abnormal findings Plan: Recent fasting lab results reviewed with patient. Continue with regular dental visit every 6 months and regular eye exams, yearly.. Take adequate calcium in diet and vitamin-D 3 at 2000 IU per cap once a day, in addition to weight-bearing exercises to help maintain good muscle tone and weight control. Instructed to do self-breast exam, and recommended to get yearly mammogram, ordered. Up-to-date with all recommended vaccines, up-to-date with her screening colonoscopy. (2) Muscle pain: Code(s): M79.10 - Myalgia, unspecified site Plan: Rule out statin induced myopathy versus arthritis, ordered total CK level (3) Dyslipidemia: Code(s): E78.5 - Hyperlipidemia, unspecified Category: Medical Plan: Fasting lipids are within normal limits, continued on rosuvastatin 40 mg daily (4) Hypertension: Code(s): I10 - Essential (primary) hypertension Category: Medical Qualifiers: Hypertension type: primary hypertension Qualified Code(s): I10 - Essential (primary) hypertension Plan: Blood pressure at goal of less than 130/80. Continue with current medication. Reinforced importance of following a low sodium diet, getting regular exercise, and lowering stress levels. (5) Diabetes mellitus with microalbuminuria, without long-term current use of insulin: Code(s): E11.29 - Type 2 diabetes mellitus with other diabetic kidney complication; R80.9 - Proteinuria, unspecified Category: Medical Plan: Recent lab results reviewed with patient, with sugar and hemoglobin A1c stable and at goal . Continue Ozempic now increased to 0.5 mg injected once a week in addition to metformin 500 mg once a day . continue to check fasting blood sugar at home, maintain log and bring to next appointment for review. Reinforced diabetic diet and regular exercise with patient. Counseled regarding importance of yearly diabetes retinopathy screening. Patient advised to inspect feet daily, for any signs of injury, callus or infection. Compliance with diet and regular exercise again stressed. Blood pressure goal is less than 130/80, goal LDL is less than 100 and goal hemoglobin A1c is less than 7% follow-up appointment made in-3--months, after fasting labs done. (6) Osteopenia of lumbar spine: Code(s): M85.88 - Other specified disorders of bone density and structure, other site Category: Medical Plan: Stressed importance of doing regular weight-bearing exercise. Continue taking vitamin-D 3 supplements, and continue taking adequate calcium from dietary sources. Repeat another bone density scan next year (7) Chronic heartburn: Code(s): R12 - Heartburn Category: Medical Plan: Followed by GI clinic, currently on omeprazole 20 mg daily (8) CKD (chronic kidney disease): Code(s): N18.9 - Chronic kidney disease, unspecified Category: Medical Plan: Followed by Nephrology (9) Bipolar 1 disorder, manic, full remission: Comment: sees Dr Renita Rodriguez [employer] INSPECTOR Code(s): F31.74 - Bipolar disorder, in full remission, most recent episode manic Category: Medical Plan: Followed by Renita Prince NP (10) Mixed urge and stress incontinence: Code(s): N39.46 - Mixed incontinence Category: Medical Plan: Followed by Urology Orders: Orders MM tomosynthesis screening BI Today Z12.31 - Encounter for screening mammogram for malignant neoplasm of breast Hemoglobin A1c 07/31/25 E11.29 - Type 2 diabetes mellitus with other diabetic kidney complication, E78.5 - Hyperlipidemia, unspecified, I10 - Essential (primary) hypertension, M85.88 - Other specified disorders of bone density and structure, other site, R80.9 - Proteinuria, unspecified Alanine Aminotransferase 07/31/25 E11.29 - Type 2 diabetes mellitus with other diabetic kidney complication, E78.5 - Hyperlipidemia, unspecified, I10 - Essential (primary) hypertension, M85.88 - Other specified disorders of bone density and structure, other site, R80.9 - Proteinuria, unspecified Aspartate Amino Transferase 07/31/25 E11.29 - Type 2 diabetes mellitus with other diabetic kidney complication, E78.5 - Hyperlipidemia, unspecified, I10 - Essential (primary) hypertension, M85.88 - Other specified disorders of bone density and structure, other site, R80.9 - Proteinuria, unspecified Basic Metabolic Panel Fasting 07/31/25 E11.29 - Type 2 diabetes mellitus with other diabetic kidney complication, E78.5 - Hyperlipidemia, unspecified, I10 - Essential (primary) hypertension, M85.88 - Other specified disorders of bone density and structure, other site, R80.9 - Proteinuria, unspecified Vitamin D 25-OH Total 07/31/25 E11.29 - Type 2 diabetes mellitus with other diabetic kidney complication, E78.5 - Hyperlipidemia, unspecified, I10 - Essential (primary) hypertension, M85.88 - Other specified disorders of bone density and structure, other site, R80.9 - Proteinuria, unspecified Creatine Kinase Total Today M79.10 - Myalgia, unspecified site Lipid Panel 07/31/25 E11. - Type 2 diabetes mellitus with other diabetic kidney complication, E78.5 - Hyperlipidemia, unspecified, I10 - Essential (primary) hypertension, M85.88 - Other specified disorders of bone density and structure, other site, R80.9 - Proteinuria, unspecified Medications: New Ozempic (semaglutide) 0.5 mg (0.736 mL) subcut QWEEK 3 mL 5RF 30 days NS Discontinued Ozempic (semaglutide) for 4 weeks Discontinued Reason: Doctor's Order 0.25 mg (0.368 mL) subcut QWEEK 3 mL 3RF NS E11.9 - Type 2 diabetes mellitus without complications
== END 2025-05-17 09:35 | disposition home or self-care (01) ==
LOC: HO.HMCC 08:34
PROVIDERS: PCP Internal Medicine; Visit Provider Internal Medicine
DX: Z00.01 Encounter for general adult medical examination with abnormal findings (principal); M79.10 Myalgia, unspecified site; E78.5 Hyperlipidemia, unspecified; I12.9 Hypertensive chronic kidney disease with stage 1 through stage 4 chronic kidney disease, or unspecified chronic kidney disease; E11.29 Type 2 diabetes mellitus with other diabetic kidney complication; R80.9 Proteinuria, unspecified; M85.88 Other specified disorders of bone density and structure, other site; R12 Heartburn; N18.9 Chronic kidney disease, unspecified; F31.74 Bipolar disorder, in full remission, most recent episode manic; N39.46 Mixed incontinence

== ENCOUNTER 2025-05-17 08:34 | Outpatient (REF) | payer OTHER, SELFPAY | END 2025-05-17 08:35 | disposition home or self-care (01) | LOC: HO.HMGCLDS 08:34 | PROVIDERS: PCP Internal Medicine; Visit Provider Internal Medicine | DX: Z00.01 Encounter for general adult medical examination with abnormal findings (principal); M79.10 Myalgia, unspecified site; E78.5 Hyperlipidemia, unspecified; I12.9 Hypertensive chronic kidney disease with stage 1 through stage 4 chronic kidney disease, or unspecified chronic kidney disease; E11.22 Type 2 diabetes mellitus with diabetic chronic kidney disease; N18.9 Chronic kidney disease, unspecified; E11.29 Type 2 diabetes mellitus with other diabetic kidney complication; R80.9 Proteinuria, unspecified; M85.88 Other specified disorders of bone density and structure, other site; R12 Heartburn; F31.74 Bipolar disorder, in full remission, most recent episode manic; N39.46 Mixed incontinence; Z79.899 Other long term (current) drug therapy; Z13.31 Encounter for screening for depression; Z13.39 Encounter for screening examination for other mental health and behavioral disorders | CPT/HCPCS: 36415; 82550; 96127 ==

== ENCOUNTER 2025-05-25 14:50 | Outpatient (AMB) | payer OTHER, SELFPAY ==
--- NOTE | 2025-05-25 15:12 | A.OFFPSYCH_ITS ---
Intake Intake Visit Reasons: depression Business Management Associate Required: No Allergies Sulfa (Sulfonamide Antibiotics) (SULFA (SULFONAMIDE ANTIBIOTICS)) Adverse Reaction (Intermediate, Verified 05/17/25 09:18) muscle/joint pain tramadol Allergy (Uncoded 05/17/25 09:18) itching all over body Medication List - Last Reconciled 05/25/25 by Elsie Rodriguez APRN blood sugar diagnostic (FreeStyle Lite Strips) Test blood sugar once a day blood-glucose meter (FreeStyle Lite Meter kit) As directed cholecalciferol (vitamin D3) (Vitamin D3) 25 mcg PO 3XW clonidine HCl 0.1 mg PO BID escitalopram oxalate 10 mg PO DAILY lamotrigine (Lamictal) 100 mg orally Take 1 & 1/2 tablet in morning and 1 tablet at bedtime; lancets (FreeStyle Lancets) Test blood sugar once a day losartan 100 mg PO DAILY metformin 500 mg PO DAILY omeprazole 20 mg PO DAILY ondansetron HCl 4 mg PO Q12H PRN Ozempic (semaglutide) 0.5 mg (0.736 mL) subcut QWEEK 30 days NS rosuvastatin 40 mg PO DAILY HPI- Psychiatric Chief Complaint: depression HPI Narrative: pt here for follow up re: Bipolar Disorder, ADHD, RIGOBERTO. feels better with slightly higher lamictal and lower lexapro. She reports mood stable but she is having more anxiety specifically in response to work stress and upcoming [facility] in late June. no psychosis, no grandiosity. She denies SI or HI. sleep intact; sleeping 8 hours. she has restarted the hydroxyzine to help with anxiety. Past Psychiatric History: outpatient treatment only dx with ADHD, RIGOBERTO, r/o mood disorder NOS for years; Lesa Rodriges NP (her previous prescriber) dx her with Bipolar DO. She reports she had symptoms as child but no treatment until adulthood PAST Medication Trials: trileptal- ineffective Methyphenidate 20mg by PCP-made her feel edgy and increased blood pressure a lot Paxil?didn't do much Adderall XR--disrupted sleep, increased anxiety Wellbutrin SR--angry, agitation, passive HI Strattera--possibly activating Zoloft--sexual side effects Prozac--CPY-450 issues with Tamoxifen Lamictal--muscle tension/?pain Cymbalta--GI distress Seroquel--helped with agitation/misty melatonin hydroxyzine Subjective Subjective Subjective Medication Compliance: Yes Side effects from medications: No Review of Systems Medical Review of Systems: unchanged Mental Status Exam Mental Status Exam Patient Appearance: Well Grooomed and Appropriate Patient Orientation: Person, Place, Time and Situation Level of Consciousness: Awake and Appropriate Patient Behavior: Appropriate and Cooperative Mood Description: Happy, Appropriate and Anxious Affect Description: Happy and Anxious Patient Cognition Impaired: No Ability to Follow Directions: Excellent Speech Pattern: Clear, Spontaneous Speech and Rapid Memory Description: Intact Hallucinations: None Delusions: Not Present Thought Process: Intact Thought Content: positive for Intact and positive for Tangential Judgement: Good Assessment and Plan Assessment & Plan (1) Generalized anxiety disorder: Status: Resolved Code(s): F41.1 - Generalized anxiety disorder (2) ADHD (attention deficit hyperactivity disorder), combined type: Status: Acute Code(s): F90.2 - Attention-deficit hyperactivity disorder, combined type (3) Bipolar disorder, current episode hypomanic: Status: Resolved Code(s): F31.0 - Bipolar disorder, current episode hypomanic Plan meds per below retrun in one month hold clonidine if any dizziness or excess sedation/sleepiness stay hydrated Medications: Changed From hydroxyzine pamoate 25 mg PO TID PRN 90 caps 3RF anxiety To hydroxyzine pamoate 25 mg PO BID PRN 60 caps 2RF anxiety From clonidine HCl 0.1 mg PO BID 60 tabs 2RF anxiety To clonidine HCl 0.1 mg PO TID 90 tabs 2RF anxiety Refilled escitalopram oxalate 10 mg PO DAILY 30 tabs 5RF lamotrigine (Lamictal) 100 mg orally Take 1 & 1/2 tablet in morning and 1 tablet at bedtime; 225 tabs 1RF Counseling and coordination of Care Pt. Self Management counseling: Mod caffeine/ETOH intake, Nutrition education and improvement, Sleep hygiene, General coping skills and Problem solving Medication management counseling: Effectiveness, Side effects, Dosing range, Duration, Drug interaction and Adherence Diagnosis and Prognosis Counseling: Accuracy of diagnosis, Prognosis over time, Impact of diagnosis on life functions, Impact of family relationship, Problematic behaviors secondary to diagnosis and Adequacy of current interventions Details: I spent 38 minutes reviewing the record, seeing the patient and documenting in the medical record. Counseling provided to the patient/caregiver as outlined below. Addressed patient/caregiver concerns regarding current medication regime including effective adherence. Addressed patient/caregiver concerns regarding diagnosis and prognosis including accuracy of diagnosis, prognosis over time, impact of diagnosis. Addressed patient/caregiver concerns regarding impact of recent stressors. [facility] Medical History (Updated 05/17/25 @ 16:43 by Cassandra Valentin MD) Bipolar 1 disorder, manic, full remission Hearing difficulty of both ears Degenerative joint disease of right hip Cystocele with prolapse Osteopenia of lumbar spine Diabetes mellitus with microalbuminuria, without long-term current use of insulin Mixed urge and stress incontinence Chronic heartburn Dyslipidemia History of invasive ductal carcinoma of breast Mitral valve regurgitation Polyp of gallbladder Hypertension Surgical History History of esophagogastroduodenoscopy (EGD) H/O colonoscopy History of repair of anterior cruciate ligament of left knee History of lumpectomy of right breast (~07/09/19) History of right breast biopsy (~07/02/19) History of section History of total hysterectomy Family History Father History of pancreatic cancer Sister History of lupus Mother No problems noted. 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 Tran 32 year old daughter works with Autistic children patient graduated from high school, 5 years of college with degree in Psych. father age 8787 years old lives in [place], mother 10 years ago due to brain tumor, patient is the oldest of 4 girls Substance History: etoh in 30s has medical [employer] card Trauma History: yes childhood Coding Level of Care Code Est Pt Level 4 (75651) Diagnoses Generalized anxiety disorder F41.1 ADHD (attention deficit hyperactivity disorder), combined type F90.2 Bipolar disorder, current episode hypomanic F31.0
--- OUTSIDE RECORDS SUMMARY | 2025-05-25 15:22 | XMS_ITS | Clinical Summary ---
Author Organization [facility] Address [address] [place] [address] Phone Care Team Providers Care Hair Spring Cutter Name Role Phone Cassandra Valentin MD Primary [...] 08/04/2019:Stage IA(pT1b, pN0(sn), cM0, G1, ER: Positive, [place]: Negative, HER2: Negative) - Signed by Jayant [...] Most Recently Relevant to Health Maintenance Insurance [employer]EF[employer] AD[employer] B[employer]EFITS ADMINISTR[employer]EF[employer] [address] [address] G[address] [employer] [address] [employer] Care Teams Hair Spring Cutter Relationship Specialty Start Date End Date Cassandra Valentin MD [address] [place] [address] PCP - General Internal Medicine 07/24/19 Additional Source Comments The information contained in this document represents components of the legal health record. It is not the complete legal health record.[facility]
== END 2025-05-25 15:38 | disposition home or self-care (01) ==
LOC: HO.HOP 14:50
PROVIDERS: PCP Internal Medicine; Visit Provider Clinical Nurse Specialist Psychiatric/Mental Health
DX: F41.1 Generalized anxiety disorder (principal); F90.2 Attention-deficit hyperactivity disorder, combined type; F31.0 Bipolar disorder, current episode hypomanic
CPT/HCPCS: 99214

== ENCOUNTER 2025-06-25 14:10 | Outpatient (REF) | payer OTHER, SELFPAY ==
--- OUTSIDE RECORDS SUMMARY | 2025-06-25 14:39 | XMS_ITS | Patient Health Record ---
Author Organization [facility] Address [address] [place] [address] Care Team Providers Care Type Proof Reproducer Name Role Phone Homero NORTON, Cassandra Primary Care Provider Wilmer Murguia Jr Unavailable [phone] Allergies Allergen (clinical drug ingredient) Drug/Non Drug [...] Problem Status W/U Status Risk Notes Problem 635219729 Colon cancer screening (Z12.11) Active confirmed Problem [id number] Other dysphagia (R13.19) Active confirmed Problem Dysphagia (12334224) Dysphagia (R13.10) Active confirmed Problem [id number] Gastroesophageal reflux disease, unspecified whether esophagitis present (K21.9) Active confirmed Plan Of Treatment Future Test Test Name Order Date COLONOSCOPY 02/21/2012 UPPER GI ENDOSCOPY 08/16/2022 COLONOSCOPY 08/16/2022 Next Appt Details Provider Name:Wilmer mcmillan , 08/04/2025 11:00:00 AM, [address] [place] [address], [address], [place], [address], Insurance Providers Payer Name Payer Address Payer Phone Subscriber Number Group Number Insured Name Patient Relationship to Insured Coverage Start Date Coverage End Date [employer]UE [employer]EFITS ADMINISTRATORS OF [place] [address] [address] [place] [address] [id number] [id number] OLIVER Self - patient is the insured Medical (General) History Medical History History ICD Code hypertension anxiety esophageal reflux fatty liver elevated cholesterol fibroids mitral valve prolapse Right breast cancer status p ost radiation therapy and lumpectomy, tamoxifen for 5 years Surgical History Surgery Date(Month/Year) knee surgery hysterectomy hip surgery breast biopsy Lipoma
--- OUTSIDE RECORDS SUMMARY | 2025-06-25 14:39 | XMS_ITS | Clinical Summary ---
Author Organization [facility] Address [address] [place] [address] Phone Care Team Providers Care Stripper Color Name Role Phone Cassandra Valentin MD Primary [...] 08/04/2019:Stage IA(pT1b, pN0(sn), cM0, G1, ER: Positive, [place]: Negative, HER2: Negative) - Signed by Jayant [...] 07/09/2021 07/09/2019, 06/21, 06/24/2019, Additional history exists INFLUENZA VACCINE (#1) 2025 , 07/24/2019, 07/22/2018, Additional history exists COVID-19 VACCINE (3 - season) 2025 12/16/2020, 11/25/2020 Adult Td,Tdap Booster 03/26/2029 03/26/2019 [...] Most Recently Relevant to Health Maintenance Insurance [employer] ADMIN[employer]AT[place] [address] iMed[employer] BENEFITS ADMINISTRATORS [employer] ADMINISTRATORS [employer] BENEFITS ADMINISTRATORS [employer] BENEFITS ADMINISTRATORS [employer]EFITS ADMINISTRATORS [employer] ADMINISTRATORS [facility] [employer] ADMINISTRATORS Care Teams Stripper Color Relationship Specialty Start Date End Date Cassandra Valentin MD [address] [place] [address] PCP - General Internal Medicine 07/24/19 Additional Source Comments The information contained in this document represents components of the legal health record. It is not the complete legal health record.[facility]
--- OUTSIDE RECORDS SUMMARY | 2025-06-25 14:39 | XMS_ITS | Encounter Summary ---
Author Organization [facility] Address [address] [place] [id number] Phone Care Team Providers Care Heel Attacher Wood Name Role Phone Cassandra Valentin MD Primary Care Provider Reason for Referral * - Closed Specialty Diagnoses / Procedures Referred By Contac t Referred To Contact Procedures [place] Other Outside (No Interpretation) System, Provider Not In, [place] [address] Referral ID Status Reason Start Date Expiration Date Visits Re quested Visits Authorized [id number] Closed 07/28/2019 07/27/2020 1 1 Encounter Details Date Type Department Care Team (Late st Contact Info) Description 07/28/2019 Ancillary Orders [facility],Outside Imaging [address] [place] [address] System, Provider Not In, [place] [address] Social History Tobacco Use Types Packs/Day Years Used Date Smoking Tobacco: Never Assessed Comments Unknown Sex and Gender Information Value Date Recorded Sex Assigned at Not on file Legal Sex Female 1:22 PM EDT Gender Identity Not on file Sexual Orientation Not on file documented as of this encounter Plan of Treatment Not on file documented as of this encounter Results * Mammogram Outside (No Interpretation) (07/09/2019 12:05 AM EDT) Narrative SYSTEMGENERATED, DOCUMENTATION - 07/28/2019 11:20 AM EDT This study is for PACS storage only and not for interpretation. us Provider Not In System PhD IMG OUTSIDE IMAGING W /OUT INTERPRETATION Final Result * NM Other Outside (No Interpretation) (07/09/2019 12:00 AM EDT) Narrative SYSTEMGENERATED, DOCUMENTATION - 07/28/2019 11:19 AM EDT This study is for PACS storage only and not for interpretation. us Provider Not In System PhD IMG OUTSIDE IMAGING W /OUT INTERPRETATION Final Result * Mammogram Outside (No Interpretation) (07/02/2019 12:00 AM EDT) Narrative SYSTEMGENERATED, DOCUMENTATION - 07/28/2019 11:20 AM EDT This study is for PACS storage only and not for interpretation. us Provider Not In System PhD IMG OUTSIDE IMAGING W /OUT INTERPRETATION Final Result * Mammogram Outside (No Interpretation) (06/24/2019 12:00 AM EDT) Narrative SYSTEMGENERATED, DOCUMENTATION - 07/28/2019 11:21 AM EDT This study is for PACS storage only and not for interpretation. us Provider Not In System PhD IMG OUTSIDE IMAGING W /OUT INTERPRETATION Final Result * Mammogram Outside (No Interpretation) (06/04/2019 12:00 AM EDT) Narrative SYSTEMGENERATED, DOCUMENTATION - 07/28/2019 11:23 AM EDT This study is for PACS storage only and not for interpretation. us Provider Not In System PhD IMG OUTSIDE IMAGING W /OUT INTERPRETATION Final Result documented in this encounter Visit Diagnoses Not on filedocumented in this encounter Care Teams Heel Attacher Wood Relationship Specialty Start Date End Date Cassandra Valentin MD [address] [place] [address] [place] [address] PCP - General Internal Medicine 07/24/19 documented as of this encounter Additional Source Comments The information contained in this document represents components of the legal health record. It is not the complete legal health record.[facility]
[2025-06-25 18:12] LABS: Anion Gap 12 (12-20); Blood Urea Nitrogen 17 mg/dL (9-16); Calcium 9.1 mg/dL (8.4-10.2); Carbon Dioxide 24 mmol/L (22-29); Chloride 105 mmol/L (96-108); Estimated Glomerular Filt Rate 44; Potassium 4.4 mmol/L (3.3-5.1); Sodium 137 mmol/L (135-145)
== END 2025-06-25 14:11 | disposition home or self-care (01) ==
LOC: HO.WFDLDS 14:10
PROVIDERS: Visit Provider Internal Medicine Hypertension Specialist
DX: N18.9 Chronic kidney disease, unspecified (principal)
CPT/HCPCS: 36415; 80048

== ENCOUNTER 2025-06-29 14:46 | Outpatient (AMB) | payer OTHER, SELFPAY ==
--- NOTE | 2025-06-29 15:02 | HO.NEPHOV_ITS ---
Vital Signs 06/29/25 15:03 Height 5 ft 2 in Weight 150 lb BMI 27.4 BP 96/58 L Blood Pressure Location Lt brachial Position Sitting Pulse 77 Pulse Source Pulse Oximeter Pulse Oximetry (%) 98 Oxygen Delivery Method Room Air Intake Visit Reasons: 4 MO FU-[facility] Balance Wheel Screw Hole Driller Required: No Accompanied by: Self / Same As Patient Allergies Sulfa (Sulfonamide Antibiotics) (SULFA (SULFONAMIDE ANTIBIOTICS)) Adverse Reaction (Intermediate, Verified 06/29/25 15:05) muscle/joint pain tramadol Allergy (Uncoded 05/17/25 09:18) itching all over body HPI Comments Details: Stephanie is a pleasant 69-year-old woman with a history of longstanding diabetes mellitus. She has been referred for the evaluation of chronic kidney disease. Up until June of 2024 serum creatinine was normal around 1.0 mg/dL. On 09/11/2024 creatinine bumped up to 1.73 and the repeat creatinine was 1.67 on 11/07/2024. All medications were reviewed she is on hydrochlorothiazide 25 mg along with the potassium supplementation. She occasionally takes ibuprofen. History of lumpectomy of the right breast in 2019 for invasive ductal carcinoma She is on tamoxifen which she will be completing the course in the next few months. History of mixed urgent stress incontinence. History of vaginal prolapse and recently started on VESIcare 03/02/25 69-year-old female presenting for a routine follow-up regarding her management of type 2 diabetes and chronic kidney disease. She has been on Ozempic for diabetes and reports a weight loss of three pounds over the last three weeks. The patient acknowledges nausea as a side effect of her current medication. Her past medical history includes chronic kidney disease, with recent improvements in renal lab work noted. She recalls experiencing an episode of hypomania following recent medication adjustments, now resolved after further changes. 06/29/2025. Overall she is doing well. With the Ozempic she has lost weight. Blood pressure has decreased [facility] Medical History (Updated 05/17/25 @ 16:43 by Cassandra Valentin MD) Bipolar 1 disorder, manic, full remission Hearing difficulty of both ears Degenerative joint disease of right hip Cystocele with prolapse Osteopenia of lumbar spine Diabetes mellitus with microalbuminuria, without long-term current use of insulin Mixed urge and stress incontinence Chronic heartburn Dyslipidemia History of invasive ductal carcinoma of breast Mitral valve regurgitation Polyp of gallbladder Hypertension Surgical History History of esophagogastroduodenoscopy (EGD) H/O colonoscopy History of repair of anterior cruciate ligament of left knee History of lumpectomy of right breast (~07/09/19) History of right breast biopsy (~07/02/19) History of section History of total hysterectomy Family History Father History of pancreatic cancer Sister History of lupus Mother No problems noted. 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 / [employer] Cognitive needs: No Hearing needs: No Vision needs: Yes Physical Exam Vital Signs: Last Vital Signs Pulse 77 06/29/25 15:03 BP 96/58 L 06/29/25 15:03 Pulse Ox 98 06/29/25 15:03 Oxygen Delivery Method Room Air 06/29/25 15:03 BMI result Body Mass Index 27.4 Results Reviewed Nephrology Results: Sodium, (135-145) 137 mmol/L 06/25/25 Potassium, (3.3-5.1) 4.4 mmol/L 06/25/25 Chloride, (96-108) 105 mmol/L 06/25/25 Carbon Dioxide, (22-29) 24 mmol/L 06/25/25 BUN, (9-16) 17 mg/dL H 06/25/25 Creatinine, (0.5-1.4) 1.21 mg/dL 06/25/25 Calcium, (8.4-10.2) 9.1 mg/dL 06/25/25 Urine Protein, (Neg-Trace) Trace mg/dL 05/12/25 Renal US 11/20/24 Assessment & Plan Assessment & Plan (1) CKD (chronic kidney disease): Code(s): N18.9 - Chronic kidney disease, unspecified Category: Medical (2) Type 2 diabetes mellitus without complication, without long-term current use of insulin: Code(s): E11.9 - Type 2 diabetes mellitus without complications Category: Medical (3) Hypokalemia: Code(s): E87.6 - Hypokalemia Category: Medical (4) Hypertension: Code(s): I10 - Essential (primary) hypertension Category: Medical Qualifiers: Hypertension type: primary hypertension Qualified Code(s): I10 - Essential (primary) hypertension Plan Chronic kidney disease in the setting of longstanding diabetes mellitus hyp ertension. She had a component of acute kidney injury to his plain the recent bump in serum creatinine. Hypoperfusion could be playing a role. No obstructive uropathy based on USG She had no significant proteinuria and urine sediments were benign therefore glomerular nephritis or interstitial disease seem unlikely. Mild elevation in iPTH SHPT Watch for now Continue to hold hydrochlorothiazide and potassium supplementation for now. Optimize blood pressure and avoid hypotension. Avoid NSAIDs and othe rnephrotoxins She will benefit from SGLT-2 inhibitor Encouraged her to stay on low-sodium diet and increase p.o. fluid intake. 06/29/25 BP is rather low This is due to weight loss Will DECREASE Losartan to 50 mg from 100 mg Orders: Orders Basic Metabolic Panel 3 Months N18.9 - Chronic kidney disease, unspecified Coding Level of Care Code Est Pt Level 4 (97825) Diagnoses CKD (chronic kidney disease) N18.9 Type 2 diabetes mellitus without complication, without long-term current use of insulin E11.9 Hypokalemia E87.6 Primary hypertension I10 Hypertension type: primary hypertension
[2025-06-29 15:03] VITALS: BP 96/58; PULSE 77; O2SAT 98; BMI 27.4
--- OUTSIDE RECORDS SUMMARY | 2025-06-29 17:15 | XMS_ITS | Clinical Summary ---
Author Organization [facility] Address [address] [place] [address] Phone Care Team Providers Care Door Puller Name Role Phone Cassandra Valentin MD Primary [...] 08/04/2019:Stage IA(pT1b, pN0(sn), cM0, G1, [place]: Positive, [place]: Negative, HER2: Negative) - Signed by Jayant [...] Most Recently Relevant to Health Maintenance Insurance [employer]MINISTRATORS BLUE CROSS BLUE BENEFITS ADMINISTR[place] [address] [employer] BENEFITS ADMINISTRATORS [employer]EF[employer] ADMINISTRATORS [employer]EF[employer] ADMINISTRATORS [employer] BENEFITS ADMINISTRATORS [employer] BENEFITS ADMINISTRATORS [place] [employer] ADMINISTRATORS [facility] [employer] ADMINISTRATORS Care Teams Door Puller Relationship Specialty Start Date End Date Cassandra Valentin MD [address] [place] [address] PCP - General Internal Medicine 07/24/19 Additional Source Comments The information contained in this document represents components of the legal health record. It is not the complete legal health record.[facility]
--- OUTSIDE RECORDS SUMMARY | 2025-06-29 17:15 | XMS_ITS | Encounter Summary ---
Author Organization [facility] Address [address] [place] [address] Phone Care Team Providers Care Business Office Specialist Name Role Phone Cassandra Valentin MD Primary Care Provider Reason for Referral * - Closed Specialty Diagnoses / Procedures Referred By Contac t Referred To Contact Procedures NM Other Outside (No Interpretation) System, Provider Not In, [place] [address] Referral ID Status Reason Start Date Expiration Date Visits Re quested Visits Authorized [id number] Closed 07/28/2019 07/27/2020 1 1 Encounter Details Date Type Department Care Team (Late st Contact Info) Description 07/28/2019 Ancillary Orders [facility],Outside Imaging [address] [place] [address] System, Provider [place] In, [place] [address] Social History Tobacco Use Types Packs/Day Years [...] on filedocumented in this encounter Care Teams Business Office Specialist Relationship Specialty Start Date End Date Cassandra Valentin MD [address] [place] [address] [place] [address] PCP - General Internal Medicine 07/24/19 documented as of this encounter Additional Source Comments The information contained in this document represents components of the legal health record. It is not the complete legal health record.[facility]
--- OUTSIDE RECORDS SUMMARY | 2025-06-29 17:15 | XMS_ITS | Patient Health Record ---
Author Organization [facility] Address [address] [place] [address] Care Team Providers Care Behavioral Health Director Name Role Phone Homero NORTON, Cassandra [...] Problem Status W/U Status Risk Notes Problem 120440016 Colon cancer screening (Z12.11) Active confirmed Problem 45781049 Other dysphagia (R13.19) Active confirmed Problem Dysphagia (58860747) Dysphagia (R13.10) Active confirmed Problem 204692439 Gastroesophageal reflux disease, unspecified whether esophagitis present (K21.9) Active confirmed Plan Of Treatment Future Test Test Name Order Date COLONOSCOPY 02/21/2012 UPPER GI ENDOSCOPY 08/16/2022 COLONOSCOPY 08/16/2022 Next Appt Details Provider Name:Wilmer mcmillan , 08/04/2025 11:00:00 AM, [address] [place] [address], [address], [place], [address], Insurance Providers Payer Name Payer Address Payer Phone Subscriber Number Group Number Insured Name Patient Relationship to Insured Coverage Start Date Coverage End Date BLUE BENEFITS ADMINISTRATORS OF [place] [address] [address] [place] [address] [id number] AFTAB OLIVER Self - patient is the insured Medical (General) History Medical History History ICD Code hypertension anxiety esophageal reflux fatty liver elevated cholesterol fibroids mitral valve prolapse Right breast cancer status p ost radiation therapy and lumpectomy, tamoxifen for 5 years Surgical History Surgery Date(Month/Year) knee surgery hysterectomy hip surgery breast biopsy Lipoma
== END 2025-06-29 15:25 | disposition home or self-care (01) ==
LOC: HO.HKA 14:47
PROVIDERS: PCP Internal Medicine; Visit Provider Internal Medicine Hypertension Specialist
DX: I12.9 Hypertensive chronic kidney disease with stage 1 through stage 4 chronic kidney disease, or unspecified chronic kidney disease (principal); N18.9 Chronic kidney disease, unspecified; E11.9 Type 2 diabetes mellitus without complications; E87.6 Hypokalemia
CPT/HCPCS: 99214

== ENCOUNTER 2025-06-29 15:39 | Outpatient (AMB) | payer OTHER, SELFPAY ==
--- NOTE | 2025-06-29 16:21 | MHC.OFFVISPS ---
Intake Intake Visit Reasons: depression It Network Architect Required: No Allergies Sulfa (Sulfonamide Antibiotics) (SULFA (SULFONAMIDE ANTIBIOTICS)) Adverse Reaction (Intermediate, Verified 06/29/25 15:05) muscle/joint pain tramadol Allergy (Uncoded 05/17/25 09:18) itching all over body Medication List - Last Reconciled 06/29/25 by Elsie Rodriguez APRN blood sugar diagnostic (FreeStyle Lite Strips) Test blood sugar once a day blood-glucose meter (FreeStyle Lite Meter kit) As directed cholecalciferol (vitamin D3) (Vitamin D3) 25 mcg PO 3XW clonidine HCl 0.1 mg PO TID escitalopram oxalate 10 mg PO DAILY hydroxyzine pamoate 25 mg PO BID PRN lamotrigine (Lamictal) 100 mg orally Take 1 & 1/2 tablet in morning and 1 tablet at bedtime; lancets (FreeStyle Lancets) Test blood sugar once a day losartan 100 mg PO DAILY metformin 500 mg PO DAILY omeprazole 20 mg PO DAILY ondansetron HCl 4 mg PO Q12H PRN Ozempic (semaglutide) 0.5 mg (0.736 mL) subcut QWEEK 30 days NS rosuvastatin 40 mg PO DAILY HPI- Psychiatric Chief Complaint: depression HPI Narrative: pt here for follow up re: Bipolar Disorder, ADHD, RIGOBERTO. Pt reports she has felt much calmer overall; she recently had her BP meds lowered as her BP is much lower than had been; she has lost weight which is likely contributing. She reports she feels better with slightly higher lamictal and lower lexapro. She reports mood stable. She is retiring at the end of the month and feels more ready. no psychosis, no grandiosity. She denies SI or HI. sleep intact; sleeping 8 hours. she has restarted the hydroxyzine to help with anxiety. Past Psychiatric History: outpatient treatment only dx with ADHD, RIGOBERTO, r/o mood disorder NOS for years; Lesa Rodriges NP (her previous prescriber) dx her with Bipolar DO. She reports she had symptoms as child but no treatment until adulthood PAST Medication Trials: trileptal- ineffective Methyphenidate 20mg by PCP-made her feel edgy and increased blood pressure a lot Paxil?didn't do much Adderall XR--disrupted sleep, increased anxiety Wellbutrin SR--angry, agitation, passive HI Strattera--possibly activating Zoloft--sexual side effects Prozac--CPY-450 issues with Tamoxifen Lamictal--muscle tension/?pain Cymbalta--GI distress Seroquel--helped with agitation/misty melatonin hydroxyzine Subjective Subjective Subjective Medication Compliance: Yes Side effects from medications: No Review of Systems Medical Review of Systems: unchanged Mental Status Exam Mental Status Exam Patient Appearance: Well Grooomed and Appropriate Patient Orientation: Person, Place, Time and Situation Level of Consciousness: Awake and Appropriate Patient Behavior: Appropriate and Cooperative Mood Description: Happy, Appropriate and Anxious Affect Description: Happy and Anxious Patient Cognition Impaired: No Ability to Follow Directions: Excellent Speech Pattern: Clear, Spontaneous Speech and Rapid Memory Description: Intact Hallucinations: None Delusions: Not Present Thought Process: Intact Thought Content: positive for Intact and positive for Tangential Judgement: Good Assessment and Plan Assessment & Plan (1) Generalized anxiety disorder: Status: Resolved Code(s): F41.1 - Generalized anxiety disorder (2) ADHD (attention deficit hyperactivity disorder), combined type: Status: Acute Code(s): F90.2 - Attention-deficit hyperactivity disorder, combined type (3) Bipolar disorder, current episode hypomanic: Status: Resolved Code(s): F31.0 - Bipolar disorder, current episode hypomanic Plan meds per below return in one month hold clonidine if any dizziness or excess sedation/sleepiness stay hydrated Counseling and coordination of Care Pt. Self Management counseling: Mod caffeine/ETOH intake, Nutrition education and improvement, Sleep hygiene, General coping skills and Problem solving Medication management counseling: Effectiveness, Side effects, Dosing range, Duration, Drug interaction and Adherence Diagnosis and Prognosis Counseling: Accuracy of diagnosis, Prognosis over time, Impact of diagnosis on life functions, Impact of family relationship, Problematic behaviors secondary to diagnosis and Adequacy of current interventions Details: I spent 25 minutes reviewing the record, seeing the patient and documenting in the medical record. Counseling provided to the patient/caregiver as outlined below. Addressed patient/caregiver concerns regarding current medication regime including effective adherence. Addressed patient/caregiver concerns regarding diagnosis and prognosis including accuracy of diagnosis, prognosis over time, impact of diagnosis. Addressed patient/caregiver concerns regarding impact of recent stressors. ON LICENSE OF [facility] Medical History (Updated 05/17/25 @ 16:43 by Cassandra Valentin MD) Bipolar 1 disorder, manic, full remission Hearing difficulty of both ears Degenerative joint disease of right hip Cystocele with prolapse Osteopenia of lumbar spine Diabetes mellitus with microalbuminuria, without long-term current use of insulin Mixed urge and stress incontinence Chronic heartburn Dyslipidemia History of invasive ductal carcinoma of breast Mitral valve regurgitation Polyp of gallbladder Hypertension Surgical History History of esophagogastroduodenoscopy (EGD) H/O colonoscopy History of repair of anterior cruciate ligament of left knee History of lumpectomy of right breast (~07/09/19) History of right breast biopsy (~07/02/19) History of section History of total hysterectomy Family History Father History of pancreatic cancer Sister History of lupus Mother No problems noted. 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 Tran 32 year old daughter works with Autistic children patient graduated from high school, 5 years of college with degree in Psych. father age 8787 years old lives in [place], mother 10 years ago due to brain tumor, patient is the oldest of 4 girls Substance History: etoh in 30s has medical NoWait card Trauma History: yes childhood Coding Level of Care Code Est Pt Level 3 (57091) Diagnoses Generalized anxiety disorder F41.1 ADHD (attention deficit hyperactivity disorder), combined type F90.2 Bipolar disorder, current episode hypomanic F31.0
== END 2025-06-29 16:24 | disposition home or self-care (01) ==
LOC: HO.HOP 15:39
PROVIDERS: PCP Internal Medicine; Visit Provider Clinical Nurse Specialist Psychiatric/Mental Health
DX: F41.1 Generalized anxiety disorder (principal); F90.2 Attention-deficit hyperactivity disorder, combined type; F31.0 Bipolar disorder, current episode hypomanic
CPT/HCPCS: 99213

== ENCOUNTER 2025-06-30 14:08 | Outpatient (REF) | payer OTHER, SELFPAY ==
--- OUTSIDE RECORDS SUMMARY | 2025-06-30 17:22 | XMS_ITS | Patient Health Record ---
Author Organization [facility] Address [address] [place] [address] Care Team Providers Care Mechanical Door Repairer Name Role Phone Homero NORTON, Cassandra Primary Care Provider Wilmer Murguia Jr Unavailable [phone] Allergies Allergen (clinical drug ingredient) Drug/Non [...] Problem Status W/U Status Risk Notes Problem 197100554 Colon cancer screening (Z12.11) Active confirmed Problem 00456736 Other dysphagia (R13.19) Active confirmed Problem Dysphagia (42393246) Dysphagia (R13.10) Active confirmed Problem 189068052 Gastroesophageal reflux disease, unspecified whether esophagitis present (K21.9) Active confirmed Plan Of Treatment Future Test Test Name Order Date COLONOSCOPY 02/21/2012 UPPER GI ENDOSCOPY 08/16/2022 COLONOSCOPY 08/16/2022 Next Appt Details Provider Name:Wilmer mcmillan , 08/04/2025 11:00:00 AM, [address] [place] [address], [address], [place], [address], Insurance Providers Payer Name Payer Address Payer Phone Subscriber Number Group Number Insured Name Patient Relationship to Insured Coverage Start Date Coverage End Date BLUE [employer]EFITS ADMINISTRATORS [place] [address] [address] [place] [address] [id number] AFTAB OLIVER Self - patient is the insured Medical (General) History Medical History History ICD Code hypertension anxiety esophageal reflux fatty liver elevated cholesterol fibroids mitral valve prolapse Right breast cancer status p ost radiation therapy and lumpectomy, tamoxifen for 5 years Surgical History Surgery Date(Month/Year) knee surgery hysterectomy hip surgery breast biopsy Lipoma
--- OUTSIDE RECORDS SUMMARY | 2025-06-30 17:22 | XMS_ITS | Clinical Summary ---
Author Organization [facility] Address [address] [facility] [facility] [address] [place] [address] Phone Care Team Providers Care Nut Threader Name Role Phone Cassandra Valentin MD Primary [...] 08/04/2019:Stage IA(pT1b, pN0(sn), cM0, G1, ER: Positive, [place]: Negative, HER2: Negative) - Signed by Jayant [...] Most Recently Relevant to Health Maintenance Insurance [employer] ADMINISTRATORS BLUE CROSS BLUE [employer]ENEFITS [place] [address] [place] [address] [employer] BENEFITS ADMINISTRATORS [employer] BENEFITS ADMINISTRATORS [employer] BENEFITS ADMINISTRATORS [employer] BENEFITS ADMINISTRATORS [employer] BENEFITS ADMINISTRATORS [employer] ADMINISTRATORS [facility] [employer] ADMINISTRATORS Care Teams Nut Threader Relationship Specialty Start Date End Date Cassandra Valentin MD [address] [place] [address] PCP - General Internal Medicine 07/24/19 Additional Source Comments The information contained in this document represents components of the legal health record. It is not the complete legal health record.[facility]
--- OUTSIDE RECORDS SUMMARY | 2025-06-30 17:22 | XMS_ITS | Encounter Summary ---
Author Organization [facility] Address [address] [facility] [facility] [address] [place] [address] Phone Care Team Providers Care Budget Clerk Name Role Phone Cassandra Valentin MD Primary Care Provider Reason for Referral * - Closed Specialty Diagnoses / Procedures Referred By Contac t Referred To Contact Procedures NM Other Outside (No Interpretation) System, Provider Not In, PhD Partners Smith [address] [place] [address] Referral ID Status Reason Start Date Expiration Date Visits Re quested Visits Authorized [id number] Closed 07/28/2019 07/27/2020 1 1 Encounter Details Date Type Department Care Team (Late st Contact Info) Description 07/28/2019 Ancillary Orders [facility],Outside Imaging [address] [place] [address] System, Provider Not In, [place] [address] Social History Tobacco Use Types Packs/Day Years [...] on filedocumented in this encounter Care Teams Budget Clerk Relationship Specialty Start Date End Date Cassandra Valentin MD [address] [place] [address] [place] [address] PCP - General Internal Medicine 07/24/19 documented as of this encounter Additional Source Comments The information contained in this document represents components of the legal health record. It is not the complete legal health record.[facility]
== END 2025-06-30 14:09 | disposition home or self-care (01) ==
LOC: HO.MAMMO 14:08
PROVIDERS: PCP Internal Medicine; Visit Provider Internal Medicine
DX: Z12.31 Encounter for screening mammogram for malignant neoplasm of breast (principal)
CPT/HCPCS: 77063; 77067

== ENCOUNTER → 2025-06-30 14:30 | Outpatient (BNV) | payer OTHER, SELFPAY | PROVIDERS: PCP Internal Medicine; Visit Provider Internal Medicine | DX: Z12.31 Encounter for screening mammogram for malignant neoplasm of breast (principal) | CPT/HCPCS: 77063; 77067 ==

== ENCOUNTER 2025-08-13 10:49 | Outpatient (REF) | payer OTHER, SELFPAY ==
--- OUTSIDE RECORDS SUMMARY | 2025-08-13 12:36 | XMS_ITS | Encounter Summary ---
Author Organization [facility] Address [address] [place] [address] Phone Care Team Providers Care Proof Technician Name Role Phone Cassandra Valentin MD Primary Care Provider Reason for Referral * - Closed Specialty Diagnoses / Procedures Referred By Contac t Referred To Contact Procedures NM Other Outside (No Interpretation) System, Provider Not In, [place] [address] Referral ID Status Reason Start Date Expiration Date Visits Re quested Visits Authorized [id number] Closed 07/28/2019 07/27/2020 1 1 Encounter Details Date Type Department Care Team (Late st Contact Info) Description 07/28/2019 Ancillary Orders [facility],Outside Imaging [address] [place] [address] System, Provider Not In, [place] [address] Social History Tobacco Use Types Packs/Day Years [...] on filedocumented in this encounter Care Teams Proof Technician Relationship Specialty Start Date End Date Cassandra Valentin MD [address] [place] [address] [place] [address] PCP - General Internal Medicine 07/24/19 documented as of this encounter Additional Source Comments The information contained in this document represents components of the legal health record. It is not the complete legal health record.[facility]
--- OUTSIDE RECORDS SUMMARY | 2025-08-13 12:36 | XMS_ITS | Clinical Summary ---
Author Organization [facility] Address [address] [place] [address] Phone Care Team Providers Care Abrasive Grader Name Role Phone Cassandra Valentin MD Primary [...] 08/04/2019:Stage IA(pT1b, pN0(sn), cM0, G1, ER: Positive, [place]: Negative, HER2: Negative) - Signed by Jayant [...] Most Recently Relevant to Health Maintenance Insurance [employer] ADMINISTRATORS BLUE CROSS BLUE BENEFITS [place]MIN[place] [address] [address] [employer] BENEFITS ADMINISTRATORS [employer] BENEFITS ADMINISTRATORS [employer] BENEFITS ADMINISTRATORS [employer] BENEFITS ADMINISTRATORS [employer] BENEFITS ADMINISTRATORS [place] [employer] ADMINISTRATORS [facility] [employer] ADMINISTRATORS Care Teams Abrasive Grader Relationship Specialty Start Date End Date Cassandra Valentin MD [address] [place] [address] PCP - General Internal Medicine 07/24/19 Additional Source Comments The information contained in this document represents components of the legal health record. It is not the complete legal health record.[facility]
--- OUTSIDE RECORDS SUMMARY | 2025-08-13 12:36 | XMS_ITS | Patient Health Record ---
Author Organization [facility] Address [address] [place] [address] Care Team Providers Care Casting Molder Name Role Phone Homero NORTON, Cassandra Primary Care Provider Wilmer Murguia Jr [phone] Allergies Allergen (clinical drug ingredient) Drug/Non Drug Allergy documented on EMR Reaction Allergy Type Onset Date Status Sulfa Unknown Drug Allergy Active Reason For Referral No Information Medications Medication SIG (Take, Route, Frequency, Duration) Notes Start Date End Date Status Magnesium Oxide (Antacid) 500 MG 1 capsule with food Orally Once a day Active Ozempic (0.25 or 0.5 MG/DOSE) 2 MG/3ML as directed Subcutaneous Active Omeprazole 20 MG TAKE 1 CAPSULE BY MOUTH EVERY DAY 30 MINUTES BEFORE MORNING MEAL FOR 30 DAYS; Duration: 30 days Tell Aftab to schedule a f/u office visit. No more refills. Active Losartan Potassium 50 MG 1 tablet Orally Once a day Active Escitalopram Oxalate 10 MG 1 tablet Orally Once a day; Duration: 30 days Active cloNIDine HCl 0.1 MG Oral; Duration: 30 Active hydrOXYzine Pamoate 25 MG Oral; Duration: 30 prn Active lamoTRIgine 200 MG 1 tablet on the tongue and allow to dissolve Orally Once a day; Duration: 30 days Active Rosuvastatin Calcium 40 MG TAKE 1 TABLET BY MOUTH DAILY Oral; Duration: 30 Days Active Immunizations Vaccine Route Administration Date Status Comme nts Influenza Unknown 08/16/2022 Administered Influenza Unknown 07/21/2025 Administered Social History Alcohol Screen Question Answer Notes Did you have a drink containing alcohol in the p ast year? No Points 0 Interpretation Negative Section Notes: Tobacco use is negative. Alc ohol use none for 3 months. Tobacco use is negative. Tobacco use is negative. Problems Problem Type SNOMED Code ICD Code Onset Dates Problem Status W/U Status Risk Notes Problem Colon cancer screening (061759745) Colon cancer screening (Z12.11) Active confirmed Problem Constipation (85336004) Constipation (K59.00) Active confirmed Problem Dysphagia (23370478) Other dysphagia (R13.19) Active confirmed Problem Dysphagia (94265816) Dysphagia (R13.10) Active confirmed Problem Gastroesophageal reflux disease (624093703) Gastroesophageal reflux disease, unspecified whether esophagitis present (K21.9) Active confirmed Vital Signs Temperature 97.5 degrees Fahrenheit 08/04/2025 Blood pressure diastolic 01 mm Hg 08/04/2025 Height 61.5 in 08/04/2025 Blood pressure systolic 001 mm Hg 08/04/2025 Weight 148 lbs 08/04/2025 BMI 27.51 kg/m2 08/04/2025 Encounters Encounter Location Date Provider Diagnosis [facility] [address] [place] [address] 08/04/2025 Wilmer Puckett Jr Gastroesophageal reflux disease, unspecified whether esophagitis present K21.9 ; Colon cancer screening Z12.11 and Constipation K59.00 Assessments Encounter Date Diagnosis (ICD Code) Assessment Notes Treatment Notes Treatment Clinical Notes Section Notes 08/04/2025 Colon cancer screening (ICD-10 - Z12.11) We discussed gastroesophageal reflux disease today. We discussed diet, lifestyle modifications, and weight management regarding the treatment of reflux. We recommended she continue omeprazole. For her constipation she can continue to use magnesium oxide we also discussed using MiraLAX and a high-fiber diet. Today's visit was 30 minutes. 08/04/2025 Gastroesophageal reflux disease, unspecified whether esophagitis present (ICD-10 - K21.9) We discussed gastroesophageal reflux disease today. We discussed diet, lifestyle modifications, and weight management regarding the treatment of reflux. We recommended she continue omeprazole. For her constipation she can continue to use magnesium oxide we also discussed using MiraLAX and a high-fiber diet. Today's visit was 30 minutes. 08/04/2025 Constipation (ICD-10 - K59.00) We discussed gastroesophageal reflux disease today. We discussed diet, lifestyle modifications, and weight management regarding the treatment of reflux. We recommended she continue omeprazole. For her constipation she can continue to use magnesium oxide we also discussed using MiraLAX and a high-fiber diet. Today's visit was 30 minutes. Plan Of Treatment Future Test Test Name Order Date COLONOSCOPY 02/21/2012 UPPER GI ENDOSCOPY 08/16/2022 COLONOSCOPY 08/16/2022 Next Appt Details Provider Name:Wilmer Cobian Kapiltess chambersromeo Avalos, 08/03/2026 10:20:00 AM, [address] [place] [address], [address], [place], [address], Insurance Providers Payer Name Payer Address Payer Phone Subscriber Number Group Number Insured Name Patient Relationship to Insured Coverage Start Date Coverage End Date BLUE BENEFITS ADMINISTRATORS [place] [address] [address] [place] [address] [id number] AFTAB OLIVER Self - patient is the insured Medical (General) History Medical History History ICD Code hypertension anxiety esophageal reflux fatty liver elevated cholesterol fibroids mitral valve prolapse Right breast cancer status p ost radiation therapy and lumpectomy, tamoxifen for 5 years Upper endoscopy 09/11, no H. pylori or B arrett's esophagus. Colonoscopy 09/11, normal, 10-year follo w-up Surgical History Surgery Date(Month/Year) breast biopsy hip surgery hysterectomy knee surgery
[2025-08-13 15:28] LABS: Alanine Aminotransferase 40 U/L (0-31); Anion Gap 11 (12-20); Aspartate Amino Transferase 36 U/L (5-31); Blood Urea Nitrogen 13 mg/dL (9-16); Calcium 9.9 mg/dL (8.4-10.2); Carbon Dioxide 26 mmol/L (22-29); Chloride 107 mmol/L (96-108); Cholesterol 174 mg/dL (<200); Estimated Glomerular Filt Rate 46; HDL Cholesterol 55 mg/dL (>40); Potassium 4.5 mmol/L (3.3-5.1); Sodium 139 mmol/L (135-145); Triglycerides 126 mg/dL (<150)
== END 2025-08-13 10:50 | disposition home or self-care (01) ==
LOC: HO.WFDLDS 10:49
PROVIDERS: Visit Provider Internal Medicine
DX: E11.29 Type 2 diabetes mellitus with other diabetic kidney complication (principal); R80.9 Proteinuria, unspecified; M85.88 Other specified disorders of bone density and structure, other site; E78.5 Hyperlipidemia, unspecified; I10 Essential (primary) hypertension
CPT/HCPCS: 36415; 80048; 80061; 82306; 83036; 84450; 84460

== ENCOUNTER 2025-08-17 10:50 | Outpatient (AMB) | payer OTHER, SELFPAY ==
[2025-08-17 11:03] VITALS: BP 150/80; PULSE 77; RESP 16; TEMP 36.6; O2SAT 99; BMI 27.1
--- NOTE | 2025-08-17 11:03 | A.OFFPC_ITS ---
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 [employer] Required: No Allergies Sulfa (Sulfonamide Antibiotics) (SULFA (SULFONAMIDE ANTIBIOTICS)) Adverse Reaction (Intermediate, Verified 08/17/25 11:12) muscle/joint pain tramadol Allergy (Uncoded 08/17/25 11:12) itching all over body Medication List - Last Reconciled 08/17/25 by Cassandra Valentin MD blood sugar diagnostic (FreeStyle Lite Strips) Test blood sugar once a day blood-glucose meter (FreeStyle Lite Meter kit) As directed cholecalciferol (vitamin D3) (Vitamin D3) 25 mcg PO 3XW clonidine HCl 0.1 mg PO TID escitalopram oxalate 10 mg PO DAILY hydroxyzine pamoate 25 mg PO BID PRN lamotrigine (Lamictal) 100 mg orally Take 1 & 1/2 tablet in morning and 1 tablet at bedtime; lancets (FreeStyle Lancets) Test blood sugar once a day losartan 50 mg PO DAILY magnesium oxide 300 mg PO DAILY omeprazole 20 mg PO DAILY ondansetron HCl 4 mg PO Q12H PRN Ozempic (semaglutide) 0.5 mg (0.736 mL) subcut QWEEK 30 days NS rosuvastatin 40 mg PO Q2D Tobacco use date assessed: 08/17/25 Fall risk assessment: No Falls in past year Last assessed Fall Risk: 08/17/25 Dental Screening Dental Screen Date: 08/17/25 Did you have a dental visit in the last 12 months?: Yes Did you have a dental problem in the last 6 months where you did not have access to dental care?: No Was dental information given to patient?: Patient has dentist HPI 3m follow up HPI Details The patient is a 69-year-old female presenting today for her follow-up visit. She was noted to have high blood pressure at today's visit, which she attributes to not taking any of her morning medications, including one dose of clonidine, due to a stressful morning , and having had coffee about an hour prior coming in follow-up visit.. For management of hypertension, the patient is prescribed losartan and clonidine. Her clonidine regimen is three times a day, with one pill in the morning and two at night. 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 She had moved her losartan dose to the evening to reduce her morning pill burden but was advised to switch it back to the morning. The patient's chronic kidney disease is reportedly improving, and a water pill was previously discontinued by her specialist. Recent lab work showed normal potassium, electrolytes, and improving kidney function. Her diabetes mellitus is controlled with Ozempic 0.5, with a normal fasting sugar and A1C. She reports being stuck at her current weight and experiences bloating and constipation as side effects of Ozempic. She manages the constipation with one and a half 200 mg tablets of magnesium oxide (300 mg total), which has helped. She takes rosuvastatin every other day with lipids within normal limits. She is also on Lamictal, and clonidine is noted to also be used for anxiety and ADHD. In [employer], the patient now wears bilateral hearing aids due to hearing loss, after a hearing test revealed she could not hear high-pitched sounds and certain letters. Her diet includes traditional [place] foods like fried plantains, but she also consumes oatmeal, berries, and sweet potatoes. Her physical activity is limited to Ej Chi. She is up to date on her vaccinations but declines the COVID-19 vaccine. [facility] Medical History Bipolar 1 disorder, manic, full remission Hearing difficulty of both ears Degenerative joint disease of right hip Cystocele with prolapse Osteopenia of lumbar spine Diabetes mellitus with microalbuminuria, without long-term current use of insulin Mixed urge and stress incontinence Chronic heartburn Dyslipidemia History of invasive ductal carcinoma of breast Mitral valve regurgitation Polyp of gallbladder Hypertension Surgical History History of esophagogastroduodenoscopy (EGD) H/O colonoscopy History of repair of anterior cruciate ligament of left knee History of lumpectomy of right breast (~07/09/19) History of right breast biopsy (~07/02/19) History of section History of total hysterectomy Family History Father History of pancreatic cancer Sister History of lupus Mother No problems noted. 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 Depression Screening Interpretation: Negative Depression Screening Done: Yes Source: Developed by Drs. Yaw Banuelos, Leandra Arzola, Sukhi Patterson and colleagues, with an educational cyndi from [employer]. Thrive Questionnaire Date Thrive assessed: 11/04/24 I am a: Patient What is your living situation today?: I have a steady place to live Within the past 12 months, did the food you bought not last and you didn't have the money to get more?: Never true Within the past 12 months, did you worry whether your food would run out before you got money to buy more?: Never true Do you have trouble paying for medicines?: No Do you have trouble getting transportation to medical appointments?: No Do you have trouble paying your heating and electricity bill?: No Do you have trouble taking care of your child, family member or friend?: No Do you have trouble with day-to-day activities such as bathing, preparing meals, shopping, managing finances, etc.?: No Are you currently unemployed and looking for a job?: Yes Are you interested in more education?: No Please select the resources that you would like help with: None Currently or been in a relationship where the following occur: No concerns reported THRIVE Score: 0 AUDIT C Alcohol Use Questionnaire (AUDIT-C) 2. How many drinks containing alcohol do you have on a typical day when you are drinking?: 1 or 2 Total Score: 0 RIGOBERTO-7 AMB Questionnaire RIGOBERTO-7 Date RIGOBERTO - 7 assessed: 05/17/25 Source: Developed by Drs. Yaw Banuelos, Leandra Arzola, Sukhi Patterson and colleagues, with an educational cyndi from [employer]. Review of Systems Const Reports no additional complaints Eyes Denies change in vision ENT Details: wears hearing aids bilateral Reports no additional complaints Card Denies chest pain, Denies rapid heart rate, Denies lightheadedness, Denies palpitations and Denies dyspnea Resp Denies cough and Denies dyspnea GI Details: 08/04/[address] paez Denies abdominal pain, Denies diarrhea and Denies nausea Reports no additional complaints Musc Denies back pain Skin/Breast Denies breast pain, Denies breast mass and Denies rash Neuro Reports no additional complaints Psych Reports no additional complaints Endo Reports no additional complaints and Denies palpitations Satinder/Lymph Reports no additional complaints Aller/Immun Reports no additional complaints Physical exam (Primary Care) Vital Signs: Last Vital Signs Temp 97.9 F 08/17/25 11:03 Pulse 77 08/17/25 11:03 Resp 16 08/17/25 11:03 BP 150/80 H 08/17/25 11:03 Pulse Ox 99 08/17/25 11:03 Oxygen Delivery Method Room Air 08/17/25 11:03 BMI result Body Mass Index 27.1 Tobacco/Smoking Status: Tobacco use Status Tobacco use date assessed 08/17/25 08/17/25 11:10 Patient Tobacco Use Status Tobacco use Unknown 08/17/25 11:10 Tobacco use type Smokeless Tobacco 08/17/25 11:10 e-Cigarette/Vaping Use Currently Using 08/17/25 11:10 Depression Screening Interpretation: Negative Thrive Assessment: Date of Thrive Assessment Date Thrive assessed 11/04/24 08/17/25 11:10 Currently or been in a relationship where the following occur: No concerns reported Const Other: Alert oriented x3, no acute distress noted ambulatory normal gait . HENMT Face and sinus: Yes face symmetric Mouth: Normal oral and palatal mucosa present, oropharynx normal and moist mucous membranes Eyes General: appearance normal, both eyes and all related structures Neck Neck: Yes normal visual inspection, Yes full ROM, Yes no lymphadenopathy and Yes supple Resp Auscultation: clear to auscultation bilaterally Cardio Other: S1-S2 present regular rate and rhythm GI Palpation (GI): Soft to palpation, nontender and no guarding General: Yes no CVA tenderness Back/Spine/Pelvis Back: no CVA tenderness and No back tenderness Neuro General: gait normal, moves all extremities, Normal light touch and pain sensation, no focal motor deficits, CN's II-XI intact bilaterally and normal sensation to monofilament Extrem General: Yes no pedal edema, Yes no calf tenderness and Yes normal gait Psych Appearance: grossly normal Mental Status: mental status grossly normal Speech and movement: Normal speech and movement present Affect: normal affect Results Reviewed Results Reviewed: Name: Stephanie Cochran Age/Sex: 69/F : 1955 Unit#: [id number] Attend Dr: Cassandra Valentin MD Re08/13/25 Status: DEP [facility]F [facility] Disch: SPEC : [id number] JANINE: 08/13/25 STATUS: COMP REQ : [id number] RECD: 08/13/[address]: Cassandra Valentin MD COMP: 08/13/25 ENTERED: 08/13/[address]: ORDERED: Met Prof Fast, AST, ALT, Lipid Panel, Vitamin D 25-OH Test Result Flag Reference Sodium 139 135-145 mmol/L Potassium 4.5 3.3-5.1 mmol/L CL 107 96-108 mmol/L CO2 26 22-29 mmol/L Gap 11 L 12-20 BUN 13 9-16 mg/dL Creat 1.16 0.5-1.4 mg/dL eGFR 46 Chronic Kidney Disease: Estimated GFR < 60 mL/min/1.73m2 Severe Kidney Disease: Estimated GFR < 15 mL/min/1.73m2 FBS 91 60-99 mg/dL CA 9.9 # 8.4-10.2 mg/dL AST (GOT) 36 H 5-31 U/L ALT (GPT) 40 H 0-31 U/L Triglyceride 126 <150 mg/dL Desirable Triglyceride: less than 150 mg/dL Borderline High Triglyceride 150-199 mg/dL High Triglyceride: 200-499 mg/dL Very High Triglyceride: greater than or equal to 5OO mg/dL Cholesterol 174 <200 mg/dL Desirable Cholesterol: less than 200 mg/dL Borderline High Cholesterol: 200-239 mg/dL High Cholesterol: greater than 239 mg/dL LDL Calculated 94 <100 mg/dL Desirable LDL: less than 100 mg/dL Near Optimal/Above Optimal LDL: 110-129 mg/dL Borderline High LDL: 130-159 mg/dL High LDL: 160-189 mg/dL Very High LDL: greater than or equal to 190 mg/dL HDL 55 >40 mg/dL Desirable HDL: greater than 40 mg/dL Note: This HDL assay may give artificially low results in patients with liver disease. Vitamin D 25-OH 54.5 >30 ng/mL Health Based Reference Values* < 20 ng/mL Deficient 20-30 ng/mL Insufficient > 30 ng/mL Sufficient Coding Level of Care Code Est Pt Level 4 (19668) Complex EM visit Add On G2211 Diagnoses Primary hypertension I10 Hypertension type: primary hypertension CKD (chronic kidney disease) N18.9 Type 2 diabetes mellitus with microalbuminuria, without long-term current use of insulin E11.29; R80.9 Diabetes mellitus type: type 2 Dyslipidemia E78.5 Hearing difficulty of both ears H91.93 Constipation K59.00 Assessment & Plan Assessment & Plan (1) Hypertension: Code(s): I10 - Essential (primary) hypertension Category: Medical Qualifiers: Hypertension type: primary hypertension Qualified Code(s): I10 - Essential (primary) hypertension (2) CKD (chronic kidney disease): Code(s): N18.9 - Chronic kidney disease, unspecified Category: Medical (3) Diabetes mellitus with microalbuminuria, without long-term current use of insulin: Code(s): E11.29 - Type 2 diabetes mellitus with other diabetic kidney complication; R80.9 - Proteinuria, unspecified Category: Medical Qualifiers: Diabetes mellitus type: type 2 Qualified Code(s): E11.29 - Type 2 diabetes mellitus with other diabetic kidney complication; R80.9 - Proteinuria, unspecified (4) Dyslipidemia: Code(s): E78.5 - Hyperlipidemia, unspecified Category: Medical (5) Hearing difficulty of both ears: Code(s): H91.93 - Unspecified hearing loss, bilateral Category: Medical (6) Constipation: Code(s): K59.00 - Constipation, unspecified Plan 1. Essential Hypertension The patient's blood pressure was elevated in the office, likely due to non- adherence with her morning clonidine dose and recent caffeine intake. Her losartan was previously reduced by nephrology from 100 mg to 50 mg due to hypotension (BP 96/58). The plan is to continue losartan 50 mg, but to take it in the morning instead of the evening to avoid nocturnal hypotension, and continue clonidine TID. She was advised to take her missed morning dose upon returning home. 2. Chronic Kidney Disease The patient's CKD is stable to improving, per recent lab work and her kidney specialist. Plan is to continue current management, including avoiding hypotension to maintain adequate renal perfusion. The water pill remains on hold per the specialist's recommendation. 3. Type 2 Diabetes Mellitus / Weight Management The patient is well-controlled on Ozempic 0.5, with normal A1c and fasting glucose. While she desires further weight loss, it was advised against to prevent hypotension and subsequent decreased perfusion to the brain and kidneys. Plan is to continue the current dose of Ozempic 0.5 weekly. 4. Hyperlipidemia Cholesterol is well-controlled. Plan is to update the prescription for rosuvastatin to be taken every other day as was previously discussed. 5. Constipation and Bloating secondary to Ozempic The patient's symptoms are improving with the use of magnesium oxide 300 mg. Her bowel movements are now twice weekly. Plan is to advise the patient to adjust the magnesium oxide dose based on her bowel movements. Dietary counseling was provided to avoid fried, greasy, or acidic foods on the day of Ozempic injection and to increase fiber intake with foods like oatmeal and sweet potatoes. 6. Bilateral Hearing Loss The patient has a new diagnosis of bilateral hearing loss and now uses hearing aids. The patient's vaccinations are up to date, but she declines the COVID-19 vaccine. She engages in limited physical activity (Ej Chi). Plan is to continue to encourage increased physical activity. She has a follow-up appointment scheduled in April for a physical exam. Patient was informed and verbally consented to the use of an ambient scribe for clinic note documentation during this visit. Medications: Changed From losartan 100 mg PO DAILY 90 tabs 5RF To losartan 50 mg PO DAILY
== END 2025-08-17 11:39 | disposition home or self-care (01) ==
LOC: HO.HMCC 10:51
PROVIDERS: PCP Internal Medicine; Visit Provider Internal Medicine
DX: I12.9 Hypertensive chronic kidney disease with stage 1 through stage 4 chronic kidney disease, or unspecified chronic kidney disease (principal); N18.9 Chronic kidney disease, unspecified; E11.29 Type 2 diabetes mellitus with other diabetic kidney complication; R80.9 Proteinuria, unspecified; E78.5 Hyperlipidemia, unspecified; H91.93 Unspecified hearing loss, bilateral; K59.00 Constipation, unspecified

== ENCOUNTER 2025-08-24 10:35 | Outpatient (AMB) | payer OTHER, SELFPAY ==
--- NOTE | 2025-08-24 11:18 | A.OFFPSYCH_ITS ---
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 Required: No Allergies Sulfa (Sulfonamide Antibiotics) (SULFA (SULFONAMIDE ANTIBIOTICS)) Adverse Reaction (Intermediate, Verified 08/17/25 11:12) muscle/joint pain tramadol Allergy (Uncoded 08/17/25 11:12) itching all over body Medication List - Last Reconciled 08/24/25 by Elsie Rodriguez APRN blood sugar diagnostic (FreeStyle Lite Strips) Test blood sugar once a day blood-glucose meter (FreeStyle Lite Meter kit) As directed cholecalciferol (vitamin D3) (Vitamin D3) 25 mcg PO 3XW clonidine HCl 0.1 mg PO TID escitalopram oxalate 10 mg PO DAILY hydroxyzine pamoate 25 mg PO BID PRN lamotrigine (Lamictal) 100 mg orally Take 1 & 1/2 tablet in morning and 1 tablet at bedtime; lancets (FreeStyle Lancets) Test blood sugar once a day losartan 50 mg PO DAILY magnesium oxide 300 mg PO DAILY omeprazole 20 mg PO DAILY ondansetron HCl 4 mg PO Q12H PRN Ozempic (semaglutide) 0.5 mg (0.736 mL) subcut QWEEK 30 days NS rosuvastatin 40 mg PO Q2D HPI- Psychiatric Chief Complaint: depression HPI Narrative: pt here for follow up re: Bipolar Disorder, ADHD, RIGOBERTO. Pt reports she retired recently and at first it was difficult but she is adjusting more; she presents and agrees that she is hypomanic with elevated mood, anxiety, irritability, and pressured speech; she reports racing thoughts; she is coping very well as she has good impulse control but its taking a lot of effort. she is agreeable to reduce the lexapro to 5mg daily. no psychosis, no grandiosity. She denies SI or HI. sleep intact; sleeping 8 hours. she has restarted the hydroxyzine to help with anxiety. Past Psychiatric History: outpatient treatment only dx with ADHD, RIGOBERTO, r/o mood disorder NOS for years; Lesa Rodriges NP (her previous prescriber) dx her with Bipolar DO. She reports she had symptoms as child but no treatment until adulthood PAST Medication Trials: trileptal- ineffective Methyphenidate 20mg by PCP-made her feel edgy and increased blood pressure a lot Paxil?didn't do much Adderall XR--disrupted sleep, increased anxiety Wellbutrin SR--angry, agitation, passive HI Strattera--possibly activating Zoloft--sexual side effects Prozac--CPY-450 issues with Tamoxifen Lamictal--muscle tension/?pain Cymbalta--GI distress Seroquel--helped with agitation/misty melatonin hydroxyzine Subjective Subjective Medication Compliance: Yes Side effects from medications: No Review of Systems Medical Review of Systems: unchanged Mental Status Exam Mental Status Exam Patient Appearance: Well Grooomed and Appropriate Patient Orientation: Person, Place, Time and Situation Level of Consciousness: Awake and Appropriate Patient Behavior: Appropriate and Cooperative Mood Description: Happy, Appropriate and Anxious Affect Description: Happy and Anxious Patient Cognition Impaired: No Ability to Follow Directions: Excellent Speech Pattern: Clear, Spontaneous Speech and Rapid Memory Description: Intact Hallucinations: None Delusions: Not Present Thought Process: Intact Thought Content: positive for Intact and positive for Tangential Judgement: Good Assessment and Plan Assessment & Plan (1) Generalized anxiety disorder: Status: Resolved Code(s): F41.1 - Generalized anxiety disorder (2) ADHD (attention deficit hyperactivity disorder), combined type: Status: Acute Code(s): F90.2 - Attention-deficit hyperactivity disorder, combined type (3) Bipolar disorder, current episode hypomanic: Status: Resolved Code(s): F31.0 - Bipolar disorder, current episode hypomanic Plan reduce lexapro 5mg daily lamictal 150mg in am and 100mg at bedtime clonidine 0.1mg in am and 0.2mg at bedtime continue hydroxyzine prn pt does not need refills right now- pharmacy has filled the hydroxyzine so many times she sys she has a years worth. I have put that med on hold - she continues to take prn but not daily. she will contact office when she needs refills of the others Medications: Discontinued escitalopram oxalate Discontinued Reason: Doctor's Order 10 mg PO DAILY 30 tabs 5RF On Hold hydroxyzine pamoate Hold Comment: Doctor's Order 25 mg PO BID PRN 60 caps 2RF anxiety Counseling and coordination of Care Pt. Self Management counseling: Mod caffeine/ETOH intake, Nutrition education and improvement, Sleep hygiene, General coping skills and Problem solving Medication management counseling: Effectiveness, Side effects, Dosing range, Duration, Drug interaction and Adherence Diagnosis and Prognosis Counseling: Accuracy of diagnosis, Prognosis over time, Impact of diagnosis on life functions, Impact of family relationship, Problematic behaviors secondary to diagnosis and Adequacy of current interventions Details: I spent 45 minutes reviewing the record, seeing the patient and documenting in the medical record. Counseling provided to the patient/caregiver as outlined below. Addressed patient/caregiver concerns regarding current medication regime including effec tive adherence. Addressed patient/caregiver concerns regarding diagnosis and prognosis including accuracy of diagnosis, prognosis over time, impact of diagnosis. Addressed patient/caregiver concerns regarding impact of recent stressors. [facility] Medical History Bipolar 1 disorder, manic, full remission Hearing difficulty of both ears Degenerative joint disease of right hip Cystocele with prolapse Osteopenia of lumbar spine Diabetes mellitus with microalbuminuria, without long-term current use of insulin Mixed urge and stress incontinence Chronic heartburn Dyslipidemia History of invasive ductal carcinoma of breast Mitral valve regurgitation Polyp of gallbladder Hypertension Surgical History History of esophagogastroduodenoscopy (EGD) H/O colonoscopy History of repair of anterior cruciate ligament of left knee History of lumpectomy of right breast (~07/09/19) History of right breast biopsy (~07/02/19) History of section History of total hysterectomy Family History Father History of pancreatic cancer Sister History of lupus Mother No problems noted. 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 Tran 32 year old daughter works with Autistic children patient graduated from high school, 5 years of college with degree in Psych. father age 8787 years old lives in [place], mother 10 years ago due to brain tumor, patient is the oldest of 4 girls Substance History: etoh in 30s has medical [facility] card Trauma History: yes childhood Coding Level of Care Code Est Pt Level 3 (31279) Therapy 30m w/E&M (37231) Diagnoses Generalized anxiety disorder F41.1 ADHD (attention deficit hyperactivity disorder), combined type F90.2 Bipolar disorder, current episode hypomanic F31.0
--- OUTSIDE RECORDS SUMMARY | 2025-08-24 12:27 | XMS_ITS | Encounter Summary ---
Author Organization [facility] Address [address] [place] [phone] Phone Care Team Providers Care Timber Management Specialist Name Role Phone Cassandra Valentin MD Primary Care Provider Reason for Referral * - Closed Specialty Diagnoses / Procedures Referred By Contac t Referred To Contact Procedures [place] Other Outside (No Interpretation) System, Provider Not In, [place] [address] Referral ID Status Reason Start Date Expiration Date Visits Re quested Visits Authorized [id number] Closed 07/28/2019 07/27/2020 1 1 Encounter Details Date Type Department Care Team (Late st Contact Info) Description 07/28/2019 Ancillary Orders [facility],Outside Imaging [address] [place] [address] System, Provider Not In, [place] [address] Social History Tobacco Use Types Packs/Day Years [...] on filedocumented in this encounter Care Teams Timber Management Specialist Relationship Specialty Start Date End Date Cassandra Valentin MD [address] [place] [address] [place] [id number] PCP - General Internal Medicine 07/24/19 documented as of this encounter Additional Source Comments The information contained in this document represents components of the legal health record. It is not the complete legal health record.[facility]
--- OUTSIDE RECORDS SUMMARY | 2025-08-24 12:27 | XMS_ITS | Clinical Summary ---
Author Organization [facility] Address [address] [facility] [address] [place] [address] Phone Care Team Providers Care Criminal Justice Instructor Name Role Phone Cassandra Valentin MD Primary [...] 08/04/2019:Stage IA(pT1b, pN0(sn), cM0, G1, ER: Positive, OR: Negative, HER2: Negative) - Signed by Jayant [...] Most Recently Relevant to Health Maintenance Insurance [employer] BLUE CROSS BLUE [employer]ENEFITS [place] [address] [place] [address] [employer] BENEFITS ADMINISTRATORS [employer] BENEFITS ADMINISTRATORS [employer] B[employer]EFITS ADMINISTRATORS [employer] B[employer]EF[employer] ADMINISTRATORS [employer] BENEFITS ADMINISTRATORS [facility] ADMINISTRATORS [facility] [employer] ADMINISTRATORS Care Teams Criminal Justice Instructor Relationship Specialty Start Date End Date Cassandra Valentin MD [address] [place] [address] PCP - General Internal Medicine 07/24/19 Additional Source Comments The information contained in this document represents components of the legal health record. It is not the complete legal health record.[facility]
--- OUTSIDE RECORDS SUMMARY | 2025-08-24 12:27 | XMS_ITS | Patient Health Record ---
Author Organization [facility] Address [address] [place] [address] Care Team Providers Care Pullman Clerk Name Role Phone Homero NORTON, Cassandra Primary Care Provider Wilmer Murguia Jr Allergies Allergen (clinical drug ingredient) Drug/Non Drug [...] Status Risk Notes Problem Colon cancer screening (422870816) Colon cancer screening (Z12.11) Active confirmed Problem Constipation (74740085) Constipation (K59.00) Active confirmed Problem Dysphagia (52027773) Other dysphagia (R13.19) Active confirmed Problem Dysphagia (12954640) Dysphagia (R13.10) Active confirmed Problem Gastroesophageal reflux disease (261752729) Gastroesophageal reflux disease, unspecified whether esophagitis present (K21.9) Active confirmed Vital Signs Temperature 97.5 degrees Fahrenheit 08/04/2025 Blood pressure diastolic 01 mm Hg 08/04/2025 Height 61.5 in 08/04/2025 Blood pressure systolic 001 mm Hg 08/04/2025 Weight 148 lbs 08/04/2025 BMI 27.51 kg/m2 08/04/2025 Encounters Encounter Location Date Provider Diagnosis [facility] [address] [place] [address] 08/04/2025 Wilmer Puckett Jr Gastroesophageal reflux disease, [...] Cobian Kapiltess chambersromeo Avalos, 08/03/2026 10:20:00 AM, [address] [place] [address], [address], [place], [address], Insurance Providers Payer Name Payer Address Payer Phone Subscriber Number Group Number Insured Name Patient Relationship to Insured Coverage Start Date Coverage End Date BLUE BENEFITS ADMINISTRATORS OF [place] [address] [address] [place] [address] [id number] AFTAB OLIVER Self - patient is [...]
== END 2025-08-24 12:22 | disposition home or self-care (01) ==
LOC: HO.HOP 10:35
PROVIDERS: PCP Internal Medicine; Visit Provider Clinical Nurse Specialist Psychiatric/Mental Health
DX: F41.1 Generalized anxiety disorder (principal); F90.2 Attention-deficit hyperactivity disorder, combined type; F31.0 Bipolar disorder, current episode hypomanic
CPT/HCPCS: 90833; 99213

== ENCOUNTER 2025-09-23 11:10 | Outpatient (REF) | payer OTHER, SELFPAY ==
[2025-09-23 14:31] LABS: Anion Gap 11 (12-20); Blood Urea Nitrogen 18 mg/dL (9-16); Calcium 10.0 mg/dL (8.4-10.2); Carbon Dioxide 23 mmol/L (22-29); Chloride 109 mmol/L (96-108); Estimated Glomerular Filt Rate 52; Potassium 4.1 mmol/L (3.3-5.1); Sodium 139 mmol/L (135-145)
== END 2025-09-23 11:11 | disposition home or self-care (01) ==
LOC: HO.WFDLDS 11:10
PROVIDERS: Visit Provider Internal Medicine Hypertension Specialist
DX: N18.9 Chronic kidney disease, unspecified (principal)
CPT/HCPCS: 36415; 80048

== ENCOUNTER 2025-09-28 11:57 | Outpatient (AMB) | payer OTHER, SELFPAY ==
[2025-09-28 11:58] VITALS: BP 124/70; PULSE 82; O2SAT 98; BMI 26.3
--- NOTE | 2025-09-28 11:58 | HO.NEPHOV_ITS ---
Vital Signs 09/28/25 11:58 Height 5 ft 2 in Weight 144 lb BMI 26.3 BP 124/70 Blood Pressure Location Lt brachial Position Sitting Pulse 82 Pulse Source Pulse Oximeter Pulse Oximetry (%) 98 Oxygen Delivery Method Room Air Intake Visit Reasons: 3mon f/u w/labs Flight Crew Ordnanceman Required: No Accompanied by: Self / Same As Patient Allergies Sulfa (Sulfonamide Antibiotics) (SULFA (SULFONAMIDE ANTIBIOTICS)) Adverse Reaction (Intermediate, Verified 09/28/25 12:00) muscle/joint pain tramadol Allergy (Uncoded 08/17/25 11:12) itching all over body Medication List - Last Reconciled 09/28/25 by Mikey Huggins MD blood sugar diagnostic (FreeStyle Lite Strips) Test blood sugar once a day blood-glucose meter (FreeStyle Lite Meter kit) As directed cholecalciferol (vitamin D3) (Vitamin D3) 25 mcg PO 3XW clonidine HCl 0.1 mg PO TID escitalopram oxalate (Lexapro) 5 mg PO DAILY hydroxyzine pamoate 25 mg PO BID PRN Held on 08/24/25. Instructions: Doctor's Order lamotrigine (Lamictal) 100 mg orally Take 1 & 1/2 tablet in morning and 1 tablet at bedtime; lancets (FreeStyle Lancets) Test blood sugar once a day losartan 50 mg (1/2 x 100 mg) PO DAILY magnesium oxide 300 mg PO DAILY omeprazole 20 mg PO DAILY ondansetron HCl 4 mg PO Q12H PRN Ozempic (semaglutide) 0.5 mg (0.736 mL) subcut QWEEK 30 days NS rosuvastatin 40 mg PO Q2D HPI Comments Details: Stephanie is a pleasant 69-year-old woman with a history of longstanding diabetes mellitus. She has been referred for the evaluation of chronic kidney disease. Up until June of 2024 serum creatinine was normal around 1.0 mg/dL. On 09/11/2024 creatinine bumped up to 1.73 and the repeat creatinine was 1.67 on 11/07/2024. All medications were reviewed she is on hydrochlorothiazide 25 mg along with the potassium supplementation. She occasionally takes ibuprofen. History of lumpectomy of the right breast in 2019 for invasive ductal carcinoma She is on tamoxifen which she will be completing the course in the next few months. History of mixed urgent stress incontinence. History of vaginal prolapse and recently started on VESIcare 03/02/25 69-year-old female presenting for a routine follow-up regarding her management of type 2 diabetes and chronic kidney disease. She has been on Ozempic for di abetes and reports a weight loss of three pounds over the last three weeks. The patient acknowledges nausea as a side effect of her current medication. Her past medical history includes chronic kidney disease, with recent improvements in renal lab work noted. She recalls experiencing an episode of hypomania following recent medication adjustments, now resolved after further changes. 06/29/2025. Overall she is doing well. With the Ozempic she has lost weight. Blood pressure has decreased [facility] Medical History Bipolar 1 disorder, manic, full remission Hearing difficulty of both ears Degenerative joint disease of right hip Cystocele with prolapse Osteopenia of lumbar spine Diabetes mellitus with microalbuminuria, without long-term current use of insulin Mixed urge and stress incontinence Chronic heartburn Dyslipidemia History of invasive ductal carcinoma of breast Mitral valve regurgitation Polyp of gallbladder Hypertension Surgical History History of esophagogastroduodenoscopy (EGD) H/O colonoscopy History of repair of anterior cruciate ligament of left knee History of lumpectomy of right breast (~07/09/19) History of right breast biopsy (~07/02/19) History of section History of total hysterectomy Family History Father History of pancreatic cancer Sister History of lupus Mother No problems noted. 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 Comfortable. HENT: Neck supple. Mucosa moist. Pulmonary: Lungs aeration equal. No rales. Cardiology: Heart S1-S2 heard. No gallop. Abdomen: Soft. Non tender. Bowel sounds normal. Neurologic: No involuntary movements. No myoclonus. Extremities: No edema. No rash. Vital Signs: Last Vital Signs Pulse 82 09/28/25 11:58 BP 124/70 09/28/25 11:58 Pulse Ox 98 09/28/25 11:58 Oxygen Delivery Method Room Air 09/28/25 11:58 BMI result Body Mass Index 26.3 Results Reviewed Nephrology Results: Sodium, (135-145) 139 mmol/L 09/23/25 Potassium, (3.3-5.1) 4.1 mmol/L 09/23/25 Chloride, (96-108) 109 mmol/L H 09/23/25 Carbon Dioxide, (22-29) 23 mmol/L 09/23/25 BUN, (9-16) 18 mg/dL H 09/23/25 Creatinine, (0.5-1.4) 1.04 mg/dL 09/23/25 Calcium, (8.4-10.2) 10.0 mg/dL 09/23/25 Renal US 11/20/24 Assessment & Plan Assessment & Plan (1) CKD (chronic kidney disease): Code(s): N18.9 - Chronic kidney disease, unspecified Category: Medical (2) Type 2 diabetes mellitus without complication, without long-term current use of insulin: Code(s): E11.9 - Type 2 diabetes mellitus without complications Category: Medical (3) Hypertension: Code(s): I10 - Essential (primary) hypertension Category: Medical Qualifiers: Hypertension type: primary hypertension Qualified Code(s): I10 - Essential (primary) hypertension Plan Chronic kidney disease in the setting of longstanding diabetes mellitus hypertension. She had a component of acute kidney injury to his plain the recent bump in serum creatinine. Hypoperfusion could be playing a role. No obstructive uropathy based on USG She had no significant proteinuria and urine sediments were benign therefore glomerular nephritis or interstitial disease seem unlikely. Mild elevation in iPTH SHPT Watch for now Continue to hold hydrochlorothiazide and potassium supplementation for now. Optimize blood pressure and avoid hypotension. Avoid NSAIDs and othe rnephrotoxins She will benefit from SGLT-2 inhibitor Encouraged her to stay on low-sodium diet and increase p.o. fluid intake. 06/29/25 BP is rather low This is due to weight loss Will DECREASE Losartan to 50 mg from 100 mg 09/28/2025. Blood pressure well controlled. Renal function stable. No changes were made today. Encouraged her to stay on low-sodium diet continue current medications. Orders: Orders Basic Metabolic Panel 3 Months I10 - Essential (primary) hypertension, N18.9 - Chronic kidney disease, unspecified Coding Level of Care Code Est Pt Level 4 (01171) Diagnoses CKD (chronic kidney disease) N18.9 Type 2 diabetes mellitus without complication, without long-term current use of insulin E11.9 Primary hypertension I10 Hypertension type: primary hypertension
== END 2025-09-28 12:11 | disposition home or self-care (01) ==
LOC: HO.HKA 11:57
PROVIDERS: PCP Internal Medicine; Visit Provider Internal Medicine Hypertension Specialist
DX: I12.9 Hypertensive chronic kidney disease with stage 1 through stage 4 chronic kidney disease, or unspecified chronic kidney disease (principal); E11.22 Type 2 diabetes mellitus with diabetic chronic kidney disease; N18.9 Chronic kidney disease, unspecified
CPT/HCPCS: 99214

== ENCOUNTER 2025-10-19 10:48 | Outpatient (AMB) | payer OTHER, SELFPAY ==
--- NOTE | 2025-10-19 11:17 | MHC.OFFVISPS ---
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 Required: No Allergies Sulfa (Sulfonamide Antibiotics) (SULFA (SULFONAMIDE ANTIBIOTICS)) Adverse Reaction (Intermediate, Verified 09/28/25 12:00) muscle/joint pain tramadol Allergy (Uncoded 08/17/25 11:12) itching all over body Medication List - Last Reconciled 10/19/25 by Elsie Rodriguez APRN blood sugar diagnostic (FreeStyle Lite Strips) Test blood sugar once a day blood-glucose meter (FreeStyle Lite Meter kit) As directed cholecalciferol (vitamin D3) (Vitamin D3) 25 mcg PO 3XW clonidine HCl 0.1 mg PO TID escitalopram oxalate (Lexapro) 5 mg PO DAILY hydroxyzine pamoate 25 mg PO BID PRN Held on 08/24/25. Instructions: Doctor's Order lamotrigine (Lamictal) 100 mg orally Take 1 & 1/2 tablet in morning and 1 tablet at bedtime; lancets (FreeStyle Lancets) Test blood sugar once a day losartan 50 mg (1/2 x 100 mg) PO DAILY magnesium oxide 300 mg PO DAILY omeprazole 20 mg PO DAILY ondansetron HCl 4 mg PO Q12H PRN Ozempic (semaglutide) 0.5 mg (0.736 mL) subcut QWEEK 30 days NS rosuvastatin 40 mg PO Q2D HPI- Psychiatric Chief Complaint: depression HPI Narrative: pt here for follow up re: Bipolar Disorder, ADHD, RIGOBERTO. Pt reports she retired recently and she is adjusting more; she reports increased anxiety, irritability, and pressured speech; she reports racing thoughts; she is coping very well as she has good impulse control but its taking a lot of effort. she feels better on the lower lexapro but still anxious. no psychosis, no grandiosity. She denies SI or HI. sleep intact; sleeping 8 hours. she has restarted the hydroxyzine to help with anxiety. Past Psychiatric History: outpatient treatment only dx with ADHD, RIGOBERTO, r/o mood disorder NOS for years; Lesa Rodriges NP (her previous prescriber) dx her with Bipolar DO. She reports she had symptoms as child but no treatment until adulthood PAST Medication Trials: trileptal- ineffective Methyphenidate 20mg by PCP-made her feel edgy and increased blood pressure a lot Paxil?didn't do much Adderall XR--disrupted sleep, increased anxiety Wellbutrin SR--angry, agitation, passive HI Strattera--possibly activating Zoloft--sexual side effects Prozac--CPY-450 issues with Tamoxifen Lamictal--muscle tension/?pain Cymbalta--GI distress Seroquel--helped with agitation/misty melatonin hydroxyzine Subjective Subjective Medication Compliance: Yes Side effects from medications: No Review of Systems Medical Review of Systems: unchanged Mental Status Exam Mental Status Exam Patient Appearance: Well Grooomed and Appropriate Patient Orientation: Person, Place, Time and Situation Level of Consciousness: Awake and Appropriate Patient Behavior: Appropriate and Cooperative Mood Description: Happy, Appropriate and Anxious Affect Description: Happy and Anxious Patient Cognition Impaired: No Ability to Follow Directions: Excellent Speech Pattern: Clear, Spontaneous Speech and Rapid Memory Description: Intact Hallucinations: None Delusions: Not Present Thought Process: Intact Thought Content: positive for Intact and positive for Tangential Judgement: Good Assessment and Plan Assessment & Plan (1) Generalized anxiety disorder: Status: Resolved Code(s): F41.1 - Generalized anxiety disorder (2) ADHD (attention deficit hyperactivity disorder), combined type: Status: Acute Code(s): F90.2 - Attention-deficit hyperactivity disorder, combined type (3) Bipolar disorder, current episode hypomanic: Status: Resolved Code(s): F31.0 - Bipolar disorder, current episode hypomanic Plan Increase cllonidine 0.1mg in am 0.1mg at noon and 0.2mg at bedtime continue lexapro 5mg daily lamictal 150mg in am and 100mg at bedtime clonidine 0.1mg in am and 0.2mg at bedtime continue hydroxyzine prn Counseling and coordination of Care Pt. Self Management counseling: Mod caffeine/ETOH intake, Nutrition education and improvement, Sleep hygiene, General coping skills and Problem solving Medication management counseling: Effectiveness, Side effects, Dosing range, Duration, Drug interaction and Adherence Diagnosis and Prognosis Counseling: Accuracy of diagnosis, Prognosis over time, Impact of diagnosis on life functions, Impact of family relationship, Problematic behaviors secondary to diagnosis and Adequacy of current interventions Details: I spent 35 minutes reviewing the record, seeing the patient and documenting in the medical record. Counseling provided to the patient/caregiver as outlined below. Addressed patient/caregiver concerns regarding current medication regime including effective adherence. Addressed patient/caregiver concerns regarding diagnosis and prognosis including accuracy of diagnosis, prognosis over time, impact of diagnosis. Addressed patient/caregiver concerns regarding impact of recent stressors. [facility] Medical History Bipolar 1 disorder, manic, full remission Hearing difficulty of both ears Degenerative joint disease of right hip Cystocele with prolapse Osteopenia of lumbar spine Diabetes mellitus with microalbuminuria, without long-term current use of insulin Mixed urge and stress incontinence Chronic heartburn Dyslipidemia History of invasive ductal carcinoma of breast Mitral valve regurgitation Polyp of gallbladder Hypertension Surgical History History of esophagogastroduodenoscopy (EGD) H/O colonoscopy History of repair of anterior cruciate ligament of left knee History of lumpectomy of right breast (~07/09/19) History of right breast biopsy (~07/02/19) History of section History of total hysterectomy Family History Father History of pancreatic cancer Sister History of lupus Mother No problems noted. 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 Tran 32 year old daughter works with Autistic children patient graduated from high school, 5 years of college with degree in Psych. father age 8787 years old lives in [place], mother 10 years ago due to brain tumor, patient is the oldest of 4 girls Substance History: etoh in 30s has medical Jambo card Trauma History: yes childhood Coding Level of Care Code Est Pt Level 4 (48498) Diagnoses Generalized anxiety disorder F41.1 ADHD (attention deficit hyperactivity disorder), combined type F90.2 Bipolar disorder, current episode hypomanic F31.0
--- OUTSIDE RECORDS SUMMARY | 2025-10-19 14:34 | XMS_ITS | Encounter Summary ---
Author Organization [facility] Address [address] [facility] [address] [place] [address] Phone Care Team Providers Care Repairer Hairspring Name Role Phone Cassandra Valentin MD Primary Care Provider Reason for Referral * - Closed Specialty Diagnoses / Procedures Referred By Contac t Referred To Contact Procedures [place] Other Outside (No Interpretation) System, Provider Not In, [place] [address] Referral ID Status Reason Start Date Expiration Date Visits Re quested Visits Authorized [id number] Closed 07/28/2019 07/27/2020 1 1 Encounter Details Date Type Department Care Team (Late st Contact Info) Description 07/28/2019 Ancillary Orders [facility],Outside Imaging [address] [place] [address] System, Provider Not In, [place] [address] Social History Tobacco Use Types Packs/Day Years [...] on filedocumented in this encounter Care Teams Repairer Hairspring Relationship Specialty Start Date End Date Cassandra Valentin MD [address] [place] [address] [place] [address] PCP - General Internal Medicine 07/24/19 documented as of this encounter Additional Source Comments The information contained in this document represents components of the legal health record. It is not the complete legal health record.[facility]
--- OUTSIDE RECORDS SUMMARY | 2025-10-19 14:34 | XMS_ITS | Clinical Summary ---
Author Organization [facility] Address [address] [facility] [address] [address] [place] [address] Phone Care Team Providers Care Waste Hand Name Role Phone Cassandra Valentin MD Primary [...] Most Recently Relevant to Health Maintenance Insurance [employer] BLUE [employer]OSS [employer]UE [employer]EFITS ADMIN[employer] [address] [place] [address] [employer] BENEFITS ADMINISTRATORS [employer]ENEFITS ADMINISTRATORS [employer]EFITS ADMINISTRATORS [employer] BENEFITS ADMINISTRATORS [employer] BENEFITS ADMINISTRATORS [employer] ADMINISTRATORS [facility] [employer] ADMINISTRATORS Care Teams Waste Hand Relationship Specialty Start Date End Date Cassandra Valentin MD [address] [place] [address] PCP - General Internal Medicine 07/24/19 Additional Source Comments The information contained in this document represents components of the legal health record. It is not the complete legal health record.[facility]
--- OUTSIDE RECORDS SUMMARY | 2025-10-19 14:34 | XMS_ITS | Patient Health Record ---
Author Organization [facility] Address [address] [place] [phone] Care Team Providers Care Pharmacovigilance Safety Expert Name Role Phone Homero NORTON, Cassandra Primary Care Provider Wilmer Murguia Jr Unavailable Allergies Allergen (clinical drug ingredient) Drug/Non Drug Allergy documented on EMR Reaction Allergy Type Onset Date Status Sulfa Unknown Drug Allergy Active Reason For Referral No Information Medications Medication SIG (Take, Route, Frequency, Duration) Notes Start Date End Date Status lamoTRIgine 100 MG Tablet Oral; Duration: 30 Unknown Escitalopram Oxalate 20 MG Tablet Oral; Duration: 30 Unknown Magnesium Oxide (Antacid) 500 MG Capsule 1 capsule with food Orally Once a day Active MiraLax (colon prep) 17 GM/SCOOP Powder mixed with Gatorade or Crystal Light Orally begin at 5:00 p.m. the day before the procedure; Duration: 1 day 08/16/2022 Unknown hydrOXYzine Pamoate 25 MG Capsule Oral; Duration: 30 Unknown Sertraline HCl Activ e Ozempic (0.25 or 0.5 MG/DOSE) 2 MG/3ML Solution Pen-injector as directed Subcutaneous Active Pepcid 20 MG Tablet 1 tablet at bedtime as needed Orally Once a day; Duration: 30 day(s) Unknown cloNIDine HCl 0.1 MG Tablet Oral; Duration: 30 Unknown Losartan Potassium U nknown Omeprazole 20 MG Capsule Delayed Release TAKE 1 CAPSULE BY MOUTH EVERY DAY 30 MINUTES BEFORE MORNING MEAL FOR 30 DAYS; Duration: 30 Tell Aftab to schedule a f/u office visit. No more refills. Unknown Rosuvastatin Calcium 40 MG Tablet TAKE 1 TABLET BY MOUTH DAILY Oral; Duration: 30 Days Active Immunizations Vaccine Route Administration Date Status Comme nts Influenza Unknown 08/16/2022 Administered Influenza Unknown 07/21/2025 Administered Social History Social History Drugs/Alcohol: Social Info Question Answer Notes Alcohol Screen Did you have a drink containing alcohol in the past year? No Points 0 Interpretation Negative Additional Details Category Social Info Options Details Miscellaneous: Marital status: Occupation: works Section Notes: Tobacco use is negative. Alc ohol use none for 3 months. Tobacco use is negative. Tobacco use is negative. Problems Problem Type SNOMED Code ICD Code Onset Dates Problem Status W/U Status Risk Notes Problem Colon cancer screening (372439245) Colon cancer screening (Z12.11) Active confirmed Problem Constipation (66183372) Constipation (K59.00) Active confirmed Problem Dysphagia (83232962) Other dysphagia (R13.19) Active confirmed Problem Dysphagia (90420002) Dysphagia (R13.10) Active confirmed Problem Gastroesophageal reflux disease (961429035) Gastroesophageal reflux disease, unspecified whether esophagitis present (K21.9) Active confirmed Vital Signs Temperature 97.5 degrees Fahrenheit 08/04/2025 Blood pressure diastolic 01 mm Hg 08/04/2025 Height 61.5 in 08/04/2025 Blood pressure systolic 001 mm Hg 08/04/2025 Weight 148 lbs 08/04/2025 BMI 27.51 kg/m2 08/04/2025 Encounters Encounter Location Date Provider Diagnosis [facility] [address] [place] [phone] 08/04/2025 Wilmer Puckett Jr Gastroesophageal reflux disease, unspecified whether esophagitis present K21.9 ; Colon cancer screening Z12.11 and Constipation K59.00 [facility] [address] [place] [phone] 08/04/2025 Wilmer Puckett Jr Assessments Encounter Date Diagnosis (ICD Code) Assessment [...] Next Appt Details Provider Name:Wilmer mcmillan , 08/03/2026 10:20:00 AM, [address] [place] [address], [facility] [address], [place], [address], Insurance Providers Payer Name Payer Address Payer Phone Subscriber Number Group Number Insured Name Patient Relationship to Insured Coverage Start Date Coverage End Date [employer] ADMINISTRATORS OF [place] [address] [address] [place] [address] [id number] AFTAB OLIVER Self - patient is the insured Medical (General) History Medical History History ICD Code hypertension anxiety esophageal reflux fatty liver elevated cholesterol fibroids mitral valve prolapse Right breast cancer status p ost radiation therapy and lumpectomy, tamoxifen for 5 years Upper endoscopy 09/11, no H. pylori or B arrett's esophagus. Colonoscopy 09/11, normal, 10-year follo w-up Surgical History Surgery Date(Month/Year) knee surgery hysterectomy hip surgery breast biopsy
== END 2025-10-19 11:46 | disposition home or self-care (01) ==
LOC: HO.HOP 10:48
PROVIDERS: PCP Internal Medicine; Visit Provider Clinical Nurse Specialist Psychiatric/Mental Health
DX: F41.1 Generalized anxiety disorder (principal); F90.2 Attention-deficit hyperactivity disorder, combined type; F31.0 Bipolar disorder, current episode hypomanic
CPT/HCPCS: 99214